=== PATIENT | female | born 1950 | race Caucasian/White ===

== ENCOUNTER 2022-08-02 09:54 | Outpatient (OUT) | payer MEDICARE, SELFPAY ==
[2022-08-02 10:50] LABS: Basophils Percent Auto 0.7 % (0.2-2.0); Eosinophils Absolute Auto 0.1 10^3/uL (0.0-0.7); Eosinophils Percent Auto 2.4 % (0.9-7.0); Hematocrit 41.6 % (36.0-48.0); Hemoglobin 13.2 g/dL (12.0-16.0); Immature Granulocytes Abs Auto 0.01 10^3/uL (0.00-0.03); Immature Granulocytes Pct Auto 0.2 % (0.0-0.5); Lymphocytes Absolute Auto 1.5 10^3/uL (1.2-3.8); Lymphocytes Percent Auto 32.9 % (20.5-60.0); Mean Corpuscular HGB Conc 31.7 g/dL (29.9-35.2); Mean Corpuscular Hemoglobin 28.2 pg (26.7-34.0); Mean Corpuscular Volume 88.9 fL (81.0-99.0); Mean Platelet Volume 9.9 fL (9.5-13.5); Monocytes Absolute Auto 0.4 10^3/uL (0.3-0.8); Monocytes Percent Auto 8.6 % (1.7-12.0); Neutrophils Absolute Auto 2.5 10^3/uL (1.4-6.5); Neutrophils Percent Auto 55.2 % (43.0-75.0); Platelet Count 232 10^3/uL (150-450); Red Blood Count 4.68 10^6/uL (4.20-5.40); Red Cell Distribution Width 13.3 % (11.0-15.0); White Blood Count 4.6 10^3/uL (4.0-11.0)
[2022-08-02 10:51] LABS: Estimated Average Glucose 169 mg/dL; Glycohemoglobin A1C 7.5 % (4.5-6.2)
[2022-08-02 13:06] LABS: Alanine Aminotransferase 35 U/L (14-59); Albumin Globulin Ratio 1.1; Albumin Level 3.9 g/dL (3.4-5.0); Alkaline Phosphatase 84 U/L (46-116); Anion Gap 12.5; Aspartate Amino Transferase 20 U/L (15-37); BUN Creatinine Ratio 19.8; Bilirubin Total 1.7 mg/dL (0.2-1.0); Carbon Dioxide 27.7 mmol/L (21.0-32.0); Chloride 102 mmol/L (98-107); Estimated GFR (African America 51 (>=60); Estimated GFR (Non-African Ame 42 (>=60); Free T3 1.45 pg/mL (2.18-3.98); Globulin 3.4 g/dL; Glucose 182 mg/dL (74-106); Potassium 4.2 mmol/L (3.5-5.1); Sodium 138 mmol/L (136-145); Thyroid Stimulating Hormone 0.764 uIU/mL (0.358-3.740); Total Protein 7.3 g/dL (6.4-8.2)
== END 2022-08-02 09:55 ==
PROVIDERS: PCP Family Medicine; Visit Provider Family Medicine
DX: R53.83 Other fatigue (principal); R19.7 Diarrhea, unspecified; R19.5 Other fecal abnormalities; E11.65 Type 2 diabetes mellitus with hyperglycemia
CPT/HCPCS: 36415; 80053; 83036; 83880; 84436; 84443; 84481; 85025

== ENCOUNTER 2022-08-04 16:35 | Outpatient (REF) | payer MEDICARE, SELFPAY ==
[2022-08-05 16:01] LABS: Occult Blood Negative
== END 2022-08-04 16:36 ==
LOC: LAB 16:35
PROVIDERS: PCP Family Medicine; Visit Provider Nurse Practitioner Family
DX: R53.83 Other fatigue (principal); R19.7 Diarrhea, unspecified; R19.5 Other fecal abnormalities
CPT/HCPCS: G0328

== ENCOUNTER 2022-08-26 10:38 | Outpatient (OUT) | payer MEDICARE, SELFPAY ==
--- NOTE | 2022-08-26 10:44 | MM_ITS ---
Patient: LEIA FLEMING Exam Date: 08/26/2022 : 1950 Gender:F Ordering : DR Franklyn Torres . Admission #: [id number] Family : Order #: [id number] CLICK HERE TO VIEW EXAM RADIOLOGY REPORT PROCEDURE: MM TOMOSYNTHESIS SCREENING BI COMPARISON: MG MAMM SCREEN 3D EMILY CAD, 08/17/2020. MG MAMM SCREEN 3D EMILY CAD, 08/22/2021. INDICATIONS: Screening mammogram Z12.31 Calculator Name NCI Breast Cancer Risk Assessment Tool 5 Year Breast Cancer Risk 8.30% Lifetime Breast Cancer Risk 21.20% Personal Breast Cancer No Personal Ovarian Cancer No Treatments excision Family Cancers Sister with breast cancer at age 40; Sister with breast cancer at age 50. LOCATION: The [facility] BREAST COMPOSITION: Scattered areas fibroglandular density. FINDINGS: DIAGNOSTIC CATEGORY 2--BENIGN FINDING. NO CHANGE FROM COMPARISON. Scattered benign-appearing calcifications are present. Scattered benign-appearing lymph nodes are present. RIGHT BREAST: No significant suspicious finding. LEFT BREAST: No significant suspicious finding. RECOMMENDATIONS: ROUTINE MAMMOGRAM AND CLINICAL EVALUATION IN 12 MONTHS. PLEASE NOTE: A NORMAL MAMMOGRAM DOES NOT EXCLUDE THE POSSIBILITY OF BREAST CANCER. A CLINICALLY SUSPICIOUS PALPABLE LUMP SHOULD BE BIOPSIED. Dictated by: Sami Rasmussen MD on 08/26/2022 at 14:20 Approved by: Sami Rasmussen MD on 08/26/2022 at 14:23
== END 2022-08-26 10:39 | disposition home or self-care (01) ==
LOC: MAMMO 10:38
PROVIDERS: PCP Family Medicine; Visit Provider Family Medicine
DX: Z12.31 Encounter for screening mammogram for malignant neoplasm of breast (principal); Z80.3 Family history of malignant neoplasm of breast
CPT/HCPCS: 77063; 77067

== ENCOUNTER 2023-01-16 11:10 | Outpatient (OUT) | payer MEDICARE, SELFPAY ==
[2023-01-16 11:43] LABS: Eosinophils Absolute Auto 0.1 10^3/uL (0.0-0.7); Eosinophils Percent Auto 1.6 % (0.9-7.0); Hematocrit 40.9 % (36.0-48.0); Hemoglobin 13.1 g/dL (12.0-16.0); Lymphocytes Absolute Auto 1.4 10^3/uL (1.2-3.8); Lymphocytes Percent Auto 35.7 % (20.5-60.0); Mean Corpuscular Hemoglobin 28.6 pg (26.7-34.0); Mean Corpuscular Volume 89.3 fL (81.0-99.0); Mean Platelet Volume 9.8 fL (9.5-13.5); Monocytes Absolute Auto 0.2 10^3/uL (0.3-0.8); Neutrophils Absolute Auto 2.1 10^3/uL (1.4-6.5); Neutrophils Percent Auto 55.7 % (43.0-75.0); Platelet Count 222 10^3/uL (150-450); Red Blood Count 4.58 10^6/uL (4.20-5.40); Red Cell Distribution Width 13.3 % (11.0-15.0); White Blood Count 3.8 10^3/uL (4.0-11.0)
[2023-01-16 11:53] LABS: Ammonia 27 umol/L (11-32)
[2023-01-16 11:54] LABS: Estimated Average Glucose 146 mg/dL; Glycohemoglobin A1C 6.7 % (4.5-6.2)
[2023-01-16 12:08] LABS: Alanine Aminotransferase 21 U/L (14-59); Albumin Globulin Ratio 1.2; Albumin Level 3.8 g/dL (3.4-5.0); Alkaline Phosphatase 79 U/L (46-116); Anion Gap 14.6; Aspartate Amino Transferase 15 U/L (15-37); BUN Creatinine Ratio 22.8; Bilirubin Total 1.9 mg/dL (0.2-1.0); Calcium 9.4 mg/dL (8.5-10.1); Carbon Dioxide 26.7 mmol/L (21.0-32.0); Chloride 103 mmol/L (98-107); Cholesterol 122 mg/dL (<=200); Estimated GFR (African America >60 (>=60); Estimated GFR (Non-African Ame >60 (>=60); Free T3 2.39 pg/mL (2.18-3.98); Globulin 3.1 g/dL; Glucose 130 mg/dL (74-106); HDL Cholesterol 41 mg/dL (40-60); Potassium 4.3 mmol/L (3.5-5.1); Sodium 140 mmol/L (136-145); Thyroid Stimulating Hormone 0.143 uIU/mL (0.358-3.740); Total Protein 6.9 g/dL (6.4-8.2); Triglycerides 159 mg/dL (<=150); VLDL CHOLESTEROL 31.8 mg/dL
== END 2023-01-16 11:11 | disposition home or self-care (01) ==
LOC: LAB 11:12
PROVIDERS: PCP Family Medicine; Visit Provider Family Medicine
DX: R41.3 Other amnesia (principal); E03.9 Hypothyroidism, unspecified; I25.10 Atherosclerotic heart disease of native coronary artery without angina pectoris; E78.5 Hyperlipidemia, unspecified; R73.09 Other abnormal glucose; D64.9 Anemia, unspecified; E55.9 Vitamin D deficiency, unspecified; I11.0 Hypertensive heart disease with heart failure; I50.30 Unspecified diastolic (congestive) heart failure
CPT/HCPCS: 36415; 80053; 80061; 82140; 82306; 83036; 83540; 83880; 84436; 84443; 84481; 85025

== ENCOUNTER 2023-02-03 12:27 | Outpatient (OUT) | payer MEDICARE, SELFPAY ==
--- NOTE | 2023-02-03 | MR_ITS ---
The [address] [address] Patient Name: LEIA FLEMING MRN: [id number] date: 1950 Sex: F Assigned Patient Location: MRI Current Patient Location: MRI Accession/Order Number: [id number] Exam Date: 02/03/2023 12:55 Report Date: 02/03/2023 14:04 At the request of: JACKY LAKHANI Procedure: MR head/brain wo con EXAM: MRI of the brain without IV contrast. REASON FOR EXAM: R41.3 memory loss, confusion COMPARISON: CT scan dated 08/17/2020 FINDINGS: No intracranial masses. No abnormal restricted diffusion or evidence of evolving infarct. No evidence of intracranial hemorrhage. No hydrocephalus. Mild generalized cerebral and cerebellar volume loss. Minimal small vessel gliosis. Paranasal sinuses and mastoid air cells are clear. Remainder unremarkable. MR/MR head/brain wo con IMPRESSION: 1. Mild cerebral volume loss and small vessel gliosis. 2. Otherwise unremarkable brain MRI. Electronically authenticated by: NAMAN CROFT Date: 02/03/2023 14:04
== END 2023-02-03 12:28 | disposition home or self-care (01) ==
LOC: MRI 12:27
PROVIDERS: PCP Family Medicine; Visit Provider Family Medicine
DX: R41.3 Other amnesia (principal)
CPT/HCPCS: 70551

== ENCOUNTER 2023-03-24 10:56 | Emergency (ER) | payer MEDICARE, SELFPAY ==
[2023-03-24 11:03] VITALS: BP 148/88; PULSE 48; RESP 16; TEMP 36.6; O2SAT 100; BMI 28.4
--- OUTSIDE RECORDS SUMMARY | 2023-03-24 11:12 | XMS_ITS | CCD ---
Author Name Unknown Address [address] [facility] [address] [place] [address] Organization [facility] Care Team Providers Care Junior Brand Manager Name Role Phone Jacky Torres MD Primary Care Provider [phone] Darrel RAUSCH, Amy Unavailable LESVIA, DR RICO Admitting Unavailable HOY, DR RICO Attending Unavailable HOY, DR RICO Primary Care Unavailable HOY, DR RICO Primary Care Unavailable HOY, DR RICO Admitting Unavailable HOY, DR RICO Attending Unavailable HOY, DR RICO Admitting Unavailable HOY, DR RICO Attending Unavailable HOY, DR RICO Consulting Unavailable HOY, DR RICO Primary Care Unavailable ALTON, DR KWABENA Rutledge Consulting Unavailable HOY, DR RICO Admitting Unavailable HOY, DR RICO Attending Unavailable HOY, DR RICO Consulting Unavailable HOY, DR RICO Primary Care Unavailable HOY, DR RICO Admitting Unavailable HOY, DR RICO Attending Unavailable HOY, DR RICO Consulting Unavailable HOY, DR RICO Primary Care Unavailable ZIEBER, DR BRANNON Jean-Baptiste Consulting Unavailable CRUZGINA Consulting Unavailable HOY, DR RICO Consulting Unavailable HOY, DR RICO Admitting Unavailable HOY, DR RICO Attending Unavailable HOY, DR RICO Primary Care Unavailable HOY, DR RICO Primary Care Unavailable HOY, DR RICO Consulting Unavailable HOY, DR RICO Admitting Unavailable LESVIA, DR RICO Attending Unavailable Jacky Torres MD Primary Care Provider [phone] Amy Barger MD Unavailable JACKY TORRSE Primary Care Unavailable AMY BARGER Attending Unavailable AMY BARGER Referring Unavailable JACKY TORRES Primary Care Unavailable AMY BARGER Referring Unavailable JACKY TORRES Primary Care Unavailable JACKY TORRES Primary Care Unavailable AMY BARGER Attending Unavailable AMY BARGER Referring Unavailable JACKY TORRES Primary Care Unavailable JACKY TORRES Primary Care Unavailable AMY BARGER Referring Unavailable JACKY TORRES Primary Care Unavailable AMY BARGER Referring Unavailable KATHERINE CAN Attending Unavailable Allergies Allergy Classification Reported Allergen(s) Allergy Type Date of Onset Reaction(s) Facility (4 sources) Codeine; Translations: [CODEINE] Drug Allergy 9 Other: See Comments [facility] (4 sources) Sulfonamides (Antibiotic); Translations: [SULFA (SULFONAMIDE ANTIBIOTICS)] Drug Allergy 8 Shortness of Breath [facility] (4 sources) traMADol; Translations: [TRAMADOL] Drug Allergy 1 GI Upset [facility] (5 sources) Tuberculin Ppd Geneva Test; Translations: [Tuberculin PPD Geneva Test] Drug Allergy 2 Rash [facility] (1 source) Codeine Drug Allergy [facility] (1 source) Glutathione Drug Allergy [facility] (1 source) traMADol Drug Allergy [facility] Medications Current Medications Medication Drug Class(es) Dates Sig (Normalized) Sig (Original) perflutren lipid microspheres 1.3 mL in NaCl (PF) 0.9% 10 mL injection (DEFINITY) (3 sources) Start: 01-04-2021 End: 04-05-2022 perflutren lipid microspheres 1.3 mL in NaCl (PF) 0.9% 10 mL injection (DEFINITY) Start: 11-21-2020 End: 02-20-2022 perflutren lipid microsphere s 1.3 mL in NaCl (PF) 0.9% 10 mL injection (DEFINITY) 125 ml sodium chloride 9 mg/ ml prefilled syringe (3 sources) Start: 11-21-2020 End: 04-05-2022 sodium chloride 0.9 % (flush ) 10 mL (BD POSIFLUSH) Completed/Discontinued Medications Medication Drug Class(es) Dates Sig (Normalized) Sig (Original) aspirin 81 mg delayed release oral tablet (3 sources) Platelet Aggregation Inhibitor, Nonsteroidal Anti-inflammatory Drug take 1 tablet by mouth every twenty-four hours aspirin, enteric coated (ASPIRIN, ENTERIC COATED) 81 mg EC tablet Take 81 mg by mouth q 24 HR. 0 Active Comment on above: Take 81 mg by mouth q 24 HR. diclofenac sodium 75 mg delayed release oral tablet (1 source) Nonsteroidal Anti-inflammatory Drug take 1 tablet by mouth once daily diclofenac, EC, (VOLTAREN) 75 mg EC tablet Take 75 mg by mouth once daily. 0 Active Comment on above: Take 75 mg by mouth once daily. ergocalciferol 1.25 mg oral capsule (1 source) Provitamin D2 Compound Start: 10-15-2020 End: 09-13-2021 ergocalciferol 50,000 unit capsule (VITAMIN D2, DRISDOL) Every other week take one tablet 0 10/15/2020 09/13/2021 Discontinued (Discontinued by Patient) Comment on above: Every other week silvestre e one tablet glimepiride 4 mg oral tablet (3 sources) Sulfonylurea take 1 tablet by mouth once daily glimepiride (AMARYL) 4 mg tablet Take 4 mg by mouth once daily. 0 Active take 1 tablet by mouth twice alma ly glimepiride (AMARYL) 4 mg tablet Take 4 mg by mouth twice daily. 0 Active Comment on above: Take 4 mg by mouth t wice daily. Take 4 mg by mouth o nce daily. levothyroxine sodium 0.1 mg oral tablet (3 sources) l-Thyroxine take 1 tablet by mouth every twenty-four hours levothyroxine (SYNTHROID) 100 mcg tablet Take 100 mcg by mouth q 24 HR. 0 Active Comment on above: Take 100 mcg by mout h q 24 HR. losartan potassium 25 mg oral tablet (3 sources) Angiotensin 2 Receptor Selam Start: End: 023 losartan (COZAAR) 25 mg tablet metFORMIN hydrochloride 1000 mg oral tablet (3 sources) Biguanide take 1 tablet by mouth twice daily metFORMIN (GLUCOPHAGE) 1,000 mg tablet Take 1,000 mg by mouth twice daily. 0 Active Comment on above: Take 1,000 mg by josue th twice daily. pioglitazone 15 mg oral tablet (1 source) Peroxisome Proliferator Receptor alpha Agonist, Peroxisome Proliferator Receptor gamma Agonist, Thiazolidinedione Start: 023 pioglitazone (ACTOS) 15 mg tablet twice daily. 0 06/28/2022 Active Comment on above: twice daily. rosuvastatin calcium 40 mg oral tablet (3 sources) HMG-CoA Reductase Inhibitor Start: 019 take 1 tablet by mouth once daily rosuvastatin (CRESTOR) 40 mg tablet Take 40 mg by mouth once daily. 0 12/07/2018 Active Comment on above: Take 40 mg by mouth once daily. sertraline 25 mg oral tablet (3 sources) Serotonin Reuptake Inhibitor Start: 019 take 1 tablet by mouth once daily sertraline (ZOLOFT) 25 mg tablet Take 25 mg by mouth once daily. 0 12/07/2018 Active Comment on above: Take 25 mg by mouth once daily. tiZANidine 4 mg oral tablet (1 source) Central alpha-2 Adrenergic Agonist tiZANidine (ZANAFLEX) 4 mg tablet Take 4 mg by mouth as needed. 0 Active Comment on above: Take 4 mg by mouth a s needed. Problems Active Problems Problem Classification Problem Date Documented Da te Episodic/Chronic Coronary atherosclerosis and other heart disease (10 sources) Coronary atherosclerosis; Translations: [Atherosclerotic heart disease of [place] coronary artery without angina pectoris] Onset: 01-05-2021 Chronic Deficiency and other anemia (1 source) Anemia, unspecified; Translations: [ANEMIA UNSPECIFIED] Onset: 03-28-2022 Episodic Diabetes mellitus without complication (11 sources) Type 2 diabetes mellitus without complication; Translations: [Type 2 diabetes mellitus without complications] Onset: 03-25-2018 Chronic Diabetes mellitus without complication (1 source) Other abnormal glucose; Translations: [OTHER ABNORMAL GLUCOSE] Onset: 03-28-2022 Episodic Disorders of lipid metabolism (7 sources) Mixed hyperlipidemia; Translations: [Mixed hyperlipidemia] Onset: 08-24-2020 Chronic Esophageal disorders (1 source) Gastro-esophageal reflux disease without esophagitis; Translations: [GERD WITHOUT ESOPHAGITIS] Onset: 03-28-2022 Chronic Heart valve disorders (17 sources) Aortic incompetence, non-rheumatic ; Translations: [Nonrheumatic aortic (valve) insufficiency] Onset: 01-21-2019 Chronic Nutritional deficiencies (1 source) Vitamin D deficiency, unspecified; Translations: [VITAMIN D DEFICIENCY UNSPECIFIED] Onset: 03-28-2022 Chronic Osteoarthritis (5 sources) Unspecified osteoarthritis, unspecified site; Translations: [Primary osteoarthritis, right shoulder] Onset: 09-10-2021 Chronic Other nutritional; endocrine; and metabolic disorders (3 sources) Obese class I; Translations: [Obesity, unspecified] Onset: 01-21-2019 01-21-2019 Chronic Other nutritional; endocrine; and metabolic disorders (1 source) Overweight; Translations: [OVERWEIGHT] Onset: 03-28-2022 Episodic Other screening for suspected conditions (not mental disorders or infectious disease) (6 sources) Encounter for screening for malignant neoplasm of rectum; Translations: [Encounter for screening mammogram for malignant neoplasm of breast] Onset: 08-27-2021 Episodic Fani-; endo-; and myocarditis; cardiomyopathy (except that caused by tuberculosis or sexually transmitted disease) (5 sources) Heart valve disorder; Translations: [Endocarditis, valve unspecified] Onset: 01-21-2019 01-21-2019 Chronic Thyroid disorders (4 sources) Hypothyroidism, unspecified; Translations: [HYPOTHYROIDISM UNSPECIFIED] Onset: 03-26-2022 Chronic Viral infection (1 source) COVID-19; Translations: [COVID-19] Onset: 05-20-2021 Past or Other Problems Problem Classification Problem Date Documented Da te Episodic/Chronic Acute bronchitis (4 sources) Acute bronchitis, unspecified; Translations: [ACUTE BRONCHITIS UNSPECIFIED] Onset: 05-16-2021 Episodic Cardiac dysrhythmias (3 sources) Palpitations; Translations: [Palpitations] Onset: 01-21-2019 01-21-2019 Episodic Nonspecific chest pain (3 sources) Chest pain; Translations: [Other chest pain] Onset: 08-24-2020 08-24-2020 Episodic Other connective tissue disease (4 sources) Impingement syndrome of right shoulder; Translations: [IMPINGEMENT SYNDROME RIGHT SHOULDER] Onset: 12-23-2021 Episodic Other non-traumatic joint disorders (1 source) Pain in right shoulder; Translations: [PAIN IN RIGHT SHOULDER] Onset: 12-24-2021 Episodic Residual codes; unclassified (1 source) Family history of malignant neoplasm of breast; Translations: [FAMILY HX MALIG NEOPLASM OF BREAST] Onset: 08-27-2021 Episodic Results Test Name Value Interpretation Reference Range Facility Basic metabolic 2000 panelon 08-29-2022 Anion gap [Moles/Vol] 9 mmol/L Normal 9-18 [facility] Comment on above: Order Comment: Speci men Type: BLOOD SPECIMEN Ordering Facility: [facility] Address: [address] [place] [id number] Performed By: #### 2 4321-2 #### [facility] CLIA [id number] [address] [place] [address] [place] Calcium [Mass/Vol] 10.5 mg/dL High 8.5-10.2 [facility] Comment on above: Order Comment: Speci men Type: BLOOD SPECIMEN Ordering Facility: [facility] Address: [address] [address] Performed By: #### 2 4321-2 #### [facility] CLIA [id number] [address] [place] [address] [place] Chloride [Moles/Vol] 104 mmol/L Normal 97-105 [facility] Comment on above: Order Comment: Speci men Type: BLOOD SPECIMEN Ordering Facility: [facility] Address: [address] [place] [address] Performed By: #### 2 4321-2 #### [facility] CLIA [id number] [address] [place] [address] [place] CO2 [Moles/Vol] 27 mmol/L Normal 22-30 [facility] Comment on above: Order Comment: Speci men Type: BLOOD SPECIMEN Ordering Facility: [facility] Address: [address] [place] [address] Performed By: #### 2 4321-2 #### [facility] CLIA [id number] [address] [place] [address] [place] Creatinine [Mass/Vol] 0.84 mg/dL Normal 0.58-0.96 [facility] Comment on above: Order Comment: Speci men Type: BLOOD SPECIMEN Ordering Facility: [facility] Address: [address] [place], [place] [address] Performed By: #### 2 4321-2 #### [facility] CLIA [id number] [address] [place] [address] [place] ESTIMATED GLOMERULAR FILTRATION RATE 74 mL/min/1.73m??? Normal >=60 [facility] Comment on above: Order Comment: Colten sidhu Type: BLOOD SPECIMEN Ordering Facility: [facility] Address: [address] [place] [address] Result Comment: Maria R mated Glomerular Filtration Rate (eGFR) is calculated using the 2020 CKD-EPI creatinine equation. This equation utilizes serum creatinine, sex, and age as parameters. The creatinine assay has traceable calibration to isotope dilution-mass spectrometry. Refer to KDIGO guidelines for clinical interpretation. In patients with unstable renal function, e.g. those with acute kidney injury, the eGFR may not accurately reflect actual GFR. Performed By: #### 2 4321-2 #### [facility] CLIA [id number] [address] [place] [address] [place] Glucose [Mass/Vol] 167 mg/dL High 74-99 [facility] Comment on above: Order Comment: Colten sidhu Type: BLOOD SPECIMEN Ordering Facility: [facility] Address: [address] [address] Result Comment: The [place] [employer] Association (ADA) provides guidance for cutoff values for fasting glucose and random glucose. The ADA defines fasting as no caloric intake for at least 8 hours. Fasting plasma glucose results between 100 to 125 mg/dL indicate increased risk for diabetes (prediabetes). Fasting plasma glucose results greater than or equal to 126 mg/dL meet the criteria for diagnosis of diabetes. In the absence of unequivocal hyperglycemia, results should be confirmed by repeat testing. In a patient with classic symptoms of hyperglycemia or hyperglycemic crisis, random plasma glucose results greater than or equal to 200 mg/dL meet the criteria for diagnosis of diabetes. Reference: Standards of Medical Care in Diabetes 2016, [place] [employer]. Diabetes Care. 2016.39(Suppl 1). Performed By: #### 2 4321-2 #### [facility] CLIA [id number] [address] [place] [address] [place] Potassium [Moles/Vol] 4.1 mmol/L Normal 3.7-5.1 [facility] Comment on above: Order Comment: Colten sidhu Type: BLOOD SPECIMEN Ordering Facility: [facility] Address: [address] [id number] Performed By: #### 2 4321-2 #### [facility] CLIA [id number] [address] [place] [address] [place] Sodium [Moles/Vol] 140 mmol/L Normal 136-144 [facility] Comment on above: Order Comment: Speci men Type: BLOOD SPECIMEN Ordering Facility: [facility] Address: [address] [address] Performed By: #### 2 4321-2 #### [facility] CLIA [id number] [address] [place] [address] [place] Urea nitrogen [Mass/Vol] 18 mg/dL Normal 7-21 [facility] Comment on above: Order Comment: Speci men Type: BLOOD SPECIMEN Ordering Facility: [facility] Address: [address] [place] [address] Performed By: #### 2 4321-2 #### [facility] CLIA [id number] [facility] [address] [place] CNOVon 08-29-2022 CNOV Office Visit (CARIMN ) LEIA MARIE ([id number]) 1950 F Date Time Provider Department 08/29/22 1:30 PM AMY BARGER During your visit today, we recorded the following information about you: Pulse Blood pressure Weight Height 59/minute 140/66 94 kg 1.676 m Amy Baregr MD 08/30/2022 3:22 PM Signed [facility] Department of Cardiovascular Medicine SECTION OF CARDIOVASCULAR IMAGING OUTPATIENT VISIT DATE August 29, 2022 OUTPATIENT VISIT TYPE Established REFERRING PHYSICIAN: SELF CHIEF COMPLAINT: Folow-up of CAD/valvular heart disease. Subjective HISTORY OF PRESENT ILLNESS: Ms. Marie is a 72 year old female who presents today for follow-up. I last reviewed Ms. Marie on September 13, 2021. Ms. Marie has a history of type 2 diabetes mellitus, dyslipidemia and hypothyroidism. Ms. Marie reported that one occasion when she was at her local doctor's office, she was noted to be pale . She was subsequently referred for an ECG and an echocardiogram. The echocardiogram was reported as showing mild to moderate mitral and aortic regurgitation. Apparently, as a result of the echocardiographic findings, she has been commenced on losartan. She was initially prescribed lisinopril, which resulted in cough. Ms. Marie does not have a diagnosed history of hypertension. Ms. Marie has had a history of hypoglycemic episodes in the context of her type 2 diabetes mellitus. It is possible that the prior episode when she was noted to be pale , she was hypoglycemic. 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 At night-time, Ms. Marie reports having the sensation of irregular heartbeats . She does not report chest pain. With heavy exertion, she describes mild shortness of breath and fatigue. Previously, CT coronary angiogram today demonstrates coronary calcifications in the left coronary system, mainly in the LAD (see saved image). It is reported to be at least moderate stenosis, although it is difficult to assess precisely due to calcium blooming. It maybe that the stenosis severity is over-estimated by CT imaging. In the context of abnormal CT coronary angiogram findings, she underwent invasive angiography. This demonstrates overall mild CAD. There is mild proximal LAD disease. Reassuringly, there is no significant coronary lesion detected. Since last review, Ms. Marie has been overall stable from the cardiac perspective. PAST CARDIAC HISTORY: As noted above. PAST MEDICAL HISTORY Diagnosis Date Anxiety Aortic regurgitation mild to moderate per osh Depression Diabetes (HCC) Fibroid tumor right side breast Hyperlipidemia Hypothyroid Skin cancer basal cell-s/p removal on face Tricuspid regurgitation mild to moderate PAST SURGICAL HISTORY Procedure Laterality Date APPENDECTOMY BREAST BIOPSY CARPAL TUNNEL Bilateral CHOLECYSTECTOMY 1983 D+C d/t bleeding issues after TONSILLECTOMY HX TUBAL LIGATION SOCIAL HISTORY Social History Tobacco Use Smoking status: Never Smokeless tobacco: Never Vaping Use Vaping Use: Never used Substance Use Topics Alcohol use: Never Drug use: Never FAMILY HISTORY Problem Relation Age of Onset Heart Attack Mother fatal [place] at age 70 Diabetes Mother Diabetes Father Heart Father bypass at age 60s Heart Attack Father [place] at age 60s other (Other) Father MVA at age 72 Cancer Sister at age 42 other (Other) Brother Cancer Sister breast cancer at age 50 No Known Problems Brother Heart Attack Brother fatal [place] at age 64 other (ulcers) Brother bleeding ulcers other (hepatitis) Brother at age 50 other (liver) Brother Heart Paternal cousin heart failure unsure? ALLERGIES: ALLERGIES Allergen Reactions Sulfa (Sulfonamide * Shortness of Breath Tuberculin Ppd Geneva* Rash Codeine Other: See Comments Chest pain Ultram [Tramadol] GI Upset MEDICATIONS: pioglitazone (ACTOS) 15 mg tablet twice daily. diclofenac, EC, (VOLTAREN) 75 mg EC tablet Take 75 mg by mouth once daily. tiZANidine (ZANAFLEX) 4 mg tablet Take 4 mg by mouth as needed. ACCU-CHEK BEREKET PLUS TEST STRP test strip rosuvastatin (CRESTOR) 40 mg tablet Take 40 mg by mouth once daily. glimepiride (AMARYL) 4 mg tablet Take 4 mg by mouth once daily. levothyroxine (SYNTHROID) 100 mcg tablet Take 100 mcg by mouth q 24 HR. sertraline (ZOLOFT) 25 mg tablet Take 25 mg by mouth once daily. aspirin, enteric coated (ASPIRIN, ENTERIC COATED) 81 mg EC tablet Take 81 mg by mouth q 24 HR. metFORMIN (GLUCOPHAGE) 1,000 mg tablet Take 1,000 mg by mouth twice daily. PHYSICAL EXAMINATION: BP 140/66 Pulse (!) 59 Ht 167.6 cm (5' 6 ) Wt 94 kg (207 lb 4.8 oz) SpO2 100% BMI 33.46 kg/m? General: Well appea (more content not included)... Normal [facility] ECG COMPLETEon 08-29-2022 ECG COMPLETE Ventricular Rate : 5 0 BPM Atrial Rate : 50 BPM P-R Interval : 174 ms QRS Duration : 80 ms Q-T Interval : 442 ms QTC Calculation(Bazett) : 402 ms Calculated P Star : 59 degrees Calculated R Star : -8 degrees Calculated T Star : 42 degrees SINUS BRADYCARDIA WITH MARKED SINUS ARRHYTHMIA OTHERWISE NORMAL ECG Confirmed by NOEL RAUSCH, NADIR ([id number]) on 09/06/2022 10:03:50 AM NAME : LEIA MARIE PID : [id number] : 1950 Gender : Female Race : ORD : [id number] Procedure Date : Aug 29 2022 12:55:52 Edit Date : Sep 06 2022 10:03:55 Diagnosis: SINUS BRADYCARDIA WITH MARKED SINUS ARRHYTHMIA OTHERWISE NORMAL ECG Confirmed by NADIR COHEN MD ([id number]) on 09/06/2022 10:03:50 AM Test Reason : Location : [address] [place] [address] Overread By : NADIR COHEN MD Edited By : NADIR COHEN MD Referred By : AMY BARGER Acquired by : YUNIER VALLE [facility] BLD IMMUNO SCREENon 03-03 OCCULT BLOOD Negative Normal NEGATIVE [facility] Comment on above: Performed By: #### O BSCRN #### [facility] [address] [place] [address] Dr. Kym Burks CBC AUTO DIFFon 03-26-2022 BASO # 0.0 103/ul Normal 0.0-0.1 [facility] Comment on above: Performed By: #### C BC #### [facility] [address] [place] [address] Dr. Kym Burks Basophils/100 WBC (Bld) 0.7 % Normal 0.2-2.0 [facility] Comment on above: Performed By: #### C BC #### [facility] [address] [place] [address] Dr. Kym Burks EO # 0.1 103/ul Normal 0.0-0.7 [facility] Comment on above: Performed By: #### C BC #### [facility] [address] [place] [address] Dr. Kym Burks Eosinophils/100 WBC (Bld) 1.7 % Normal 0.9-7.0 [facility] Comment on above: Performed By: #### C BC #### [facility] [address] [place] [address] Dr. Kym Burks Erythrocyte distribution width (RBC) [Ratio] 13.2 % Normal 11.0-15.0 [facility] Comment on above: Performed By: #### C BC #### [facility] [address] [place] [address] Dr. Kym Burks Hematocrit (Bld) [Volume fraction] 41.6 % Normal 36.0-48.0 [facility] Comment on above: Performed By: #### C BC #### [facility] [address] [place] [address] Dr. Kym Burks Hemoglobin (Bld) [Mass/Vol] 12.7 g/dL Normal 12.0-16.0 [facility] Comment on above: Performed By: #### C BC #### [facility] [address] [place] [address] Dr. Kym Burks IG # 0.00 10e3/ul Normal 0.00-0.03 [facility] Comment on above: Performed By: #### C BC #### [facility] [address] [place] [address] Dr. Kym Burks IG % 0.0 % Normal 0.0-0.5 [facility] Comment on above: Performed By: #### C BC #### [facility] [address] [place] [address] Dr. Kym Burks LYMPH # 1.4 103/ul Normal 1.2-3.8 [facility] Comment on above: Performed By: #### C BC #### [facility] [address] [place] [address] Dr. Kym Burks Lymphocytes/100 WBC (Bld) 33.3 % Normal 20.5-60.0 [facility] Comment on above: Performed By: #### C BC #### [facility] [address] [place] [address] Dr. Kym Burks MANUAL DIFF REQ NO Normal [facility] Comment on above: Performed By: #### C BC #### [facility] [address] [place] [address] Dr. Kym Burks MCH (RBC) [Entitic mass] 28.8 pg Normal 26.7-34.0 [facility] Comment on above: Performed By: #### C BC #### [facility] [address] [place] [address] Dr. Kym Burks MCHC (RBC) [Mass/Vol] 30.5 g/dL Normal 29.9-35.2 [facility] Comment on above: Performed By: #### C BC #### [facility] [address] [place] [address] Dr. Kym Burks MCV (RBC) [Entitic vol] 94.3 fL Normal 81.0-99.0 [facility] Comment on above: Performed By: #### C BC #### [facility] [address] [place] [address] Dr. Kym Burks MONO # 0.3 103/ul Normal 0.3-0.8 [facility] Comment on above: Performed By: #### C BC #### [facility] [address] [place] [place] [address] Dr. Kym Burks Monocytes/100 WBC (Bld) 6.7 % Normal 1.7-12.0 [facility] Comment on above: Performed By: #### C BC #### [facility] [address] [place] [address] Dr. Kym Burks NEUT # 2.4 103/ul Normal 1.4-6.5 [facility] Comment on above: Performed By: #### C BC #### [facility] [address] [place] [address] Dr. Kym Burks Neutrophils/100 WBC (Bld) 57.6 % Normal 43.0-75.0 [facility] Comment on above: Performed By: #### C BC #### [facility] [address] [place] [address] Dr. Kym Burks Platelet mean volume (Bld) [Entitic vol] 9.9 fL Normal 9.5-13.5 [facility] Comment on above: Performed By: #### C BC #### [facility] [address] [place] [address] Dr. Kym Burks PLT 221 103/ul Normal 150-450 [facility] Comment on above: Performed By: #### C BC #### [facility] [address] [place] [address] Dr. Kym Burks RBC 4.41 106/ul Normal 4.20-5.40 [facility] Comment on above: Performed By: #### C BC #### [facility] [address] [address] [address] Kym Burks WBC 4.2 103/ul Normal 4.0-11.0 [facility] Comment on above: Performed By: #### C BC #### [facility] [address] [address] [address] Kym Burks FREE THYROXINE INDEX T7on FTI 3.78 Normal 1.30-4.50 [facility] Comment on above: Performed By: #### T SH, CMP, T7, LIPID ####[facility] [address] [address]Dr. Kym Burks T3U 36.0 % Normal 30.0-39.0 [facility] Comment on above: Performed By: #### T SH, CMP, T7, LIPID ####[facility] [address] [address]Dr. Kym Burks T4 [Mass/Vol] 10.50 ug/dL Normal 4.80-13.90 [facility] Comment on above: Performed By: #### T SH, CMP, T7, LIPID ####[facility] [address] [address]Dr. Kym Burks GLYCOHEMOGLOBIN A1Con 2022 ADA RECOMMENDATION SEE BELOW Normal [facility] Comment on above: Result Comment: ADA RECOMMENDED LIMIT 4.0 - 6.0 ADA THERAPEUTIC TARGET < 7.0 ACTION SUGGESTED > 7.0 Performed By: #### A 1C #### [facility] [address] [address] [address] Kym Burks Glucose [Mass/Vol] 148 mg/dL Normal [facility] Comment on above: Performed By: #### A 1C #### [facility] [address] [address] [address] Kym Burks HbA1c (Bld) [Mass fraction] 6.8 % Critically high 4.5-6.2 [facility] Comment on above: Performed By: #### A 1C #### [facility] [address] [place], [place] [address] Dr. Kym Burks IRONon 03-26-2022 Iron [Mass/Vol] 72.0 ug/dL Normal 50.0-170.0 [facility] Comment on above: Performed By: #### V ITAD, IRON #### [facility] [id number] Kym Burks LIPID PROFILEon 03-26-2022 CHOL-HDL RATIO NORM SEE BELOW Normal [facility] Comment on above: Result Comment: 3.3 - 4.4 LOW RISK 4.4 - 7.1 AVERAGE RISK 7.1 - 11.0 MODERATE RISK >11.0 HIGH RISK Performed By: #### T SH, CMP, T7, LIPID ####[facility] [address] [phone]. Kym Burks Cholesterol [Mass/Vol] 126 mg/dL Normal <=200 [facility] Comment on above: Performed By: #### T SH, CMP, T7, LIPID ####[facility] [address] [phone]. Kym Burks Cholesterol in HDL [Mass/Vol] 47 mg/dL Normal 40-60 [facility] Comment on above: Performed By: #### T SH, CMP, T7, LIPID ####[facility] [address] [phone]. Kym Burks Cholesterol in LDL [Mass/Vol] 56.8 mg/dL Normal [facility] Comment on above: Performed By: #### T SH, CMP, T7, LIPID ####[facility] [address] [phone]. Kym Burks Cholesterol.total/Ch olesterol in HDL [Mass ratio] 2.7 {ratio} Normal [facility] Comment on above: Performed By: #### T SH, CMP, T7, LIPID ####[facility] [address] [phone]. Kym Burks HDL NORMAL > or = 60 mg/dl - LO W CARDIOVASCULAR RISK <40 mg/dl - HIGH CARDIOVASCULAR RISK Normal [facility] Comment on above: Performed By: #### T SH, CMP, T7, LIPID ####[facility] [address] [address]Dr. Kym Burks LDL CALC NORMAL SEE BELOW Normal [facility] Comment on above: Result Comment: <100 mg/dl OPTIMAL 100 - 129 mg/dl NEAR OR ABOVE OPTIMAL 130 - 159 mg/dl BORDERLINE HIGH 160 - 189 mg/dl HIGH >190 mg/dl VERY HIGH Performed By: #### T SH, CMP, T7, LIPID ####[facility] [address] [phone]. Kym Burks Triglyceride [Mass/Vol] 111 mg/dL Normal <=150 [facility] Comment on above: Performed By: #### T SH, CMP, T7, LIPID ####[facility] [address] [address]Dr. Kym Burks VLDL CALC 22.2 mg/dL Normal [facility] Comment on above: Performed By: #### T SH, CMP, T7, LIPID ####[facility] [address] [address]Dr. Kym Burks PROF 14(COMP METB)on 023 Albumin [Mass/Vol] 3.9 g/dL Normal 3.4-5.[address] [facility] Comment on above: Performed By: #### T SH, CMP, T7, LIPID ####[facility] [address] [address]Dr. Kym Burks Albumin/Globulin [Mass ratio] 1.3 {ratio} Normal [facility] Comment on above: Performed By: #### T SH, CMP, T7, LIPID ####[facility] [address] [phone]. Kym Burks ALP [Catalytic activity/Vol] 80 U/L Normal 46-116 [facility] Comment on above: Performed By: #### T SH, CMP, T7, LIPID ####[facility] [address] [phone]. Kym Burks ALT [Catalytic activity/Vol] 28 U/L Normal 14-59 [facility] Comment on above: Performed By: #### T SH, CMP, T7, LIPID ####[facility] [address] [address]Dr. Kym Burks Anion gap [Moles/Vol] 10.6 mmol/L Normal [facility] Comment on above: Performed By: #### T SH, CMP, T7, LIPID ####[facility] [address] [address]Dr. Kym Burks AST [Catalytic activity/Vol] 21 U/L Normal 15-37 [facility] Comment on above: Performed By: #### T SH, CMP, T7, LIPID ####[facility] [address] [place], [place] [address]Dr. Kym Burks Bilirubin [Mass/Vol] 1.3 mg/dL Critically high 0.2-1.0 [facility] Comment on above: Performed By: #### T SH, CMP, T7, LIPID ####[facility] [address] [place], [place] [address]Dr. Kym Burks Calcium [Mass/Vol] 10.0 mg/dL Normal 8.5-10.[address] [facility] Comment on above: Performed By: #### T SH, CMP, T7, LIPID ####[facility] [address] [address]Dr. Kym Burks Chloride [Moles/Vol] 104 mmol/L Normal 98-107 [facility] Comment on above: Performed By: #### T SH, CMP, T7, LIPID ####[facility] [address] [address]Dr. Kym Burks CO2 [Moles/Vol] 28.8 mmol/L Normal 21.0-32.0 [facility] Comment on above: Performed By: #### T SH, CMP, T7, LIPID ####[facility] [address] [address]Dr. Kym Burks Creatinine [Mass/Vol] 0.74 mg/dL Normal 0.55-1.02 [facility] Comment on above: Performed By: #### T SH, CMP, T7, LIPID ####[facility] [address] [phone]. Kym Burks EGFR-AF NIUEAN >60 Normal >=60 [facility] Comment on above: Performed By: #### T SH, CMP, T7, LIPID ####[facility] [address] [phone]. Kym Burks EGFR-NON AF NIUEAN >60 Normal >=60 [facility] Comment on above: Performed By: #### T SH, CMP, T7, LIPID ####[facility] [address] [address]Dr. Kym Burks Globulin (S) [Mass/Vol] 3.1 g/dL Normal [facility] Comment on above: Performed By: #### T SH, CMP, T7, LIPID ####[facility] [address] [address]Dr. Kym Bursk Glucose [Mass/Vol] 143 mg/dL Critically high 74-[address] [facility] Comment on above: Performed By: #### T SH, CMP, T7, LIPID ####[facility] [address] [place], [place] [address]Dr. Kym Burks Potassium [Moles/Vol] 4.4 mmol/L Normal 3.5-5.1 [facility] Comment on above: Performed By: #### T SH, CMP, T7, LIPID ####[facility] [address] [address]Dr. Kym Burks Protein [Mass/Vol] 7.0 g/dL Normal 6.4-8.[address] [facility] Comment on above: Performed By: #### T SH, CMP, T7, LIPID ####[facility] [address] [address]Dr. Kym Burks Sodium [Moles/Vol] 139 mmol/L Normal 136-[address] [facility] Comment on above: Performed By: #### T SH, CMP, T7, LIPID ####[facility] [address] [address]Dr. Kym Burks Urea nitrogen [Mass/Vol] 26.0 mg/dL Critically high 7.0-18.0 [facility] Comment on above: Performed By: #### T SH, CMP, T7, LIPID ####[facility] [address] [phone]. Kym Burks Urea nitrogen/Creatinine [Mass ratio] 35.1 mg/mg Normal [facility] Comment on above: Performed By: #### T SH, CMP, T7, LIPID ####[facility] [address] [phone]. Kym Burks TSHon 03-26-2022 TSH 0.288 uIU/mL Critically low 0.358-3.740 [facility] Comment on above: Performed By: #### T SH, CMP, T7, LIPID ####[facility] [address] [phone]. Kym Burks VITAMIN D 25 OHon 03-26-2022 VIT D 25-OH 60.0 ng/mL Normal [facility] Comment on above: Performed By: #### V ITJASON, IRON #### [facility] [address] [address] [address] Kym Burks VIT D RANGES SEE BELOW Normal [facility] Comment on above: Result Comment: <20 ng/mL Vit D deficient 20 - <30 ng/mL Vit D insufficient 30 - 100 ng/mL Vit D sufficient >100 ng/mL Potential Toxicity Performed By: #### V ITJASON, IRON #### [facility] [address] [address] [address] Kym Burks CBC panel Auto (Bld)on 09-13 Erythrocyte distribution width (RBC) [Ratio] 13.2 % Normal 11.5-15.0 [facility] Comment on above: Order Comment: Speci men Type: BLOOD SPECIMEN Ordering Facility: [facility] Address: [address] [place], [place] [address] Performed By: #### 5 8410-2 #### [facility] CLIA [id number] [address] [place] [address] OF [facility] Hematocrit (Bld) [Volume fraction] 40.8 % Normal 36.0-46.0 [facility] Comment on above: Order Comment: Speci men Type: BLOOD SPECIMEN Ordering Facility: [facility] Address: [address] [place] [address] Performed By: #### 5 8410-2 #### [facility] CLIA [id number] [address] [place] [address] [place] Hemoglobin (Bld) [Mass/Vol] 13.2 g/dL Normal 11.5-15.5 [facility] Comment on above: Order Comment: Speci men Type: BLOOD SPECIMEN Ordering Facility: [facility] Address: [address] [place] [address] Performed By: #### 5 8410-2 #### [facility] CLIA [id number] [address] [place] [address] [place] MCH (RBC) [Entitic mass] 28.5 pg Normal 26.0-34.0 [facility] Comment on above: Order Comment: Speci men Type: BLOOD SPECIMEN Ordering Facility: [facility] Address: [address] [place] [address] Performed By: #### 5 8410-2 #### [facility] CLIA [id number] [address] [place] [address] [place] MCHC (RBC) [Mass/Vol] 32.4 g/dL Normal 30.5-36.0 [facility] Comment on above: Order Comment: Speci men Type: BLOOD SPECIMEN Ordering Facility: [facility] Address: [address] [place] [address] Performed By: #### 5 8410-2 #### [facility] CLIA [id number] [address] [place] [address] [place] MCV (RBC) [Entitic vol] 88.1 fL Normal 80.0-100.0 [facility] Comment on above: Order Comment: Speci men Type: BLOOD SPECIMEN Ordering Facility: [facility] Address: [address] [place] [address] Performed By: #### 5 8410-2 #### [facility] CLIA [id number] [address] [place] [address] [place] Nucleated RBC (Bld) [#/Vol] 10*3/uL Normal <0.01 [facility] Comment on above: Order Comment: Speci men Type: BLOOD SPECIMEN Ordering Facility: [facility] Address: [address] [place] [address] Performed By: #### 5 8410-2 #### [facility] CLIA [id number] [address] [place] [address] [place] Platelet mean volume (Bld) [Entitic vol] 10.1 fL Normal 9.0-12.7 [facility] Comment on above: Order Comment: Speci men Type: BLOOD SPECIMEN Ordering Facility: [facility] Address: [address] [place] [address] Performed By: #### 5 8410-2 #### [facility] CLIA [id number] [address] [place] [address] [place] Platelets (Bld) [#/Vol] 251 10*3/uL Normal 150-400 [facility] Comment on above: Order Comment: Speci men Type: BLOOD SPECIMEN Ordering Facility: [facility] Address: [address] [place] [address] Performed By: #### 5 8410-2 #### [facility] CLIA [id number] [address] [place] [address] [place] RBC (Bld) [#/Vol] 4.63 10*6/uL Normal 3.90-5.20 [facility] Comment on above: Order Comment: Speci men Type: BLOOD SPECIMEN Ordering Facility: [facility] Address: [address] [place] [address] Performed By: #### 5 8410-2 #### [facility] CLIA [id number] [address] [place] [address] [place] WBC (Bld) [#/Vol] 6.57 10*3/uL Normal 3.70-11.00 [facility] Comment on above: Order Comment: Speci men Type: BLOOD SPECIMEN Ordering Facility: [facility] Address: [address] [place] [address] Performed By: #### 5 8410-2 #### [facility] CLIA [id number] [address] [place] [address] OF [place] CNOVon 09-13-2021 CNOV Office Visit (HAZEL ) LEIA MARIE ([id number]) 1950 F Date Time Provider Department 09/13/21 2:30 PM AMY BARGER During your visit today, we recorded the following information about you: Pulse Blood pressure Weight Height 54/minute 138/55 82.1 kg 1.676 m Amy Barger MD 09/13/2021 9:33 PM [facility] Department of Cardiovascular Medicine SECTION OF CARDIOVASCULAR IMAGING OUTPATIENT VISIT DATE September 13, 2021 OUTPATIENT VISIT TYPE Established REFERRING PHYSICIAN: SELF CHIEF COMPLAINT: Folow-up. Subjective HISTORY OF PRESENT ILLNESS: Ms. Marie is a 71 year old female who presents today for follow-up. I last reviewed Ms. Marie on January 04, 2021. Ms. Marie has a history of type 2 diabetes mellitus, dyslipidemia and hypothyroidism. Ms. Marie reported that one occasion when she was at her local doctor's office, she was noted to be pale . She was subsequently referred for an ECG and an echocardiogram. The echocardiogram was reported as showing mild to moderate mitral and aortic regurgitation. Apparently, as a result of the echocardiographic findings, she has been commenced on losartan. She was initially prescribed lisinopril, which resulted in cough. Ms. Marie does not have a diagnosed history of hypertension. Ms. Marie has had a history of hypoglycemic episodes in the context of her type 2 diabetes mellitus. It is possible that the prior episode when she was noted to be pale , she was hypoglycemic. 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 At night-time, Ms. Marie reports having the sensation of irreuglar heartbeats . She does not report chest pain. With heavy exertion, she describes mild shortness of breath and fatigue. Previously, CT coronary angiogram today demonstrates coronary calcifications in the left coronary system, mainly in the LAD (see saved image). It is reported to be at least moderate stenosis, although it is difficult to assess precisely due to calcium blooming. It maybe that the stenosis severity is over-estimated by CT imaging. In the context of abnormal CT coronary angiogram findings, she underwent invasive angiography. This demonstrates overall mild CAD. There is mild proximal LAD disease. Reassuringly, there is no significant coronary lesion detected. Since last review, Ms. Marie and her suffered from Covid-19. She has recovered from it. PAST CARDIAC HISTORY: As noted above. PAST MEDICAL HISTORY Diagnosis Date - Anxiety - Aortic regurgitation mild to moderate per osh - Depression - Diabetes (HCC) - Fibroid tumor right side breast - Hyperlipidemia - Hypothyroid - Skin cancer basal cell-s/p removal on face - Tricuspid regurgitation mild to moderate PAST SURGICAL HISTORY Procedure Laterality Date - APPENDECTOMY - BREAST BIOPSY - CARPAL TUNNEL Bilateral - CHOLECYSTECTOMY 1983 - D+C d/t bleeding issues after - TONSILLECTOMY HX - TUBAL LIGATION SOCIAL HISTORY Social History Tobacco Use - Smoking status: Never Smoker - Smokeless tobacco: Never Used Vaping Use - Vaping Use: Never used Substance Use Topics - Alcohol use: Never - Drug use: Never FAMILY HISTORY Problem Relation Age of Onset - Heart Attack Mother fatal [place] at age 70 - Diabetes Mother - Diabetes Father - Heart Father bypass at age 60s - Heart Attack Father [place] at age 60s - other (Other) Father MVA at age 72 - Cancer Sister at age 42 - other (Other) Brother - Cancer Sister breast cancer at age 50 - No Known Problems Brother - Heart Attack Brother fatal [place] at age 64 - other (ulcers) Brother bleeding ulcers - other (hepatitis) Brother at age 50 - other (liver) Brother - Heart Paternal cousin heart failure unsure? ALLERGIES: ALLERGIES Allergen Reactions - Sulfa (Sulfonamide * Shortness of Breath - Tuberculin Ppd [place]* Rash - Codeine Other: See Comments Chest pain - Ultram [Tramadol] GI Upset MEDICATIONS: ACCU-CHEK BEREKET PLUS TEST STRP test strip losartan (COZAAR) 25 mg tablet rosuvastatin (CRESTOR) 40 mg tablet Take 40 mg by mouth once daily. glimepiride (AMARYL) 4 mg tablet Take 4 mg by mouth twice daily. levothyroxine (SYNTHROID) 100 mcg tablet Take 100 mcg by mouth q 24 HR. sertraline (ZOLOFT) 25 mg tablet Take 25 mg by mouth once daily. aspirin, enteric coated (ASPIRIN, ENTERIC COATED) 81 mg EC tablet Take 81 mg by mouth q 24 HR. metFORMIN (GLUCOPHAGE) 1,000 mg tablet Take 1,000 mg by mouth twice daily. PHYSICAL EXAMINATION: BP 138/55 Pulse (!) 54 Ht 167.6 cm (5' 6 ) Wt 82.1 kg (181 lb) SpO2 100% BMI 29.21 kg/m? General: Well appearing, in no acute distress. Skin: No clubbing, no cyanosis. Eyes: Extra ocular (more content not included)... Normal [facility] Comprehensive metabolic 2000 panelon 09-13-2021 Albumin [Mass/Vol] 4.2 g/dL Normal 3.9-4.9 [facility] Comment on above: Order Comment: Speci men Type: BLOOD SPECIMEN Ordering Facility: [facility] Address: [address] [place], [place] [address] Performed By: #### 2 4323-8, 93560-7 #### [facility] CLIA [id number] [address] [place] [address] [place] [facility] ALP [Catalytic activity/Vol] 85 U/L Normal 34-123 [facility] Comment on above: Order Comment: Speci men Type: BLOOD SPECIMEN Ordering Facility: [facility] Address: [address] [place], [place] [address] Performed By: #### 2 4323-8, 64206-1 #### [facility] CLIA [id number] [address] [place] ALT [Catalytic activity/Vol] 45 U/L High 7-38 [facility] Comment on above: Order Comment: Speci men Type: BLOOD SPECIMEN Ordering Facility: [facility] Address: [address] [place], [place] [address] Performed By: #### 2 4323-8, 32199-8 #### [facility] CLIA [id number] [address] [place] [address] [place] Anion gap [Moles/Vol] 10 mmol/L Normal 9-18 [facility] Comment on above: Order Comment: Speci men Type: BLOOD SPECIMEN Ordering Facility: [facility] Address: [address] [place] [address] Performed By: #### 2 4323-8, 62410-2 #### [facility] CLIA [id number] [address] [place] [address] [place] AST [Catalytic activity/Vol] 36 U/L High 13-35 [facility] Comment on above: Order Comment: Speci men Type: BLOOD SPECIMEN Ordering Facility: [facility] Address: [address] [place], [place] [address] Performed By: #### 2 4323-8, 33147-8 #### [facility] CLIA [id number] [address] [place] [address] [place] Bilirubin [Mass/Vol] 0.9 mg/dL Normal 0.2-1.3 [facility] Comment on above: Order Comment: Speci men Type: BLOOD SPECIMEN Ordering Facility: [facility] Address: [address] [place], [place] [address] Performed By: #### 2 4323-8, 29254-0 #### [facility] CLIA [id number] [address] [place] [address] [place] Calcium [Mass/Vol] 10.4 mg/dL High 8.5-10.2 [facility] Comment on above: Order Comment: Speci men Type: BLOOD SPECIMEN Ordering Facility: [facility] Address: [address] [place] [address] Performed By: #### 2 4323-8, 46773-4 #### [facility] CLIA [id number] [address] [place] [address] [place] Chloride [Moles/Vol] 103 mmol/L Normal 97-105 [facility] Comment on above: Order Comment: Speci men Type: BLOOD SPECIMEN Ordering Facility: [facility] Address: [address] [place] [address] Performed By: #### 2 4323-8, 91279-8 #### [facility] CLIA [id number] [address] [place] [address] [place] CO2 [Moles/Vol] 25 mmol/L Normal 22-30 [facility] Comment on above: Order Comment: Speci men Type: BLOOD SPECIMEN Ordering Facility: [facility] Address: [address] [place] [address] Performed By: #### 2 4323-8, 11065-5 #### [facility] CLIA [id number] [address] [place] [address] [place] Creatinine [Mass/Vol] 0.90 mg/dL Normal 0.58-0.96 [facility] Comment on above: Order Comment: Speci men Type: BLOOD SPECIMEN Ordering Facility: [facility] Address: [address] [place], [place] [address] Performed By: #### 2 4323-8, 60563-5 #### [facility] CLIA [id number] [address] [place] [address] [place] ESTIMATED GLOMERULAR FILTRATION RATE 69 mL/min/1.73m??? Normal >=60 [facility] Comment on above: Order Comment: Colten sidhu Type: BLOOD SPECIMEN Ordering Facility: [facility] Address: [address] [place] [address] Result Comment: Maria R mated Glomerular Filtration Rate (eGFR) is calculated using the 2020 CKD-EPI creatinine equation. This equation utilizes serum creatinine, sex, and age as parameters. The creatinine assay has traceable calibration to isotope dilution-mass spectrometry. Refer to KDIGO guidelines for clinical interpretation. In patients with unstable renal function, e.g. those with acute kidney injury, the eGFR may not accurately reflect actual GFR. Performed By: #### 2 4323-8, 72604-3 #### [facility] CLIA [id number] [address] [place] [address] [place] Glucose [Mass/Vol] 159 mg/dL High 74-99 [facility] Comment on above: Order Comment: Colten sidhu Type: BLOOD SPECIMEN Ordering Facility: [facility] Address: [address] [place] [address] Result Comment: The [place] Diabetes Association (ADA) provides guidance for cutoff values for fasting glucose and random glucose. The ADA defines fasting as no caloric intake for at least 8 hours. Fasting plasma glucose results between 100 to 125 mg/dL indicate increased risk for diabetes (prediabetes). Fasting plasma glucose results greater than or equal to 126 mg/dL meet the criteria for diagnosis of diabetes. In the absence of unequivocal hyperglycemia, results should be confirmed by repeat testing. In a patient with classic symptoms of hyperglycemia or hyperglycemic crisis, random plasma glucose results greater than or equal to 200 mg/dL meet the criteria for diagnosis of diabetes. Reference: Standards of Medical Care in Diabetes 2016, [place] [employer] Association. Diabetes Care. 2016.39(Suppl 1). Performed By: #### 2 4323-8, 83839-6 #### [facility] CLIA [id number] [address] [place] [address] [place] Potassium [Moles/Vol] 4.5 mmol/L Normal 3.7-5.1 [facility] Comment on above: Order Comment: Speci men Type: BLOOD SPECIMEN Ordering Facility: [facility] Address: [address] [place], [place] [address] Performed By: #### 2 4323-8, 12400-8 #### [facility] CLIA [id number] [address] [place] [address] [place] Protein [Mass/Vol] 6.8 g/dL Normal 6.3-8.0 [facility] Comment on above: Order Comment: Speci men Type: BLOOD SPECIMEN Ordering Facility: [facility] Address: [address] [place] [address] Performed By: #### 2 4323-8, 52849-0 #### [facility] CLIA [id number] [address] [place] [address] [place] Sodium [Moles/Vol] 138 mmol/L Normal 136-144 [facility] Comment on above: Order Comment: Speci men Type: BLOOD SPECIMEN Ordering Facility: [facility] Address: [address] [place] [address] Performed By: #### 2 4323-8, 60188-9 #### [facility] CLIA [id number] [address] [place] [address] [place] Urea nitrogen [Mass/Vol] 24 mg/dL High 7-21 [facility] Comment on above: Order Comment: Speci men Type: BLOOD SPECIMEN Ordering Facility: [facility] Address: [address] [place] [address] Performed By: #### 2 4323-8, 42467-0 #### [facility] CLIA [id number] [address] [place] [address] [place] ECHOon 09-13-2021 Echocardiography Echocardiography Report: Transthoracic Echo [facility] J1-5 Date of service: 09/13/2021 12:35:55 PM [employer] PERSON Ordering physician: AMY BARGER Indication: Routine surveillance of mild valvular regurgitation (>3yrs) Technologist: Sangita Jaime Interpreting physician: Reginald Mendoza MD PATIENT: Name: LEIA MARIE : 1950 Age: 71 years Gender: F Primary rhythm: sinus. Height: 167.60 cm BSA: 2.01 m? Weight: 86.91 kg BMI: 30.9 kg/m? Heart rate 47 bpm Blood pressure 120/68 mmHg Color Doppler was utilized to interrogate the cardiac valves assessed and spectral Doppler was utilized to determine the flow velocities and pressure gradients reported in this exam. MEASUREMENTS: Value Indexed Normal Max aortic dimension 3.4 cm Ao < 3.8 Left atrial volume 58 ml (biplane A-L) 29 ml/m? Angelo <= 34 LV ID (diastole) 4.6 cm (2D) 2.29 cm/m? LV ID (systole) 3.1 cm (2D) 1.54 cm/m? IVS, leaflet tips 0.6 cm (2D) Posterior wall thickness 0.8 cm (2D) Left ventricular mass 97 g (2D) 48 g/m? LV stroke volume 57 ml (2D biplane) LV end diastolic volume 93 ml (2D biplane) 46.2 ml/m? 29<=EDVi<62 LV end systolic volume 36 ml (2D biplane) 17.8 ml/m? Ejection Fraction 61 % (2D biplane) EF > 54 FINDINGS: LEFT VENTRICLE The left ventricle is normal in size. Left ventricular systolic function is normal. Grade I left ventricular diastolic dysfunction. Mitral annular lateral E/e': 16.8. Mitral annular septal E/e': 16.8. Wall Motion: All scored segments are normal. RIGHT VENTRICLE The right ventricle is normal in size. Right ventricular systolic function is normal. RV systolic tissue Doppler velocity is 19.0 cm/s. Tricuspid annular displacement is 2.2 cm. Estimated right ventricular systolic pressure is likely underestimated due to a weak or incomplete tricuspid regurgitation signal and is, at least, 37 mmHg consistent with mild pulmonary hypertension. Estimated right atrial pressure is 3 mmHg based on IVC assessment. LEFT ATRIUM The left atrial cavity is normal in size. RIGHT ATRIUM The right atrial cavity is normal in size. Inferior Vena Cava: The inferior vena cava appears normal measuring 1.5 cm. The vessel decreases greater than 50 percent with inspiration. MITRAL VALVE There is mild mitral annular calcification observed posterior. There is trace (trace - 1+) mitral valve regurgitation. There is mild thickening. The pressure half time is 47 msec. The peak mitral E/A ratio is 0.99. The average mitral E/e' ratio is 16.8. The mitral flow deceleration time is 162 msec. TRICUSPID VALVE The tricuspid valve leaflets are structurally normal. There is mild (1+) tricuspid valve regurgitation. AORTIC VALVE There is mild (1+) aortic valve regurgitation. Tricuspid aortic valve. There is mild thickening. PULMONIC VALVE The pulmonic valve cusps are structurally normal. There is trace pulmonic valve regurgitation. AORTA The visualized aorta is normal in size. Measurements - Sinus: 3.4 cm. Mid ascending aorta 3.2 cm. PULMONARY ARTERIES The pulmonary arteries are unseen or not interrogated. INTERATRIAL SEPTUM There is no evidence of intracardiac shunting as detected by Doppler. INTERVENTRICULAR SEPTUM There is no flow through the interventricular septum as detected by Doppler. PERICARDIUM There is no pericardial effusion. There is an epicardial fat pad. CONCLUSIONS: - Exam indication: Routine surveillance of mild valvular regurgitation (>3yrs) - The left ventricle is normal in size. Left ventricular systolic function is normal. EF = 61 ? 5% (2D biplane) - The right ventricle is normal in size. Right ventricular systolic function is normal. - Exam was compared with the prior echocardiographic exam performed on 08/24/2020. No major change * * * Final * * * [employer] : [id number] micsSISUID Normal [facility] Lipid 1996 panelon 2 Cholesterol [Mass/Vol] 123 mg/dL Normal <200 [facility] Comment on above: Order Comment: Speci men Type: BLOOD SPECIMEN Ordering Facility: [facility] Address: [address] [place] [address] Result Comment: <200 mg/dL, Desirable 200-239 mg/dL, Borderline high >239 mg/dL, High Performed By: #### 2 4323-8, 06373-6 #### [facility] CLIA [id number] [address] OF [facility] Cholesterol in HDL [Mass/Vol] 39 mg/dL Low >39 [facility] Comment on above: Order Comment: Colten sidhu Type: BLOOD SPECIMEN Ordering Facility: [facility] Address: [address] [place] [address] Result Comment: 40-5 9 mg/dL, Acceptable >59 mg/dL, High: Negative risk factor for coronary heart disease <40 mg/dL, Low: Positive risk factor for coronary heart disease Performed By: #### 2 4323-8, 54420-9 #### [facility] CLIA [id number] [address] [place] [address] Cholesterol in LDL [Mass/Vol] 63 mg/dL Normal <100 [facility] Comment on above: Order Comment: Colten sidhu Type: BLOOD SPECIMEN Ordering Facility: [facility] Address: [address] [place] [address] Result Comment: <100 mg/dL, Optimal 100-129 mg/dL, Near optimal/above optimal 130-159 mg/dL, Borderline high 160-189 mg/dL, High >189 mg/dL, Very high Secondary prevention optimal LDL Cholesterol levels are recommended to be < 70 mg/dL Performed By: #### 2 4323-8, 52587-9 #### [facility] CLIA [id number] [address] [place] [address] Cholesterol in LDL/Cholesterol in HDL [Mass ratio] 1.62 {ratio} Normal <2.54 [facility] Comment on above: Order Comment: Colten nahum Type: BLOOD SPECIMEN Ordering Facility: [facility] Address: [address] [place] [address] Result Comment: Refleisa capps: 1. National Cholesterol Education Program ATP III Guideline At-A-Glance Quick Desk Reference: National Heart, Lung, and Blood [place]. National Institutes of Health. 2001: NIH Publication No. 01-3305. 2. An International Atherosclerosis Society position paper: global recommendations for the management of dyslipidemia: executive summary, Atherosclerosis. 2014: 232(2):410-413. Performed By: #### 2 4323-8, 91754-2 #### [facility] CLIA [id number] [address] [place] [address] [place] Cholesterol in VLDL [Mass/Vol] 21 mg/dL Normal <30 [facility] Comment on above: Order Comment: Speci men Type: BLOOD SPECIMEN Ordering Facility: [facility] Address: [address] [place] [address] Performed By: #### 2 4323-8, 96439-7 #### [facility] CLIA [id number] [address] [place] [address] [place] Cholesterol non HDL [Mass/Vol] 84 mg/dL Normal <130 [facility] Comment on above: Order Comment: Speci men Type: BLOOD SPECIMEN Ordering Facility: [facility] Address: [address] [place] [address] Result Comment: <130 mg/dL, Optimal 130-159 mg/dL, Near optimal/above optimal 160-189 mg/dL, Borderline high 190-219 mg/dL, High >219 mg/dL, Very high Secondary prevention optimal non HDL Cholesterol levels are recommended to be <100 mg/dL Performed By: #### 2 4323-8, 34347-1 #### [facility] CLIA [id number] [address] [place] [address] [place] Cholesterol.total/Ch olesterol in HDL [Mass ratio] 3.15 {ratio} Normal <5.10 [facility] Comment on above: Order Comment: Speci men Type: BLOOD SPECIMEN Ordering Facility: [facility] Address: [address] [place], [place] [address] Performed By: #### 2 4323-8, 43810-1 #### [facility] CLIA [id number] [address] [place] [address] [place] FASTING TIME 12 hrs Normal [facility] Comment on above: Order Comment: Speci men Type: BLOOD SPECIMEN Ordering Facility: [facility] Address: [address] [place] [address] Performed By: #### 2 4323-8, 00759-9 #### [facility] CLIA [id number] [address] [place] [address] Triglyceride [Mass/Vol] 103 mg/dL Normal <150 [facility] Comment on above: Order Comment: Speci men Type: BLOOD SPECIMEN Ordering Facility: [facility] Address: [address] [place] [address] Result Comment: <150 mg/dL, Normal 150-199 mg/dL, Borderline high 200-499 mg/dL, High >499 mg/dL, Very high Performed By: #### 2 4323-8, 99502-8 #### [facility] CLIA [id number] [address] [place] [address] [place] XR SHOULDER RT INJon 022 XR SHOULDER RT INJ EXAMINATION: XR SHOULDER RT INJ HISTORY: 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 TECHNIQUE: An arthrogram was performed under fluoroscopic guidance using non-ionic contrast material in the usual sterile manner after obtaining informed consent. Standard level fluoroscopic mode of operation utilized. FINDINGS: JOINT: Right shoulder NEEDLE: 25 gauge, 3.5 spinal needle. MEDICATION: 3cc buffered 1% lidocaine for subcutaneous anesthesia 2cc Omnipaque-240 iodinated contrast to visualize the joint space 40 mg Depo-Medrol and one mL, 3 mL's of 0.5% bupivacaine, 3 cc of sterile saline injected into the joint space. TECHNIQUE: Anterior approach. A single stick was successful in gaining access to the joint space. CLINICAL: 4 out of 10 pain before the procedure. 0 out of 10 following injection. COMPLICATIONS: None. BONES: No fracture or dislocation. Degenerative changes of the acromioclavicular and glenohumeral joints. OTHER: Negative. IMPRESSION: Technically successful right shoulder arthroplasty with complete resolution of pain Electronically authenticated by: KWABENA LEDESMA Date: 2021-09-10 14:56 Normal [facility] MG MAMM SCREEN 3D EMILY CADon 08-22-2021 MG MAMM SCREEN 3D EMILY CAD Patient: LEIA MARIE Exam Date: 08/22/2021 : 1950 Gender:F Ordering : DR JACKY TORRES . Admission #: [id number] Family : Order #: [id number] CLICK HERE TO VIEW EXAM RADIOLOGY REPORT PROCEDURE: MAMMOGRAM SCREENING 3D BILATERAL CAD COMPARISON: MG MAMM SCREEN 3D EMILY CAD, 08/17/2020. MG MAMM SCREEN EMILY W CAD, 08/17/2019. INDICATIONS: Screening mammography Calculator Name NCI Breast Cancer Risk Assessment Tool 5 Year Breast Cancer Risk 8.20% Lifetime Breast Cancer Risk 22.10% Personal Breast Cancer No Personal Ovarian Cancer No Treatments excision Family Cancers Sister with breast cancer at age 40; Sister with breast cancer at age 50. LOCATION: [facility] BREAST COMPOSITION: Scattered areas fibroglandular density. FINDINGS: DIAGNOSTIC CATEGORY 2--BENIGN FINDING: RIGHT BREAST: No significant suspicious finding. Scattered benign-appearing calcifications are present. No significant change has occurred. LEFT BREAST: No significant suspicious finding. Scattered benign-appearing calcifications are present. No significant change has occurred. RECOMMENDATIONS: ROUTINE MAMMOGRAM AND CLINICAL EVALUATION IN 12 MONTHS. PLEASE NOTE: A NORMAL MAMMOGRAM DOES NOT EXCLUDE THE POSSIBILITY OF BREAST CANCER. A CLINICALLY SUSPICIOUS PALPABLE LUMP SHOULD BE BIOPSIED. Dictated by: Brannon Samson M.D. on 08/22/2021 at 13:03 Approved by: Brannon Samson M.D. on 08/22/2021 at 13:22 Normal [facility] XR SHOULDER RT 2V or >on XR SHOULDER RT 2V or > EXAM: XR SHOULDER RT 2V or > HISTORY: Impingement syndrome of shoulder region Exam: XR SHOULDER RT 2V or > Clinical Indication: Impingement syndrome of shoulder region. Comparison: None. FINDINGS: The 3 views of the shoulder show normal alignment at the glenohumeral joint. There are no fractures or dislocations. The acromioclavicular joint and coracoclavicular spaces are narrowed with osteophyte formation the acromion and coracoid processes appear unremarkable The visualized scapula and clavicle are unremarkable. There are no radiopaque foreign bodies or soft tissue swelling. If there is further concern, followup radiographs or MRI of the shoulder may be performed for complete assessment. IMPRESSION: 1. No fractures or dislocations of the right shoulder. Moderate arthritic changes are noted. Electronically authenticated by: GINA CRUZ Date: 2021-08-22 12:24 Normal [facility]30 SARS-CoV-2 (COVID-19) RNA SILVESTRE+probe Ql (Unsp spec) Detected Critically abnormal NOT DETECTED [facility] Comment on above: Result Comment: This test is not yet approved or cleared by the [place] FDA. When there are no FDA-approved or cleared tests available, and other criteria are met, FDA can make tests available under an emergency access mechanism called an Emergency Use Authorization (EUA). The EUA for this test is supported by the [place] of Health and Human Service's (HHS's) declaration that circumstances exist to justify the emergency use of in vitro diagnostics for the detection and/or diagnosis of the virus that causes COVID-19. This EUA will remain in effect (meaning this test can be used) for the duration of the COVID-19 declaration justifying emergency of IVDs, unless it is terminated or revoked by FDA (after which the test may no longer be used). Performed By: #### C VDTBH #### [facility] [address] [place] [address] Dr. Kym Burks INFLUENZA A AND B AGon 05-16 [facility] SEE BELOW Normal [facility] Comment on above: Result Comment: Nega tive for Flu A protein angiten. Infection due to Flu A cannot be ruled out. Flu A angiten in the sample may be below the detection limit of the test. Performed By: #### I NFLUAB #### [facility] [address] [place] [address] Dr. [facility] Normal [facility] Comment on above: Result Comment: Nega tive for Flu B protein antigen. Infection due to Flu B cannot be ruled out. Flu B antigen in the sample may be below the detection limit of the test. Performed By: #### I NFLUAB #### [facility] [address] [place] [address] Dr. Kym Burks INFLUENZA A AG Negative Normal NEGATIVE SEE COMMENT [facility] Comment on above: Performed By: #### I NFLUAB #### [facility] [address], [place] [address] Dr. Kym Burks INFLUENZA B AG Negative Normal NEGATIVE SEE COMMENT [facility] Comment on above: Performed By: #### I NFLUAB #### [facility] [address] [place] [address] [address] Kym Burks INTERNAL CONTROLS Within Normal Limits Normal Wi thin Normal Limits [facility] Comment on above: Performed By: #### I NFLUAB #### [facility] [address] [address] [address] Kym Burks Vital Signs Date Time Vital Sign Value Performing Clinician Faci lity 08-29-2022 14:02-0400 Diastolic blood pressure 66 mm[Hg] Amy Barger MD Work Phone: [facility] 08-29-2022 14:02-0400 Systolic blood pressure 140 mm[Hg] Amy Barger MD Work Phone: [facility] 08-29-2022 13:55-0400 Body height 167.6 cm Amy Barger MD Work Phone: [facility] 08-29-2022 13:55-0400 Body weight 94.03 kg Amy Barger MD Work Phone: [facility] 08-29-2022 13:55-0400 Heart rate 59 /min Amy Barger MD Work Phone: [facility] 08-29-2022 13:55-0400 SaO2% (BldA) [Mass fraction] 100 % Amy Barger MD Work Phone: [facility] 09-13-2021 14:38-0400 Body height 167.6 cm Amy Barger MD Work Phone: [facility] 09-13-2021 14:38-0400 Body weight 82.1 kg Amy Barger MD Work Phone: [facility] 09-13-2021 14:38-0400 Diastolic blood pressure 55 mm[Hg] Amy Barger MD Work Phone: [facility] 09-13-2021 14:38-0400 Heart rate 54 /min Amy Barger MD Work Phone: [facility] 09-13-2021 14:38-0400 SaO2% (BldA) [Mass fraction] 100 % Amy Barger MD Work Phone: [facility] 09-13-2021 14:38-0400 Systolic blood pressure 138 mm[Hg] Amy Barger MD Work Phone: [facility] Encounters Encounter Date Encounter Type Care Provider Facility Start: 02-12-2023 End: 02-12-2023 ambulatory KATHERINE CAN Not Available Start: 08-29-2022 End: 08-30-2022 ambulatory JACKY TORRES Facility:[facility] Start: 08-29-2022 End: 08-29-2022 Patient encounter procedure Amy Barger MD Work Phone: Cardiology Comment on above: Nonrheumatic aortic valve insufficiency (Primary Dx); 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; Mixed hyperlipidemia; Valvular heart disease; 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 (HCC); Type 2 diabetes mellitus without complication, without long-term current use of insulin (HCC) Start: 03-31-2022 End: 04-01-[address] JACKY TORRES Facility:[facility] Start: 03-29-2022 End: 03-30-[address] JACKY TORRES Facility:[facility] Start: 03-26-2022 End: 03-27-[address] JACKY TORRES Facility:[facility] Start: 03-10-2022 Orders Only Amy Barger MD Work Phone: Cardiology Comment on above: Nonrheumatic aortic valve insufficiency (Primary Dx) Start: 12-23-2021 End: 01-29-[address] JACKY TORRES Facility:[facility] Start: 09-13-2021 End: 09-14-2021 ambulatory JACKY TORRES Facility:[facility] Start: 09-13-2021 End: 09-13-2021 Patient encounter procedure Amy Barger MD Work Phone: Cardiology Comment on above: Nonrheumatic aortic valve insufficiency (Primary Dx); Nonrheumatic mitral valve regurgitation; Nonrheumatic tricuspid valve regurgitation; Mixed hyperlipidemia; 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; Type 2 diabetes mellitus without complication, without long-term current use of insulin (HCC) Start: 09-13-2021 End: 09-14-2021 ambulatory AMY BARGER Facility:[facility] Start: 09-10-2021 End: 09-10-[address] JACKY TORRES Facility:[facility] Start: 08-22-2021 End: 08-23-[address] JACKY TORRES Facility:[facility] Start: 05-16-2021 End: 05-16-[address] JACKY TORRES Facility:[facility] Plan of Treatment Date Care Activity Detail Author Start: 08-13-2023 End: 10-13-2023 CBC panel - Blood by Automated count CBC Lab Routine Nonrheumatic aortic valve insufficiency Expected: 08/13/2023, Expires: 10/13/2023 [facility] Work Phone: Comment on above: Expected: 08/13/2023 , Expires: 10/13/2023 Start: 08-13-2023 End: 10-13-2023 Comprehensive metabolic 2000 panel - Serum or Plasma COMP METABOLIC PANEL Lab Routine Nonrheumatic aortic valve insufficiency Expected: 08/13/2023, Expires: 10/13/2023 [facility] Work Phone: Comment on above: Expected: 08/13/2023 , Expires: 10/13/2023 Start: 08-13-2023 End: 10-13-2023 Lipid 1996 panel - Serum or Plasma LIPID PANEL BASIC Lab Routine Nonrheumatic aortic valve insufficiency Expected: 08/13/2023, Expires: 10/13/2023 [facility] Work Phone: Comment on above: Expected: 08/13/2023 , Expires: 10/13/2023 Start: 10-31-2022 Influenza vaccination INFLUENZA (#1) [facility] Start: 09-13-2022 Hepatitis B surface antibody level LDL CHOLESTEROL [facility] Start: 08-29-2022 End: 08-29-2022 Basic metabolic 2000 panel - Serum or Plasma BASIC METABOLIC PNL Lab Routine Nonrheumatic aortic valve insufficiency Expected: 08/29/2022, Expires: 08/29/2022 [facility] Work Phone: Comment on above: Expected: 08/29/2022 , Expires: 08/29/2022 Start: 03-02-2022 ADVANCE DIRECTIVE DISCUSSION ADVANCE DIRECTIVE DISCUSSION [facility] Start: 03-02-2022 DEPRESSION ASSESSMENT DEPRESSION ASS ESSMENT [facility] Start: 10-31-2021 Influenza vaccination INFLUENZA (#1) [facility] Start: 09-13-2021 End: 11-13-2021 CBC panel - Blood by Automated count CBC Lab Routine Nonrheumatic aortic valve insufficiency Expected: 09/13/2021, Expires: 11/13/2021 [facility] Work Phone: Comment on above: Expected: 09/13/2021 , Expires: 11/13/2021 Start: 09-13-2021 End: 11-13-2021 Comprehensive metabolic 2000 panel - Serum or Plasma COMP METABOLIC PANEL Lab Routine Nonrheumatic aortic valve insufficiency Expected: 09/13/2021, Expires: 11/13/2021 [facility] Work Phone: Comment on above: Expected: 09/13/2021 , Expires: 11/13/2021 Start: 09-13-2021 End: 11-13-2021 Lipid 1996 panel - Serum or Plasma LIPID PANEL BASIC Lab Routine Nonrheumatic aortic valve insufficiency Expected: 09/13/2021, Expires: 11/13/2021 [facility] Work Phone: Comment on above: Expected: 09/13/2021 , Expires: 11/13/2021 Start: 08-02-2021 COVID-19 VACCINE (5 - Booster for Pfizer series) COVID-19 VACCINE (5 - Booster for Pfizer series) [facility] Start: 03-02-2021 ADVANCE DIRECTIVE DISCUSSION ADVANCE DIRECTIVE DISCUSSION [facility] Start: 06-30-2016 BONE DENSITY BONE DENSITY [facility] Start: 06-30-2001 SHINGRIX VACCINE (1 of 2) SHINGRIX VACCINE (1 of 2) [facility] Start: 06-30-1996 COLOGUARD (FIT-DNA) COLOGUARD (FIT-D NA) [facility] Start: 06-30-1996 Colonoscopy COLONOSCOPY [facility] Start: 06-30-1996 COLORECTAL CANCER SCREENING COLORECTAL CANCER SCREENING [facility] Start: 06-30-[address] [facility] Start: 06-30-1996 FECAL OCCULT BLOOD FECAL OCCULT BLOO D [facility] Start: 06-30-1996 [facility] Start: 1991 Mammography MAMMOGRAM [facility] Start: 06-30-1970 Urine microalbumin profile DTAP,TDAP,TD (1 - Tdap) [facility] Start: 06-30-1969 ANNUAL PCP TEAM FOOD SPECIALIST NAOMI DISEASE VISIT ANNUAL PCP TEAM CHRONIC DISEASE VISIT [facility] Start: 06-30-1969 HEPATITIS C SCREENING HEPATITIS C SC REENING [facility] Start: 1963 Adult depression screening assessment DEPRESSION SCREENING [facility] Start: 06-30-1961 3 comp foot exam completed DIABETIC FOOT EXAM [facility] Start: 06-30-1961 Hepatitis B screening URINE ALBUMIN:CREATININE RATIO [facility] Start: 06-30-1961 Hepatitis C antibody , confirmatory test DILATED RETINAL EXAM [facility] Start: 06-30-1957 PNEUMOCOCCAL: 65+ (1 - PCV) PNEUMOCOCCAL: 65+ (1 - PCV) [facility] Start: 06-30-1956 Hemoglobin A1c/Hemoglobin.total in Blood HBA1C [facility] End: 03-10-2023 ECG COMPLETE ECG COMPLETE ECG Routine Nonrheumatic aortic valve insufficiency 1 Occurrences starting 03/10/2022 until 03/10/2023 [facility] Work Phone: Comment on above: 1 Occurrences starti ng 03/10/2022 until 03/10/2023 [facility] c Payers Date Payer Category Payer Medicare HU[employer]NA MEDICARE HU[employer]NA GOLD PLUS [id number] 2017-Present [phone] [id number] [place] [id number] O [id number] 2017 Medicare HUMANA MEDICARE HU[employer]NA GOLD PLUS [id number] 2017-Present [phone] [address] [address] [place] [address] HMO [id number] 1958 Medicare [id number] 1950 Unknown [id number] 1950 Unknown [id number] 1950 Unknown [id number] 1950 Unknown [id number] 1950 Unknown [id number] 1950 Unknown [id number] 1950 Unknown [id number] 1950 Unknown [id number] Social History Date Type Detail Facility Start: 01-21-2019 End: 08-29-2022 Tobacco smoking status MDIS Never smoked tobacco [facility] Start: 01-21-2019 End: 08-29-2022 Tobacco use and exposure Smokeless tobacco non-user [facility] Start: 09-13-2021 End: 08-29-2022 Alcohol intake Lifetime non-drinker (finding) [facility] Start: 01-21-2019 History SDOH Alcohol Frequency 1 [facility] Start: 1950 Sex Assigned At Not on file [facility] Start: 09-03-2021 End: 09-13-2021 Exposure to SARS-CoV-2 (event) Not sure [facility] Medical Equipment Procedure Code Equipment Code Equipment Origin al Text Equipment Identifier Dates ACCU-CHEK BEREKET PLUS TEST STRP test strip Start: 10-23-2020 Clinical Notes 05-19-2018 to 08-29-2022 Patient InstructionsAmy Barger MD - 08/29/2022 1:30 PM EDTBlele Barger MD - 09/13/2021 2:30 PM EDT Note Date & Type Note Facility 08-29-2022 Note HNO ID: [id number] Author: Amy Barger MD Service: ? Author Type: Physician Type: Progress Notes Filed: 08/30/2022 3:22 PM Note Text: [facility] Department of Cardiovascular Medicine SECTION OF CARDIOVASCULAR IMAGING OUTPATIENT VISIT DATE August 29, 2022 OUTPATIENT VISIT TYPE Established REFERRING PHYSICIAN: SELF CHIEF COMPLAINT: Folow-up of CAD/valvular heart disease. Subjective HISTORY OF PRESENT ILLNESS: Ms. Marie is a 72 year old female who presents today for follow-up. I last reviewed Ms. Marie on September 13, 2021. Ms. Marie has a history of type 2 diabetes mellitus, dyslipidemia and hypothyroidism. Ms. Marie reported that one occasion when she was at her local doctor's office, she was noted to be pale . She was subsequently referred for an ECG and an echocardiogram. The echocardiogram was reported as showing mild to moderate mitral and aortic regurgitation. Apparently, as a result of the echocardiographic findings, she has been commenced on losartan. She was initially prescribed lisinopril, which resulted in cough. Ms. Marie does not have a diagnosed history of hypertension. Ms. Marie has had a history of hypoglycemic episodes in the context of her type 2 diabetes mellitus. It is possible that the prior episode when she was noted to be pale , she was hypoglycemic. 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 At night-time, Ms. Marie reports having the sensation of irregular heartbeats . She does not report chest pain. With heavy exertion, she describes mild shortness of breath and fatigue. Previously, CT coronary angiogram today demonstrates coronary calcifications in the left coronary system, mainly in the LAD (see saved image). It is reported to be at least moderate stenosis, although it is difficult to assess precisely due to calcium blooming. It maybe that the stenosis severity is over-estimated by CT imaging. In the context of abnormal CT coronary angiogram findings, she underwent invasive angiography. This demonstrates overall mild CAD. There is mild proximal LAD disease. Reassuringly, there is no significant coronary lesion detected. Since last review, Ms. Marie has been overall stable from the cardiac perspective. PAST CARDIAC HISTORY: As noted above. PAST MEDICAL HISTORY Diagnosis Date Anxiety Aortic regurgitation mild to moderate per osh Depression Diabetes (HCC) Fibroid tumor right side breast Hyperlipidemia Hypothyroid Skin cancer basal cell-s/p removal on face Tricuspid regurgitation mild to moderate PAST SURGICAL HISTORY Procedure Laterality Date APPENDECTOMY BREAST BIOPSY CARPAL TUNNEL Bilateral CHOLECYSTECTOMY 1983 D+C d/t bleeding issues after TONSILLECTOMY HX TUBAL LIGATION SOCIAL HISTORY Social History Tobacco Use Smoking status: Never Smokeless tobacco: Never Vaping Use Vaping Use: Never used Substance Use Topics Alcohol use: Never Drug use: Never FAMILY HISTORY Problem Relation Age of Onset Heart Attack Mother fatal [place] at age 70 Diabetes Mother Diabetes Father Heart Father bypass at age 60s Heart Attack Father [place] at age 60s other (Other) Father MVA at age 72 Cancer Sister at age 42 other (Other) Brother infant Cancer Sister breast cancer at age 50 No Known Problems Brother Heart Attack Brother fatal [place] at age 64 other (ulcers) Brother bleeding ulcers other (hepatitis) Brother at age 50 other (liver) Brother Heart Paternal cousin heart failure unsure? ALLERGIES: ALLERGIES Allergen Reactions Sulfa (Sulfonamide * Shortness of Breath Tuberculin Ppd [place]* Rash Codeine Other: See Comments Chest pain Ultram [Tramadol] GI Upset MEDICATIONS: pioglitazone (ACTOS) 15 mg tablet twice daily. diclofenac, EC, (VOLTAREN) 75 mg EC tablet Take 75 mg by mouth once daily. tiZANidine (ZANAFLEX) 4 mg tablet Take 4 mg by mouth as needed. ACCU-CHEK BEREKET PLUS TEST STRP test strip rosuvastatin (CRESTOR) 40 mg tablet Take 40 mg by mouth once daily. glimepiride (AMARYL) 4 mg tablet Take 4 mg by mouth once daily. levothyroxine (SYNTHROID) 100 mcg tablet Take 100 mcg by mouth q 24 HR. sertraline (ZOLOFT) 25 mg tablet Take 25 mg by mouth once daily. aspirin, enteric coated (ASPIRIN, ENTERIC COATED) 81 mg EC tablet Take 81 mg by mouth q 24 HR. metFORMIN (GLUCOPHAGE) 1,000 mg tablet Take 1,000 mg by mouth twice daily. PHYSICAL EXAMINATION: BP 140/66 Pulse (!) 59 Ht 167.6 cm (5' 6 ) Wt 94 kg (207 lb 4.8 oz) SpO2 100% BMI 33.46 kg/m? General: Well appearing, in no acute distress. Skin: No clubbing, no cyanosis. Eyes: Extra ocular movements intact Oropharynx: Teeth in good repair. Neck: No jugular venous distention, no carotid bruits, carotids have a normal upstroke. Lungs: Cl (more content not included)... [facility] 08-29-2022 Instructions Amy Barger MD - 08/29/2022 2:29 PM EDT Recommend stopping pioglitazone. documented in this encounter [facility] 08-29-2022 History of Present illness Narrative Images from the original note were not included. [facility] Department of Cardiovascular Medicine SECTION OF CARDIOVASCULAR IMAGING OUTPATIENT VISIT DATE August 29, 2022 OUTPATIENT VISIT TYPE Established REFERRING PHYSICIAN: SELF CHIEF COMPLAINT: Folow-up of CAD/valvular heart disease. Subjective HISTORY OF PRESENT ILLNESS: Ms. Marie is a 72 year old female who presents today for follow-up. I last reviewed Ms. Marie on September 13, 2021. Ms. Marie has a history of type 2 diabetes mellitus, dyslipidemia and hypothyroidism. Ms. Marie reported that one occasion when she was at her local doctor's office, she was noted to be pale . She was subsequently referred for an ECG and an echocardiogram. The echocardiogram was reported as showing mild to moderate mitral and aortic regurgitation. Apparently, as a result of the echocardiographic findings, she has been commenced on losartan. She was initially prescribed lisinopril, which resulted in cough. Ms. Marie does not have a diagnosed history of hypertension. Ms. Marie has had a history of hypoglycemic episodes in the context of her type 2 diabetes mellitus. It is possible that the prior episode when she was noted to be pale , she was hypoglycemic. 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 At night-time, Ms. Marie reports having the sensation of irregular heartbeats . She does not report chest pain. With heavy exertion, she describes mild shortness of breath and fatigue. Previously, CT coronary angiogram today demonstrates coronary calcifications in the left coronary system, mainly in the LAD (see saved image). It is reported to be at least moderate stenosis, although it is difficult to assess precisely due to calcium blooming. It maybe that the stenosis severity is over-estimated by CT imaging. In the context of abnormal CT coronary angiogram findings, she underwent invasive angiography. This demonstrates overall mild CAD. There is mild proximal LAD disease. Reassuringly, there is no significant coronary lesion detected. Since last review, Ms. Marie has been overall stable from the cardiac perspective. PAST CARDIAC HISTORY: As noted above. PAST MEDICAL HISTORY Diagnosis Date Anxiety Aortic regurgitation mild to moderate per osh Depression Diabetes (HCC) Fibroid tumor right side breast Hyperlipidemia Hypothyroid Skin cancer basal cell-s/p removal on face Tricuspid regurgitation mild to moderate PAST SURGICAL HISTORY Procedure Laterality Date APPENDECTOMY BREAST BIOPSY CARPAL TUNNEL Bilateral CHOLECYSTECTOMY 1983 D+C d/t bleeding issues after TONSILLECTOMY HX TUBAL LIGATION SOCIAL HISTORY Social History Tobacco Use Smoking status: Never Smokeless tobacco: Never Vaping Use Vaping Use: Never used Substance Use Topics Alcohol use: Never Drug use: Never FAMILY HISTORY Problem Relation Age of Onset Heart Attack Mother fatal [place] at age 70 Diabetes Mother Diabetes Father Heart Father bypass at age 60s Heart Attack Father [place] at age 60s other (Other) Father MVA at age 72 Cancer Sister at age 42 other (Other) Brother Cancer Sister breast cancer at age 50 No Known Problems Brother Heart Attack Brother fatal [place] at age 64 other (ulcers) Brother bleeding ulcers other (hepatitis) Brother at age 50 other (liver) Brother Heart Paternal cousin heart failure unsure? ALLERGIES: ALLERGIES Allergen Reactions Sulfa (Sulfonamide * Shortness of Breath Tuberculin Ppd [place]* Rash Codeine Other: See Comments Chest pain Ultram [Tramadol] GI Upset MEDICATIONS: pioglitazone (ACTOS) 15 mg tablet twice daily. diclofenac, EC, (VOLTAREN) 75 mg EC tablet Take 75 mg by mouth once daily. tiZANidine (ZANAFLEX) 4 mg tablet Take 4 mg by mouth as needed. ACCU-CHEK BEREKET PLUS TEST STRP test strip rosuvastatin (CRESTOR) 40 mg tablet Take 40 mg by mouth once daily. glimepiride (AMARYL) 4 mg tablet Take 4 mg by mouth once daily. levothyroxine (SYNTHROID) 100 mcg tablet Take 100 mcg by mouth q 24 HR. sertraline (ZOLOFT) 25 mg tablet Take 25 mg by mouth once daily. aspirin, enteric coated (ASPIRIN, ENTERIC COATED) 81 mg EC tablet Take 81 mg by mouth q 24 HR. metFORMIN (GLUCOPHAGE) 1,000 mg tablet Take 1,000 mg by mouth twice daily. PHYSICAL EXAMINATION: BP 140/66 Pulse (!) 59 Ht 167.6 cm (5' 6 ) Wt 94 kg (207 lb 4.8 oz) SpO2 100% BMI 33.46 kg/m General: Well appearing, in no acute distress. Skin: No clubbing, no cyanosis. Eyes: Extra ocular movements intact Oropharynx: Teeth in good repair. Neck: No jugular venous distention, no carotid bruits, carotids have a normal upstroke. Lungs: Clear to auscultation bilaterally. Heart: Regular rhythm, PMI not displaced, S1, S2, no loud murmur. Abdomen: Soft, nontender. Extremities: No peripheral edema. Neuro: Oriented to person, place and time, alert, cooperative, gait coordinated. CARDIOVASCULAR MEDICINE TESTIN. Echocardiogram: 08/24/2020 2. satellite project site monitor: 02/01/2019 to 02/14/[address] coronary angiogram: 11/21/2020 4. Cath angiogram: 01/05/2021 5. Echocardiogram: 09/13/2021 6. Outside echocardiogram: 09/15/2018 7. Outside echocardiogram: 04/29/2004 7. Outside myocardial perfusion study: 09/15/2018 I have personally reviewed the echocardiograms, ekg monitor, coronary CTA and outside cardiac investigations. Outside labs: 08/18/2020 - TC: 89 mg/dL - LDL: 37.8 mg/dL - HDL: 28 mg/dL - TA mg/dL Cholesterol, Total 123 09/13/2021 Cholesterol, Total 124 01/04/2021 HDL Cholesterol 39 09/13/2021 HDL Cholesterol 40 01/04/2021 LDL Cholesterol 63 09/13/2021 LDL Cholesterol 63 01/04/2021 Triglyceride 103 09/13/2021 Triglyceride 105 01/04/2021 Glucose, Point of Care 174 01/04/2021 OSH labs: 06/25/2022 - TC: 126 mg/dL - TRI mg/dL - HDL: 47 mg/dL - LDL: 47 mg/dL Impression/Recommendations IMPRESSION: Ms. Marie is a 72 year old female who presents today for follow-up. Since last review, Ms. Marie has been overall stable from the cardiac perspective. Her fasting lipid control is excellent. Of note, she has been commenced on pioglitazone recently for diabetes. I reviewed the data in detail with Ms. Marie. It is important to maintain optimal ongoing vigilant control of her cardiac risk factors. Due to association of pioglitazone with heart failure, I recommend against this agent. PLAN AND RECOMMENDATIONS: Recommend alternative agent for diabetes management. Recommend stopping pioglitazone due to risk of heart failure. Maintain ongoing healthy lifestyle and diet. Aim for ongoing fasting LDL 70 mg/dL or lower. Follow-up in 12 months with fasting lipid studies and ECG and Echocardiogram. CONTACT INFORMATION: Amy Barger MD documented in this encounter [facility] 09-13-2021 Note HNO ID: [id number] Author: Amy Barger MD Service: ? Author Type: Physician Type: Progress Notes Filed: 09/13/2021 9:33 PM Note Text: [facility] Department of Cardiovascular Medicine SECTION OF CARDIOVASCULAR IMAGING OUTPATIENT VISIT DATE September 13, 2021 OUTPATIENT VISIT TYPE Established REFERRING PHYSICIAN: SELF CHIEF COMPLAINT: Folow-up. Subjective HISTORY OF PRESENT ILLNESS: Ms. Marie is a 71 year old female who presents today for follow-up. I last reviewed Ms. Marie on January 04, 2021. Ms. Marie has a history of type 2 diabetes mellitus, dyslipidemia and hypothyroidism. Ms. Marie reported that one occasion when she was at her local doctor's office, she was noted to be pale . She was subsequently referred for an ECG and an echocardiogram. The echocardiogram was reported as showing mild to moderate mitral and aortic regurgitation. Apparently, as a result of the echocardiographic findings, she has been commenced on losartan. She was initially prescribed lisinopril, which resulted in cough. Ms. Marie does not have a diagnosed history of hypertension. Ms. Marie has had a history of hypoglycemic episodes in the context of her type 2 diabetes mellitus. It is possible that the prior episode when she was noted to be pale , she was hypoglycemic. 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 At night-time, Ms. Marie reports having the sensation of irreuglar heartbeats . She does not report chest pain. With heavy exertion, she describes mild shortness of breath and fatigue. Previously, CT coronary angiogram today demonstrates coronary calcifications in the left coronary system, mainly in the LAD (see saved image). It is reported to be at least moderate stenosis, although it is difficult to assess precisely due to calcium blooming. It maybe that the stenosis severity is over-estimated by CT imaging. In the context of abnormal CT coronary angiogram findings, she underwent invasive angiography. This demonstrates overall mild CAD. There is mild proximal LAD disease. Reassuringly, there is no significant coronary lesion detected. Since last review, Ms. Marie and her suffered from Covid-19. She has recovered from it. PAST CARDIAC HISTORY: As noted above. PAST MEDICAL HISTORY Diagnosis Date - Anxiety - Aortic regurgitation mild to moderate per osh - Depression - Diabetes (HCC) - Fibroid tumor right side breast - Hyperlipidemia - Hypothyroid - Skin cancer basal cell-s/p removal on face - Tricuspid regurgitation mild to moderate PAST SURGICAL HISTORY Procedure Laterality Date - APPENDECTOMY - BREAST BIOPSY - CARPAL TUNNEL Bilateral - CHOLECYSTECTOMY 1983 - D+C d/t bleeding issues after - TONSILLECTOMY HX - TUBAL LIGATION SOCIAL HISTORY Social History Tobacco Use - Smoking status: Never Smoker - Smokeless tobacco: Never Used Vaping Use - Vaping Use: Never used Substance Use Topics - Alcohol use: Never - Drug use: Never FAMILY HISTORY Problem Relation Age of Onset - Heart Attack Mother fatal [place] at age 70 - Diabetes Mother - Diabetes Father - Heart Father bypass at age 60s - Heart Attack Father [place] at age 60s - other (Other) Father MVA at age 72 - Cancer Sister at age 42 - other (Other) Brother - Cancer Sister breast cancer at age 50 - No Known Problems Brother - Heart Attack Brother fatal [place] at age 64 - other (ulcers) Brother bleeding ulcers - other (hepatitis) Brother at age 50 - other (liver) Brother - Heart Paternal cousin heart failure unsure? ALLERGIES: ALLERGIES Allergen Reactions - Sulfa (Sulfonamide * Shortness of Breath - Tuberculin Ppd [place]* Rash - Codeine Other: See Comments Chest pain - Ultram [Tramadol] GI Upset MEDICATIONS: ACCU-CHEK BEREKET PLUS TEST STRP test strip losartan (COZAAR) 25 mg tablet rosuvastatin (CRESTOR) 40 mg tablet Take 40 mg by mouth once daily. glimepiride (AMARYL) 4 mg tablet Take 4 mg by mouth twice daily. levothyroxine (SYNTHROID) 100 mcg tablet Take 100 mcg by mouth q 24 HR. sertraline (ZOLOFT) 25 mg tablet Take 25 mg by mouth once daily. aspirin, enteric coated (ASPIRIN, ENTERIC COATED) 81 mg EC tablet Take 81 mg by mouth q 24 HR. metFORMIN (GLUCOPHAGE) 1,000 mg tablet Take 1,000 mg by mouth twice daily. PHYSICAL EXAMINATION: BP 138/55 Pulse (!) 54 Ht 167.6 cm (5' 6 ) Wt 82.1 kg (181 lb) SpO2 100% BMI 29.21 kg/m? General: Well appearing, in no acute distress. Skin: No clubbing, no cyanosis. Eyes: Extra ocular movements intact Oropharynx: Teeth in good repair. Neck: No jugular venous distention, no carotid bruits, carotids have a normal upstroke. Lungs: Clear to auscultation bilaterally. Heart: Regular rhythm, PMI not displaced, S1, S2, no l (more content not included)... [facility] 09-13-2021 History of Present illness Narrative Images from the original note were not included. [facility] Department of Cardiovascular Medicine SECTION OF CARDIOVASCULAR IMAGING OUTPATIENT VISIT DATE September 13, 2021 OUTPATIENT VISIT TYPE Established REFERRING PHYSICIAN: SELF CHIEF COMPLAINT: Folow-up. Subjective HISTORY OF PRESENT ILLNESS: Ms. Marie is a 71 year old female who presents today for follow-up. I last reviewed Ms. Marie on January 04, 2021. Ms. Marie has a history of type 2 diabetes mellitus, dyslipidemia and hypothyroidism. Ms. Marie reported that one occasion when she was at her local doctor's office, she was noted to be pale . She was subsequently referred for an ECG and an echocardiogram. The echocardiogram was reported as showing mild to moderate mitral and aortic regurgitation. Apparently, as a result of the echocardiographic findings, she has been commenced on losartan. She was initially prescribed lisinopril, which resulted in cough. Ms. Marie does not have a diagnosed history of hypertension. Ms. Marie has had a history of hypoglycemic episodes in the context of her type 2 diabetes mellitus. It is possible that the prior episode when she was noted to be pale , she was hypoglycemic. 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 At night-time, Ms. Marie reports having the sensation of irreuglar heartbeats . She does not report chest pain. With heavy exertion, she describes mild shortness of breath and fatigue. Previously, CT coronary angiogram today demonstrates coronary calcifications in the left coronary system, mainly in the LAD (see saved image). It is reported to be at least moderate stenosis, although it is difficult to assess precisely due to calcium blooming. It maybe that the stenosis severity is over-estimated by CT imaging. In the context of abnormal CT coronary angiogram findings, she underwent invasive angiography. This demonstrates overall mild CAD. There is mild proximal LAD disease. Reassuringly, there is no significant coronary lesion detected. Since last review, Ms. Marie and her suffered from Covid-19. She has recovered from it. PAST CARDIAC HISTORY: As noted above. PAST MEDICAL HISTORY Diagnosis Date Anxiety Aortic regurgitation mild to moderate per osh Depression Diabetes (HCC) Fibroid tumor right side breast Hyperlipidemia Hypothyroid Skin cancer basal cell-s/p removal on face Tricuspid regurgitation mild to moderate PAST SURGICAL HISTORY Procedure Laterality Date APPENDECTOMY BREAST BIOPSY CARPAL TUNNEL Bilateral CHOLECYSTECTOMY 1983 D+C d/t bleeding issues after TONSILLECTOMY HX TUBAL LIGATION SOCIAL HISTORY Social History Tobacco Use Smoking status: Never Smoker Smokeless tobacco: Never Used Vaping Use Vaping Use: Never used Substance Use Topics Alcohol use: Never Drug use: Never FAMILY HISTORY Problem Relation Age of Onset Heart Attack Mother fatal [place] at age 70 Diabetes Mother Diabetes Father Heart Father bypass at age 60s Heart Attack Father [place] at age 60s other (Other) Father MVA at age 72 Cancer Sister at age 42 other (Other) Brother infant Cancer Sister breast cancer at age 50 No Known Problems Brother Heart Attack Brother fatal [place] at age 64 other (ulcers) Brother bleeding ulcers other (hepatitis) Brother at age 50 other (liver) Brother Heart Paternal cousin heart failure unsure? ALLERGIES: ALLERGIES Allergen Reactions Sulfa (Sulfonamide * Shortness of Breath Tuberculin Ppd [place]* Rash Codeine Other: See Comments Chest pain Ultram [Tramadol] GI Upset MEDICATIONS: ACCU-CHEK BEREKET PLUS TEST STRP test strip losartan (COZAAR) 25 mg tablet rosuvastatin (CRESTOR) 40 mg tablet Take 40 mg by mouth once daily. glimepiride (AMARYL) 4 mg tablet Take 4 mg by mouth twice daily. levothyroxine (SYNTHROID) 100 mcg tablet Take 100 mcg by mouth q 24 HR. sertraline (ZOLOFT) 25 mg tablet Take 25 mg by mouth once daily. aspirin, enteric coated (ASPIRIN, ENTERIC COATED) 81 mg EC tablet Take 81 mg by mouth q 24 HR. metFORMIN (GLUCOPHAGE) 1,000 mg tablet Take 1,000 mg by mouth twice daily. PHYSICAL EXAMINATION: BP 138/55 Pulse (!) 54 Ht 167.6 cm (5' 6 ) Wt 82.1 kg (181 lb) SpO2 100% BMI 29.21 kg/m General: Well appearing, in no acute distress. Skin: No clubbing, no cyanosis. Eyes: Extra ocular movements intact Oropharynx: Teeth in good repair. Neck: No jugular venous distention, no carotid bruits, carotids have a normal upstroke. Lungs: Clear to auscultation bilaterally. Heart: Regular rhythm, PMI not displaced, S1, S2, no loud murmur. Abdomen: Soft, nontender. Extremities: No peripheral edema. Neuro: Oriented to person, place and time, alert, cooperative, gait coordinated. CARDIOVASCULAR MEDICINE TESTIN. Echocardiogram: 08/24/2020 2. satellite project site monitor: 02/01/2019 to 02/14/[address] coronary angiogram: 11/21/2020 4. Cath angiogram: 01/05/2021 5. Echocardiogram: 09/13/2021 6. Outside echocardiogram: 09/15/2018 7. Outside echocardiogram: 04/29/2004 7. Outside myocardial perfusion study: 09/15/2018 I have personally reviewed the echocardiograms, ekg monitor, coronary CTA and outside cardiac investigations. Outside labs: 08/18/2020 - TC: 89 mg/dL - LDL: 37.8 mg/dL - HDL: 28 mg/dL - TA mg/dL Recent Labs 09/13/21 1202 WBC 6.57 HB 13.2 HCT 40.8 PLT 251 Recent Labs 09/13/21 1202 WBC 6.57 HB 13.2 HCT 40.8 PLT 251 Recent Labs 09/13/21 1202 WBC 6.57 HB 13.2 HCT 40.8 PLT 251 Recent Labs 09/13/21 1202 NA 138 K 4.5 CHLOR 103 CO2 25 BUN 24* CREAT 0.90 GLUC 159* ALKPHOS 85 TBILI 0.9 ALT 45* AST 36* ANION 10 Cholesterol, Total 123 09/13/2021 Cholesterol, Total 124 01/04/2021 HDL Cholesterol 39 09/13/2021 HDL Cholesterol 40 01/04/2021 LDL Cholesterol 63 09/13/2021 LDL Cholesterol 63 01/04/2021 Triglyceride 103 09/13/2021 Triglyceride 105 01/04/2021 Glucose, Point of Care 174 01/04/2021 Impression/Recommendations IMPRESSION: Ms. Marie is a 71 year old female who presents today for follow-up. Since last review, Ms. Marie and her suffered from Covid-19. She has recovered from it. Echocardiography at the [facility] reveals stable mild aortic regurgitation, and normal LV systolic function. Fasting lipid profile is satisfactory, with LDL cholesterol of 63 mg/dL. I reviewed the data in detail with Ms. Marie. It is important to maintain optimal ongoing vigilant control of her cardiac risk factors. PLAN AND RECOMMENDATIONS: 1. Maintain ongoing healthy lifestyle and diet. 2. Follow-up in 12 months with fasting lipid studies and ECG. Echocardiogram can be performed every 2 - 3 years. CONTACT INFORMATION: Amy Barger MD documented in this encounter [facility] 05-19-2018 History of Past i llness Narrative Problem Noted Date Resolved Date Pure hypercholesterolemia, unspecified 9 08/24/2020 documented as of this encounter (statuses as of 09/14/2021) [facility]03-20[facility]2019 History of Past illness Narrative* Problem Noted Date Resolved Date Pure hypercholesterolemia, unspecified 9 08/24/2020 documented as of this encounter (statuses as of 03/11/2022) [facility]2019 History of Past illness Narrative* Problem Noted Date Resolved Date Pure hypercholesterolemia, unspecified 9 08/24/2020 documented as of this encounter (statuses as of 08/30/2022) [facility] note* Diagnosis Nonrheumatic aortic valve insufficiency- Primary Aortic valve disorders Nonrheumatic mitral valve regurgitation Nonrheumatic tricuspid valve regurgitation Tricuspid valve disorders, specified as nonrheumatic Mixed hyperlipidemia 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 Type 2 diabetes mellitus without complication, without long-term current use of insulin (HCC) [facility] Diagnosis Nonrheumatic aortic valve insufficiency- Primary Aortic valve disorders [facility] Diagnosis Nonrheumatic aortic valve insufficiency- Primary Aortic valve disorders 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 Mixed hyperlipidemia Valvular heart disease Endocarditis, valve unspecified, unspecified cause 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 (HCC) Type 2 diabetes mellitus without complication, without long-term current use of insulin (HCC) documented in this encounter [facility] for referral (narrative)* Outpatient Procedure (Routine) - Authorized Specialty Diagnoses / Procedures Referred By Contac t Referred To Contact [facility] Diagnoses Nonrheumatic aortic valve insufficiency Procedures ECG COMPLETE ECG ROUTINE ECG W/LEAST 12 LDS W/I&R Amy Barger MD [address] [place] [address] [address] Referral ID Status Reason Start Date Expiration Date Visits Requested Visits Authorized [id number] Authorized Auto-Generat ed Referral 03/10/2022 03/10/2023 1 1 [facility] Advance Directives No Advanced Directives Records FoundDocuments on File Type Date Recorded Patient Exhibit Display Representative Expl anation Advance Directive(s) 12/14/2020 3:08 PM Summary Purpose Family History No Family History Records FoundNo Family History Records FoundNo Family History Records Found Additional Source Comments Source Comments (unrecognize d section and content) In the event this informatio n is protected by the Federal Confidentiality of Alcohol and Drug Abuse Patient Records regulations: The Federal rules restrict any use of the information to criminally investigate or prosecute any alcohol or drug abuse patient.[facility] the event this information is protected by the Federal Confidentiality of Alcohol and Drug Abuse Patient Records regulations: The Federal rules restrict any use of the information to criminally investigate or prosecute any alcohol or drug abuse patient.[facility] the event this information is protected by the Federal Confidentiality of Alcohol and Drug Abuse Patient Records regulations: The Federal rules restrict any use of the information to criminally investigate or prosecute any alcohol or drug abuse patient.[facility] Reason for Visit (unrecogniz ed section and content) Reason Comments Follow Up Reason Comments Coronary Artery Disease Valvular Heart Disease Care Teams (unrecognized sec tion and content) Junior Brand Manager Relationship Specialty Start Date End Date Jacky Torres MD [address] [place] [address] PCP - General Family Practice 01/21/19 Amy Barger MD [address] [place] [address] Primary Staff Physician Cardiology 08/24/20 Junior Brand Manager Relationship Specialty Start Date End Date Jacky Torres MD [address] [place] [address] PCP - General Family Medicine 01/21/19 Amy Barger MD [address] [place] [address] Primary Staff Physician Cardiology 08/24/20 Junior Brand Manager Relationship Specialty Start Date End Date Jacky Torres MD PCP - General Family Medicine 01/21/19 Amy Barger MD [address] [place] [address] Primary Staff Physician Cardiology 08/24/20 INFORMATION SOURCE (unrecogn ized section and content) DATE CREATED AUTHOR 04/03/2022 [facility] DATE CREATED AUTHOR AUTHOR'S ORGANIZ ATION 09/06/2022 [facility] DATE CREATED AUTHOR AUTHOR'S ORGANIZ ATION 02/14/2023 [facility] FOR RECORDS PERTAINING TO PATIENTS WHO ARE OR HAVE BEEN ENROLLED IN A CHEMICAL DEPENDENCY/SUBSTANCEABUSE PROGRAM, SOME INFORMATION MAY BE OMITTED. This clinical summary was aggregated from multiple sources. Caution should be exercised in using it in the provision of clinical care. This summary normalizes information from multiple sources, and as a consequence, information in this document may materially change the coding, format and clinical context of patient data. In addition, data may be omitted in some cases. CLINICAL DECISIONS SHOULD BE BASED ON THE PRIMARY CLINICAL RECORDS. [employer] provides no warranty or guarantee of the accuracy or completeness of information in this document.
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
[2023-03-24] MEDS: ACETAMINOPHEN 500 MG TABLET 1000 MG PO (12:29)
[2023-03-24] MEDS: ONDANSETRON 4 MG RAPDIS TABLET SL (12:30)
== END 2023-03-24 12:33 | disposition home or self-care (01) ==
PROVIDERS: Emergency Provider Emergency Medicine; PCP Family Medicine
DX: R51.9 Headache, unspecified (principal); V47.6XXA Car passenger injured in collision with fixed or stationary object in traffic accident, initial encounter; Z79.82 Long term (current) use of aspirin; Z79.899 Other long term (current) drug therapy; Z79.84 Long term (current) use of oral hypoglycemic drugs
CPT/HCPCS: 70450; 99284; Q0162

== ENCOUNTER 2023-08-12 18:00 | Emergency (ER) | payer MEDICARE, SELFPAY ==
[2023-08-12 18:14] VITALS: BP 199/85; PULSE 61; TEMP 36.7; O2SAT 98; BMI 28.5
--- NOTE | 2023-08-12 18:27 | CT_ITS ---
The [address] [address] Patient Name: LEIA FLEMING MRN: [id number] date: 1950 Sex: F Assigned Patient Location: ER Current Patient Location: ED.MAIN Accession/Order Number: [id number] Exam Date: 08/12/2023 19:05 Report Date: 08/12/2023 20:11 At the request of: NEIL TOWNSEND Procedure: CT pelvis wo con Examination:CT pelvis wo con INDICATION:Fall COMPARISON:There is an older CT abdomen and pelvis dated 08/18/2019 available for correlation. TECHNIQUE:Multiple thin section transaxial slices were acquired through the pelvis without contrast. Coronal and sagittal reconstructed images were reviewed. FINDINGS:No acute fractures are present in the osseous structures of the bony pelvis. There is facet arthropathy in the lower lumbar spine. There is asymmetric subcutaneous fat stranding in the left lower posterior pelvis likely representing contusion from recent fall. There are no defined fluid collections are present to suggest hematoma formation. The visualized bowel loops are normal in caliber without bowel obstruction. There is no free air or free fluid within the pelvis. The bladder is unremarkable. CT/CT pelvis wo con IMPRESSION: No acute fractures of the bony pelvis. Asymmetric fat stranding in the left lower posterior pelvis likely representing contusion from recent fall. No fluid collections are present to suggest hematoma. Electronically authenticated by: ANGELO ABEL Date: 08/12/2023 20:11
--- NOTE | 2023-08-12 19:24 | ED.GENADUL1 ---
HPI HPI - General Adult General Chief complaint: Extremity Injury, Lower Stated complaint: fall Time Seen by Provider: 08/12/23 18:27 Source: patient Mode of arrival: walk-in Limitations: no limitations History of Present Illness HPI narrative: Patient is a 73-year-old female who presents to the emergency department for left buttock pain after a fall 4 days ago. She states she tripped and fell on a curb and injured her buttocks. She denies head injury, headache, loss of consciousness, neck pain or upper back pain. She is ambulatory. No urine or stool incontinence. She denies pain radiation to the extremities or peripheral paresthesias. Related Data Home Medications ?Medication ?Instructions ?Recorded ?Confirmed aspirin 81 mg capsule 81 mg PO DAILY 03/24/23 03/24/23 diclofenac sodium 75 mg 75 mg PO Q12H PRN pain 03/24/23 03/24/23 tablet,delayed release empagliflozin 10 mg tablet 10 mg PO DAILY 03/24/23 03/24/23 (Jardiance) glimepiride 4 mg tablet 4 mg PO DAILY 03/24/23 03/24/23 levothyroxine 100 mcg tablet 100 mcg PO DAILY 03/24/23 03/24/23 (Levo-T) metformin 1,000 mg tablet 1,000 mg PO BID 03/24/23 03/24/23 pioglitazone 30 mg tablet 30 mg PO QDAY 03/24/23 03/24/23 rosuvastatin 40 mg tablet (Crestor) 40 mg PO DAILY 03/24/23 03/24/23 sertraline 25 mg tablet (Zoloft) 25 mg PO DAILY 03/24/23 03/24/23 Previous Rx's ?Medication ?Instructions ?Recorded hydrocodone 5 mg-acetaminophen 325 1 tab PO Q6H PRN pain 3 days #12 08/12/23 mg tablet tabs methocarbamol 750 mg tablet 750 mg PO TID PRN pain #20 tabs 08/12/23 Allergies Allergy/AdvReac Type Severity Reaction Status Date / Time codeine Allergy Unknown Verified 03/24/23 11:13 Sulfa (Sulfonamide Allergy Unknown Verified 03/24/23 11:13 Antibiotics) tramadol [From Ultram] Allergy Unknown Verified 03/24/23 11:13 Opioid HPI Opioid Management Most Recent Opioid Data: No Data to Display Review of Systems ROS Constitutional Denies: fever or chills Ears, nose, mouth, and throat Denies: throat pain or nasal congestion Respiratory Denies: shortness of breath or cough Gastrointestinal Denies: abdominal pain, nausea or vomiting Genitourinary Denies: urinary incontinence Musculoskeletal Reports: back pain; Denies: neck pain or extremity pain Integumentary/Breast Denies: rash Neurological Denies: headache, numbness in extremities or weakness in extremities Hematologic/Lymphatic Denies: easy bruising or easy bleeding Exam Narrative Exam Narrative: Gen.: Awake, alert, in no distress Head: Normocephalic, atraumatic ENT: Moist mucous membranes Respiratory: No respiratory distress Gastrointestinal: Abdomen is soft, nondistended and nontender to palpation Back: Yet no bony point tenderness of the C-spine, T-spine and diffuse mild tenderness of the lumbar spine inferiorly, no tenderness of the coccyx with mild tenderness of the left posterior buttock inferiorly. No palpable obvious deformities. Extremities: Moves extremities equally, no injuries noted; Patient is able to swing her legs over the exam cart, stand without difficulty, no deficits in flexion and extension of the lower extremities. Psych: Normal mood and affect Neuro: No focal neuro deficit Skin: Warm, dry, intact Constitutional Vital Signs, click to edit/add: Last Vital Signs Temp 98.1 F 08/12/23 18:14 Pulse 61 08/12/23 18:14 Resp 18 08/12/23 18:14 BP 157/83 H 08/12/23 20:08 Pulse Ox 98 08/12/23 18:14 O2 Del Method Room Air 08/12/23 18:14 Course Vital Signs Vital signs: Vital Signs Temperature 98.1 F 08/12/23 18:14 Pulse Rate 61 08/12/23 18:14 Respiratory Rate 18 08/12/23 18:14 Blood Pressure 199/85 H 08/12/23 18:14 Pulse Oximetry 98 08/12/23 18:14 Oxygen Delivery Method Room Air 08/12/23 18:14 Temperature 98.1 F 08/12/23 18:14 Pulse Rate 61 08/12/23 18:14 Respiratory Rate 18 08/12/23 18:14 Blood Pressure 157/83 H 08/12/23 20:08 Pulse Oximetry 98 08/12/23 18:14 Oxygen Delivery Method Room Air 08/12/23 18:14 Medical Decision Making MDM Narrative Medical decision making narrative: CT of the pelvis is unremarkable, contusion noted with no significant hematoma or pelvic fracture. Patient is ambulatory with a normal neuroexam. She is discharged home with a short course of analgesics and muscle relaxants to follow-up with PCP. Apply ice to the area and return to the ER if symptoms change or worsen Medical Records Medical records reviewed: Yes I reviewed the patient's medical records Imaging Data CT scan - pelvis: Attestation: I have reviewed the pertinent imaging results. Radiologist's impression: ITS Impressions Pelvis CT 08/12/23 18:27 IMPRESSION: No acute fractures of the bony pelvis. Asymmetric fat stranding in the left lower posterior pelvis likely representing contusion from recent fall. No fluid collections are present to suggest hematoma. Electronically authenticated by: ANGELO ABEL Date: 08/12/2023 20:11 Discharge Plan Discharge Stand Alone Forms: Portal Instructions Chief Complaint: Extremity Injury, Lower Clinical Impression: Fall, Contusion of left buttock Patient Disposition: Home, Self-Care Time of Disposition Decision: 20:16 Condition: Good Prescriptions / Home Meds: New hydrocodone-acetaminophen 5-325 mg tablet 1 tab PO Q6H PRN (Reason: pain) 3 Days Qty: 12 0RF Rx Instructions: DX: R10.2 methocarbamol 750 mg tablet 750 mg PO TID PRN (Reason: pain) Qty: 20 0RF No Action sertraline [Zoloft] 25 mg tablet 25 mg PO DAILY aspirin 81 mg capsule 81 mg PO DAILY metformin 1,000 mg tablet 1,000 mg PO BID Jardiance 10 mg tablet 10 mg PO DAILY levothyroxine [Levo-T] 100 mcg tablet 100 mcg PO DAILY rosuvastatin [Crestor] 40 mg tablet 40 mg PO DAILY glimepiride 4 mg tablet 4 mg PO DAILY diclofenac sodium 75 mg tablet,delayed release (DR/EC) 75 mg PO Q12H PRN (Reason: pain) pioglitazone 30 mg tablet 30 mg PO QDAY Print Language: Occitan Instructions: Contusion in Adults (ED) Referrals: Franklyn Torres MD [Primary Care Provider] - 1 week Discharge Date/Time: 08/12/23 20:27
[2023-08-12] MEDS: ONDANSETRON 4 MG RAPDIS TABLET SL (19:37)
[2023-08-12] MEDS: METHOCARBAMOL 500 MG TABLET PO (19:38)
[2023-08-12] MEDS: HYDROCODONE/ACET 5-325 MG TABLET 1 TAB PO (19:38)
[2023-08-12 20:08] VITALS: BP 157/83
== END 2023-08-12 20:27 | disposition home or self-care (01) ==
PROVIDERS: Emergency Provider Emergency Medicine; PCP Family Medicine
DX: S30.0XXA Contusion of lower back and pelvis, initial encounter (principal); W10.1XXA Fall (on)(from) sidewalk curb, initial encounter
CPT/HCPCS: 72192; 99284; Q0162

== ENCOUNTER 2023-08-28 10:51 | Outpatient (OUT) | payer MEDICARE, SELFPAY ==
--- NOTE | 2023-08-28 | MM_ITS ---
Patient Name: LEIA FLEMING MR#: [id number] : 1950 Exam Date: 08/28/2023 Ordering Doctor: DR Franklyn Torres . RADIOLOGY REPORT PROCEDURE: MM TOMOSYNTHESIS SCREENING BI COMPARISON: MG MAMM SCREEN 3D EMILY CAD, 08/22/2021. MM TOMOSYNTHESIS SCREENING BI, 08/26/2022. INDICATIONS: Screening Calculator Name NCI Breast Cancer Risk Assessment Tool 5 Year Breast Cancer Risk 8.30% Lifetime Breast Cancer Risk 20.30% Personal Breast Cancer No Personal Ovarian Cancer No Treatments excision Family Cancers Sister with breast cancer at age 40; Sister with breast cancer at age 50. LOCATION: [facility] BREAST COMPOSITION: There are scattered areas of fibroglandular density. FINDINGS: DIAGNOSTIC CATEGORY 2--BENIGN FINDING. NO CHANGE FROM COMPARISON. Scattered benign-appearing calcifications are present. Scattered benign-appearing lymph nodes are present. RIGHT BREAST: No significant suspicious finding. LEFT BREAST: No significant suspicious finding. RECOMMENDATIONS: ROUTINE MAMMOGRAM AND CLINICAL EVALUATION IN 12 MONTHS. PLEASE NOTE: A NORMAL MAMMOGRAM DOES NOT EXCLUDE THE POSSIBILITY OF BREAST CANCER. A CLINICALLY SUSPICIOUS PALPABLE LUMP SHOULD BE BIOPSIED. Dictated by: Sami Rasmussen MD on 08/28/2023 at 13:21 Approved by: Sami Rasmussen MD on 08/28/2023 at 13:23
--- OUTSIDE RECORDS SUMMARY | 2023-08-28 11:07 | XMS_ITS | CCD ---
Author Organization [facility] CliniSynm Care Team Providers Care Driver Sales Name Role Phone Jacky Torres MD Primary Care Provider [phone] Amy Barger MD Unavailable LESVIA, DR RICO Admitting Unavailable HOY, DR RICO Attending Unavailable HOY, DR RICO Primary Care Unavailable HOY, DR RICO Primary Care Unavailable HOY, DR RICO Admitting Unavailable HOY, DR RICO Attending Unavailable HOY, DR RICO Admitting Unavailable HOY, DR RICO Attending Unavailable HOY, DR RICO Consulting Unavailable HOY, DR RICO Primary Care Unavailable CHICO, DR KWABENA Rutledge Consulting Unavailable HOY, DR RICO Admitting Unavailable HOY, DR RICO Attending Unavailable HOY, DR RICO Consulting Unavailable HOY, DR RICO Primary Care Unavailable HOY, DR RICO Admitting Unavailable HOY, DR RICO Attending Unavailable HOY, DR RICO Consulting Unavailable HOY, DR RICO Primary Care Unavailable ZIEBER, DR BRANNON Jean-Baptiste Consulting Unavailable CRUZ, GINA Consulting Unavailable HOY, DR RICO Consulting Unavailable HOY, DR RICO Admitting Unavailable HOY, DR RICO Attending Unavailable HOY, DR RICO Primary Care Unavailable HOY, DR RICO Primary Care Unavailable HOY, DR RICO Consulting Unavailable HOY, DR RICO Admitting Unavailable HOY, DR RICO Attending Unavailable Jacky Torres MD Primary Care Provider [phone] Amy Barger MD Unavailable Amy Barger MD Unavailable JACKY TORRES Primary Care Unavailable AMY BARGER Attending Unavailable JACKY TORRES Primary Care Unavailable JACKY TORRES Primary Care Unavailable AMY BARGER Referring Unavailable KATHERINE CAN Attending Unavailable KATHERINE CAN Attending Unavailable KATHERINE CAN Attending Unavailable Allergies Allergy Classification Reported Allergen(s) Allergy Type Date of Onset Reaction(s) Facility (5 sources) Codeine; Translations: [CODEINE] Drug Allergy 9 Other: See Comments [facility] (5 sources) Sulfonamides (Antibiotic); Translations: [SULFA (SULFONAMIDE ANTIBIOTICS)] Drug Allergy 8 Shortness of Breath [facility] (5 sources) traMADol; Translations: [TRAMADOL] Drug Allergy 1 GI Upset [facility] (6 sources) Tuberculin Ppd [place] Test; Translations: [Tuberculin PPD [place] Test] Drug Allergy 2 Rash [facility] (1 source) Codeine Drug Allergy [facility] (1 source) Glutathione Drug Allergy [facility] (1 source) traMADol Drug Allergy [facility] Medications Current Medications Medication Drug [...] aspirin 81 mg delayed release oral tablet (4 sources) Platelet Aggregation Inhibitor, Nonsteroidal Anti-inflammatory Drug take 1 tablet by mouth every twenty-four hours aspirin, enteric coated (ASPIRIN, ENTERIC COATED) 81 mg EC tablet Take 81 mg by mouth q 24 HR. 0 Active Comment on above: Take 81 mg by mouth q 24 HR. diclofenac sodium 75 mg delayed release oral tablet (2 sources) Nonsteroidal Anti-inflammatory Drug take 1 tablet by [...] one tablet glimepiride 4 mg oral tablet (4 sources) Sulfonylurea take 1 tablet by mouth [...] daily. levothyroxine sodium 0.1 mg oral tablet (4 sources) l-Thyroxine take 1 tablet by mouth every twenty-four hours levothyroxine (SYNTHROID) 100 mcg tablet Take 100 mcg by mouth q 24 HR. 0 Active Comment on above: Take 100 mcg by mout h q 24 HR. losartan potassium 25 mg oral tablet (3 sources) Angiotensin 2 Receptor Selam Start: End: losartan (COZAAR) 25 mg tablet metFORMIN hydrochloride 1000 mg oral tablet (4 sources) Biguanide take 1 tablet by mouth twice daily metFORMIN (GLUCOPHAGE) 1,000 mg tablet Take 1,000 mg by mouth twice daily. 0 Active Comment on above: Take 1,000 mg by josue th twice daily. pioglitazone 15 mg oral tablet (2 sources) Peroxisome Proliferator Receptor alpha Agonist, Peroxisome Proliferator Receptor gamma Agonist, Thiazolidinedione Start: 023 pioglitazone (ACTOS) 15 mg tablet twice daily. 0 06/28/2022 Active Comment on above: twice daily. rosuvastatin calcium 40 mg oral tablet (4 sources) HMG-CoA Reductase Inhibitor Start: 019 take 1 tablet by mouth once daily rosuvastatin (CRESTOR) 40 mg tablet Take 40 mg by mouth once daily. 0 12/07/2018 Active Comment on above: Take 40 mg by mouth once daily. sertraline 25 mg oral tablet (4 sources) Serotonin Reuptake Inhibitor Start: 019 take 1 tablet by mouth once daily sertraline (ZOLOFT) 25 mg tablet Take 25 mg by mouth once daily. 0 12/07/2018 Active Comment on above: Take 25 mg by mouth once daily. tiZANidine 4 mg oral tablet (2 sources) Central alpha-2 Adrenergic Agonist tiZANidine (ZANAFLEX) 4 mg tablet Take 4 mg by mouth as needed. 0 Active Comment on above: Take 4 mg by mouth a s needed. Problems Active Problems Problem Classification Problem Date Documented Da te Episodic/Chronic Coronary atherosclerosis and other heart disease (9 sources) Coronary atherosclerosis; Translations: [Atherosclerotic heart disease of [place] coronary artery without angina pectoris] Onset: 01-05-2021 Chronic Deficiency and other anemia (1 source) Anemia, unspecified; Translations: [ANEMIA UNSPECIFIED] Onset: 03-28-2022 Episodic Diabetes mellitus without complication (12 sources) Type 2 diabetes mellitus without complication; Translations: [Type 2 diabetes mellitus without complications] Onset: 03-25-2018 Chronic Diabetes mellitus without complication (1 source) Other abnormal glucose; Translations: [OTHER ABNORMAL GLUCOSE] Onset: 03-28-2022 Episodic Disorders of lipid metabolism (8 sources) Mixed hyperlipidemia; Translations: [Mixed hyperlipidemia] Onset: 08-24-2020 Chronic Esophageal disorders (1 source) Gastro-esophageal reflux disease without esophagitis; Translations: [GERD WITHOUT ESOPHAGITIS] Onset: 03-28-2022 Chronic Heart valve disorders (19 sources) Aortic incompetence, non-rheumatic ; Translations: [Nonrheumatic aortic (valve) insufficiency] Onset: 01-21-2019 Chronic Nutritional deficiencies (1 source) Vitamin D deficiency, unspecified; Translations: [VITAMIN D DEFICIENCY UNSPECIFIED] Onset: 03-28-2022 Chronic Osteoarthritis (5 sources) Unspecified osteoarthritis, unspecified site; Translations: [Primary osteoarthritis, right shoulder] Onset: 09-10-2021 Chronic Other nutritional; endocrine; and metabolic disorders (4 sources) Obese class I; Translations: [Obesity, unspecified] [...] caused by tuberculosis or sexually transmitted disease) (6 sources) Heart valve disorder; Translations: [Endocarditis, valve unspecified] Onset: 01-21-2019 01-21-2019 Chronic Thyroid disorders (4 sources) Hypothyroidism, unspecified; Translations: [HYPOTHYROIDISM UNSPECIFIED] Onset: 03-26-2022 Chronic Viral infection (1 source) COVID-19; Translations: [COVID-19] Onset: 05-20-2021 Past or Other Problems Problem Classification Problem Date Documented Da te Episodic/Chronic Acute bronchitis (4 sources) Acute bronchitis, unspecified; Translations: [ACUTE BRONCHITIS UNSPECIFIED] Onset: 05-16-2021 Episodic Cardiac dysrhythmias (4 sources) Palpitations; Translations: [Palpitations] Onset: 01-21-2019 01-21-2019 Episodic Nonspecific chest pain (4 sources) Chest pain; Translations: [Other chest pain] [...] Anion gap [Moles/Vol] 9 mmol/L Normal 9-18 [facility] Comment on above: Order Comment: Speci men Type: BLOOD SPECIMEN Ordering Facility: [facility] Address: [address] [place] [id number] Performed By: #### 2 4321-2 #### [facility] CLIA [id number] [address] [facility] [address] [address] [place] Calcium [Mass/Vol] 10.5 mg/dL High 8.5-10.2 [facility] Comment on above: Order Comment: Speci men Type: BLOOD SPECIMEN Ordering Facility: [facility] Address: [address] Performed By: #### 2 4321-2 #### [facility] CLIA [id number] [address] [place] [address] [place] Chloride [Moles/Vol] 104 mmol/L Normal 97-105 [facility] Comment on above: Order Comment: Speci men Type: BLOOD SPECIMEN Ordering Facility: [facility] Address: [address] Performed By: #### 2 4321-2 #### [facility] CLIA [id number] [address] [place] [address] [place] CO2 [Moles/Vol] 27 mmol/L Normal 22-30 [facility] Comment on above: Order Comment: Speci men Type: BLOOD SPECIMEN Ordering Facility: [facility] Address: [address] Performed By: #### 2 4321-2 #### [facility] CLIA [id number] [address] [place] [address] [place] Creatinine [Mass/Vol] 0.84 mg/dL Normal 0.58-0.96 [facility] Comment on above: Order Comment: Speci men Type: BLOOD SPECIMEN Ordering Facility: [facility] Address: [address] Performed By: #### 2 4321-2 #### [facility] CLIA [id number] [address] [place] [address] [place] ESTIMATED GLOMERULAR FILTRATION RATE 74 mL/min/1.73m??? Normal >=60 [facility] Comment on above: Order Comment: Speci men Type: BLOOD SPECIMEN Ordering Facility: [facility] Address: [address] Result Comment: Maria R mated Glomerular Filtration [...] GFR. Performed By: #### 2 4321-2 #### [facility] CLIA [id number] [address] [place] [address] [place] Glucose [Mass/Vol] 167 mg/dL High 74-99 [facility] Comment on above: Order Comment: Colten sidhu Type: BLOOD SPECIMEN Ordering Facility: [facility] Address: [address] [place], [place] [id number] Result Comment: The [place] [employer] (ADA) provides guidance for cutoff [...] Standards of Medical Care in Diabetes 2016, [place] [employer]. Diabetes Care. 2016.39(Suppl 1). Performed By: #### 2 4321-2 #### [facility] CLIA [id number] [facility] [place] [address] [place] Potassium [Moles/Vol] 4.1 mmol/L Normal 3.7-5.1 [facility] Comment on above: Order Comment: Colten sidhu Type: BLOOD SPECIMEN Ordering Facility: [facility] Address: [address] [place] [address] Performed By: #### 2 4321-2 #### [facility] CLIA [id number] [address] [place] [address] [place] Sodium [Moles/Vol] 140 mmol/L Normal 136-144 [facility] Comment on above: Order Comment: Specdavid men Type: BLOOD SPECIMEN Ordering Facility: [facility] Address: [address] [place] [address] Performed By: #### 2 4321-2 #### [facility] CLIA [id number] [address] [place] Urea nitrogen [Mass/Vol] 18 mg/dL Normal 7-21 [facility] Comment on above: Order Comment: Speci men Type: BLOOD SPECIMEN Ordering Facility: [facility] Address: [address] [place] [address] Performed By: #### 2 4321-2 #### [facility] CLIA [id number] [address] OF [facility] CNOVon 08-29-2022 CNOV Office Visit (CARIMN ) LEIA MARIE ([id number]) 1950 F Date Time Provider Department 08/29/22 1:30 PM AMY BARGER During your visit today, we recorded the following information about you: Pulse Blood pressure Weight Height 59/minute 140/66 94 kg 1.676 m Amy Barger MD 08/30/2022 3:22 PM Signed [facility] [place] [facility] Department of Cardiovascular Medicine SECTION [...] Age of Onset Heart Attack Mother fatal DC at age 70 Diabetes Mother Diabetes Father Heart Father bypass at age 60s Heart Attack Father DC at age 60s other (Other) Father MVA at age 72 Cancer Sister at age 42 other (Other) Brother infant Cancer Sister breast cancer at age 50 No Known Problems Brother Heart Attack Brother fatal DC at age 64 other (ulcers) Brother bleeding [...] Well appea (more content not included)... Normal [facility] ECG COMPLETEon 08-29-2022 ECG COMPLETE Ventricular Rate : 5 0 BPM Atrial Rate : 50 BPM P-R Interval : 174 ms QRS Duration : 80 ms Q-T Interval : 442 ms QTC Calculation(Bazett) : 402 ms Calculated P Trumb[place] : 59 degrees Calculated R [place] : -8 degrees Calculated T [place] : 42 degrees SINUS BRADYCARDIA WITH MARKED SINUS ARRHYTHMIA OTHERWISE NORMAL ECG Confirmed by NADIR COHEN MD ([id number]) on 09/06/2022 10:03:50 AM NAME : LEIA MARIE PID : [id number] : 1950 Gender : Female Race : ORD : [id number] Procedure Date : Aug 29 2022 12:55:52 Edit Date : Sep 06 2022 10:03:55 Diagnosis: SINUS BRADYCARDIA WITH MARKED SINUS ARRHYTHMIA OTHERWISE NORMAL ECG Confirmed by NADIR COHEN MD ([id number]) on 09/06/2022 10:03:50 AM Test Reason : Location : 314 : J14 J1-4 Overread By : NADIR COHEN MD Edited By : NADIR COHEN MD Referred By : AMY BARGER Acquired by : YUNIER VALLE [facility] BLD IMMUNO SCREENon 03-03 OCCULT BLOOD Negative Normal NEGATIVE [facility] Comment on above: Performed By: #### O BSCRN #### [facility] [address] [place] [address] Dr. Kym Burks CBC AUTO DIFFon 03-26-2022 BASO # 0.0 103/ul Normal 0.0-0.1 [facility] Comment on above: Performed By: #### C BC #### [facility] [address] [place] [address] Dr. Kym Burks Basophils/100 WBC (Bld) 0.7 % Normal 0.2-2.0 [facility] Comment on above: Performed By: #### C BC #### [facility] [address] [place] [address] Dr. Kym Burks EO # 0.1 103/ul Normal 0.0-0.7 [facility] Comment on above: Performed By: #### C BC #### [facility] [address] [place] [address] Dr. Kym Burks Eosinophils/100 WBC (Bld) 1.7 % Normal 0.9-7.0 [facility] Comment on above: Performed By: #### C BC #### [facility] [address] [place] [address] Dr. Kym Burks Erythrocyte distribution width (RBC) [Ratio] 13.2 % Normal 11.0-15.0 [facility] Comment on above: Performed By: #### C BC #### [facility] [address] [place] [address] Dr. Kym Burks Hematocrit (Bld) [Volume fraction] 41.6 % Normal 36.0-48.0 [facility] Comment on above: Performed By: #### C BC #### [facility] [address] [place] [address] [address] Kym Burks Hemoglobin (Bld) [Mass/Vol] 12.7 g/dL Normal 12.0-16.0 [facility] Comment on above: Performed By: #### C BC #### [facility] [address] [place] [address] [address] Kym Burks IG # 0.00 10e3/ul Normal 0.00-0.03 [facility] Comment on above: Performed By: #### C BC #### [facility] [address] [place] [address] Dr. Kym Burks IG % 0.0 % Normal 0.0-0.5 [facility] Comment on above: Performed By: #### C BC #### [facility] [address] [place] [address] Dr. Kym Burks LYMPH # 1.4 103/ul Normal 1.2-3.8 [facility] Comment on above: Performed By: #### C BC #### [facility] [address] [place] [address] Dr. Kym Burks Lymphocytes/100 WBC (Bld) 33.3 % Normal 20.5-60.0 [facility] Comment on above: Performed By: #### C BC #### [facility] [address] [place] [address] Dr. Kym Burks MANUAL DIFF REQ NO Normal [facility] Comment on above: Performed By: #### C BC #### [facility] [address] [place] [address] Dr. Kym Burks MCH (RBC) [Entitic mass] 28.8 pg Normal 26.7-34.0 [facility] Comment on above: Performed By: #### C BC #### [facility] [address] [place] [address] Dr. Kym Burks MCHC (RBC) [Mass/Vol] 30.5 g/dL Normal 29.9-35.2 [facility] Comment on above: Performed By: #### C BC #### [facility] [address] [place] [address] [address] Kym Burks MCV (RBC) [Entitic vol] 94.3 fL Normal 81.0-99.0 [facility] Comment on above: Performed By: #### C BC #### [facility] [address] [place] [address] [address] Kym Burks MONO # 0.3 103/ul Normal 0.3-0.8 [facility] Comment on above: Performed By: #### C BC #### [facility] [address] [place] [address] Dr. Kym Burks Monocytes/100 WBC (Bld) 6.7 % Normal 1.7-12.0 [facility] Comment on above: Performed By: #### C BC #### [facility] [address] [place] [address] Dr. Kym Burks NEUT # 2.4 103/ul Normal 1.4-6.5 [facility] Comment on above: Performed By: #### C BC #### [facility] [address] [place] [address] Dr. Kym Burks Neutrophils/100 WBC (Bld) 57.6 % Normal 43.0-75.0 [facility] Comment on above: Performed By: #### C BC #### [facility] [address] [place] [address] Dr. Kym Burks Platelet mean volume (Bld) [Entitic vol] 9.9 fL Normal 9.5-13.5 [facility] Comment on above: Performed By: #### C BC #### [facility] [address] [place] [address] Dr. Kym Burks PLT 221 103/ul Normal 150-450 [facility] Comment on above: Performed By: #### C BC #### [facility] [address] [place] [address] Dr. Kym Burks RBC 4.41 106/ul Normal 4.20-5.40 [facility] Comment on above: Performed By: #### C BC #### [facility] [address] [place] [address] [address] Kym Burks WBC 4.2 103/ul Normal 4.0-11.0 [facility] Comment on above: Performed By: #### C BC #### [facility] [address] [place] [address] [address] Kym Burks FREE THYROXINE INDEX T7on FTI 3.78 Normal 1.30-4.50 [facility] Comment on above: Performed By: #### T SH, CMP, T7, LIPID ####[facility] [address] [place] [id number]. Kym Burks T3U 36.0 % Normal 30.0-39.0 [facility] Comment on above: Performed By: #### T SH, CMP, T7, LIPID ####[facility] [address] [place] [id number]. Kym Burks T4 [Mass/Vol] 10.50 ug/dL Normal 4.80-13.90 [facility] Comment on above: Performed By: #### T SH, CMP, T7, LIPID ####[facility] [address] [place] [id number]. Kym Burks GLYCOHEMOGLOBIN A1Con 2022 ADA RECOMMENDATION SEE BELOW Normal [facility] Comment on above: Result Comment: ADA RECOMMENDED LIMIT 4.0 - 6.0 ADA THERAPEUTIC TARGET < 7.0 ACTION SUGGESTED > 7.0 Performed By: #### A 1C #### [facility] [address] [place] [address] [address] Kym Burks Glucose [Mass/Vol] 148 mg/dL Normal [facility] Comment on above: Performed By: #### A 1C #### [facility] [address] [place] [address] [address] Kym Burks HbA1c (Bld) [Mass fraction] 6.8 % Critically high 4.5-6.2 [facility] Comment on above: Performed By: #### A 1C #### [facility] [address] [place] [address] [address] Kym Burks IRONon 03-26-2022 Iron [Mass/Vol] 72.0 ug/dL Normal 50.0-170.0 [facility] Comment on above: Performed By: #### V ITAD, IRON #### [facility] [address] [place], [place] [address] Dr. Kym Burks LIPID PROFILEon 03-26-2022 CHOL-HDL RATIO NORM SEE BELOW Normal [facility] Comment on above: Result Comment: 3.3 - 4.4 LOW RISK 4.4 - 7.1 AVERAGE RISK 7.1 - 11.0 MODERATE RISK >11.0 HIGH RISK Performed By: #### T SH, CMP, T7, LIPID ####[facility] [address] [place], [place] [address]IfAlice Burks Cholesterol [Mass/Vol] 126 mg/dL Normal <=200 [facility] Comment on above: Performed By: #### T SH, CMP, T7, LIPID ####[facility] [address] [place], [place] [address]FdAlice Burks Cholesterol in HDL [Mass/Vol] 47 mg/dL Normal 40-60 [facility] Comment on above: Performed By: #### T SH, CMP, T7, LIPID ####[facility] [address] [place] [id number] Burks Cholesterol in LDL [Mass/Vol] 56.8 mg/dL Normal [facility] Comment on above: Performed By: #### T SH, CMP, T7, LIPID ####[facility] [address] [place], [place] [address]EnAlice Burks Cholesterol.total/Ch olesterol in HDL [Mass ratio] 2.7 {ratio} Normal [facility] Comment on above: Performed By: #### T SH, CMP, T7, LIPID ####[facility] [address] [place], [place] [address]ZkAlice Burks HDL NORMAL > or = 60 mg/dl - LO W CARDIOVASCULAR RISK <40 mg/dl - HIGH CARDIOVASCULAR RISK Normal [facility] Comment on above: Performed By: #### T SH, CMP, T7, LIPID ####[facility] [address] [place], [place] [address]Ku. Kym Burks LDL CALC NORMAL SEE BELOW Normal [facility] Comment on above: Result Comment: <100 mg/dl OPTIMAL 100 - 129 mg/dl NEAR OR ABOVE OPTIMAL 130 - 159 mg/dl BORDERLINE HIGH 160 - 189 mg/dl HIGH >190 mg/dl VERY HIGH Performed By: #### T SH, CMP, T7, LIPID ####[facility] [address] [place] [id number]. Kym Burks Triglyceride [Mass/Vol] 111 mg/dL Normal <=150 [facility] Comment on above: Performed By: #### T SH, CMP, T7, LIPID ####[facility] [address] [place] [id number]. Kym Burks VLDL CALC 22.2 mg/dL Normal [facility] Comment on above: Performed By: #### T SH, CMP, T7, LIPID ####[facility] [address] [place] [address]DrAlice Burks PROF 14(COMP METB)on 023 Albumin [Mass/Vol] 3.9 g/dL Normal 3.4-5.0 [facility] Comment on above: Performed By: #### T SH, CMP, T7, LIPID ####[facility] [address] [place] [address]DrAlice Burks Albumin/Globulin [Mass ratio] 1.3 {ratio} Normal [facility] Comment on above: Performed By: #### T SH, CMP, T7, LIPID ####[facility] [address] [place] [phone]. Kym Burks ALP [Catalytic activity/Vol] 80 U/L Normal 46-116 [facility] Comment on above: Performed By: #### T SH, CMP, T7, LIPID ####[facility] [address] [place] [phone]. Kym Burks ALT [Catalytic activity/Vol] 28 U/L Normal 14-59 [facility] Comment on above: Performed By: #### T SH, CMP, T7, LIPID ####[facility] [address] [place] [phone]. Kym Burks Anion gap [Moles/Vol] 10.6 mmol/L Normal [facility] Comment on above: Performed By: #### T SH, CMP, T7, LIPID ####[facility] [address] [place] [address]Dr. Kym Burks AST [Catalytic activity/Vol] 21 U/L Normal 15-37 [facility] Comment on above: Performed By: #### T SH, CMP, T7, LIPID ####[facility] [address] [place] [address]Dr. Kym Burks Bilirubin [Mass/Vol] 1.3 mg/dL Critically high 0.2-1.0 [facility] Comment on above: Performed By: #### T SH, CMP, T7, LIPID ####[facility] [address] [place] [address]Dr. Kym Burks Calcium [Mass/Vol] 10.0 mg/dL Normal 8.5-10.1 [facility] Comment on above: Performed By: #### T SH, CMP, T7, LIPID ####[facility] [address] [place] [address]Dr. Kym Burks Chloride [Moles/Vol] 104 mmol/L Normal 98-107 [facility] Comment on above: Performed By: #### T SH, CMP, T7, LIPID ####[facility] [address] [place] [address]Dr. Kym Burks CO2 [Moles/Vol] 28.8 mmol/L Normal 21.0-32.0 [facility] Comment on above: Performed By: #### T SH, CMP, T7, LIPID ####[facility] [address] [place] [address]Dr. Kym Burks Creatinine [Mass/Vol] 0.74 mg/dL Normal 0.55-1.02 [facility] Comment on above: Performed By: #### T SH, CMP, T7, LIPID ####[facility] [id number] [place] [address]Dr. Kym Burks EGFR-AF GUATEMALAN >60 Normal >=60 [facility] Comment on above: Performed By: #### T SH, CMP, T7, LIPID ####[facility] [address] [place] [address]Dr. Kym Burks EGFR-NON AF GUATEMALAN >60 Normal >=60 [facility] Comment on above: Performed By: #### T SH, CMP, T7, LIPID ####[facility] [address] [place] [address]Dr. Kym Burks Globulin (S) [Mass/Vol] 3.1 g/dL Normal [facility] Comment on above: Performed By: #### T SH, CMP, T7, LIPID ####[facility] [address] [place] [address]Dr. Kym Burks Glucose [Mass/Vol] 143 mg/dL Critically high 74-106 [facility] Comment on above: Performed By: #### T SH, CMP, T7, LIPID ####[facility] [address] [place] [address]Dr. Kym Burks Potassium [Moles/Vol] 4.4 mmol/L Normal 3.5-5.1 [facility] Comment on above: Performed By: #### T SH, CMP, T7, LIPID ####[facility] [address] [place] [address]Dr. Kym Burks Protein [Mass/Vol] 7.0 g/dL Normal 6.4-8.2 [facility] Comment on above: Performed By: #### T SH, CMP, T7, LIPID ####[facility] [address] [place] [address]Dr. Kym Burks Sodium [Moles/Vol] 139 mmol/L Normal 136-145 [facility] Comment on above: Performed By: #### T SH, CMP, T7, LIPID ####[facility] [address] [place] [address]Dr. Kym Burks Urea nitrogen [Mass/Vol] 26.0 mg/dL Critically high 7.0-18.0 [facility] Comment on above: Performed By: #### T SH, CMP, T7, LIPID ####[facility] [address] [place], [place] [address]Ib. Kym Burks Urea nitrogen/Creatinine [Mass ratio] 35.1 mg/mg Normal [facility] Comment on above: Performed By: #### T SH, CMP, T7, LIPID ####[facility] [address] [place], [place] [address]Hi. Kym Burks TSHon 03-26-2022 TSH 0.288 uIU/mL Critically low 0.358-3.740 [facility] Comment on above: Performed By: #### T SH, CMP, T7, LIPID ####[facility] [address] [place], [place] [address]Kz. Kym Burks VITAMIN D 25 OHon 03-26-2022 VIT D 25-OH 60.0 ng/mL Normal [facility] Comment on above: Performed By: #### V ITJASON, IRON #### [facility] [address] [place] [address] [address] Kym Burks VIT D RANGES SEE BELOW Normal [facility] Comment on above: Result Comment: <20 ng/mL Vit D deficient 20 - <30 ng/mL Vit D insufficient 30 - 100 ng/mL Vit D sufficient >100 ng/mL Potential Toxicity Performed By: #### V ITJASON, IRON #### [facility] [address] [place] [address] [address] Kym Burks XR SHOULDER RT INJon 022 XR SHOULDER [...] by: KWABENA LEDESMA Date: 2021-09-10 14:56 Normal [facility] MAMM SCREEN 3D EMILY CADon 08-22-2021 MG MAMM SCREEN 3D EMILY CAD Patient: LEIA MARIE Exam Date: 08/22/2021 : 1950 Gender:F Ordering : DR JACKY TORRES . Admission #: [id number] Family : Order #: [id number] CLICK HERE TO VIEW EXAM RADIOLOGY REPORT [...] breast cancer at age 51. LOCATION: [facility] BREAST COMPOSITION: Scattered areas fibroglandular density. [...] M.D. on 08/22/2021 at 13:22 Normal [facility] XR SHOULDER RT 2V or >on [...] GINA CRUZ Date: 2021-08-22 12:24 Normal [facility] Covid-19 PCR (CVDTBH)on 04-30 SARS-CoV-2 (COVID-19) RNA SILVESTRE+probe Ql (Unsp spec) Detected Critically abnormal NOT DETECTED [facility] Comment on above: Result Comment: This test is not yet approved or cleared by the [place] FDA. When there are no FDA-approved or cleared tests available, and other criteria are met, FDA can make tests available under an emergency access mechanism called an Emergency Use Authorization (EUA). The EUA for this test is supported by the [place] of Health and Human Service's (HHS's) declaration [...] used). Performed By: #### C VDTBH #### [facility] [address] [place] [address] Dr. Kym Burks INFLUENZA A AND B AGon 05-16 INFLUANE SEE BELOW Normal [facility] Comment on above: Result Comment: Nega tive for Flu A protein angiten. Infection due to Flu A cannot be ruled out. Flu A angiten in the sample may be below the detection limit of the test. Performed By: #### I NFLUAB #### [facility] [address] [place] [address] Dr. Kym Burks INFLUBNEGH SEE BELOW Normal [facility] Comment on above: Result Comment: Nega tive for Flu B protein antigen. Infection due to Flu B cannot be ruled out. Flu B antigen in the sample may be below the detection limit of the test. Performed By: #### I NFLUAB #### [facility] [address] [place] [address] Dr. Kym Burks INFLUENZA A AG Negative Normal NEGATIVE SEE COMMENT [facility] Comment on above: Performed By: #### I NFLUAB #### [facility] [address] [place] [address] [address] Kym Burks INFLUENZA B AG Negative Normal NEGATIVE SEE COMMENT [facility] Comment on above: Performed By: #### I NFLUAB #### [facility] [address] [place] [address] Dr. Kym Burks INTERNAL CONTROLS Within Normal Limits Normal Wi thin Normal Limits [facility] Comment on above: Performed By: #### I NFLUAB #### [facility] [address] [address] [address] Kym Burks Vital Signs Date Time Vital Sign Value Performing Clinician Faci lity 08-29-2022 14:02-0400 Diastolic blood pressure 66 mm[Hg] Amy Barger MD Work Phone: [facility] 08-29-2022 14:02-0400 Systolic blood pressure 140 mm[Hg] Amy Barger MD Work Phone: [facility] 08-29-2022 13:55-0400 Body height 167.6 cm Amy Barger MD Work Phone: [facility] 08-29-2022 13:55-0400 Body weight 94.03 kg Amy Barger MD Work Phone: [facility] 08-29-2022 13:55-0400 Heart rate 59 /min Amy Barger MD Work Phone: [facility] 08-29-2022 13:55-0400 SaO2% (BldA) [Mass fraction] 100 % Amy Barger MD Work Phone: [facility] 09-13-2021 14:38-0400 Body height 167.6 cm Amy Barger MD Work Phone: [facility] 09-13-2021 14:38-0400 Body weight 82.1 kg Amy Barger MD Work Phone: [facility] 09-13-2021 14:38-0400 Diastolic blood pressure 55 mm[Hg] Amy Barger MD Work Phone: [facility] 09-13-2021 14:38-0400 Heart rate 54 /min Amy Barger MD Work Phone: [facility] 09-13-2021 14:38-0400 SaO2% (BldA) [Mass fraction] 100 % Amy Barger MD Work Phone: [facility] 09-13-2021 14:38-0400 Systolic blood pressure 138 mm[Hg] Amy Barger MD Work Phone: [facility] Encounters Encounter Date Encounter Type Care Provider Facility Start: 08-06-2023 End: 08-06-2023 ambulatory KATHERINE CAN Not Available Start: 05-11-2023 Orders Only Amy Barger MD Work Phone: [facility] Comment on above: Nonrheumatic aortic valve insufficiency (Primary Dx) Start: 04-23-2023 End: 04-23-2023 ambulatory KATHERINE CAN Not Available Start: 02-12-2023 End: 02-12-2023 ambulatory KATHERINE CAN Not Available Start: 08-29-2022 End: 08-30-2022 ambulatory JACKY TORRES Facility:[facility] Start: 08-29-2022 End: 08-29-2022 Patient encounter procedure Amy Barger MD Work Phone: [facility]iology Comment on above: Nonrheumatic aortic valve insufficiency (Primary Dx); Coronary artery disease involving [place] coronary artery of [place] heart without angina pectoris; Mixed hyperlipidemia; Valvular heart disease; Coronary artery disease involving [place] coronary artery of [place] heart with angina pectoris (HCC); Type 2 diabetes mellitus without complication, without long-term current use of insulin (HCC) Start: 03-31-2022 End: 04-01-[address] JACKY TORRES Facility: Start: 03-29-2022 End: 03-30-[address] JACKY TORRES Facility:[facility] Start: 03-26-2022 End: 03-27-[address] JACKY TORRES Facility:[facility] Start: 03-10-2022 Orders Only Amy Barger MD Work Phone: Cardiology Comment on above: Nonrheumatic aortic valve insufficiency (Primary Dx) Start: 12-23-2021 End: 01-29-[address] JACKY TORRES Facility:[facility] Start: 09-13-2021 End: 09-13-2021 Patient encounter procedure Amy Barger MD Work Phone: [facility]iology Comment on above: Nonrheumatic aortic valve insufficiency (Primary Dx); Nonrheumatic mitral valve regurgitation; Nonrheumatic tricuspid valve regurgitation; Mixed hyperlipidemia; Coronary artery disease involving [place] coronary artery of [place] heart without angina pectoris; Type 2 diabetes mellitus without complication, without long-term current use of insulin (HCC) Start: 09-10-2021 End: 09-10-[address] JACKY TORRES Facility:[facility] Start: 08-22-2021 End: 08-23-[address] JACKY TORRES Facility:[facility] Start: 05-16-2021 End: 05-16-[address] JACKY TORRES Facility:[facility] Plan of Treatment Date Care Activity Detail Author Start: 11-24-2024 Urine microalbumin profile DTa P,Tdap,Td Vaccine (2 - Td or Tdap) [facility] Start: 08-13-2023 End: 10-13-2023 CBC panel - Blood by Automated count CBC Lab Routine Nonrheumatic aortic valve insufficiency Expected: 08/13/2023, Expires: 10/13/2023 [facility] Work Phone: Comment on above: Expected: 08/13/2023 , Expires: 10/13/2023 Start: 08-13-2023 End: 10-13-2023 Comprehensive metabolic 2000 panel - Serum or Plasma COMP METABOLIC PANEL Lab Routine Nonrheumatic aortic valve insufficiency Expected: 08/13/2023, Expires: 10/13/2023 [facility] Work Phone: Comment on above: Expected: 08/13/2023 , Expires: 10/13/2023 Start: 08-13-2023 End: 10-13-2023 Lipid 1996 panel - Serum or Plasma LIPID PANEL BASIC Lab Routine Nonrheumatic aortic valve insufficiency Expected: 08/13/2023, Expires: 10/13/2023 [facility] Work Phone: Comment on above: Expected: 08/13/2023 , Expires: 10/13/2023 Start: 03-02-2023 Advance Directive Discussion Advance Directive Discussion [facility] Start: 03-02-2023 Depression Assessment Depression Ass essment [facility] Start: 10-31-2022 Covid-19 Vaccine () Covid-19 Vaccine () [facility] Start: 10-31-2022 [facility] Start: 09-13-2022 Hepatitis B surface antibody level LDL CHOLESTEROL [facility] Start: 08-29-2022 End: 08-29-2022 Basic metabolic 2000 panel - Serum or Plasma BASIC METABOLIC PNL Lab Routine Nonrheumatic aortic valve insufficiency Expected: 08/29/2022, Expires: 08/29/2022 [facility] Work Phone: Comment on above: Expected: 08/29/2022 , Expires: 08/29/2022 Start: 03-02-2022 ADVANCE DIRECTIVE DISCUSSION ADVANCE DIRECTIVE DISCUSSION [facility] Start: 03-02-2022 DEPRESSION ASSESSMENT DEPRESSION ASS ESSMENT [facility] Start: 10-31-2021 Influenza vaccination INFLUENZA (#1) [facility] Start: 09-13-2021 End: 11-13-2021 CBC panel - Blood by Automated count CBC Lab Routine Nonrheumatic aortic valve insufficiency Expected: 09/13/2021, Expires: 11/13/2021 [facility] Work Phone: Comment on above: Expected: 09/13/2021 , Expires: 11/13/2021 Start: 09-13-2021 End: 11-13-2021 Comprehensive metabolic 2000 panel - Serum or Plasma COMP METABOLIC PANEL Lab Routine Nonrheumatic aortic valve insufficiency Expected: 09/13/2021, Expires: 11/13/2021 [facility] Work Phone: Comment on above: Expected: 09/13/2021 , Expires: 11/13/2021 Start: 09-13-2021 End: 11-13-2021 Lipid 1996 panel - Serum or Plasma LIPID PANEL BASIC Lab Routine Nonrheumatic aortic valve insufficiency Expected: 09/13/2021, Expires: 11/13/2021 [facility] Work Phone: Comment on above: Expected: 09/13/2021 , Expires: 11/13/2021 Start: 08-02-2021 COVID-19 VACCINE (5 - Booster for Pfizer series) COVID-19 VACCINE (5 - Booster for Pfizer series) [facility] Start: 03-02-2021 ADVANCE DIRECTIVE DISCUSSION ADVANCE DIRECTIVE DISCUSSION [facility] Start: 06-30-2016 BONE DENSITY BONE DENSITY [facility] Start: 06-30-2016 Screening for osteoporosis Bone Dens ity Screening [facility] Start: 2011 RSV Vaccine (1 - 1-d ose 60+ series) RSV Vaccine (1 - 1-dose 60+ series) [facility] Start: 06-30-2001 SHINGRIX VACCINE (1 of 2) ACKERMAN GRIX VACCINE (1 of 2) [facility] Start: 06-30-1996 COLOGUARD (FIT-DNA) COLOGUARD (FIT-D NA) [facility] Start: 06-30-1996 Colonoscopy COLONOSCOPY [facility] Start: 06-30-1996 COLORECTAL CANCER SCREENING COLORECTAL CANCER SCREENING [facility] Start: 06-30-[address] COLONOGRAPHY [facility] Start: 06-30-1996 FECAL OCCULT BLOOD FECAL OCCULT BLOO D [facility] Start: 06-30-1996 Screening for malign ant neoplasm of colon [facility] Start: 06-30-1996 SIGMOIDOSCOPY SIGMOIDOSCOPY [facility] Start: 1991 Mammography MAMMOGRAM [facility] Start: 1991 Screening for malign ant neoplasm of breast Mammogram Screening [facility] Start: 06-30-1970 Urine microalbumin profile DTAP,TDAP ,TD (1 - Tdap) [facility] Start: 06-30-1969 ANNUAL PCP TEAM [employer] ADMINISTRATOR NADJA DISEASE VISIT ANNUAL PCP TEAM CHRONIC DISEASE VISIT [facility] Start: 06-30-1969 HEPATITIS C SCREENING HEPATITIS C SC ANDREW [facility] Start: 06-30-1969 Hepatitis C screening Hepatitis C Sc [facility] Start: 1963 Adult depression scr eening assessment DEPRESSION SCREENING [facility] Start: 06-30-1961 3 comp foot exam completed DIABETIC FOOT EXAM [facility] Start: 06-30-1961 Diabetic foot examination Diabetic F oot Exam [facility] Start: 06-30-1961 Glaucoma screening Dilated Retinal E xam [facility] Start: 06-30-1961 Hepatitis B screening URINE ALBUMIN:CREATININE RATIO [facility] Start: 06-30-1961 Hepatitis C antibody , confirmatory test DILATED RETINAL EXAM [facility] Start: 06-30-1957 PNEUMOCOCCAL: 65+ (1 - PCV) PNEUMOCOCCAL: 65+ (1 - PCV) [facility] Start: 06-30-1956 Hemoglobin A1c measurement HbA1C [facility] Start: 06-30-1956 Hemoglobin A1c/Hemoglobin.total in Blood HBA1C [facility] End: 03-10-2023 ECG COMPLETE ECG COMPLETE ECG Routine Nonrheumatic aortic valve insufficiency 1 Occurrences starting 03/10/2022 until 03/10/2023 [facility] Work Phone: Comment on above: 1 Occurrences starti ng 03/10/2022 until 03/10/2023 End: 05-10-2024 ECG COMPLETE ECG COMPLETE ECG Routine Nonrheumatic aortic valve insufficiency 1 Occurrences starting 05/11/2023 until 05/10/2024 [facility] Work Phone: Comment on above: 1 Occurrences starti ng 05/11/2023 until 05/10/2024 End: 05-10-2024 Echocardiography ECHO Cardiology Routine Nonrheumatic aortic valve insufficiency 1 Occurrences starting 05/11/2023 until 05/10/2024 [facility] Work Phone: Comment on above: 1 Occurrences starti ng 05/11/2023 until 05/10/2024 [facility] Immunizations Immunization Date Immunization Notes Care Provider Martina vaz 01-05-2022 influenza virus vacc ine, unspecified formulation Amy Barger MD Work Phone: [facility] Payers Date Payer Category Payer Medicare HUMANA MEDICARE HUMANA GOLD PLUS [id number] 2017-Present [phone] [address] [address] [place] [address] HMO [id number] 2017 Medicare HUMANA MEDICARE HUMANA GOLD PLUS [id number] 2017-Present [phone] [address] [address] [place] [address] HMO [id number] 1959 Medicare [id number] 1950 Unknown [id number] 1950 Unknown [id number] 1950 Unknown [id number] 1950 Unknown [id number] 1950 Unknown [id number] 1950 Unknown [id number] 1950 Unknown [id number] 1950 Unknown [id number] 9 1950 Unknown [id number] 9 1950 Unknown [id number] 9 Social History Date Type Detail Facility Start: 01-21-2019 End: 08-29-2022 Tobacco smoking status IDIS Never smoked tobacco [facility] Start: 01-21-2019 End: 08-29-2022 Tobacco use and exposure Smokeless tobacco non-user [facility] Start: 09-13-2021 End: 08-29-2022 Alcohol intake Lifetime non-drinker (finding) [facility] Start: 01-21-2019 History SDOH Alcohol Frequency 1 [facility] Start: 1950 Sex Assigned At Not on file [facility] Start: 09-03-2021 End: 09-13-2021 Exposure to SARS-CoV-2 (event) Not sure [facility] Start: 01-21-2019 End: 08-29-2022 History of Social function [facility] Start: 01-21-2019 End: 08-29-2022 Alcohol Use Disorder Identification Test - Consumption [AUDIT-C] [facility] How often to you hav e a drink containing alcohol? Never [facility] Average Number of Drinks Not on file [facility] Procedure Code Equipment Code Equipment Origin al Text Equipment Identifier Dates ACCU-CHEK BEREKET PLUS TEST STRP test strip Start: 10-23-2020 Clinical Notes 05-19-2018 to 08-29-2022 Patient InstructionsAmy Barger MD - 08/29/2022 1:30 PM EDTBlele Barger MD - 09/13/2021 2:30 PM EDT Note Date & Type Note Facility 08-29-2022 Note HNO ID: [id number] Author: Amy Barger MD Service: ? Author Type: Physician Type: Progress Notes Filed: 08/30/2022 3:22 PM Note Text: [facility] [place] [facility] Department of Cardiovascular Medicine SECTION [...] Age of Onset Heart Attack Mother fatal DC at age 70 Diabetes Mother Diabetes Father Heart Father bypass at age 60s Heart Attack Father DC at age 60s other (Other) Father MVA at age 72 Cancer Sister at age 42 other (Other) Brother infant Cancer Sister breast cancer at age 50 No Known Problems Brother Heart Attack Brother fatal DC at age 64 other (ulcers) Brother bleeding [...] upstroke. Lungs: Cl (more content not included)... [facility] 08-29-2022 Instructions Amy Barger MD - 08/29/2022 2:29 PM EDT Recommend stopping pioglitazone. documented in this encounter [facility] 08-29-2022 History of Present illness Narrative Images from the original note were not included. [facility] Department of Cardiovascular Medicine SECTION [...] Age of Onset Heart Attack Mother fatal DC at age 70 Diabetes Mother Diabetes Father Heart Father bypass at age 60s Heart Attack Father DC at age 60s other (Other) Father MVA at age 72 Cancer Sister at age 42 other (Other) Brother infant Cancer Sister breast cancer at age 50 No Known Problems Brother Heart Attack Brother fatal DC at age 64 other (ulcers) Brother bleeding [...] coordinated. CARDIOVASCULAR MEDICINE TESTIN. Echocardiogram: 08/24/2020 2. rough carpenter: 02/01/2019 to 02/14/[address] coronary angiogram: 11/21/2020 4. Cath angiogram: 01/05/2021 5. Echocardiogram: 09/13/2021 6. Outside echocardiogram: 09/15/2018 7. Outside echocardiogram: 04/29/2004 7. 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 Outside [...] Amy Barger MD documented in this encounter [facility] 09-13-2021 History of Present illness Narrative Images from the original note were not included. [facility] Department of Cardiovascular Medicine SECTION [...] Age of Onset Heart Attack Mother fatal DC at age 70 Diabetes Mother Diabetes Father Heart Father bypass at age 60s Heart Attack Father DC at age 60s other (Other) Father MVA at age 72 Cancer Sister at age 42 other (Other) Brother Cancer Sister breast cancer at age 50 No Known Problems Brother Heart Attack Brother fatal DC at age 64 other (ulcers) Brother bleeding [...] coordinated. CARDIOVASCULAR MEDICINE TESTIN. Echocardiogram: 08/24/2020 2. rough carpenter: 02/01/2019 to 02/14/[address] coronary angiogram: 11/21/2020 4. Cath angiogram: 01/05/2021 5. Echocardiogram: 09/13/2021 6. Outside echocardiogram: 09/15/2018 7. Outside echocardiogram: 04/29/2004 7. 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 Outside [...] has recovered from it. Echocardiography at the [facility] reveals stable mild aortic regurgitation, and [...] Amy Barger MD documented in this encounter [facility] 05-19-2018 History of Past i llness Narrative Problem Noted Date Resolved Date Pure hypercholesterolemia, unspecified 9 08/24/2020 documented as of this encounter (statuses as of 09/14/2021) [facility] History of Past illness Narrative* Problem Noted Date Resolved Date Pure hypercholesterolemia, unspecified 9 08/24/2020 documented as of this encounter (statuses as of 03/11/2022) [facility] History of Past illness Narrative* Problem Noted Date Resolved Date Pure hypercholesterolemia, unspecified 9 08/24/2020 documented as of this encounter (statuses as of 08/30/2022) [facility] History of Past illness Narrative* Problem Noted Date Diagnosed Date Resolved Date Pure hypercholesterolemia, unspecified 05/19/2018 08/24/2020 documented as of this encounter (statuses as of 05/11/2023) [facility] Diagnosis Nonrheumatic aortic valve insufficiency- Primary Aortic valve disorders Nonrheumatic mitral valve regurgitation Nonrheumatic tricuspid valve regurgitation Tricuspid valve disorders, specified as nonrheumatic Mixed hyperlipidemia Coronary artery disease involving [place] coronary artery of [place] heart without angina pectoris Type 2 diabetes mellitus without complication, without long-term current use of insulin (HCC) [facility] Diagnosis Nonrheumatic aortic valve insufficiency- Primary Aortic valve disorders [facility] Diagnosis Nonrheumatic aortic valve insufficiency- Primary Aortic valve disorders Coronary artery disease involving [place] coronary artery of [place] heart without angina pectoris Mixed hyperlipidemia Valvular heart disease Endocarditis, valve unspecified, 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) Type 2 diabetes mellitus without complication, without long-term current use of insulin (HCC) [facility] Diagnosis Nonrheumatic aortic valve insufficiency- Primary Aortic valve disorders [facility] Outpatient Procedure (Routine) - Authorized Specialty Diagnoses / Procedures Referred By Contac t Referred To [facility] Diagnoses Nonrheumatic aortic valve insufficiency Procedures ECG COMPLETE ECG ROUTINE ECG W/LEAST 12 LDS W/I&R Amy Barger MD [address] [place] [address] [address] Referral ID Status Reason Start Date Expiration Date Visits Requested Visits Authorized [id number] Authorized Auto-Generat ed Referral 03/10/2022 03/10/2023 1 1 [facility] for referral (narrative)* Outpatient Procedure (Routine) - Authorized Specialty Diagnoses / Procedures Referred By Contac t Referred To Contact [facility] Diagnoses Nonrheumatic aortic valve insufficiency Procedures ECG COMPLETE ECG ROUTINE ECG W/LEAST 12 LDS W/I&R Amy Barger MD [address] [place] [address] [address] Referral ID Status Reason Start Date Expiration Date Visits Requested Visits Authorized [id number] Authorized Auto-Generat ed Referral 05/11/2023 05/10/2024 1 1 * Outpatient Procedure (Routine) - Pending Review Specialty Diagnoses / Procedures Referred By Contwinston t Referred To Contact [facility] SERVICES Diagnoses Nonrheumatic aortic valve insufficiency Procedures ECHO ECHO TTHRC R-T 2D W/WOM-MODE COMPL SPEC&COLR D Amy Barger MD [address] [place] [address] [address] Referral ID Status Reason Start Date Expiration Date Visits Requested Visits Authorized [id number] Pending Review Auto-Generat ed Referral 05/11/2023 05/10/2024 1 1 [facility] Advance Directives No Advanced Directives Records FoundDocuments on File Type Date Recorded 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 Advance Directive(s) 12/14/2020 3:08 PM [...] or prosecute any alcohol or drug abuse patient.[facility] the event this information is protected by the Federal Confidentiality of Alcohol and Drug Abuse Patient Records regulations: The Federal rules restrict any use of the information to criminally investigate or prosecute any alcohol or drug abuse patient.[facility] Hospital[facility] the event this information is protected by the Federal Confidentiality of Alcohol and Drug Abuse Patient Records regulations: The Federal rules restrict any use of the information to criminally investigate or prosecute any alcohol or drug abuse patient.[facility] the event this information is protected by the Federal Confidentiality of Alcohol and Drug Abuse Patient Records regulations: The Federal rules restrict any use of the information to criminally investigate or prosecute any alcohol or drug abuse patient.[facility] Reason for Visit (unrecogniz ed section and content) Reason Comments Follow Up Reason Comments Coronary Artery Disease Valvular Heart Disease Care Teams (unrecognized sec tion and content) Driver Sales Relationship Specialty Start Date End Date Jacky Torres MD [address] [id number] PCP - General Family Practice 01/21/19 Amy Barger MD [address] [place] [address] Primary Staff Physician Cardiology 08/24/20 Driver Sales Relationship Specialty Start Date End Date Jacky Torres MD [address] [place] [address] PCP - General Family Medicine 01/21/19 Amy Barger MD [address] [facility] [place] [address] Primary Staff Physician Cardiology 08/24/20 Driver Sales Relationship Specialty Start Date End Date Jacky Torres MD PCP - General Family Medicine 01/21/19 Amy Barger MD [address] [facility] [place] [address] Primary Staff Physician Cardiology 08/24/20 Driver Sales Relationship Specialty Start Date End Date Jacky Torres MD PCP - General Family Medicine 01/21/19 Amy Barger MD [address] [place] [address] Primary Staff Physician Cardiology 6/25/21 INFORMATION SOURCE (unrecogn ized section and content) DATE CREATED AUTHOR 04/03/2022 [facility] DATE CREATED AUTHOR AUTHOR'S ORGANIZ ATION 07/23/2023 [facility] DATE CREATED AUTHOR AUTHOR'S ORGANIZ ATION 08/07/2023 [facility] RECORDS PERTAINING TO PATIENTS [...] BE BASED ON THE PRIMARY CLINICAL RECORDS. [facility] [employer] provides no warranty or guarantee of the accuracy or completeness of information in this document.
== END 2023-08-28 10:52 | disposition home or self-care (01) ==
LOC: MAMMO 10:51
PROVIDERS: PCP Family Medicine; Visit Provider Family Medicine
DX: Z12.31 Encounter for screening mammogram for malignant neoplasm of breast (principal); R00.2 Palpitations; E78.5 Hyperlipidemia, unspecified; E03.9 Hypothyroidism, unspecified; I25.10 Atherosclerotic heart disease of native coronary artery without angina pectoris; E11.9 Type 2 diabetes mellitus without complications; R73.09 Other abnormal glucose; Z12.12 Encounter for screening for malignant neoplasm of rectum; D64.9 Anemia, unspecified; E55.9 Vitamin D deficiency, unspecified; Z80.3 Family history of malignant neoplasm of breast; Z80.52 Family history of malignant neoplasm of bladder
CPT/HCPCS: 77063; 77067

== ENCOUNTER 2023-08-29 09:05 | Outpatient (OUT) | payer MEDICARE, SELFPAY ==
--- OUTSIDE RECORDS SUMMARY | 2023-08-29 09:08 | XMS_ITS | CCD ---
Author Organization [facility] CliniSyal Care Team Providers Care Button Puncher Name Role Phone Jacky Torres MD Primary Care Provider [phone] Amy Barger MD Unavailable LESVIA, DR RICO Admitting Unavailable HOY, DR RICO Attending Unavailable HOY, DR RICO Primary Care Unavailable HOY, DR RICO Primary Care Unavailable HOY, DR RICO Admitting Unavailable HOY, DR RICO Attending Unavailable HOY, DR RICO Admitting Unavailable HOY, DR RICO Attending Unavailable HOY, DR RICO Consulting Unavailable HOY, DR RICO Primary Care Unavailable RUETER, DR KWABENA Rut[employer] Consult[employer] Unavailable HOY, DR [...] Unavailable Jacky Torres MD Primary Care Provider [phone] Amy Barger MD Unavailable Amy Barger MD [...] [CODEINE] Drug Allergy 9 Other: See Comments [facility] (5 sources) Sulfonamides (Antibiotic); Translations: [SULFA (SULFONAMIDE ANTIBIOTICS)] Drug Allergy 8 Shortness of Breath [facility] (5 sources) traMADol; Translations: [TRAMADOL] Drug Allergy 1 GI Upset [facility] (6 sources) Tuberculin Ppd [place] Test; Translations: [Tuberculin PPD [place] Test] Drug Allergy 2 Rash [facility] (1 source) Codeine Drug Allergy [facility] (1 source) Glutathione Drug Allergy [facility] (1 source) traMADol Drug Allergy [facility] Medications Current Medications Medication Drug Class(es) [...] Coronary atherosclerosis; Translations: [Atherosclerotic heart disease of [place] coronary artery without angina pectoris] Onset: 01-05-2021 [...] Anion gap [Moles/Vol] 9 mmol/L Normal 9-18 [facility] Comment on above: Order Comment: Speci men Type: BLOOD SPECIMEN Ordering Facility: [facility] Address: [address] [place] [id number] Performed By: #### 2 4321-2 #### [facility] CLIA [id number] 9500 [facility] DESK [address] [address] [place] Calcium [Mass/Vol] 10.5 mg/dL High 8.5-10.2 [facility] Comment on above: Order Comment: Speci men Type: BLOOD SPECIMEN Ordering Facility: [facility] Address: [address] Performed By: #### 2 4321-2 #### [facility] CLIA [id number] [address] [place] [address] [place] Chloride [Moles/Vol] 104 mmol/L Normal 97-105 [facility] Comment on above: Order Comment: Speci men Type: BLOOD SPECIMEN Ordering Facility: [facility] Address: [address] Performed By: #### 2 4321-2 #### [facility] CLIA [id number] [address] [place] [address] [place] CO2 [Moles/Vol] 27 mmol/L Normal 22-30 [facility] Comment on above: Order Comment: Speci men Type: BLOOD SPECIMEN Ordering Facility: [facility] Address: [address] Performed By: #### 2 4321-2 #### [facility] CLIA [id number] [address] [place] [address] [place] Creatinine [Mass/Vol] 0.84 mg/dL Normal 0.58-0.96 [facility] Comment on above: Order Comment: Speci men Type: BLOOD SPECIMEN Ordering Facility: [facility] Address: [address] Performed By: #### 2 4321-2 #### [facility] CLIA [id number] [address] [place] [address] [place] ESTIMATED GLOMERULAR FILTRATION RATE 74 mL/min/1.73m??? Normal >=60 [facility] Comment on above: Order Comment: Speci men Type: BLOOD SPECIMEN Ordering Facility: [facility] Address: [address] Result Comment: Maria R mated Glomerular [...] GFR. Performed By: #### 2 4321-2 #### [facility] CLIA [id number] [address] [place] [address] [place] Glucose [Mass/Vol] 167 mg/dL High 74-99 [facility] Comment on above: Order Comment: Colten sidhu Type: BLOOD SPECIMEN Ordering Facility: [facility] Address: [address] [place], [place] [id number] Result Comment: The [place] Diabetes Association (ADA) provides guidance for cutoff [...] Standards of Medical Care in Diabetes 2016, [place] [employer]. Diabetes Care. 2016.39(Suppl 1). Performed By: #### 2 4321-2 #### [facility] CLIA [id number] [facility] [place] [address] [place] Potassium [Moles/Vol] 4.1 mmol/L Normal 3.7-5.1 [facility] Comment on above: Order Comment: Colten sidhu Type: BLOOD SPECIMEN Ordering Facility: [facility] Address: [address] [place] [address] Performed By: #### 2 4321-2 #### [facility] CLIA [id number] [address] [place] [address] [place] Sodium [Moles/Vol] 140 mmol/L Normal 136-144 [facility] Comment on above: Order Comment: Specdavid men Type: BLOOD SPECIMEN Ordering Facility: [facility] Address: [address] [place] [address] Performed By: #### 2 4321-2 #### [facility] CLIA [id number] [address] [place] Urea nitrogen [Mass/Vol] 18 mg/dL Normal 7-21 [facility] Comment on above: Order Comment: Speci men Type: BLOOD SPECIMEN Ordering Facility: [facility] Address: [address] [place] [address] Performed By: #### 2 4321-2 #### [facility] CLIA [id number] [address] [facility] CNOVon 08-29-2022 CNOV Office Visit (CARIMN ) LEIA MARIE ([id number]) 1950 F Date Time Provider Department 08/29/22 1:30 PM AMY BARGER During your visit today, we recorded the following information about you: Pulse Blood pressure Weight Height 59/minute 140/66 94 kg 1.676 m Amy Barger MD 08/30/2022 3:22 PM Signed [facility] [place] Arielle Duke Department of Cardiovascular Medicine SECTION [...] Age of Onset Heart Attack Mother fatal [place] at age 70 Diabetes Mother Diabetes Father Heart Father bypass at age 60s Heart Attack Father [place] at age 60s other (Other) Father MVA at age 72 Cancer Sister at age 42 other (Other) Brother infant Cancer Sister breast cancer at age 50 No Known Problems Brother Heart Attack Brother fatal [place] at age 64 other (ulcers) Brother bleeding [...] Well appea (more content not included)... Normal [facility] ECG COMPLETEon 08-29-2022 ECG COMPLETE Ventricular Rate : 5 0 BPM Atrial Rate : 50 BPM P-R Interval : 174 ms QRS Duration : 80 ms Q-T Interval : 442 ms QTC Calculation(Bazett) : 402 ms Calculated P [place] : 59 degrees Calculated R [place] : -8 degrees Calculated T [place] : 42 degrees SINUS BRADYCARDIA WITH MARKED SINUS ARRHYTHMIA OTHERWISE NORMAL ECG Confirmed by NADIR COHEN MD ([id number]) on 09/06/2022 10:03:50 AM NAME : LEIA MARIE PID : [id number] : 1950 Gender : Female Race : ORD : [id number] Procedure Date : Aug 29 2022 12:55:52 [...] AMY BARGER Acquired by : YUNIER VALLE [facility] BLD IMMUNO SCREENon 03-03 OCCULT BLOOD Negative Normal NEGATIVE [facility] Comment on above: Performed By: #### O BSCRN #### [facility] [address] [place] [address] Dr. Kym Burks CBC AUTO DIFFon 03-26-2022 BASO # 0.0 103/ul Normal 0.0-0.1 [facility] Comment on above: Performed By: #### C BC #### [facility] [address] [place] [address] Dr. Kym Burks Basophils/100 WBC (Bld) 0.7 % Normal 0.2-2.0 [facility] Comment on above: Performed By: #### C BC #### [facility] [address] [place] [address] Dr. Kym Burks EO # 0.1 103/ul Normal 0.0-0.7 [facility] Comment on above: Performed By: #### C BC #### [facility] [address] [place] [address] Dr. Kym Burks Eosinophils/100 WBC (Bld) 1.7 % Normal 0.9-7.0 [facility] Comment on above: Performed By: #### C BC #### [facility] [address] [place] [address] Dr. Kym Burks Erythrocyte distribution width (RBC) [Ratio] 13.2 % Normal 11.0-15.0 [facility] Comment on above: Performed By: #### C BC #### [facility] [address] [place] [address] Dr. Kym Burks Hematocrit (Bld) [Volume fraction] 41.6 % Normal 36.0-48.0 [facility] Comment on above: Performed By: #### C BC #### [facility] [address] [place] [address] [address] Kym Burks Hemoglobin (Bld) [Mass/Vol] 12.7 g/dL Normal 12.0-16.0 [facility] Comment on above: Performed By: #### C BC #### [facility] [address] [place] [address] [address] Kym Burks IG # 0.00 10e3/ul Normal 0.00-0.03 [facility] Comment on above: Performed By: #### C BC #### [facility] [address] [place] [address] Dr. Kym Burks IG % 0.0 % Normal 0.0-0.5 [facility] Comment on above: Performed By: #### C BC #### [facility] [address] [place] [address] Dr. Kym Burks LYMPH # 1.4 103/ul Normal 1.2-3.8 [facility] Comment on above: Performed By: #### C BC #### [facility] [address] [place] [address] Dr. Kym Burks Lymphocytes/100 WBC (Bld) 33.3 % Normal 20.5-60.0 [facility] Comment on above: Performed By: #### C BC #### [facility] [address] [place] [address] Dr. yKm Burks MANUAL DIFF REQ NO Normal [facility] Comment on above: Performed By: #### C BC #### [facility] [address] [place] [address] Dr. Kym Burks MCH (RBC) [Entitic mass] 28.8 pg Normal 26.7-34.0 [facility] Comment on above: Performed By: #### C BC #### [facility] [address] [place] [address] Dr. Kym Burks MCHC (RBC) [Mass/Vol] 30.5 g/dL Normal 29.9-35.2 [facility] Comment on above: Performed By: #### C BC #### [facility] [address] [place] [address] [address] Kym Burks MCV (RBC) [Entitic vol] 94.3 fL Normal 81.0-99.0 [facility] Comment on above: Performed By: #### C BC #### [facility] [address] [place] [address] [address] Kym Burks MONO # 0.3 103/ul Normal 0.3-0.8 [facility] Comment on above: Performed By: #### C BC #### [facility] [address] [place] [address] Dr. Kym Burks Monocytes/100 WBC (Bld) 6.7 % Normal 1.7-12.0 [facility] Comment on above: Performed By: #### C BC #### [facility] [address] [place] [address] Dr. Kym Burks NEUT # 2.4 103/ul Normal 1.4-6.5 [facility] Comment on above: Performed By: #### C BC #### [facility] [address] [place] [address] Dr. Kym Burks Neutrophils/100 WBC (Bld) 57.6 % Normal 43.0-75.0 [facility] Comment on above: Performed By: #### C BC #### [facility] [address] [place] [address] Dr. Kym Burks Platelet mean volume (Bld) [Entitic vol] 9.9 fL Normal 9.5-13.5 [facility] Comment on above: Performed By: #### C BC #### [facility] [address] [place] [address] Dr. Kym Burks PLT 221 103/ul Normal 150-450 [facility] Comment on above: Performed By: #### C BC #### [facility] [address] [place] [address] Dr. Kym Burks RBC 4.41 106/ul Normal 4.20-5.40 [facility] Comment on above: Performed By: #### C BC #### [facility] [address] [place] [address] [address] Kym Burks WBC 4.2 103/ul Normal 4.0-11.0 [facility] Comment on above: Performed By: #### C BC #### [facility] [address] [place] [address] [address] Kym Burks FREE THYROXINE INDEX T7on FTI 3.78 Normal 1.30-4.50 [facility] Comment on above: Performed By: #### T SH, CMP, T7, LIPID ####[facility] [address] [place] [id number]. Kym Burks T3U 36.0 % Normal 30.0-39.0 [facility] Comment on above: Performed By: #### T SH, CMP, T7, LIPID ####[facility] [address] [place] [phone]. Kym Burks T4 [Mass/Vol] 10.50 ug/dL Normal 4.80-13.[address] [facility] Comment on above: Performed By: #### T SH, CMP, T7, LIPID ####[facility] [address] [place] [phone]. Kym Burks GLYCOHEMOGLOBIN A1Con 2022 ADA RECOMMENDATION SEE BELOW Normal [facility] Comment on above: Result Comment: ADA RECOMMENDED LIMIT 4.0 - 6.0 ADA THERAPEUTIC TARGET < 7.0 ACTION SUGGESTED > 7.0 Performed By: #### A 1C #### [facility] [address] [place] [address] [address] Kym Burks Glucose [Mass/Vol] 148 mg/dL Normal [facility] Comment on above: Performed By: #### A 1C #### [facility] [address] [place] [address] [address] Kym Burks HbA1c (Bld) [Mass fraction] 6.8 % Critically high 4.5-6.2 [facility] Comment on above: Performed By: #### A 1C #### [facility] [address] [place] [address] [address] Kym Burks IRONon 03-26-2022 Iron [Mass/Vol] 72.0 ug/dL Normal 50.0-170.0 [facility] Comment on above: Performed By: #### V ITAD, IRON #### [facility] [address] [place], [place] [address] Dr. Kym Burks LIPID PROFILEon 03-26-2022 CHOL-HDL RATIO NORM SEE BELOW Normal [facility] Comment on above: Result Comment: 3.3 - 4.4 LOW RISK 4.4 - 7.1 AVERAGE RISK 7.1 - 11.0 MODERATE RISK >11.0 HIGH RISK Performed By: #### T SH, CMP, T7, LIPID ####[facility] [address] [place], [place] [address]MlAlice Burks Cholesterol [Mass/Vol] 126 mg/dL Normal <=200 [facility] Comment on above: Performed By: #### T SH, CMP, T7, LIPID ####[facility] [address] [place], [place] [address]FhAlice Burks Cholesterol in HDL [Mass/Vol] 47 mg/dL Normal 40-60 [facility] Comment on above: Performed By: #### T SH, CMP, T7, LIPID ####[facility] [address] [place] [phone] Burks Cholesterol in LDL [Mass/Vol] 56.8 mg/dL Normal [facility] Comment on above: Performed By: #### T SH, CMP, T7, LIPID ####[facility] [address] [place], [place] [address]MdAlice Burks Cholesterol.total/Ch olesterol in HDL [Mass ratio] 2.7 {ratio} Normal [facility] Comment on above: Performed By: #### T SH, CMP, T7, LIPID ####[facility] [address] [place], [place] [address]MgAlice Burks HDL NORMAL > or = 60 mg/dl - LO W CARDIOVASCULAR RISK <40 mg/dl - HIGH CARDIOVASCULAR RISK Normal [facility] Comment on above: Performed By: #### T SH, CMP, T7, LIPID ####[facility] [address] [place], [place] [address]Qj. Kym Burks LDL CALC NORMAL SEE BELOW Normal [facility] Comment on above: Result Comment: <100 mg/dl OPTIMAL 100 - 129 mg/dl NEAR OR ABOVE OPTIMAL 130 - 159 mg/dl BORDERLINE HIGH 160 - 189 mg/dl HIGH >190 mg/dl VERY HIGH Performed By: #### T SH, CMP, T7, LIPID ####[facility] [address] [place] [phone]. Kym Burks Triglyceride [Mass/Vol] 111 mg/dL Normal <=150 [facility] Comment on above: Performed By: #### T SH, CMP, T7, LIPID ####[facility] [address] [place] [phone]. Kym Burks VLDL CALC 22.2 mg/dL Normal [facility] Comment on above: Performed By: #### T SH, CMP, T7, LIPID ####[facility] [address] [place] [address]DrAlice Burks PROF 14(COMP METB)on 023 Albumin [Mass/Vol] 3.9 g/dL Normal 3.4-5.0 [facility] Comment on above: Performed By: #### T SH, CMP, T7, LIPID ####[facility] [address] [place] [address]DrAlice Burks Albumin/Globulin [Mass ratio] 1.3 {ratio} Normal [facility] Comment on above: Performed By: #### T SH, CMP, T7, LIPID ####[facility] [address] [place] [phone]. Kym Burks ALP [Catalytic activity/Vol] 80 U/L Normal 46-116 [facility] Comment on above: Performed By: #### T SH, CMP, T7, LIPID ####[facility] [address] [place] [phone]. Kym Burks ALT [Catalytic activity/Vol] 28 U/L Normal 14-59 [facility] Comment on above: Performed By: #### T SH, CMP, T7, LIPID ####[facility] [address] [place] [phone]. Kym Burks Anion gap [Moles/Vol] 10.6 mmol/L Normal [facility] Comment on above: Performed By: #### T SH, CMP, T7, LIPID ####[facility] [address] [place] [address]Dr. Kym Burks AST [Catalytic activity/Vol] 21 U/L Normal 15-37 [facility] Comment on above: Performed By: #### T SH, CMP, T7, LIPID ####[facility] [address] [place] [address]Dr. Kym Burks Bilirubin [Mass/Vol] 1.3 mg/dL Critically high 0.2-1.0 [facility] Comment on above: Performed By: #### T SH, CMP, T7, LIPID ####[facility] [address] [place] [address]Dr. Kym Burks Calcium [Mass/Vol] 10.0 mg/dL Normal 8.5-10.1 [facility] Comment on above: Performed By: #### T SH, CMP, T7, LIPID ####[facility] [address] [place] [address]Dr. Kym Burks Chloride [Moles/Vol] 104 mmol/L Normal 98-107 [facility] Comment on above: Performed By: #### T SH, CMP, T7, LIPID ####[facility] [address] [place] [address]Dr. Kym Burks CO2 [Moles/Vol] 28.8 mmol/L Normal 21.0-32.0 [facility] Comment on above: Performed By: #### T SH, CMP, T7, LIPID ####[facility] [address] [place] [address]Dr. Kym Burks Creatinine [Mass/Vol] 0.74 mg/dL Normal 0.55-1.02 [facility] Comment on above: Performed By: #### T SH, CMP, T7, LIPID ####[facility] [address] [place] [address]Dr. Kym Burks EGFR-AF POLISH >60 Normal >=60 [facility] Comment on above: Performed By: #### T SH, CMP, T7, LIPID ####[facility] [address] [place] [address]Dr. Kym Burks EGFR-NON AF POLISH >60 Normal >=60 [facility] Comment on above: Performed By: #### T SH, CMP, T7, LIPID ####[facility] [address] [place] [address]Dr. Kym Burks Globulin (S) [Mass/Vol] 3.1 g/dL Normal [facility] Comment on above: Performed By: #### T SH, CMP, T7, LIPID ####[facility] [address] [place] [address]Dr. Kym Burks Glucose [Mass/Vol] 143 mg/dL Critically high 74-106 [facility] Comment on above: Performed By: #### T SH, CMP, T7, LIPID ####[facility] [address] [place] [address]Dr. Kym Burks Potassium [Moles/Vol] 4.4 mmol/L Normal 3.5-5.1 [facility] Comment on above: Performed By: #### T SH, CMP, T7, LIPID ####[facility] [address] [place] [address]Dr. Kym Burks Protein [Mass/Vol] 7.0 g/dL Normal 6.4-8.2 [facility] Comment on above: Performed By: #### T SH, CMP, T7, LIPID ####[facility] [address] [place] [address]Dr. Kym Burks Sodium [Moles/Vol] 139 mmol/L Normal 136-145 [facility] Comment on above: Performed By: #### T SH, CMP, T7, LIPID ####[facility] [address] [place] [address]Dr. Kym Burks Urea nitrogen [Mass/Vol] 26.0 mg/dL Critically high 7.0-18.0 [facility] Comment on above: Performed By: #### T SH, CMP, T7, LIPID ####[facility] [address] [place], [place] [address]Bh. Kym Burks Urea nitrogen/Creatinine [Mass ratio] 35.1 mg/mg Normal [facility] Comment on above: Performed By: #### T SH, CMP, T7, LIPID ####[facility] [address] [place], [place] [address]Zh. Kym Burks TSHon 03-26-2022 TSH 0.288 uIU/mL Critically low 0.358-3.740 [facility] Comment on above: Performed By: #### T SH, CMP, T7, LIPID ####[facility] [address] [place], [place] [address]Ns. Kym Burks VITAMIN D 25 OHon 03-26-2022 VIT D 25-OH 60.0 ng/mL Normal [facility] Comment on above: Performed By: #### V ITJASON, IRON #### [facility] [address] [address] [address] Kym Burks VIT D RANGES SEE BELOW Normal [facility] Comment on above: Result Comment: <20 ng/mL Vit D deficient 20 - <30 ng/mL Vit D insufficient 30 - 100 ng/mL Vit D sufficient >100 ng/mL Potential Toxicity Performed By: #### V ITJASON, IRON #### [facility] [address] [address] [address] Kym Burks XR SHOULDER RT INJon [...] by: KWABENA LEDESMA Date: 2021-09-10 14:56 Normal [facility] MAMM SCREEN 3D EMILY CADon 08-22-2021 MG MAMM SCREEN 3D EMILY CAD Patient: LEIA MARIE Exam Date: 08/22/2021 : 1950 Gender:F Ordering : DR JACKY TORRES . Admission #: [id number] Family : Order #: [id number] CLICK HERE TO VIEW EXAM RADIOLOGY REPORT [...] breast cancer at age 51. LOCATION: [facility] BREAST COMPOSITION: Scattered areas fibroglandular density. FINDINGS: [...] M.D. on 08/22/2021 at 13:22 Normal [facility] XR SHOULDER RT 2V or >on XR [...] GINA CRUZ Date: 2021-08-22 12:24 Normal [facility] Covid-19 PCR (CVDTBH)on 04-30 SARS-CoV-2 (COVID-19) RNA SILVESTRE+probe Ql (Unsp spec) Detected Critically abnormal NOT DETECTED [facility] Comment on above: Result Comment: This test is not yet approved or cleared by the [place] FDA. When there are no FDA-approved or cleared tests available, and other criteria are met, FDA can make tests available under an emergency access mechanism called an Emergency Use Authorization (EUA). The EUA for this test is supported by the Super[employer] Service of Health and Human Service's (HHS's) declaration [...] used). Performed By: #### C VDTBH #### [facility] [address] [place] [address] Dr. Kym Burks INFLUENZA A AND B AGon 05-16 INFLUANE SEE BELOW Normal [facility] Comment on above: Result Comment: Nega tive for Flu A protein angiten. Infection due to Flu A cannot be ruled out. Flu A angiten in the sample may be below the detection limit of the test. Performed By: #### I NFLUAB #### [facility] [address] [place] [address] Dr. Kym Burks INFLUBNEGH SEE BELOW Normal [facility] Comment on above: Result Comment: Nega tive for Flu B protein antigen. Infection due to Flu B cannot be ruled out. Flu B antigen in the sample may be below the detection limit of the test. Performed By: #### I NFLUAB #### [facility] [address] [place] [address] Dr. Kym Burks INFLUENZA A AG Negative Normal NEGATIVE SEE COMMENT [facility] Comment on above: Performed By: #### I NFLUAB #### [facility] [address] [address] [address] Kym Burks INFLUENZA B AG Negative Normal NEGATIVE SEE COMMENT [facility] Comment on above: Performed By: #### I NFLUAB #### [facility] [address] [place] [address] Dr. Kym Burks INTERNAL CONTROLS Within Normal Limits Normal Wi thin Normal Limits [facility] Comment on above: Performed By: #### I NFLUAB #### [facility] [address] [address] [address] Kym Burks Vital Signs Date Time Vital Sign Value Performing Clinician Faci lity 08-29-2022 14:02-0400 Diastolic blood pressure 66 mm[Hg] Amy Barger MD Work Phone: [place] [facility] 08-29-2022 14:02-0400 Systolic blood pressure 140 mm[Hg] Amy Barger MD Work Phone: [facility] 08-29-2022 13:55-0400 Body height 167.6 cm Amy Barger MD Work Phone: [facility] 08-29-2022 13:55-0400 Body weight 94.03 kg Amy Barger MD Work Phone: [facility] 08-29-2022 13:55-0400 Heart rate 59 /min Amy Barger MD Work Phone: [facility] 08-29-2022 13:55-0400 SaO2% (BldA) [Mass fraction] 100 % Amy Barger MD Work Phone: [facility] 09-13-2021 14:38-0400 Body height 167.6 cm Amy Barger MD Work Phone: [facility] 09-13-2021 14:38-0400 Body weight 82.1 kg Amy Barger MD Work Phone: [facility] 09-13-2021 14:38-0400 Diastolic blood pressure 55 mm[Hg] Amy Barger MD Work Phone: [facility] 09-13-2021 14:38-0400 Heart rate 54 /min Amy aBrger MD Work Phone: [facility] 09-13-2021 14:38-0400 SaO2% (BldA) [Mass fraction] 100 % Amy Barger MD Work Phone: [facility] 09-13-2021 14:38-0400 Systolic blood pressure 138 mm[Hg] Amy Barger MD Work Phone: [facility] Encounters Encounter Date Encounter Type Care Provider Facility Start: 08-06-2023 End: 08-06-2023 ambulatory KATHERINE CAN Not Available Start: 05-11-2023 Orders Only Amy Barger MD Work Phone: Cardiology Comment on above: Nonrheumatic aortic valve insufficiency (Primary Dx) Start: 04-23-2023 End: 04-23-2023 ambulatory KATHERINE CAN Not Available Start: 02-12-2023 End: 02-12-2023 ambulatory KATHERINE CAN Not Available Start: 08-29-2022 End: 08-30-2022 ambulatory JACKY TORRES Facility:[facility] Start: 08-29-2022 End: 08-29-2022 Patient encounter procedure Amy Barger MD Work Phone: Cardiology Comment on above: Nonrheumatic aortic valve insufficiency (Primary Dx); Coronary artery disease involving [place] coronary artery of [place] heart without angina pectoris; Mixed hyperlipidemia; Valvular heart disease; Coronary artery disease involving [place] coronary artery of [place] heart with angina pectoris (HCC); Type 2 [...] regurgitation; Mixed hyperlipidemia; Coronary artery disease involving [place] coronary artery of [place] heart without angina pectoris; Type 2 diabetes [...] P,Tdap,Td Vaccine (2 - Td or Tdap) [facility] Start: 08-13-2023 End: 10-13-2023 CBC panel - Blood by Automated count CBC Lab Routine Nonrheumatic aortic valve insufficiency Expected: 08/13/2023, Expires: 10/13/2023 [facility] Work Phone: Comment on above: Expected: 08/13/2023 , Expires: 10/13/2023 Start: 08-13-2023 End: 10-13-2023 Comprehensive metabolic 2000 panel - Serum or Plasma COMP METABOLIC PANEL Lab Routine Nonrheumatic aortic valve insufficiency Expected: 08/13/2023, Expires: 10/13/2023 [facility] Work Phone: Comment on above: Expected: 08/13/2023 , Expires: 10/13/2023 Start: 08-13-2023 End: 10-13-2023 Lipid 1996 panel - Serum or Plasma LIPID PANEL BASIC Lab Routine Nonrheumatic aortic valve insufficiency Expected: 08/13/2023, Expires: 10/13/2023 [facility] Work Phone: Comment on above: Expected: 08/13/2023 , Expires: 10/13/2023 Start: 03-02-2023 Advance Directive Discussion Advance Directive Discussion [facility] Start: 03-02-2023 Depression Assessment Depression Ass essment [facility] Start: 10-31-2022 Covid-19 Vaccine () Covid-19 Vaccine () [facility] Start: 10-31-2022 [facility]: 09-[facility]-2022 Hepatitis B surface antibody level LDL CHOLESTEROL [facility] Start: 08-29-2022 End: 08-29-2022 Basic metabolic 2000 panel - Serum or Plasma BASIC METABOLIC PNL Lab Routine Nonrheumatic aortic valve insufficiency Expected: 08/29/2022, Expires: 08/29/2022 [facility] Work Phone: Comment on above: Expected: 08/29/2022 , Expires: 08/29/2022 Start: 03-02-2022 ADVANCE DIRECTIVE DISCUSSION ADVANCE DIRECTIVE DISCUSSION [facility] Start: 03-02-2022 DEPRESSION ASSESSMENT DEPRESSION ASS ESSMENT [facility] Start: 10-31-2021 Influenza vaccination INFLUENZA (#1) [facility] Start: 09-13-2021 End: 11-13-2021 CBC panel - Blood by Automated count CBC Lab Routine Nonrheumatic aortic valve insufficiency Expected: 09/13/2021, Expires: 11/13/2021 [facility] Work Phone: Comment on above: Expected: 09/13/2021 , Expires: 11/13/2021 Start: 09-13-2021 End: 11-13-2021 Comprehensive metabolic 2000 panel - Serum or Plasma COMP METABOLIC PANEL Lab Routine Nonrheumatic aortic valve insufficiency Expected: 09/13/2021, Expires: 11/13/2021 [facility] Work Phone: Comment on above: Expected: 09/13/2021 , Expires: 11/13/2021 Start: 09-13-2021 End: 11-13-2021 Lipid 1996 panel - Serum or Plasma LIPID PANEL BASIC Lab Routine Nonrheumatic aortic valve insufficiency Expected: 09/13/2021, Expires: 11/13/2021 [facility] Work Phone: Comment on above: Expected: 09/13/2021 , Expires: 11/13/2021 Start: 08-02-2021 COVID-19 VACCINE (5 - Booster for Pfizer series) COVID-19 VACCINE (5 - Booster for Pfizer series) [facility] Start: 03-02-2021 ADVANCE DIRECTIVE DISCUSSION ADVANCE DIRECTIVE DISCUSSION [facility] Start: 06-30-2016 BONE DENSITY BONE DENSITY [facility] Start: 06-30-2016 Screening for osteoporosis Bone Dens ity Screening [facility] Start: 2011 RSV Vaccine (1 - 1-d ose 60+ series) RSV Vaccine (1 - 1-dose 60+ series) [facility] Start: 06-30-2001 SHINGRIX VACCINE (1 of 2) ACKERMAN GRIX VACCINE (1 of 2) [facility] Start: 06-30-1996 COLOGUARD (FIT-DNA) COLOGUARD (FIT-D NA) [facility] Start: 06-30-1996 Colonoscopy COLONOSCOPY [facility] Start: 06-30-1996 COLORECTAL CANCER SCREENING COLORECTAL CANCER SCREENING [facility] Start: 06-30-[address] COLONOGRAPHY [facility] Start: 06-30-1996 FECAL OCCULT BLOOD FECAL OCCULT BLOO D [facility] Start: 06-30-1996 Screening for malign ant neoplasm of colon [facility] Start: 06-30-1996 SIGMOIDOSCOPY SIGMOIDOSCOPY [facility] Start: 1991 Mammography MAMMOGRAM [facility] Start: 1991 Screening for malign ant neoplasm of breast Mammogram Screening [facility] Start: 06-30-1970 Urine microalbumin profile DTAP,TDAP ,TD (1 - Tdap) [facility] Start: 06-30-1969 ANNUAL PCP TEAM PHARMACIST PER DIEM NADJA DISEASE VISIT ANNUAL PCP TEAM CHRONIC DISEASE VISIT [facility] Start: 06-30-1969 HEPATITIS C SCREENING HEPATITIS C SC ANDREW [facility] Start: 06-30-1969 Hepatitis C screening Hepatitis C Sc [facility] Start: 1963 Adult depression scr eening assessment DEPRESSION SCREENING [facility] Start: 06-30-1961 3 comp foot exam completed DIABETIC FOOT EXAM [facility] Start: 06-30-1961 Diabetic foot examination Diabetic F oot Exam [facility] Start: 06-30-1961 Glaucoma screening Dilated Retinal E xam [facility] Start: 06-30-1961 Hepatitis B screening URINE ALBUMIN:CREATININE RATIO [facility] Start: 06-30-1961 Hepatitis C antibody , confirmatory test DILATED RETINAL EXAM [facility] Start: 06-30-1957 PNEUMOCOCCAL: 65+ (1 - PCV) PNEUMOCOCCAL: 65+ (1 - PCV) [facility] Start: 06-30-1956 Hemoglobin A1c measurement HbA1C [facility] Start: 06-30-1956 Hemoglobin A1c/Hemoglobin.total in Blood HBA1C [facility] End: 03-10-2023 ECG COMPLETE ECG COMPLETE ECG Routine Nonrheumatic aortic valve insufficiency 1 Occurrences starting 03/10/2022 until 03/10/2023 [facility] Work Phone: Comment on above: 1 Occurrences starti ng 03/10/2022 until 03/10/2023 End: 05-10-2024 ECG COMPLETE ECG COMPLETE ECG Routine Nonrheumatic aortic valve insufficiency 1 Occurrences starting 05/11/2023 until 05/10/2024 [facility] Work Phone: Comment on above: 1 Occurrences starti ng 05/11/2023 until 05/10/2024 End: 05-10-2024 Echocardiography ECHO Cardiology Routine Nonrheumatic aortic valve insufficiency 1 Occurrences starting 05/11/2023 until 05/10/2024 [facility] Work Phone: Comment on above: 1 Occurrences starti ng 05/11/2023 until 05/10/2024 [facility] Immunizations Immunization Date Immunization Notes Care Provider Martina vaz 01-05-2022 influenza virus vacc ine, unspecified formulation Amy Barger MD Work Phone: [facility] Payers Date Payer Category Payer Medicare HUMANA MEDICARE HUMANA GOLD PLUS [id number] 2017-Present [phone] [address] [address] [place] [address] HMO [id number] 2017 Medicare HUMANA MEDICARE HUMANA GOLD PLUS [id number] 2017-Present [phone] [address] [address] [place] [address] HMO [id number] 1959 Medicare [id number] 1950 Unknown [id number] 1950 Unknown [id number] 1950 Unknown [id number] 1950 Unknown [id number] 1950 Unknown [id number] 1950 Unknown [id number] 1950 Unknown [id number] 1950 Unknown [id number] 9 1950 Unknown [id number] 9 1950 Unknown [id number] 9 Social History Date Type Detail Facility Start: 01-21-2019 End: 08-29-2022 Tobacco smoking status LAIS Never smoked tobacco [facility] Start: 01-21-2019 End: 08-29-2022 Tobacco use and exposure Smokeless tobacco non-user [facility] Start: 09-13-2021 End: 08-29-2022 Alcohol intake Lifetime non-drinker (finding) [facility] Start: 01-21-2019 History SDOH Alcohol Frequency 1 [facility] Start: 1950 Sex Assigned At Not on file [facility] Start: 09-03-2021 End: 09-13-2021 Exposure to SARS-CoV-2 (event) Not sure [facility] Start: 01-21-2019 End: 08-29-2022 History of Social function [facility] Start: 01-21-2019 End: 08-29-2022 Alcohol Use Disorder Identification Test - Consumption [AUDIT-C] [facility] How often to you hav e a drink containing alcohol? Never [facility] Average Number of Drinks Not on file [facility] Medical Equipment Procedure Code Equipment Code Equipment Origin al Text Equipment Identifier Dates ACCU-CHEK BEREKET PLUS TEST STRP test strip Start: 10-23-2020 Clinical Notes 05-19-2018 to 08-29-2022 Patient InstructionsAmy Barger MD - 08/29/2022 1:30 PM EDTBlele Barger MD - 09/13/2021 2:30 PM EDT Note Date & Type Note Facility 08-29-2022 Note HNO ID: [id number] Author: Amy Barger MD Service: ? Author Type: Physician Type: Progress Notes Filed: 08/30/2022 3:22 PM Note Text: [facility] [place] Arielle Duke Department of Cardiovascular Medicine SECTION [...] Age of Onset Heart Attack Mother fatal [place] at age 70 Diabetes Mother Diabetes Father Heart Father bypass at age 60s Heart Attack Father [place] at age 60s other (Other) Father MVA at age 72 Cancer Sister at age 42 other (Other) Brother infant Cancer Sister breast cancer at age 50 No Known Problems Brother Heart Attack Brother fatal [place] at age 64 other (ulcers) Brother bleeding [...] upstroke. Lungs: Cl (more content not included)... [facility] 08-29-2022 Instructions Amy Barger MD - 08/29/2022 2:29 PM EDT Recommend stopping pioglitazone. documented in this encounter [facility] 08-29-2022 History of Present illness Narrative Images from the original note were not included. [facility] [place] [facility] Department of Cardiovascular Medicine SECTION [...] Age of Onset Heart Attack Mother fatal [place] at age 70 Diabetes Mother Diabetes Father Heart Father bypass at age 60s Heart Attack Father [place] at age 60s other (Other) Father MVA at age 72 Cancer Sister at age 42 other (Other) Brother infant Cancer Sister breast cancer at age 50 No Known Problems Brother Heart Attack Brother fatal [place] at age 64 other (ulcers) Brother bleeding [...] coordinated. CARDIOVASCULAR MEDICINE TESTIN. Echocardiogram: 08/24/2020 2. signaling design engineer: 02/01/2019 to 02/14/[address] coronary angiogram: 11/21/2020 4. Cath angiogram: 01/05/2021 5. Echocardiogram: 09/13/2021 6. Outside echocardiogram: 09/15/2018 7. Outside echocardiogram: 04/29/2004 7. Outside myocardial perfusion study: 09/15/2018 I have personally reviewed the echocardiograms, it help desk technician, coronary CTA and outside cardiac investigations. Outside [...] Amy Barger MD documented in this encounter [facility] 09-13-2021 History of Present illness Narrative Images from the original note were not included. [facility] [place] [facility] Department of Cardiovascular Medicine SECTION [...] Age of Onset Heart Attack Mother fatal [place] at age 70 Diabetes Mother Diabetes Father Heart Father bypass at age 60s Heart Attack Father [place] at age 60s other (Other) Father MVA at age 72 Cancer Sister at age 42 other (Other) Brother Cancer Sister breast cancer at age 50 No Known Problems Brother Heart Attack Brother fatal [place] at age 64 other (ulcers) Brother bleeding [...] coordinated. CARDIOVASCULAR MEDICINE TESTIN. Echocardiogram: 08/24/2020 2. signaling design engineer: 02/01/2019 to 02/14/[address] coronary angiogram: 11/21/2020 4. Cath angiogram: 01/05/2021 5. Echocardiogram: 09/13/2021 6. Outside echocardiogram: 09/15/2018 7. Outside echocardiogram: 04/29/2004 7. Outside myocardial perfusion study: 09/15/2018 I have personally reviewed the echocardiograms, it help desk technician, coronary CTA and outside cardiac investigations. Outside [...] has recovered from it. Echocardiography at the [facility] reveals stable mild aortic regurgitation, and normal [...] Amy Barger MD documented in this encounter [facility] 05-19-2018 History of Past i llness Narrative Problem Noted Date Resolved Date Pure hypercholesterolemia, unspecified 9 08/24/2020 documented as of this encounter (statuses as of 09/14/2021) [facility] History of Past illness Narrative* Problem Noted Date Resolved Date Pure hypercholesterolemia, unspecified 9 08/24/2020 documented as of this encounter (statuses as of 03/11/2022) [facility] History of Past illness Narrative* Problem Noted Date Resolved Date Pure hypercholesterolemia, unspecified 9 08/24/2020 documented as of this encounter (statuses as of 08/30/2022) [facility] History of Past illness Narrative* Problem Noted Date Diagnosed Date Resolved Date Pure hypercholesterolemia, unspecified 05/19/2018 08/24/2020 documented as of this encounter (statuses as of 05/11/2023) [facility] Diagnosis Nonrheumatic aortic valve insufficiency- Primary Aortic valve disorders Nonrheumatic mitral valve regurgitation Nonrheumatic tricuspid valve regurgitation Tricuspid valve disorders, specified as nonrheumatic Mixed hyperlipidemia Coronary artery disease involving [place] coronary artery of [place] heart without angina pectoris Type 2 diabetes mellitus without complication, without long-term current use of insulin (HCC) [facility] Diagnosis Nonrheumatic aortic valve insufficiency- Primary Aortic valve disorders [facility] Diagnosis Nonrheumatic aortic valve insufficiency- Primary Aortic valve disorders Coronary artery disease involving [place] coronary artery of [place] heart without angina pectoris Mixed hyperlipidemia Valvular heart disease Endocarditis, valve unspecified, 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 (HCC) Type 2 diabetes mellitus without complication, without long-term current use of insulin (HCC) [facility] Diagnosis Nonrheumatic aortic valve insufficiency- Primary Aortic valve disorders [facility] Outpatient Procedure (Routine) - Authorized Specialty Diagnoses / Procedures Referred By Contac t Referred To [facility] Diagnoses Nonrheumatic aortic valve insufficiency Procedures ECG COMPLETE ECG ROUTINE ECG W/LEAST 12 LDS W/I&R Amy Barger MD [address] [place] [address] [address] Referral ID Status Reason Start Date Expiration Date Visits Requested Visits Authorized [id number] Authorized Auto-Generat ed Referral 03/10/2022 03/10/2023 1 1 [facility] for referral (narrative)* Outpatient Procedure (Routine) - Authorized Specialty Diagnoses / Procedures Referred By Contac t Referred To Contact [facility] Diagnoses Nonrheumatic aortic valve insufficiency Procedures ECG COMPLETE ECG ROUTINE ECG W/LEAST 12 LDS W/I&R Amy Barger MD [address] [place] [address] [address] Referral ID Status Reason Start Date Expiration Date Visits Requested Visits Authorized [id number] Authorized Auto-Generat ed Referral 05/11/2023 05/10/2024 1 1 * Outpatient Procedure (Routine) - Pending Review Specialty Diagnoses / Procedures Referred By Contwinston t Referred To Contact [facility] Diagnoses Nonrheumatic aortic valve insufficiency Procedures ECHO ECHO TTHRC R-T 2D W/WOM-MODE COMPL SPEC&COLR D Amy Barger MD [address] [place] [address] [address] Referral ID Status Reason Start Date Expiration Date Visits Requested Visits Authorized [id number] Pending Review Auto-Generat ed Referral 05/11/2023 05/10/2024 1 1 [facility] Advance Directives No Advanced Directives Records FoundDocuments on File Type Date Recorded Patient Regulatory Law Specialist Expl anation Advance Directive(s) 12/14/2020 3:08 PM [...] or prosecute any alcohol or drug abuse patient.[facility] the event this information is protected by the Federal Confidentiality of Alcohol and Drug Abuse Patient Records regulations: The Federal rules restrict any use of the information to criminally investigate or prosecute any alcohol or drug abuse patient.[facility] the event this information is protected by the Federal Confidentiality of Alcohol and Drug Abuse Patient Records regulations: The Federal rules restrict any use of the information to criminally investigate or prosecute any alcohol or drug abuse patient.[facility] the event this information is protected by the Federal Confidentiality of Alcohol and Drug Abuse Patient Records regulations: The Federal rules restrict any use of the information to criminally investigate or prosecute any alcohol or drug abuse patient.[facility] Reason for Visit (unrecogniz ed section and content) Reason Comments Follow Up Reason Comments Coronary Artery Disease Valvular Heart Disease Care Teams (unrecognized sec tion and content) Button Puncher Relationship Specialty Start Date End Date Jacky Torres MD [address] [id number] PCP - General Family Practice 01/21/19 Amy Barger MD [address] [place] [address] Primary Staff Physician Cardiology 08/24/20 Button Puncher Relationship Specialty Start Date End Date Jacky Torres MD [address] [place] [address] PCP - General Family Medicine 01/21/19 Amy Barger MD [address] [place] [address] Primary Staff Physician Cardiology 08/24/20 Button Puncher Relationship Specialty Start Date End Date Jacky Torres MD PCP - General Family Medicine 01/21/19 Amy Barger MD [address] [place] [address] Primary Staff Physician Cardiology 08/24/20 Button Puncher Relationship Specialty Start Date End Date Jacky Torres MD PCP - General Family Medicine 01/21/19 Amy Barger MD [address] [place] [address] Primary Staff Physician Cardiology 6/25/21 INFORMATION SOURCE (unrecogn ized section and content) DATE CREATED AUTHOR 04/03/2022 [facility] DATE CREATED AUTHOR AUTHOR'S ORGANIZ ATION 07/23/2023 [facility] DATE CREATED AUTHOR AUTHOR'S ORGANIZ ATION 08/07/2023 [facility] FOR RECORDS PERTAINING TO PATIENTS WHO ARE [...] BE BASED ON THE PRIMARY CLINICAL RECORDS. [facility] [employer] provides no warranty or guarantee of the accuracy or completeness of information in this document.
[2023-08-29 09:48] LABS: Basophils Absolute Auto 0.1 10^3/uL (0.0-0.1); Basophils Percent Auto 1.3 % (0.2-2.0); Eosinophils Absolute Auto 0.1 10^3/uL (0.0-0.7); Eosinophils Percent Auto 3.4 % (0.9-7.0); Immature Granulocytes Abs Auto 0.01 10^3/uL (0.00-0.03); Immature Granulocytes Pct Auto 0.3 % (0.0-0.5); Lymphocytes Absolute Auto 1.4 10^3/uL (1.2-3.8); Lymphocytes Percent Auto 36.1 % (20.5-60.0); Mean Corpuscular Hemoglobin 27.9 pg (26.7-34.0); Mean Corpuscular Volume 90.1 fL (81.0-99.0); Mean Platelet Volume 9.9 fL (9.5-13.5); Monocytes Absolute Auto 0.3 10^3/uL (0.3-0.8); Monocytes Percent Auto 7.4 % (1.7-12.0); Neutrophils Percent Auto 51.5 % (43.0-75.0); Platelet Count 252 10^3/uL (150-450); Red Blood Count 4.66 10^6/uL (4.20-5.40); White Blood Count 3.8 10^3/uL (4.0-11.0)
[2023-08-29 10:19] LABS: Estimated Average Glucose 146 mg/dL; Glycohemoglobin A1C 6.7 % (4.5-6.2)
[2023-08-29 10:35] LABS: Alanine Aminotransferase 22 U/L (14-59); Albumin Globulin Ratio 1.1; Albumin Level 3.8 g/dL (3.4-5.0); Alkaline Phosphatase 107 U/L (46-116); Anion Gap 12.1; Aspartate Amino Transferase 15 U/L (15-37); BUN Creatinine Ratio 27.7; Bilirubin Total 1.2 mg/dL (0.2-1.0); Calcium 9.7 mg/dL (8.5-10.1); Carbon Dioxide 27.1 mmol/L (21.0-32.0); Chloride 104 mmol/L (98-107); Chol HDL Ratio 2.9; Cholesterol 155 mg/dL (<=200); Estimated GFR (African America >60 (>=60); Estimated GFR (Non-African Ame 54 (>=60); Free T3 2.15 pg/mL (2.18-3.98); Globulin 3.5 g/dL; Glucose 186 mg/dL (74-106); HDL Cholesterol 53 mg/dL (40-60); LDL Cholesterol Calculated 77.2 mg/dL; Potassium 4.2 mmol/L (3.5-5.1); Sodium 139 mmol/L (136-145); Thyroid Stimulating Hormone 0.375 uIU/mL (0.358-3.740); Total Protein 7.3 g/dL (6.4-8.2); Triglycerides 124 mg/dL (<=150); VLDL CHOLESTEROL 24.8 mg/dL
== END 2023-08-29 09:06 | disposition home or self-care (01) ==
PROVIDERS: PCP Family Medicine; Visit Provider Family Medicine
DX: R00.2 Palpitations (principal); E78.5 Hyperlipidemia, unspecified; E03.9 Hypothyroidism, unspecified; I25.10 Atherosclerotic heart disease of native coronary artery without angina pectoris; E11.9 Type 2 diabetes mellitus without complications; Z12.12 Encounter for screening for malignant neoplasm of rectum; D64.9 Anemia, unspecified; E55.9 Vitamin D deficiency, unspecified
CPT/HCPCS: 36415; 80053; 80061; 82306; 83036; 83540; 84436; 84443; 84481; 85025

== ENCOUNTER 2024-04-28 14:54 | Outpatient (OUT) | payer MEDICARE, SELFPAY ==
--- NOTE | 2024-04-28 15:04 | XR_ITS ---
The [address] [address] Patient Name: LEIA FLEMING MRN: [id number] date: 1950 Sex: F Assigned Patient Location: [facility] Current Patient Location: [facility] Accession/Order Number: [id number] Exam Date: 04/28/2024 15:54 Report Date: 04/28/2024 15:55 At the request of: JACKY LAKHANI MD Procedure: XR thoracic spine 3V XR thoracic spine 3V 04/28/2024 3:24 PM SIGNS AND SYMPTOMS: ^Low Back Pain PROTOCOLS: Frontal and lateral radiographs of the thoracic spine COMPARISON: None FINDINGS: The bones are in anatomic alignment with preservation of vertebral body heights and intervertebral disc spaces. No evidence of fracture or bony destructive lesion. There is a 6 mm radiodense structure in the right paraspinous soft tissues near the right renal shadow possibly representing a renal stone. XR/XR thoracic spine 3V IMPRESSION: No fracture, subluxation, or significant degenerative change of the thoracic spine. There is a 6 mm radiodense structure in the right paraspinous soft tissues near the right renal shadow possibly representing a renal stone. Impression dictated by: Luis A Whitley M.D.04/28/2024 3:55 PM Dictation Location: [place] [address] Electronically authenticated by: [id number] Y Date: 04/28/2024 15:55
--- NOTE | 2024-04-28 15:04 | XR_ITS ---
The [place] [id number] Patient Name: LEIA FLEMING MRN: [id number] date: 1950 Sex: F Assigned Patient Location: [facility] Current Patient Location: [facility] Accession/Order Number: [id number] Exam Date: 04/28/2024 15:55 Report Date: 04/28/2024 15:56 At the request of: JACKY LAKHANI MD Procedure: XR lumbar spine min 4V XR lumbar spine min 4V 04/28/2024 3:24 PM SIGNS AND SYMPTOMS: ^Low Back Pain PROTOCOLS: Frontal, lateral, and oblique radiographs of the lumbar spine COMPARISON: None FINDINGS: The alignment, development and bony structures are normal. There is no fracture or destructive lesion. Mild vertebral disc height loss is noted at L4-5 and L5-S1. This is also present at L2-L3 and to lesser extent L1-L2. Facet degenerative changes are present throughout the lower lumbar spine. Mild degenerative changes are noted in the sacroiliac joints. There is evidence of prior cholecystectomy in the right upper quadrant. Atherosclerotic changes are noted in the abdominal. XR/XR lumbar spine min 4V IMPRESSION: No fracture or subluxation. Mild multilevel degenerative changes noted, greatest at L4-5 and L5-S1 as above. Impression dictated by: Luis A Whitley M.D.04/28/2024 3:56 PM Dictation Location: [place] [address] Electronically authenticated by: [id number] Y Date: 04/28/2024 15:56
--- OUTSIDE RECORDS SUMMARY | 2024-04-28 15:18 | XMS_ITS | CCD ---
Author Organization [facility] Care Team Providers Care Building Construction Supervisor Name Role Phone Jacky Torres MD Primary Care Provider [phone] Darrel RAUSCH, Amy Unavailable LESVIA, DR RICO Admitting Unavailable HOY, DR RICO Attending Unavailable HOY, DR RICO Primary Care Unavailable HOY, DR RICO Primary Care Unavailable HOY, DR RICO Admitting Unavailable HOY, DR RICO Attending Unavailable HOY, DR RICO Admitting Unavailable HOY, DR RICO Attending Unavailable HOY, DR RICO Consulting Unavailable HOY, DR RICO Primary Care Unavailable [place], DR KWABENA Rutledge Consulting Unavailable HOY, DR [...] Unavailable Jacky Torres MD Primary Care Provider [phone] Amy Barger MD Unavailable Amy Barger MD Unavailable Jacky Torres MD Primary Care Provider [phone] AMY BARGER Attending Unavailable AMY BARGER Referring Unavailable JACKY TORRES Primary Care Unavailable AMY BARGER Referring Unavailable JACKY TORRES Primary Care Unavailable JACKY TORRES Primary Care Unavailable AMY BARGER Referring Unavailable JACKY TORRES Primary Care Unavailable PRESTON POMPA Attending Unavailable PRESTON POMPA Attending Unavailable PRESTON POMPA Attending Unavailable PRESTON POMPA Attending Unavailable PRESTON POMPA Attending Unavailable Jacky Torres MD Primary Care Provider [phone] Allergies Allergy Classification Reported Allergen(s) Allergy Type Date of Onset Reaction(s) Facility (12 sources) Codeine; Translations: [CODEINE] Drug Allergy 9 Other: See Comments, Rash [facility] (12 sources) Sulfonamides (Antibiotic); Translations: [SULFA (SULFONAMIDE ANTIBIOTICS)] Drug Allergy 8 Shortness of Breath, [facility] (12 sources) traMADol; Translations: [TRAMADOL] Drug Allergy 1 GI Upset, Nausea Only [facility] (7 sources) Tuberculin Ppd Geneva Test; Translations: [Tuberculin PPD [place] Test] Drug Allergy 2 [facility] (1 source) Codeine Drug Allergy [facility] (1 source) Glutathione Drug Allergy [facility] (1 source) traMADol Drug Allergy [facility] (6 sources) Lisinopril Allergy to substance 3 Cough [facility] Medications Current Medications Medication Drug Class(es) Dates Sig (Normalized) Sig (Original) acetaminophen 325 mg / HYDROcodone bitartrate 5 mg oral tablet (1 source) Opioid Agonist Start: 08-13-2023 take 1 tablet by mouth every six hours as needed for pain HYDROcodone-acet aminophen (NORCO) 5-325 mg per tablet take 1 tablet by mouth every 6 hours as needed for pain for 3 days 0 08/13/2023 Active aspirin 81 mg delayed release oral tablet (5 sources) Platelet Aggregation Inhibitor, Nonsteroidal Anti-inflammatory Drug take 1 tablet by mouth every twenty-four hours aspirin, enteric coated (ASPIRIN, ENTERIC COATED) 81 mg EC tablet Take 81 mg by mouth q 24 HR. 0 Active Comment on above: Take 81 mg by mouth q 24 HR. empagliflozin 10 mg oral tablet (7 sources) Sodium-Glucose Cotransporter 2 Inhibitor Start: 11-17-2022 Jardiance 10 MG 11/17/2022 Active Start: 11-17-2022 JARDIANCE 10 m g tablet glimepiride 4 mg oral tablet (11 sources) Sulfonylurea glimepiride (Pengilly ryl) 4 MG tablet 1 (one) time each day at the same time Active take 1 tablet by mouth twice alma ly glimepiride (AMARYL) 4 mg tablet Take 4 mg by mouth twice daily. 0 Active Comment on above: Take 4 mg by mouth t wice daily. Take 4 mg by mouth o nce daily. levothyroxine sodium 0.1 mg oral tablet (11 sources) l-Thyroxine levothyroxine (S ynthroid, Levoxyl) 100 MCG tablet 1 (one) time each day at the same time Active take 1 tablet by josue th every twenty-four hours levothyroxine (SYNTHROID) 100 mcg tablet Take 100 mcg by mouth q 24 HR. 0 Active Comment on above: Take 100 mcg by mout h q 24 HR. metFORMIN hydrochloride 1000 mg oral tablet (11 sources) Biguanide metFORMIN (Gluco phage) 1000 MG tablet every 12 (twelve) hours Active take 1 tablet by mouth twice alma ly metFORMIN (GLUCOPHAGE) 1,000 mg tablet Take 1,000 mg by mouth twice daily. 0 Active Comment on above: Take 1,000 mg by josue th twice daily. methocarbamol 750 mg oral tablet (1 source) Muscle Relaxant Start: 4 take 1 tablet by mouth every eight hours as needed methocarbamol (ROBAXIN) 750 mg tablet Take 750 mg by mouth three times a day as needed. 0 08/13/2023 Active mirtazapine 30 mg oral tablet (1 source) Start: 4 mirtazapine (REMERON) 30 mg tablet perflutren lipid microspheres 1.3 mL in NaCl (PF) 0.9% 10 mL injection (DEFINITY) (3 sources) Start: End: 3 perflutren lipid microspheres 1.3 mL in NaCl (PF) 0.9% 10 mL injection (DEFINITY) Start: 11-21-2020 End: 02-20-2022 perflutren lipid microsphere s 1.3 mL in NaCl (PF) 0.9% 10 mL injection (DEFINITY) pioglitazone 15 mg oral tablet (9 sources) Peroxisome Proliferator Receptor alpha Agonist, Peroxisome Proliferator Receptor gamma Agonist, Thiazolidinedione Start: 06-28-2022 pioglitazone (Actos) 15 MG tablet 06/28/2022 Active Comment on above: twice daily. rosuvastatin calcium 40 mg oral tablet (11 sources) HMG-CoA Reductase Inhibitor Start: 12-07-2018 take 1 tablet by mouth once daily rosuvastatin (CRESTOR) 40 mg tablet Take 40 mg by mouth once daily. 0 12/07/2018 Active Comment on above: Take 40 mg by mouth once daily. sertraline 25 mg oral tablet (11 sources) Serotonin Reuptake Inhibitor Start: 12-07-2018 take 1 tablet by mouth once daily sertraline (ZOLOFT) 25 mg tablet Take 25 mg by mouth once daily. 0 12/07/2018 Active Comment on above: Take 25 mg by mouth once daily. 125 ml sodium chloride 9 mg/ml prefilled syringe (3 sources) Start: 11-21-2020 End: 04-05-2022 sodium chloride 0.9 % (flush) 10 mL (BD POSIFLUSH) tiZANidine 4 mg oral tablet (3 sources) Central alpha-2 Adrenergic Agonist tiZANidine (ZANAFLEX) 4 mg tablet Take 4 mg by mouth as needed. 0 Active Comment on above: Take 4 mg by mouth a s needed. Completed/Discontinued Medications Medication Drug Class(es) Dates Sig (Normalized) Sig (Original) diclofenac sodium 75 mg delayed release oral tablet (3 sources) Nonsteroidal Anti-inflammatory Drug End: 09-25-2023 take 1 tablet by mouth once daily diclofenac, EC, (VOLTAREN) 75 mg EC tablet Take 75 mg by mouth once daily. 0 09/25/2023 Discontinued Comment on above: Take 75 mg by mouth once daily. ergocalciferol 1.25 mg oral capsule (1 source) Provitamin D2 Compound Start: 10-15-2020 End: 09-13-2021 ergocalciferol 50,000 unit capsule (VITAMIN D2, DRISDOL) Every other week take one tablet 0 10/15/2020 09/13/2021 Discontinued (Discontinued by Patient) Comment on above: Every other week silvestre e one tablet losartan potassium 25 mg oral tablet (3 sources) Angiotensin 2 Receptor Selam Start: 12-16-2020 End: 08-29-2022 losartan (COZAAR) 25 mg tablet Problems Active Problems Problem Classification Problem Date Documented Da te Episodic/Chronic Coronary atherosclerosis and other heart disease (10 sources) Coronary atherosclerosis; Translations: [Atherosclerotic heart disease of [place] coronary artery without angina pectoris] Onset: 01-05-2021 Chronic Deficiency and other anemia (1 source) Anemia, unspecified; Translations: [ANEMIA UNSPECIFIED] Onset: 03-28-2022 Episodic Diabetes mellitus without complication (16 sources) Type 2 diabetes mellitus without complication; Translations: [Type 2 diabetes mellitus without complications] Onset: 03-25-2018 Chronic Diabetes mellitus without complication (1 source) Other abnormal glucose; Translations: [OTHER ABNORMAL GLUCOSE] Onset: 03-28-2022 Episodic Disorders of lipid metabolism (11 sources) Mixed hyperlipidemia; Translations: [Mixed hyperlipidemia] Onset: 05-19-2018 Resolved: 08-24-2020 Chronic Esophageal disorders (1 source) Gastro-esophageal reflux disease without esophagitis; Translations: [GERD WITHOUT ESOPHAGITIS] Onset: 03-28-2022 Chronic Heart valve disorders (20 sources) Aortic incompetence, non-rheumatic ; Translations: [Nonrheumatic aortic (valve) insufficiency] Onset: 01-21-2019 Chronic Mycoses (4 sources) Pain in toe; Translations: [Tinea unguium] 01-14-2024 Episodic Nutritional deficiencies (1 source) Vitamin D deficiency, unspecified; Translations: [VITAMIN D DEFICIENCY UNSPECIFIED] Onset: 03-28-2022 Chronic Osteoarthritis (5 sources) Unspecified osteoarthritis, unspecified site; Translations: [Primary osteoarthritis, right shoulder] Onset: 09-10-2021 Chronic Other connective tissue disease (4 sources) Peroneal tendinitis of left lower limb; Translations: [Peroneal tendinitis, left leg] 01-14-2024 Episodic Other nutritional; endocrine; and metabolic disorders (5 sources) Obese class I; Translations: [Obesity, unspecified] Onset: 01-21-2019 01-21-2019 Chronic Other nutritional; endocrine; and metabolic disorders (1 source) Overweight; Translations: [OVERWEIGHT] Onset: 03-28-2022 Episodic Other screening for suspected conditions (not mental disorders or infectious disease) (6 sources) Encounter for screening for malignant neoplasm of rectum; Translations: [Encounter for screening mammogram for malignant neoplasm of breast] Onset: 08-27-2021 Episodic Other skin disorders (2 sources) Asteatosis cutis; Translations: [Xerosis cutis] 01-14-2024 Episodic Fani-; endo-; and myocarditis; cardiomyopathy (except [...] BRONCHITIS UNSPECIFIED] Onset: 05-16-2021 Episodic Cardiac dysrhythmias (5 sources) Palpitations; Translations: [Palpitations] Onset: 01-21-2019 01-21-2019 Episodic Nonspecific chest pain (5 sources) Chest pain; Translations: [Other chest pain] Onset: 08-24-2020 08-24-2020 Episodic Other connective tissue disease (4 sources) Impingement syndrome of right shoulder; Translations: [IMPINGEMENT SYNDROME RIGHT SHOULDER] Onset: 12-23-2021 Episodic Other connective tissue disease (2 sources) Pain of toes of bilateral feet; Translations: [Pain in right toe(s)] 10-18-2023 Episodic Other non-traumatic joint disorders (1 source) Pain in right shoulder; Translations: [PAIN IN RIGHT SHOULDER] Onset: 12-24-2021 Episodic Residual codes; unclassified (1 source) Family history of malignant neoplasm of breast; Translations: [FAMILY HX MALIG NEOPLASM OF BREAST] Onset: 08-27-2021 Episodic Results Test Name Value Interpretation Reference Range Facility CBC panel Auto (Bld)on 09-24 Erythrocyte distribution width (RBC) [Ratio] 14.6 % Normal 11.5-15.[address] [facility] Comment on above: Order Comment: Speci men Type: BLOOD SPECIMEN Ordering Facility: [facility] Address: [address] [place] [address] Performed By: #### 5 8410-2 #### [facility] CLIA [id number] [address] [place] [address] [place] Hematocrit (Bld) [Volume fraction] 41.5 % Normal 36.0-46.[address] [facility] Comment on above: Order Comment: Speci men Type: BLOOD SPECIMEN Ordering Facility: [facility] Address: [address] [place] [address] Performed By: #### 5 8410-2 #### [facility] CLIA [id number] [address] [place] [address] [place] Hemoglobin (Bld) [Mass/Vol] 13.0 g/dL Normal 11.5-15.[address] [facility] Comment on above: Order Comment: Speci men Type: BLOOD SPECIMEN Ordering Facility: [facility] Address: [address] [place] [address] Performed By: #### 5 8410-2 #### [facility] CLIA [id number] [address] [place] [address] [place] MCH (RBC) [Entitic mass] 29.1 pg Normal 26.0-34.[address] [facility] Comment on above: Order Comment: Speci men Type: BLOOD SPECIMEN Ordering Facility: [facility] Address: [address] [place] [address] Performed By: #### 5 8410-2 #### [facility] CLIA [id number] [address] [place] [address] [place] MCHC (RBC) [Mass/Vol] 31.3 g/dL Normal 30.5-36.[address] [facility] Comment on above: Order Comment: Speci men Type: BLOOD SPECIMEN Ordering Facility: [facility] Address: [address] [place] [address] Performed By: #### 5 8410-2 #### [facility] CLIA [id number] [address] [place] [address] [place] MCV (RBC) [Entitic vol] 92.8 fL Normal 80.0-100.[address] [facility] Comment on above: Order Comment: Speci men Type: BLOOD SPECIMEN Ordering Facility: [facility] Address: [address] [place] [address] Performed By: #### 5 8410-2 #### [facility] CLIA [id number] [address] [place] [address] [place] Nucleated RBC (Bld) [#/Vol] 10*3/uL Normal <0.[address] [facility] Comment on above: Order Comment: Speci men Type: BLOOD SPECIMEN Ordering Facility: [facility] Address: [address] [place] [address] Performed By: #### 5 8410-2 #### [facility] CLIA [id number] [address] [place] [address] [place] Platelet mean volume (Bld) [Entitic vol] 10.5 fL Normal 9.0-12.[address] [facility] Comment on above: Order Comment: Speci men Type: BLOOD SPECIMEN Ordering Facility: [facility] Address: [address] [place] [address] Performed By: #### 5 8410-2 #### [facility] CLIA [id number] [address] [place] [address] [place] Platelets (Bld) [#/Vol] 173 10*3/uL Normal 150-[address] [facility] Comment on above: Order Comment: Speci men Type: BLOOD SPECIMEN Ordering Facility: [facility] Address: [address] [place] [address] Performed By: #### 5 8410-2 #### [facility] CLIA [id number] [address] [place] [address] [place] RBC (Bld) [#/Vol] 4.47 10*6/uL Normal 3.90-5.20 [facility] Comment on above: Order Comment: Speci men Type: BLOOD SPECIMEN Ordering Facility: [facility] Address: [address] [place] [address] Performed By: #### 5 8410-2 #### [facility] CLIA [id number] [address] [place], [place] [address] [place] [address] [place] WBC (Bld) [#/Vol] 3.22 10*3/uL Low 3.70-11.00 [facility] Comment on above: Order Comment: Speci men Type: BLOOD SPECIMEN Ordering Facility: [facility] Address: [address] [place] [address] Performed By: #### 5 8410-2 #### [facility] CLIA [id number] [address] [place], [place] [id number] [place] CNOVon 09-25-2023 CNOV Office Visit (HAZEL ) LIANA MARIE ([id number]) 1950 F Date Time Provider Department 09/25/23 12:00 PM AMY BARGER During your visit today, we recorded the following information about you: Pulse Blood pressure Weight Height 50/minute 191/59 90.3 kg 1.676 m Amy Barger MD 09/26/2023 5:05 PM [facility] [place] Arielle Duke Department of Cardiovascular Medicine SECTION OF CARDIOVASCULAR IMAGING OUTPATIENT VISIT DATE 09/25/2023 OUTPATIENT VISIT TYPE ESTABLISHED PRIMARY CARE PHYSICIAN: Jacky Torres [address] [place] [address] REFERRING PHYSICIAN: Amy Barger [address] [place], [place] [id number] CHIEF COMPLAINT: Follow up visit. HISTORY OF PRESENT ILLNESS: Ms. Marie is a 73 year old female who presents today for follow-up visit. Since her last visit, she states that she has had increased stress. Her suffered from myocardial infarct and a stroke. She has had to care for him, with elevated stress. She has not had chest pain, dyspnea or palpitations. She suffered from a mechanical fall, and suffered from a rib fracture. PAST CARDIAC HISTORY: CAD: mild proximal LAD disease on angiography 01/04/2021 1+ - 2+ AR Mild MR Mild TR PAST MEDICAL HISTORY Diagnosis Date Anxiety Aortic [...] Age of Onset Heart Attack Mother fatal [place] at age 70 Diabetes Mother Diabetes Father Heart Father bypass at age 60s Heart Attack Father [place] at age 60s other (Other) Father MVA at age 72 Cancer Sister at age 42 other (Other) Brother infant Cancer Sister breast cancer at age 50 No Known Problems Brother Heart Attack Brother fatal [place] at age 64 other (ulcers) Brother bleeding ulcers other (hepatitis) Brother at age 50 other (liver) Brother Heart Paternal cousin heart failure unsure? ALLERGIES: ALLERGIES Allergen Reactions Sulfa (Sulfonamide * Shortness of Breath Tuberculin Ppd [place]* Rash Codeine Other: See Comments Chest pain Ultram [Tramadol] GI Upset MEDICATIONS: JARDIANCE 10 mg tablet mirtazapine (REMERON) 30 mg tablet methocarbamol (ROBAXIN) 750 mg tablet Take 750 mg by mouth three times a day as needed. HYDROcodone-acetamino phen (NORCO) 5-325 mg per tablet take 1 tablet by mouth every 6 hours as needed for pain for 3 days pioglitazone (ACTOS) 15 mg tablet twice daily. tiZANidine (ZANAFLEX) 4 mg tablet Take 4 mg by mouth as needed. ACCU-CHEK BEREKET PLUS TEST STRP test strip rosuvastatin (CRESTOR) 40 mg tablet Take 40 mg by mouth once daily. glimepiride (AMARYL) 4 mg tablet Take 4 mg by mouth once daily. levothyroxine (SYNTHROID) 100 mcg tablet Take 100 mcg by mouth q 24 HR. aspirin, enteric coated (ASPIRIN, ENTERIC COATED) 81 mg EC tablet Take 81 mg by mouth q 24 HR. metFORMIN (GLUCOPHAGE) 1,000 mg tablet Take 1,000 mg by mouth twice daily. sertraline (ZOLOFT) 25 mg tablet Take 25 mg by mouth once daily. (Patient not taking: Reported on 09/25/2023) PHYSICAL EXAMINATION: BP 191/59 (BP Site: Right Arm, BP Position: Sitting, BP Cuff Size: Large Adult) Pulse (!) 50 Ht 167.6 cm (5' 6 ) Wt 90.3 kg (199 lb) SpO2 99% BMI 32.12 kg/m? General: Well appearing, in no acute distress. Skin: No clubbing, no cyanosis. Eyes: Extra ocular movements intact Oropharynx: Teeth in good repair. Neck: No jugular venous distention, no carotid bruits, carotids have a normal upstroke. Lungs: Clear to auscultation bilaterally Heart: Regular rhythm, PMI not displaced, S1, S2 normal, no murmur. Abdomen: Soft, nontender. Extremities: No peripheral edema. Neuro: Oriented to person, place and time, alert, cooperative, gait coordinated. CARDIOVASCULAR MEDICINE TESTING: Electrocardiogram: sinus bradycardia. Laboratory Testing: Recent Labs 09/25/23 1120 WBC 3.22* HB 13.0 HCT 41.5 PLT 173 Recent Labs 09/25/23 1120 NA 138 K 4.3 CHLOR 105 CO2 23 BUN 22* CREAT 0.81 GLUC 113* ALKPHOS 88 TBILI 1.1 ALT 18 AST 29 ANION 10 Cholesterol, Total 147 09/25/2023 Cholesterol, Total 123 09/13/2021 HDL Cholesterol 42 09/25/2023 HDL Cholesterol 39 09/13/2021 LDL Cholesterol 77 09/24 (more content not included)... Normal [facility] Comprehensive metabolic 2000 panelon 09-25-2023 Albumin [Mass/Vol] 4.0 g/dL Normal 3.9-4.9 [facility] Comment on above: Order Comment: Speci men Type: BLOOD SPECIMEN Ordering Facility: [facility] Address: [address] [place] [address] Performed By: #### 2 4323-8, 28247-3 #### [facility] CLIA [id number] [address] [place] [id number] [place] ALP [Catalytic activity/Vol] 88 U/L Normal 34-[address] [facility] Comment on above: Order Comment: Speci men Type: BLOOD SPECIMEN Ordering Facility: [facility] Address: [address] [place] [address] Performed By: #### 2 4323-8, 78012-0 #### [facility] CLIA [id number] [address] [place] [address] [place] ALT [Catalytic activity/Vol] 18 U/L Normal 7-[address] [facility] Comment on above: Order Comment: Speci men Type: BLOOD SPECIMEN Ordering Facility: [facility] Address: [address] [place] [address] Performed By: #### 2 4323-8, 15449-1 #### [facility] CLIA [id number] [address] [place] [address] [place] Anion gap [Moles/Vol] 10 mmol/L Normal 8-[address] [facility] Comment on above: Order Comment: Speci men Type: BLOOD SPECIMEN Ordering Facility: [facility] Address: [address] [place] [address] Performed By: #### 2 4323-8, 21375-9 #### [facility] CLIA [id number] [address] [place] [address] [place] AST [Catalytic activity/Vol] 29 U/L Normal 13-[address] [facility] Comment on above: Order Comment: Speci men Type: BLOOD SPECIMEN Ordering Facility: [facility] Address: [address] [place], [place] [address] Performed By: #### 2 4323-8, 62928-8 #### [facility] CLIA [id number] [address] [place] [address] [place] Bilirubin [Mass/Vol] 1.1 mg/dL Normal 0.2-1.3 [facility] Comment on above: Order Comment: Speci men Type: BLOOD SPECIMEN Ordering Facility: [facility] Address: [address] [place], [place] [id number] Performed By: #### 2 4323-8, 41170-9 #### [facility] CLIA [id number] [address] [place] [address] [place] Calcium [Mass/Vol] 10.3 mg/dL High 8.5-10.2 [facility] Comment on above: Order Comment: Speci men Type: BLOOD SPECIMEN Ordering Facility: [facility] Address: [address] [place] [address] Performed By: #### 2 4323-8, 92394-6 #### [facility] CLIA [id number] [address] [place] [address] [place] Chloride [Moles/Vol] 105 mmol/L Normal 98-107 [facility] Comment on above: Order Comment: Speci men Type: BLOOD SPECIMEN Ordering Facility: [facility] Address: [address] [place] [address] Performed By: #### 2 4323-8, 20103-1 #### [facility] CLIA [id number] [address] [place] [address] [place] CO2 [Moles/Vol] 23 mmol/L Normal 22-[address] [facility] Comment on above: Order Comment: Speci men Type: BLOOD SPECIMEN Ordering Facility: [facility] Address: [address] [place] [address] Performed By: #### 2 4323-8, 83359-0 #### [facility] CLIA [id number] [address] [place] [address] [place] Creatinine [Mass/Vol] 0.81 mg/dL Normal 0.58-0.[address] [facility] Comment on above: Order Comment: Speci men Type: BLOOD SPECIMEN Ordering Facility: [facility] Address: [address] [place], [place] [id number] Performed By: #### 2 4323-8, 29604-4 #### [facility] CLIA [id number] [address] [place] [address] [place] Creatinine and Glomerular filtration rate.predicted panel (S/P/Bld) 77 mL/min/1.73m??? Normal >=[address] [facility] Comment on above: Order Comment: Colten sidhu Type: BLOOD SPECIMEN Ordering Facility: [facility] Address: [address] [place] [address] Result Comment: Maria R mated Glomerular Filtration [...] actual GFR. Performed By: #### 2 4323-8, 41532-0 #### [facility] CLIA [id number] [address] [place] [address] [place] Glucose [Mass/Vol] 113 mg/dL High 74-99 [facility] Comment on above: Order Comment: Colten sidhu Type: BLOOD SPECIMEN Ordering Facility: [facility] Address: [address] [place] [address] Result Comment: The [place] [employer] (ADA) provides guidance for cutoff [...] Standards of Medical Care in Diabetes 2016, [place] [employer]. Diabetes Care. 2016.39(Suppl 1). Performed By: #### 2 4323-8, 41806-4 #### [facility] CLIA [id number] [address] [place] [address] [place] Potassium [Moles/Vol] 4.3 mmol/L Normal 3.7-5.[address] [facility] Comment on above: Order Comment: Speci men Type: BLOOD SPECIMEN Ordering Facility: [facility] Address: [address] [place] [address] Performed By: #### 2 4323-8, 50222-8 #### [facility] CLIA [id number] [address] [place] [address] [place] Protein [Mass/Vol] 7.0 g/dL Normal 6.3-8.0 [facility] Comment on above: Order Comment: Speci men Type: BLOOD SPECIMEN Ordering Facility: [facility] Address: [address] [place] [address] Performed By: #### 2 4323-8, 41312-2 #### [facility] CLIA [id number] [address] [place] [address] [place] Sodium [Moles/Vol] 138 mmol/L Normal 136-144 [facility] Comment on above: Order Comment: Speci men Type: BLOOD SPECIMEN Ordering Facility: [facility] Address: [address] [place] [address] Performed By: #### 2 4323-8, 90933-7 #### [facility] CLIA [id number] [address] [place] [address] [place] Urea nitrogen [Mass/Vol] 22 mg/dL High 7-[address] [facility] Comment on above: Order Comment: Speci men Type: BLOOD SPECIMEN Ordering Facility: [facility] Address: [address] [place] [address] Performed By: #### 2 4323-8, 74200-0 #### [facility] CLIA [id number] [address] [place], [place] [address] [place] ECG COMPLETEon 09-25-2023 ECG COMPLETE Ventricular Rate : 5 8 BPM Atrial Rate : 58 BPM P-R Interval : 174 ms QRS Duration : 76 ms Q-T Interval : 458 ms QTC Calculation(Bazett) : 449 ms Calculated P [place] : 57 degrees Calculated R [place] : 49 degrees Calculated T [place] : 36 degrees SINUS BRADYCARDIA WITH MARKED SINUS ARRHYTHMIA OTHERWISE NORMAL ECG Confirmed by ALIYAH RAIN MD ([id number]) on 10/15/2023 5:53:31 PM NAME : LIANA MARIE PID : [id number] : 1950 Gender : Female Race : ORD : [id number] Procedure Date : Sep 25 2023 11:00:10 Edit Date : Oct 15 2023 17:53:36 Diagnosis: SINUS BRADYCARDIA WITH MARKED SINUS ARRHYTHMIA OTHERWISE NORMAL ECG Confirmed by ALIYAH RAIN MD ([id number]) on 10/15/2023 5:53:31 PM Test Reason : Location : [facility] : [facility] Overread By : ALIYAH RAIN MD Edited By : ALIYAH RAIN MD Referred By : AMY BARGER Acquired by : SHERI WYATT [facility] ECHOon 09-25-2023 Echocardiography Echocardiography Report: Transthoracic Echo [facility] J1-5 Date of service: 09/25/2023 11:32:12 AM AND [employer] Ordering physician: AMY BARGER Indication: Routine surveillance of mild valvular regurgitation (>3yrs) Technologist: Bea Toro Interpreting physician: Kathrine Lomas MD PATIENT: Name: LIANA MARIE : 1950 Age: 73 years Gender: F History of coronary artery disease, dyslipidemia and diabetes mellitus. Primary rhythm: sinus. Height: 167.60 cm BSA: 2.09 m Weight: 94.03 kg BMI: 33.5 kg/m Heart rate 97 bpm Blood pressure 138/62 mmHg Color Doppler was utilized to interrogate the cardiac valves assessed and spectral Doppler was utilized to determine the flow velocities and pressure gradients reported in this exam. MEASUREMENTS: Value Indexed Normal Max aortic dimension 3.3 cm Ao < 3.8 Left atrial volume 78 ml (biplane A-L) 37 ml/m Angelo <= 34 LV ID (diastole) 4.5 cm (2D) 2.16 cm/m LV ID (systole) 2.5 cm (2D) 1.18 cm/m IVS, leaflet tips 1.2 cm (2D) Posterior wall thickness 1.2 cm (2D) Left ventricular mass 202 g (2D) 96 g/m LV stroke volume 57 ml (2D biplane) LV end diastolic volume 96 ml (2D biplane) 46.0 ml/m 29<=EDVi<62 LV end systolic volume 40 ml (2D biplane) 18.9 ml/m Ejection Fraction 59 % (2D biplane) EF > 54 FINDINGS: LEFT VENTRICLE The left ventricle is normal in size. Left ventricular systolic function is normal. Grade I left ventricular diastolic dysfunction. Wall Motion: All scored segments are normal. RIGHT VENTRICLE The right ventricle is normal in size. Right ventricular systolic function is normal. RV systolic tissue Doppler velocity is 15.0 cm/s. Tricuspid annular displacement is 2.5 cm. Estimated right ventricular systolic pressure is likely underestimated due to a weak or incomplete tricuspid regurgitation signal and is, at least, 28 mmHg consistent with normal pulmonary artery pressures. Estimated right atrial pressure is 3 mmHg based on IVC assessment. LEFT ATRIUM The left atrial cavity is mildly dilated. RIGHT ATRIUM The right atrial cavity is normal in size. Inferior Vena Cava: The inferior vena cava appears normal measuring 1.9 cm. The vessel decreases greater than 50 percent with inspiration. MITRAL VALVE There is trace (trace - 1+) mitral valve regurgitation. There is mild thickening. TRICUSPID VALVE The tricuspid valve leaflets are structurally normal. There is mild (1+) tricuspid valve regurgitation. The hepatic venous pattern showed normal systolic flow. AORTIC VALVE There is mild (1+ - 2+) aortic valve regurgitation. Tricuspid aortic valve. There is mild thickening. PULMONIC VALVE The pulmonic valve cusps are structurally normal. There is trace (trace - 1+) pulmonic valve regurgitation. AORTA The visualized aorta is normal in size. Measurements - Mid ascending aorta 3.3 cm. INTERATRIAL SEPTUM There is no evidence of [...] ventricular systolic function is normal. EF = 59 5% (2D biplane) - The right ventricle is normal in size. Right ventricular systolic function is normal. - The left atrial cavity is mildly dilated. - Exam was compared with the prior CC echocardiographic exam performed on 09/13/2021. AI slightly more prominent today. * * * Final * * * CC [facility] : [id number] [id number] Normal [facility] Lipid 1996 panelon 4 Cholesterol [Mass/Vol] 147 mg/dL Normal <[address] [facility] Comment on above: Order Comment: Colten sidhu Type: BLOOD SPECIMEN Ordering Facility: [facility] Address: [address] [place] [address] Result Comment: <200 mg/dL, Desirable 200-239 mg/dL, Borderline high >239 mg/dL, High Performed By: #### 2 4323-8, 84965-4 #### [facility] CLIA [id number] [address] [place] [address] [place] Cholesterol in HDL [Mass/Vol] 42 mg/dL Normal >[address] [facility] Comment on above: Order Comment: Colten sidhu Type: BLOOD SPECIMEN Ordering Facility: [facility] Address: [address] [place] [address] Result Comment: 40-5 9 mg/dL, Acceptable >59 mg/dL, High: Negative risk factor for coronary heart disease <40 mg/dL, Low: Positive risk factor for coronary heart disease Performed By: #### 2 4323-8, 05962-1 #### [facility] CLIA [id number] [address] [place] [address] [place] Cholesterol in LDL [Mass/Vol] 77 mg/dL Normal <[address] [facility] Comment on above: Order Comment: Colten sidhu Type: BLOOD SPECIMEN Ordering Facility: [facility] Address: [address] [place] [address] Result Comment: <100 mg/dL, Optimal 100-129 mg/dL, Near optimal/above optimal 130-159 mg/dL, Borderline high 160-189 mg/dL, High >189 mg/dL, Very high Secondary prevention optimal LDL Cholesterol levels are recommended to be < 70 mg/dL Performed By: #### 2 4323-8, 83293-5 #### [facility] CLIA [id number] [address] [place] [address] [place] Cholesterol in LDL/Cholesterol in HDL [Mass ratio] 1.83 {ratio} Normal <2.[address] [facility] Comment on above: Order Comment: Colten sidhu Type: BLOOD SPECIMEN Ordering Facility: [facility] Address: [address] [place] [address] Result Comment: Xavier capps: 1. National Cholesterol Education Program ATP III Guideline At-A-Glance Quick Desk Reference: National Heart, Lung, and Blood [place]. National Institutes of Health. 2001: NIH Publication No. 01-3305. 2. An International Atherosclerosis Society position paper: global recommendations for the management of dyslipidemia: executive summary, Atherosclerosis. 2014: 232(2):410-413. Performed By: #### 2 4323-8, 93532-1 #### [facility] CLIA [id number] [address] [place] [address] [place] Cholesterol in VLDL [Mass/Vol] 28 mg/dL Normal <[address] [facility] Comment on above: Order Comment: Colten sidhu Type: BLOOD SPECIMEN Ordering Facility: [facility] Address: [address] [place] [address] Performed By: #### 2 4323-8, 55942-0 #### [facility] CLIA [id number] [facility] [place] [address] [place] Cholesterol non HDL [Mass/Vol] 105 mg/dL Normal <[address] [facility] Comment on above: Order Comment: Colten sidhu Type: BLOOD SPECIMEN Ordering Facility: [facility] Address: [address] [place] [address] Result Comment: <130 mg/dL, Optimal 130-159 mg/dL, Near optimal/above optimal 160-189 mg/dL, Borderline high 190-219 mg/dL, High >219 mg/dL, Very high Secondary prevention optimal non HDL Cholesterol levels are recommended to be <100 mg/dL Performed By: #### 2 4323-8, 02024-0 #### [facility] CLIA [id number] [address] [place] [address] [place] Cholesterol.total/Ch olesterol in HDL [Mass ratio] 3.50 {ratio} Normal <5.[address] [facility] Comment on above: Order Comment: Speci men Type: BLOOD SPECIMEN Ordering Facility: [facility] Address: [address] [place] [address] Performed By: #### 2 4323-8, 35430-2 #### [facility] CLIA [id number] [address] [place] [address] [place] FASTING TIME 12 hrs Normal [facility] Comment on above: Order Comment: Speci men Type: BLOOD SPECIMEN Ordering Facility: [facility] Address: [address] [place] [address] Performed By: #### 2 4323-8, #### [facility] CLIA [id number] [address] [place] [address] [place] Triglyceride [Mass/Vol] 141 mg/dL Normal <[address] [facility] Comment on above: Order Comment: Speci men Type: BLOOD SPECIMEN Ordering Facility: [facility] Address: [address] [place] [address] Result Comment: <150 mg/dL, Normal 150-199 mg/dL, Borderline high 200-499 mg/dL, High >499 mg/dL, Very high Performed By: #### 2 4323-8, 00701-5 #### [facility] CLIA [id number] [address] [place] [address] [place] OCC BLD IMMUNO SCREENon - OCCULT BLOOD Negative Normal NEGATIVE [facility] Comment on above: Performed By: #### O BSCRN #### [facility] [address] [address] [address] Kym Burks CBC AUTO DIFFon 03-26-2022 BASO # 0.0 103/ul Normal 0.0-0.1 [facility] Comment on above: Performed By: #### C BC #### [facility] [address] [address] [address] Kym Burks Basophils/100 WBC (Bld) 0.7 % Normal 0.2-2.0 [facility] Comment on above: Performed By: #### C BC #### [facility] [address] [place] [address] Dr. Kym Burks EO # 0.1 103/ul Normal 0.0-0.7 [facility] Comment on above: Performed By: #### C BC #### [facility] [address] [place] [address] Dr. Kym Burks Eosinophils/100 WBC (Bld) 1.7 % Normal 0.9-7.0 [facility] Comment on above: Performed By: #### C BC #### [facility] [address] [place] [address] Dr. Kym Burks Erythrocyte distribution width (RBC) [Ratio] 13.2 % Normal 11.0-15.0 [facility] Comment on above: Performed By: #### C BC #### [facility] [address] [place] [address] Dr. Kym Burks Hematocrit (Bld) [Volume fraction] 41.6 % Normal 36.0-48.0 [facility] Comment on above: Performed By: #### C BC #### [facility] [address] [place] [address] Dr. Kym Burks Hemoglobin (Bld) [Mass/Vol] 12.7 g/dL Normal 12.0-16.0 [facility] Comment on above: Performed By: #### C BC #### [facility] [address] [place] [address] Dr. Kym Burks IG # 0.00 10e3/ul Normal 0.00-0.03 [facility] Comment on above: Performed By: #### C BC #### [facility] [address] [place] [address] Dr. Kym Burks IG % 0.0 % Normal 0.0-0.5 [facility] Comment on above: Performed By: #### C BC #### [facility] [address] [place] [address] Dr. Kym Burks LYMPH # 1.4 103/ul Normal 1.2-3.8 [facility] Comment on above: Performed By: #### C BC #### [facility] [address] [place] [address] Dr. Kym Burks Lymphocytes/100 WBC (Bld) 33.3 % Normal 20.5-60.0 [facility] Comment on above: Performed By: #### C BC #### [facility] [address] [place] [address] Dr. Kym Burks MANUAL DIFF REQ NO Normal [facility] Comment on above: Performed By: #### C BC #### [facility] [address] [place] [address] Dr. Kym Burks MCH (RBC) [Entitic mass] 28.8 pg Normal 26.7-34.0 [facility] Comment on above: Performed By: #### C BC #### [facility] [address] [place] [address] Dr. Kym Burks MCHC (RBC) [Mass/Vol] 30.5 g/dL Normal 29.9-35.2 [facility] Comment on above: Performed By: #### C BC #### [facility] [address] [place] [address] Dr. Kym Burks MCV (RBC) [Entitic vol] 94.3 fL Normal 81.0-99.0 [facility] Comment on above: Performed By: #### C BC #### [facility] [address] [place] [address] Dr. Kym Burks MONO # 0.3 103/ul Normal 0.3-0.8 [facility] Comment on above: Performed By: #### C BC #### [facility] [address] [place] [address] Dr. Kym Burks Monocytes/100 WBC (Bld) 6.7 % Normal 1.7-12.0 [facility] Comment on above: Performed By: #### C BC #### [facility] [address] [place] [address] Dr. Kym Burks NEUT # 2.4 103/ul Normal 1.4-6.5 [facility] Comment on above: Performed By: #### C BC #### [facility] [address] [place] [address] Dr. Kym Burks Neutrophils/100 WBC (Bld) 57.6 % Normal 43.0-75.0 [facility] Comment on above: Performed By: #### C BC #### [facility] [address] [place] [address] Dr. Kym Burks Platelet mean volume (Bld) [Entitic vol] 9.9 fL Normal 9.5-13.5 [facility] Comment on above: Performed By: #### C BC #### [facility] [address] [place] [address] Dr. Kym Burks PLT 221 103/ul Normal 150-450 [facility] Comment on above: Performed By: #### C BC #### [facility] [address] [place] [address] Dr. Kym Burks RBC 4.41 106/ul Normal 4.20-5.40 [facility] Comment on above: Performed By: #### C BC #### [facility] [address] [place] [address] Dr. Kym Burks WBC 4.2 103/ul Normal 4.0-11.0 [facility] Comment on above: Performed By: #### C BC #### [facility] [address] [place] [address] Dr. Kym Burks FREE THYROXINE INDEX T7on FTI 3.78 Normal 1.30-4.50 [facility] Comment on above: Performed By: #### T SH, CMP, T7, LIPID ####[facility] [address] [place], [place] [address]MrDr. Kym Burks T3U 36.0 % Normal 30.0-39.0 [facility] Comment on above: Performed By: #### T SH, CMP, T7, LIPID ####[facility] [address] [place], [place] [address]MhDr. Kym Burks T4 [Mass/Vol] 10.50 ug/dL Normal 4.80-13.90 [facility] Comment on above: Performed By: #### T SH, CMP, T7, LIPID ####[facility] [address] [place], [place] [address]AuDr. Kym Burks GLYCOHEMOGLOBIN A1Con 2022 ADA RECOMMENDATION SEE BELOW Normal [facility] Comment on above: Result Comment: ADA RECOMMENDED LIMIT 4.0 - 6.0 ADA THERAPEUTIC TARGET < 7.0 ACTION SUGGESTED > 7.0 Performed By: #### A 1C #### [facility] [address] [address] [address] Kym Burks Glucose [Mass/Vol] 148 mg/dL Normal [facility] Comment on above: Performed By: #### A 1C #### [facility] [address] [address] [address] Kym Burks HbA1c (Bld) [Mass fraction] 6.8 % Critically high 4.5-6.2 [facility] Comment on above: Performed By: #### A 1C #### [facility] [address] [address] [address] Kym Burks IRONon 03-26-2022 Iron [Mass/Vol] 72.0 ug/dL Normal 50.0-170.0 [facility] Comment on above: Performed By: #### V ITAD, IRON #### [facility] [id number] Kym Burks LIPID PROFILEon 03-26-2022 CHOL-HDL RATIO NORM SEE BELOW Normal [facility] Comment on above: Result Comment: 3.3 - 4.4 LOW RISK 4.4 - 7.1 AVERAGE RISK 7.1 - 11.0 MODERATE RISK >11.0 HIGH RISK Performed By: #### T SH, CMP, T7, LIPID ####[facility] [address] [id number][address] Kym Burks Cholesterol [Mass/Vol] 126 mg/dL Normal <=200 [facility] Comment on above: Performed By: #### T SH, CMP, T7, LIPID ####[facility] [address] [id number]. Kym Burks Cholesterol in HDL [Mass/Vol] 47 mg/dL Normal 40-60 [facility] Comment on above: Performed By: #### T SH, CMP, T7, LIPID ####[facility] [address] [id number]. Kym Burks Cholesterol in LDL [Mass/Vol] 56.8 mg/dL Normal [facility] Comment on above: Performed By: #### T SH, CMP, T7, LIPID ####[facility] [address] [address]Dr. Kym Burks Cholesterol.total/Ch olesterol in HDL [Mass ratio] 2.7 {ratio} Normal [facility] Comment on above: Performed By: #### T SH, CMP, T7, LIPID ####[facility] [address] [id number]. Kym Burks HDL NORMAL > or = 60 mg/dl - LO W CARDIOVASCULAR RISK <40 mg/dl - HIGH CARDIOVASCULAR RISK Normal [facility] Comment on above: Performed By: #### T SH, CMP, T7, LIPID ####[facility] [address] [id number]. Kym Burks LDL CALC NORMAL SEE BELOW Normal [facility] [place] Comment on above: Result Comment: <100 mg/dl OPTIMAL 100 - 129 mg/dl NEAR OR ABOVE OPTIMAL 130 - 159 mg/dl BORDERLINE HIGH 160 - 189 mg/dl HIGH >190 mg/dl VERY HIGH Performed By: #### T SH, CMP, T7, LIPID ####[facility] [address] [id number]. Kym Burks Triglyceride [Mass/Vol] 111 mg/dL Normal <=150 [facility] Comment on above: Performed By: #### T SH, CMP, T7, LIPID ####[facility] [address] [address]Dr. Kym Burks VLDL CALC 22.2 mg/dL Normal [facility] Comment on above: Performed By: #### T SH, CMP, T7, LIPID ####[facility] [address] [address]Dr. Kym Burks PROF 14(COMP METB)on 023 Albumin [Mass/Vol] 3.9 g/dL Normal 3.4-5.[address] [facility] Comment on above: Performed By: #### T SH, CMP, T7, LIPID ####[facility] [address] [address]Dr. Kym Burks Albumin/Globulin [Mass ratio] 1.3 {ratio} Normal [facility] Comment on above: Performed By: #### T SH, CMP, T7, LIPID ####[facility] [address] [address]Dr. Kym Burks ALP [Catalytic activity/Vol] 80 U/L Normal 46-116 [facility] Comment on above: Performed By: #### T SH, CMP, T7, LIPID ####[facility] [address] [address]Dr. Kym Burks ALT [Catalytic activity/Vol] 28 U/L Normal 14-59 [facility] Comment on above: Performed By: #### T SH, CMP, T7, LIPID ####[facility] [address] [address]Dr. Kym Burks Anion gap [Moles/Vol] 10.6 mmol/L Normal [facility] Comment on above: Performed By: #### T SH, CMP, T7, LIPID ####[facility] [address] [address]Dr. Kym Burks AST [Catalytic activity/Vol] 21 U/L Normal 15-37 [facility] Comment on above: Performed By: #### T SH, CMP, T7, LIPID ####[facility] [address] [id number]. Kym Burks Bilirubin [Mass/Vol] 1.3 mg/dL Critically high 0.2-1.0 [facility] Comment on above: Performed By: #### T SH, CMP, T7, LIPID ####[facility] [address] [address]Dr. Kym Burks Calcium [Mass/Vol] 10.0 mg/dL Normal 8.5-10.1 [facility] Comment on above: Performed By: #### T SH, CMP, T7, LIPID ####[facility] [address] [address]Dr. Kym Burks Chloride [Moles/Vol] 104 mmol/L Normal 98-107 [facility] Comment on above: Performed By: #### T SH, CMP, T7, LIPID ####[facility] [address] [place], [place] [address]Dr. Kym Burks CO2 [Moles/Vol] 28.8 mmol/L Normal 21.0-32.0 [facility] Comment on above: Performed By: #### T SH, CMP, T7, LIPID ####[facility] [address] [place], [place] [address]Dr. Kym Burks Creatinine [Mass/Vol] 0.74 mg/dL Normal 0.55-1.02 [facility] Comment on above: Performed By: #### T SH, CMP, T7, LIPID ####[facility] [address] [address]Dr. Kym Burks EGFR-AF BULGARIAN >60 Normal >=60 [facility] Comment on above: Performed By: #### T SH, CMP, T7, LIPID ####[facility] [address] [place], [place] [address]Dr. Kym Burks EGFR-NON AF BULGARIAN >60 Normal >=60 [facility] Comment on above: Performed By: #### T SH, CMP, T7, LIPID ####[facility] [address] [place], [place] [address]Dr. Kym Burks Globulin (S) [Mass/Vol] 3.1 g/dL Normal [facility] Comment on above: Performed By: #### T SH, CMP, T7, LIPID ####[facility] [address] [address]Dr. Kym Burks Glucose [Mass/Vol] 143 mg/dL Critically high 74-106 [facility] Comment on above: Performed By: #### T SH, CMP, T7, LIPID ####[facility] [address] [address]Dr. Kym Burks Potassium [Moles/Vol] 4.4 mmol/L Normal 3.5-5.1 [facility] Comment on above: Performed By: #### T SH, CMP, T7, LIPID ####[facility] [address] [address]Dr. Kym Burks Protein [Mass/Vol] 7.0 g/dL Normal 6.4-8.[address] [facility] Comment on above: Performed By: #### T SH, CMP, T7, LIPID ####[facility] [address] [address]Dr. Kym Burks Sodium [Moles/Vol] 139 mmol/L Normal 136-[address] [facility] Comment on above: Performed By: #### T SH, CMP, T7, LIPID ####[facility] [address] [address]Dr. Kym Burks Urea nitrogen [Mass/Vol] 26.0 mg/dL Critically high 7.0-18.0 [facility] Comment on above: Performed By: #### T SH, CMP, T7, LIPID ####[facility] [address] [address]Dr. Kym Burks Urea nitrogen/Creatinine [Mass ratio] 35.1 mg/mg Normal [facility] Comment on above: Performed By: #### T SH, CMP, T7, LIPID ####[facility] [address] [address]Dr. Kym Burks TSHon 03-26-2022 TSH 0.288 uIU/mL Critically low 0.358-3.740 [facility] Comment on above: Performed By: #### T SH, CMP, T7, LIPID ####[facility] [address] [place], [place] [address]ExDr. Kym Burks VITAMIN D 25 OHon 03-26-2022 VIT D 25-OH 60.0 ng/mL Normal [facility] Comment on above: Performed By: #### V LUDY, IRON #### [facility] [address] [place], [place] [address] Dr. Kym Burks VIT D RANGES SEE BELOW Normal [facility] Comment on above: Result Comment: <20 ng/mL Vit D deficient 20 - <30 ng/mL Vit D insufficient 30 - 100 ng/mL Vit D sufficient >100 ng/mL Potential Toxicity Performed By: #### V LUDY, IRON #### [facility] [address] [place], [place] [address] Dr. Kym Burks XR SHOULDER RT INJon [...] by: KWABENA LEDESMA Date: 2021-09-10 14:56 Normal [facility] MG MAMM SCREEN 3D EMILY CADon 08-22-2021 MG MAMM SCREEN 3D EMILY CAD Patient: LIANA MARIE Exam Date: 08/22/2021 : 1950 Gender:F Ordering : DR JACKY TORRES . Admission #: [id number] Family : Order #: [id number] CLICK HERE TO VIEW EXAM RADIOLOGY REPORT [...] breast cancer at age 51. LOCATION: [facility] BREAST COMPOSITION: Scattered areas fibroglandular density. [...] M.D. on 08/22/2021 at 13:22 Normal [facility] XR SHOULDER RT 2V or >on [...] GINA CRUZ Date: 2021-08-22 12:24 Normal [facility] Covid-19 PCR (CVDTB)on 04-30 SARS-CoV-2 (COVID-19) RNA SILVESTRE+probe Ql (Unsp spec) Detected Critically abnormal NOT DETECTED [facility] [facility] Comment on above: Result Comment: This test is not yet approved or cleared by the [place] FDA. When there are no FDA-approved or cleared tests available, and other criteria are met, FDA can make tests available under an emergency access mechanism called an Emergency Use Authorization (EUA). The EUA for this test is supported by the [place] of Health and Human Service's (HHS's) declaration [...] used). Performed By: #### C VDTBH #### [facility] [address] [place] [address] Dr. Kym Burks INFLUENZA A AND B AGon 05-16 INFLUANE SEE BELOW Normal [facility] Comment on above: Result Comment: Nega tive for Flu A protein angiten. Infection due to Flu A cannot be ruled out. Flu A angiten in the sample may be below the detection limit of the test. Performed By: #### I NFLUAB #### [facility] [address] [place] [address] Dr. Kym Burks INFLUBNEG SEE BELOW Normal [facility] Comment on above: Result Comment: Nega tive for Flu B protein antigen. Infection due to Flu B cannot be ruled out. Flu B antigen in the sample may be below the detection limit of the test. Performed By: #### I NFLUAB #### [facility] [address] [place] [address] Dr. Kym Burks INFLUENZA A AG Negative Normal NEGATIVE SEE COMMENT [facility] Comment on above: Performed By: #### I NFLUAB #### [facility] [address] [address] [address] Kym Burks INFLUENZA B AG Negative Normal NEGATIVE SEE COMMENT [facility] Comment on above: Performed By: #### I NFLUAB #### [facility] [address] [place], [place] [address] Dr. Kym Burks INTERNAL CONTROLS Within Normal Limits Normal Wi thin Normal Limits [facility] Comment on above: Performed By: #### I NFLUAB #### [facility] [address] [place], [place] [address] Dr. Kym Burks Vital Signs Date Time Vital Sign Value Performing Clinician Faci lity 01-14-2024 13:30-0500 Body height 167.6 cm Preston Pompa DPM Work Phone: [facility] 01-14-2024 13:30-0500 Body mass index (BMI) [Ratio] 29.86 kg/m2 Preston Pompa DPM Work Phone: [facility] 01-14-2024 13:30-0500 Body weight 83.92 kg Preston Brown DPM Work Phone: [facility] 01-14-2024 13:30-0500 Diastolic blood pressure 80 mm[Hg] Preston Pompa DPM Work Phone: [facility] 01-14-2024 13:30-0500 Heart rate 82 /min Preston Pompa DPM Work Phone: [facility] 01-14-2024 13:30-0500 Systolic blood pressure 125 mm[Hg] Preston Pompa DPM Work Phone: [facility] 10-22-2023 12:04-0400 Body height 167.6 cm Preston Pompa DPM Work Phone: [facility] 10-22-2023 12:04-0400 Body mass index (BMI) [Ratio] 29.86 kg/m2 Preston Pompa DPM Work Phone: [facility] 10-22-2023 12:04-0400 Body weight 83.92 kg Preston Peña DPM Work Phone: [facility] 10-22-2023 12:04-0400 Diastolic blood pressure 79 mm[Hg] Preston Peña DPM Work Phone: [facility] 10-22-2023 12:04-0400 Heart rate 77 /min Preston Brown DPM Work Phone: [facility] 10-22-2023 12:04-0400 Systolic blood pressure 125 mm[Hg] Preston Peña DPM Work Phone: [facility] 09-25-2023 12:32-0400 Body height 167.6 cm Amy Barger MD Work Phone: [facility] 09-25-2023 12:32-0400 Body mass index (BMI) [Ratio] 32.12 kg/m2 Amy Barger MD Work Phone: [facility] 09-25-2023 12:32-0400 Body weight 90.27 kg Amy Barger MD Work Phone: [facility] 09-25-2023 12:32-0400 Diastolic blood pressure 59 mm[Hg] Amy Barger MD Work Phone: [facility] 09-25-2023 12:32-0400 Heart rate 50 /min Amy Barger MD Work Phone: [facility] 09-25-2023 12:32-0400 SaO2% (BldA) [Mass fraction] 99 % Amy Barger MD Work Phone: [facility] 09-25-2023 12:32-0400 Systolic blood pressure 191 mm[Hg] Amy Barger MD Work Phone: [facility] 08-29-2022 14:02-0400 Diastolic blood pressure 66 mm[Hg] Amy Barger MD Work Phone: [facility] 08-29-2022 14:02-0400 Systolic blood pressure 140 mm[Hg] Amy Barger MD Work Phone: [facility] 08-29-2022 13:55-0400 Body height 167.6 cm Amy Barger MD Work Phone: [facility] 08-29-2022 13:55-0400 Body weight 94.03 kg Amy Barger MD Work Phone: [facility] 08-29-2022 13:55-0400 Heart rate 59 /min Amy Barger MD Work Phone: [facility] 08-29-2022 13:55-0400 SaO2% (BldA) [Mass fraction] 100 % Amy Barger MD Work Phone: [facility] 09-13-2021 14:38-0400 Body height 167.6 cm Amy Barger MD Work Phone: [facility] 09-13-2021 14:38-0400 Body weight 82.1 kg Amy Barger MD Work Phone: [facility] 09-13-2021 14:38-0400 Diastolic blood pressure 55 mm[Hg] Amy Barger MD Work Phone: [facility] 09-13-2021 14:38-0400 Heart rate 54 /min Amy Barger MD Work Phone: [facility] 09-13-2021 14:38-0400 SaO2% (BldA) [Mass fraction] 100 % Amy Barger MD Work Phone: [facility] 09-13-2021 14:38-0400 Systolic blood pressure 138 mm[Hg] Amy Barger MD Work Phone: [facility] Encounters Encounter Date Encounter Type Care Provider Facility Start: 01-14-2024 End: 01-14-2024 Nohemy Pompa DPM Work Phone: [facility] Start: 01-14-2024 End: 01-14-2024 Nohemy Pompa DPM Work Phone: [facility] Start: 01-14-2024 End: 01-14-2024 ambulatory PRESTON POMPA Not Available Start: 01-14-2024 End: 01-14-2024 Office outpatient visit 15 minutes Preston Pompa DPM Work Phone: [facility] Comment on above: Xerosis cutis (Prima 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); Pain due to onychomycosis of toenails of both feet Start: 10-22-2023 End: 10-22-2023 Bamboo flowsheet Preston Pompa DPM Work Phone: [facility] Start: 10-22-2023 End: 10-22-2023 Bamboo flowsheet Preston Pompa DPM Work Phone: [facility] Start: 10-22-2023 End: 10-22-2023 Patient encounter procedure Preston Pompa DPM Work Phone: [facility] Comment on above: Peroneal tendinitis, left (Primary Dx); Type 2 diabetes mellitus without complication, unspecified whether [place] [facility] ([facility]); Onychomycosis; Toe pain, bilateral Start: 10-22-2023 End: 10-22-2023 ambulatory PRESTON POMPA Not Available Start: 09-25-2023 End: 09-25-2023 Patient encounter procedure Amy Barger MD Work Phone: [facility]iology Comment on above: Nonrheumatic aortic valve insufficiency (Primary Dx); Nonrheumatic mitral valve regurgitation; Nonrheumatic tricuspid valve regurgitation; Mixed hyperlipidemia; Coronary artery disease involving [place] coronary artery of [place] heart without angina pectoris Start: 09-25-2023 End: 09-25-2023 ambulatory AMY BARGER Facility:[facility] Start: 08-06-2023 End: 08-06-2023 ambulatory PRESTON POMPA Not Available Start: 05-11-2023 Orders Only Amy Barger MD Work Phone: Cardiology Comment on above: Nonrheumatic aortic valve insufficiency (Primary Dx) Start: 04-23-2023 End: 04-23-2023 ambulatory PRESTON POMPA Not Available Start: 02-12-2023 End: 02-12-2023 ambulatory PRESTON POMPA Not Available Start: 08-29-2022 End: 08-29-2022 Patient encounter procedure Amy Barger MD Work Phone: [facility] Comment on above: Nonrheumatic aortic valve insufficiency (Primary Dx); Coronary artery disease involving [place] coronary artery of [place] heart without angina pectoris; Mixed hyperlipidemia; Valvular heart disease; Coronary artery disease involving [place] coronary artery of [place] heart with angina pectoris (HCC); Type 2 [...] regurgitation; Mixed hyperlipidemia; Coronary artery disease involving [place] coronary artery of [place] heart without angina pectoris; Type 2 diabetes mellitus without complication, without long-term current use of insulin (HCC) Start: 09-10-2021 End: 09-10-[address] JACKY TORRES Facility:[facility] Start: 08-22-2021 End: 08-23-[address] JACKY TORRES Facility:[facility] Start: 05-16-2021 End: 05-16-[address] JACKY TORRES Facility:[facility] Procedures Date Procedure Procedure Detail Performing Clinician Start: 06-22-2015 Mammography Preston weathers DPEveline Work Phone: Plan of Treatment Date Care Activity Detail Author Start: 11-24-2024 Urine microalbumin profile DTa P,Tdap,Td Vaccine (2 - Td or Tdap) [facility] Start: 09-24-2024 End: 12-24-2024 CBC panel - Blood by Automated count COMPLETE BLOOD COUNT Lab Routine Nonrheumatic aortic valve insufficiency Expected: 09/24/2024, Expires: 12/24/2024 [facility] Comment on above: Expected: 09/24/2024 , Expires: 12/24/2024 Start: 09-24-2024 End: 12-24-2024 Comprehensive metabolic 2000 panel - Serum or Plasma COMPREHENSIVE METABOLIC PANEL Lab Routine Nonrheumatic aortic valve insufficiency Expected: 09/24/2024, Expires: 12/24/2024 [facility] Work Phone: Comment on above: Expected: 09/24/2024 , Expires: 12/24/2024 Start: 09-24-2024 Hepatitis B surface antibody level LDL Cholesterol [facility] Start: 09-24-2024 End: 12-24-2024 Lipid 1996 panel - Serum or Plasma LIPID PANEL BASIC Lab Routine Nonrheumatic aortic valve insufficiency Expected: 09/24/2024, Expires: 12/24/2024 [facility] Comment on above: Expected: 09/24/2024 , Expires: 12/24/2024 Start: 04-14-2024 End: 04-14-2024 Patient encounter procedure 04/14/2024 10:30 AM EST Office Visit [facility] [address] [facility] [address] [place] [id number] Preston Pompa DPM [address] [address] [facility] Start: 01-07-2024 End: 01-07-2024 Patient encounter procedure 01/07/2024 10:40 AM EST Office Visit [facility] [address] [facility] [address] [place] [id number] Preston Pompa DPM [address] [address] [facility] Start: 11-01-2023 Influenza vaccination Influenza Vacc ine (#1) [facility] Start: 10-22-2023 End: 10-22-2023 Patient encounter procedure 10/22/2023 11:50 AM EDT Office Visit [facility] [address] [facility] [address] [place] [address] Preston oPmpa, DPEveline [address] [facility] [address] [place] [address] Peroneal tendinitis, left (Primary Dx); Type 2 diabetes mellitus without complication, unspecified whether [facility] use (CMS/HCC); Onychomycosis; Toe pain, bilateral [facility] Comment on above: Peroneal tendinitis, left (Primary Dx); Type 2 diabetes mellitus without complication, unspecified whether [facility] use (CMS/HCC); Onychomycosis; Toe pain, bilateral Start: 09-08-2023 Screening for malign ant neoplasm of colon [facility] Start: 08-13-2023 End: 10-13-2023 CBC panel - Blood by Automated count CBC Lab Routine Nonrheumatic aortic valve insufficiency Expected: 08/13/2023, Expires: 10/13/2023 [facility] Work Phone: Comment on above: Expected: 08/13/2023 , Expires: 10/13/2023 Start: 08-13-2023 End: 10-13-2023 Comprehensive metabolic 2000 panel - Serum or Plasma COMP METABOLIC PANEL Lab Routine Nonrheumatic aortic valve insufficiency Expected: 08/13/2023, Expires: 10/13/2023 [facility] Work Phone: Comment on above: Expected: 08/13/2023 , Expires: 10/13/2023 Start: 08-13-2023 End: 10-13-2023 Lipid 1996 panel - Serum or Plasma LIPID PANEL BASIC Lab Routine Nonrheumatic aortic valve insufficiency Expected: 08/13/2023, Expires: 10/13/2023 [facility] Work Phone: Comment on above: Expected: 08/13/2023 , Expires: 10/13/2023 Start: 04-14-2023 Covid-19 Vaccine () Covid-19 Vaccine () [facility] Start: 03-02-2023 Advance Directive Discussion Advance Directive Discussion [facility] Start: 03-02-2023 Depression Assessment Depression Ass essment [facility] Start: 10-31-2022 Covid-19 Vaccine () Covid-19 Vaccine () [facility] Start: 10-31-2022 Influenza vaccination C [facility] Start: 09-13-2022 Hepatitis B surface antibody level LDL CHOLESTEROL [facility] Start: 08-29-2022 End: 08-29-2022 Basic metabolic 2000 panel - Serum or Plasma BASIC METABOLIC PNL Lab Routine Nonrheumatic aortic valve insufficiency Expected: 08/29/2022, Expires: 08/29/2022 [facility] Work Phone: Comment on above: Expected: 08/29/2022 , Expires: 08/29/2022 Start: 03-02-2022 ADVANCE DIRECTIVE DISCUSSION ADVANCE DIRECTIVE DISCUSSION [facility] Start: 03-02-2022 DEPRESSION ASSESSMENT DEPRESSION ASS ESSMENT [facility] Start: 10-31-2021 Influenza vaccination INFLUENZA (#1) [facility] Start: 09-13-2021 End: 11-13-2021 CBC panel - Blood by Automated count CBC Lab Routine Nonrheumatic aortic valve insufficiency Expected: 09/13/2021, Expires: 11/13/2021 [facility] Work Phone: Comment on above: Expected: 09/13/2021 , Expires: 11/13/2021 Start: 09-13-2021 End: 11-13-2021 Comprehensive metabolic 2000 panel - Serum or Plasma COMP METABOLIC PANEL Lab Routine Nonrheumatic aortic valve insufficiency Expected: 09/13/2021, Expires: 11/13/2021 [facility] Work Phone: Comment on above: Expected: 09/13/2021 , Expires: 11/13/2021 Start: 09-13-2021 End: 11-13-2021 Lipid 1996 panel - Serum or Plasma LIPID PANEL BASIC Lab Routine Nonrheumatic aortic valve insufficiency Expected: 09/13/2021, Expires: 11/13/2021 [facility] Work Phone: Comment on above: Expected: 09/13/2021 , Expires: 11/13/2021 Start: 08-02-2021 COVID-19 VACCINE (5 - Booster for Pfizer series) COVID-19 VACCINE (5 - Booster for Pfizer series) [facility] Start: 03-02-2021 ADVANCE DIRECTIVE DISCUSSION ADVANCE DIRECTIVE DISCUSSION [facility] Start: 06-30-2016 BONE DENSITY BONE DENSITY [facility] Start: 06-30-2016 Screening for osteoporosis Bone Dens ity Screening [facility] Start: 06-21-2016 Screening for malign ant neoplasm of breast Mammogram [facility] Start: 2011 RSV Vaccine (1 - 1-d ose 60+ series) RSV Vaccine (1 - 1-dose 60+ series) [facility] Start: 06-30-2001 SHINGRIX VACCINE (1 of 2) ACKERMAN GRIX VACCINE (1 of 2) [facility] Start: 06-30-1996 COLOGUARD (FIT-DNA) COLOGUARD (FIT-D NA) [facility] Start: 06-30-1996 Colonoscopy COLONOSCOPY [facility] Start: 06-30-1996 COLORECTAL CANCER SCREENING COLORECTAL CANCER SCREENING [facility] Start: 06-30-[address] COLONOGRAPHY [facility] Start: 06-30-1996 FECAL OCCULT BLOOD FECAL OCCULT BLOO D [facility] Start: 06-30-1996 Screening for malign ant neoplasm of colon [facility] Start: 06-30-1996 SIGMOIDOSCOPY SIGMOIDOSCOPY [facility] Start: 1991 Mammography MAMMOGRAM [facility] Start: 1991 Screening for malign ant neoplasm of breast Mammogram Screening [facility] Start: 06-30-1970 Urine microalbumin profile DTAP,TDAP ,TD (1 - Tdap) [facility] Start: 06-30-1969 ANNUAL PCP TEAM [employer]PERATOR NAOMI DISEASE VISIT ANNUAL PCP TEAM CHRONIC DISEASE VISIT [facility] Start: 06-30-1969 Anxiety Screening Anxiety Screening [facility] Start: 06-30-1969 Depression Screening Depression Scre ening [facility] Start: 06-30-1969 HEPATITIS C SCREENING HEPATITIS C SC [facility] Start: 05-01-1970 Hepatitis C screening Hepatitis C Sc reening [facility] Start: 1963 Adult depression scr eening assessment DEPRESSION SCREENING [facility] Start: 06-30-1961 3 comp foot exam completed DIABETIC FOOT EXAM [facility] Start: 06-30-1961 Diabetic foot examination Diabetic F oot Exam [facility] Start: 06-30-1961 Glaucoma screening Dilated Retinal E xam [facility] Start: 06-30-1961 Hepatitis B screening URINE ALBUMIN:CREATININE RATIO [facility] Start: 06-30-1961 Hepatitis C antibody , confirmatory test DILATED RETINAL EXAM [facility] Start: 06-30-1957 PNEUMOCOCCAL: 65+ (1 - PCV) PNEUMOCOCCAL: 65+ (1 - PCV) [facility] Start: 06-30-1956 Hemoglobin A1c measurement HbA1C [facility] Start: 06-30-1956 Hemoglobin A1c/Hemoglobin.total in Blood HBA1C [facility] Start: 1950 Screening for malign ant neoplasm of colon [facility] End: 03-10-2023 ECG COMPLETE ECG COMPLETE ECG Routine Nonrheumatic aortic valve insufficiency 1 Occurrences starting 03/10/2022 until 03/10/2023 [facility] Work Phone: Comment on above: 1 Occurrences starti ng 03/10/2022 until 03/10/2023 End: 05-10-2024 ECG COMPLETE ECG COMPLETE ECG Routine Nonrheumatic aortic valve insufficiency 1 Occurrences starting 05/11/2023 until 05/10/2024 [facility] Work Phone: Comment on above: 1 Occurrences starti ng 05/11/2023 until 05/10/2024 End: 09-24-2024 ECG COMPLETE ECG COMPLETE ECG Routine Nonrheumatic aortic valve insufficiency 1 Occurrences starting 09/25/2023 until 09/24/2024 [facility] Comment on above: 1 Occurrences starti ng 09/25/2023 until 09/24/2024 End: 05-10-2024 Echocardiography [facility] Routine Nonrheumatic aortic valve insufficiency 1 Occurrences starting 05/11/2023 until 05/10/2024 [facility] Work Phone: Comment on above: 1 Occurrences starti ng 05/11/2023 until 05/10/2024 End: 09-24-2024 Echocardiography [facility]iology Routine Nonrheumatic aortic valve insufficiency 1 Occurrences starting 09/25/2023 until 09/24/2024 [facility] Comment on above: 1 Occurrences starti ng 09/25/2023 until 09/24/2024 [facility] Immunizations Immunization Date Immunization Notes Care Provider Martina vaz 01-05-2022 influenza virus vacc ine, unspecified formulation Amy Barger MD Work Phone: [facility] Payers Date Payer Category Payer Medicare (Managed Care) [employer]NA M EDICARE ADVANTAGE [id number] 2017 Medicare HUMANA MEDICARE [employer]NA GOLD PLUS [id number] 2017-Present [phone] [address] [place] [id number] O [id number] 2017 Medicare [id number] 1959 Medicare [id number] 1950 Unknown [id number] .[id number] 1950 Unknown [id number] .[id number] 1950 Unknown [id number] .[id number] 1950 Unknown [id number] .[id number] 1950 Unknown [id number] .[id number] 1950 Unknown [id number] .[id number] 1950 Unknown [id number] [id number] .[id number] 1950 Unknown [id number] .[id number] 1950 Unknown [id number] .[id number] 1950 Unknown [id number] [id number] .2.9 1950 Unknown [id number] .[id number] 1950 Unknown [id number] .[id number] Social History Date Type Detail Facility Start: 01-21-2019 End: 02-12-2023 Tobacco smoking status ALIS Never smoked tobacco [facility] Start: 01-21-2019 End: 02-12-2023 Tobacco use and exposure Smokeless tobacco non-user [facility] Start: 09-13-2021 End: 09-25-2023 Alcohol intake Lifetime non-drinker (finding) [facility] Start: 01-21-2019 History SDOH Alcohol Frequency 1 [facility] Start: 1950 Sex Assigned At Not on file [facility] Start: 09-03-2021 End: 09-13-2021 Exposure to SARS-CoV-2 (event) Not sure [facility] Start: 01-21-2019 End: 10-22-2023 History of Social function [facility] Start: 01-21-2019 End: 10-22-2023 Alcohol Use Disorder Identification Test - Consumption [AUDIT-C] [facility] How often to you hav e a drink containing alcohol? Never [facility] Average Number of Drinks Not on file [facility] Start: 10-22-2023 End: 01-14-2024 Alcoholic beverage intake Defer [facility] NEGATED: Highlighted rowStart: NINF History of tobacco use Passive smoker [facility] Medical Equipment Procedure Code Equipment Code Equipment Origin al Text Equipment Identifier Dates ACCU-CHEK BEREKET PLUS TEST STRP test strip [id number] Start: 10-23-2020 Clinical Notes 05-19-2018 to 01-14-2024 Preston Pompa DPM - 01/14/2024 1:20 PM Corine Pompa DPM - 10/22/2023 11:50 AM EDTPatient InstructionsAmy Barger MD - 09/25/2023 12:00 PM EDTPatient Instructions Note Date & Type Note Facility 01-14-2024 History of Present illness Narrative Patient: Liana Marie : 1950 PCP: Jacky Torres MD SUBJECTIVE This is a 73 y.o. female that presents today with a CC of elongated, thick nails. Pt states nails have been elongated and thick for many years and cause pain with ambulation in shoegear. Pt has tried previous treatment with minimal relief. Pt presents today for nail care and treatment. Patient is DM2 Patient also presents today for follow up of left peroneal tendinitis has been taking anti-inflammatories and rates pain a 1/10. Pt also presents today with secondary complaints of dry scaly skin to feet. Pt states that they have not been using OTC creams and lotions with minimal relief. Allergies: Allergies Allergen Reactions Lisinopril Cough Tramadol Nausea Only Codeine Rash Sulfa Antibiotics Rash Past Medical History: Past Medical History: Diagnosis Date Allergic rhinitis Aortic regurgitation Bradycardia Depression (CMS/HCC) DJD (degenerative joint disease) DM (diabetes mellitus) (CMS/HCC) GERD (gastroesophageal reflux disease) HLD (hyperlipidemia) (CMS/HCC) Hypothyroidism (CMS/HCC) Osteoarthritis PTSD (post-traumatic stress disorder) (CMS/[facility]) Skin cancer Medications: Current Outpatient Medications: glimepiride (Amaryl) 4 MG tablet, 1 (one) time each day at the same time, Disp: , Rfl: Jardiance 10 MG, , Disp: , Rfl: levothyroxine (Synthroid, Levoxyl) 100 MCG tablet, 1 (one) time each day at the same time, Disp: , Rfl: metFORMIN (Glucophage) 1000 MG tablet, every 12 (twelve) hours, Disp: , Rfl: pioglitazone (Actos) 15 MG tablet, , Disp: , Rfl: rosuvastatin (Crestor) 40 MG tablet, 1 (one) time each day at the same time, Disp: , Rfl: sertraline (Zoloft) 25 MG tablet, 1 (one) time each day at the same time, Disp: , Rfl: Social History: Social History Socioeconomic History Marital status: Spouse name: Not on file Number of children: Not on file Years of education: Not on file Highest education level: Not on file Occupational History Not on file Tobacco Use Smoking status: Never Passive exposure: Never Smokeless tobacco: Never Vaping Use Vaping status: Unknown Substance and Sexual Activity Alcohol use: Defer Drug use: Defer Sexual activity: Defer Other Topics Concern Not on file Social History Narrative Not on file Social Drivers of Health Financial Resource Strain: Not on file Food Insecurity: Not on file Transportation Needs: Not on file Physical Activity: Not on file Stress: Not on file Social Connections: Not on file Intimate Partner Violence: Not on file Housing Stability: Not on file ROS: General: denies fever, chills, fatigue, malaise GI: denies abdominal pain or ulcerations with anti-inflammatory medication OBJECTIVE LE EXAM: DERM: Elongated thick yellow crumbly nails digits 1 through 10. Negative hair growth with thin shiny atrophic skin bilaterally. Dry and scaly skin to bilateral heels VASC: Positive DP and positive PT pedal pulses NEURO: 5.07 [place] Ehsan monofilament test positive to digits and forefoot bilaterally 125Hz tuning fork positive to 1st MPJ bilaterally ORTHO: Positive pain on palpation to nails 1 through 10 Minimal pain on palpation left peroneal brevis tendon near insertion to the 5th metatarsal base ASSESSMENT 1. Peroneal tendinitis, left 2. Type 2 diabetes mellitus without complication, unspecified whether superintendent container terminal insulin use ([facility]) 3. Pain due to onychomycosis of toenails of both feet 4. Xerosis cutis PLAN Discussed proper foot care with patient today. Debride nails in length and thickness digits 1 through 10 Patient educated today on proper diabetic foot care including monitoring feet daily for any signs of infection openings in the skin or irregularities to both feet. Patient had a diabetic neurological exam today to both their feet and discussed proper shoe gear. Patient education on condition and treatment of condition. Patient education on condition and treatment of condition. Discussed application of hydrating cream to feet twice daily and to not place between toes and to apply prior to bed in evenings and to observe for any redness to feet or red streaks or drainage to feet. Patient to consider [id number] treatments for medication or use of urea cream and prescription today was offered for Lac-Hydrin cream. Patient has urea cream and advised her to continue with daily as she has only been using once per week Preston Pompa DPM documented in this encounter [facility] 10-22-2023 History of Present illness Narrative Patient: Liana Marie : 1950 PCP: Jacky Torres MD SUBJECTIVE This is a 73 y.o. female that presents today with a CC of elongated, thick nails. Pt states nails have been elongated and thick for many years and cause pain with ambulation in shoegear. Pt has tried previous treatment with minimal relief. Pt presents today for nail care and treatment. Patient is DM2 Patient also presents today for follow up of left peroneal tendinitis has been taking anti-inflammatories and rates pain a 3/10. Allergies: Allergies Allergen Reactions Lisinopril Cough Tramadol Nausea Only Codeine Rash Sulfa Antibiotics Rash Past Medical History: Past Medical History: Diagnosis Date Allergic rhinitis Aortic regurgitation Bradycardia Depression ([facility]) DJD (degenerative joint disease) DM (diabetes mellitus) ([facility]) GERD (gastroesophageal reflux disease) HLD (hyperlipidemia) ([facility]) Hypothyroidism ([facility]) Osteoarthritis PTSD (post-traumatic stress disorder) ([facility]) Skin cancer Medications: Current Outpatient Medications: glimepiride (Amaryl) 4 MG tablet, 1 (one) time each day at the same time, Disp: , Rfl: Jardiance 10 MG, , Disp: , Rfl: levothyroxine (Synthroid, Levoxyl) 100 MCG tablet, 1 (one) time each day at the same time, Disp: , Rfl: metFORMIN (Glucophage) 1000 MG tablet, every 12 (twelve) hours, Disp: , Rfl: pioglitazone (Actos) 15 MG tablet, , Disp: , Rfl: rosuvastatin (Crestor) 40 MG tablet, 1 (one) time each day at the same time, Disp: , Rfl: sertraline (Zoloft) 25 MG tablet, 1 (one) time each day at the same time, Disp: , Rfl: Social History: Social History Socioeconomic History Marital status: Spouse name: Not on file Number of children: Not on file Years of education: Not on file Highest education level: Not on file Occupational History Not on file Tobacco Use Smoking status: Never Passive exposure: Never Smokeless tobacco: Never Vaping Use Vaping status: Unknown Substance and Sexual Activity Alcohol use: Defer Drug use: Defer Sexual activity: Defer Other Topics Concern Not on file Social History Narrative Not on file Social Determinants of Health Financial Resource Strain: Not on file Food Insecurity: Not on file Transportation Needs: Not on file Physical Activity: Not on file Stress: Not on file Social Connections: Not on file Intimate Partner Violence: Not on file Housing Stability: Not on file ROS: General: denies fever, chills, fatigue, malaise GI: denies abdominal pain or ulcerations with anti-inflammatory medication OBJECTIVE LE EXAM: DERM: Elongated thick yellow crumbly nails digits 1 through 10. Negative hair growth with thin shiny atrophic skin bilaterally. VASC: Positive DP and positive PT pedal pulses NEURO: 5.07 [place] Ehsan monofilament test positive to digits and forefoot bilaterally 125Hz tuning fork positive to 1st MPJ bilaterally ORTHO: Positive pain on palpation to nails 1 through 10 Minimal pain on palpation left peroneal brevis tendon near insertion to the 5th metatarsal base ASSESSMENT 1. Peroneal tendinitis, left 2. Type 2 diabetes mellitus without complication, unspecified whether [facility] use ([facility]) 3. Onychomycosis 4. Toe pain, bilateral PLAN Discussed proper foot care with patient today. Debride nails in length and thickness digits 1 through 10 Patient educated today on proper diabetic foot care including monitoring feet daily for any signs of infection openings in the skin or irregularities to both feet. Patient had a diabetic neurological exam today to both their feet and discussed proper shoe gear. Patient education on condition and treatment of condition. Preston Pompa DPM documented in this encounter [facility] 09-25-2023 Instructions Amy Barger MD - 09/25/2023 1:05 PM EDT Please monitor your BP readings at home, and let us know Recommend stopping Actos (Pioglitazone), as this may be associated with increased risk of heart failure. Let's follow up one year. The fasting lab work may be done close to home prior, so that you won't have to fast on the day documented in this encounter [facility] 09-25-2023 History of Present illness Narrative Images from the original note were not included. [facility] [place] [facility] Department of Cardiovascular Medicine SECTION OF CARDIOVASCULAR IMAGING OUTPATIENT VISIT DATE 09/25/2023 OUTPATIENT VISIT TYPE ESTABLISHED PRIMARY CARE PHYSICIAN: Jacky Torres [address] [place] [address] REFERRING PHYSICIAN: Amy Barger [address] [facility] [address] CHIEF COMPLAINT: Follow up visit. HISTORY OF PRESENT ILLNESS: Ms. Marie is a 73 year old female who presents today for follow-up visit. Since her last visit, she states that she has had increased stress. Her suffered from myocardial infarct and a stroke. She has had to care for him, with elevated stress. She has not had chest pain, dyspnea or palpitations. She suffered from a mechanical fall, and suffered from a rib fracture. PAST CARDIAC HISTORY: CAD: mild proximal LAD disease on angiography 01/04/2021 1+ - 2+ AR Mild MR Mild TR PAST MEDICAL HISTORY Diagnosis Date Anxiety Aortic [...] Age of Onset Heart Attack Mother fatal [place] at age 70 Diabetes Mother Diabetes Father Heart Father bypass at age 60s Heart Attack Father [place] at age 60s other (Other) Father MVA at age 72 Cancer Sister at age 42 other (Other) Brother infant Cancer Sister breast cancer at age 50 No Known Problems Brother Heart Attack Brother fatal [place] at age 64 other (ulcers) Brother bleeding ulcers other (hepatitis) Brother at age 50 other (liver) Brother Heart Paternal cousin heart failure unsure? ALLERGIES: ALLERGIES Allergen Reactions Sulfa (Sulfonamide * Shortness of Breath Tuberculin Ppd [place]* Rash Codeine Other: See Comments Chest pain Ultram [Tramadol] GI Upset MEDICATIONS: JARDIANCE 10 mg tablet mirtazapine (REMERON) 30 mg tablet methocarbamol (ROBAXIN) 750 mg tablet Take 750 mg by mouth three times a day as needed. HYDROcodone-acetaminophen (NORCO) 5-325 mg per tablet take 1 tablet by mouth every 6 hours as needed for pain for 3 days pioglitazone (ACTOS) 15 mg tablet twice daily. tiZANidine (ZANAFLEX) 4 mg tablet Take 4 mg by mouth as needed. ACCU-CHEK BEREKET PLUS TEST STRP test strip rosuvastatin (CRESTOR) 40 mg tablet Take 40 mg by mouth once daily. glimepiride (AMARYL) 4 mg tablet Take 4 mg by mouth once daily. levothyroxine (SYNTHROID) 100 mcg tablet Take 100 mcg by mouth q 24 HR. aspirin, enteric coated (ASPIRIN, ENTERIC COATED) 81 mg EC tablet Take 81 mg by mouth q 24 HR. metFORMIN (GLUCOPHAGE) 1,000 mg tablet Take 1,000 mg by mouth twice daily. sertraline (ZOLOFT) 25 mg tablet Take 25 mg by mouth once daily. (Patient not taking: Reported on 09/25/2023) PHYSICAL EXAMINATION: BP 191/59 (BP Site: Right Arm, BP Position: Sitting, BP Cuff Size: Large Adult) Pulse (!) 50 Ht 167.6 cm (5' 6 ) Wt 90.3 kg (199 lb) SpO2 99% BMI 32.12 kg/m General: Well appearing, in no acute distress. Skin: No clubbing, no cyanosis. Eyes: Extra ocular movements intact Oropharynx: Teeth in good repair. Neck: No jugular venous distention, no carotid bruits, carotids have a normal upstroke. Lungs: Clear to auscultation bilaterally Heart: Regular rhythm, PMI not displaced, S1, S2 normal, no murmur. Abdomen: Soft, nontender. Extremities: No peripheral edema. Neuro: Oriented to person, place and time, alert, cooperative, gait coordinated. CARDIOVASCULAR MEDICINE TESTING: Electrocardiogram: sinus bradycardia. Laboratory Testing: Recent Labs 09/25/23 1120 WBC 3.22* HB 13.0 HCT 41.5 PLT 173 Recent Labs 09/25/23 1120 NA 138 K 4.3 CHLOR 105 CO2 23 BUN 22* CREAT 0.81 GLUC 113* ALKPHOS 88 TBILI 1.1 ALT 18 AST 29 ANION 10 Cholesterol, Total 147 09/25/2023 Cholesterol, Total 123 09/13/2021 HDL Cholesterol 42 09/25/2023 HDL Cholesterol 39 09/13/2021 LDL Cholesterol 77 09/25/2023 LDL Cholesterol 63 09/13/2021 Triglyceride 141 09/25/2023 Triglyceride 103 09/13/2021 Glucose, Point of Care 174 01/04/2021 Echocardiogram:09/25/2023 - The left ventricle is normal in size. Left ventricular systolic function is normal. EF = 59 5% (2D biplane) - The right ventricle is normal in size. Right ventricular systolic function is normal. - The left atrial cavity is mildly dilated. - Exam was compared with the prior echocardiographic exam performed on 09/13/2021. AI slightly more prominent today. I have personally reviewed the Electrocardiogram, Laboratory Testing, and Echocardiogram. Last ECHO Result Conclusion ECHO Collected: 09/25/2023 11:32 AM (Final result) Impression: CONCLUSIONS: - Exam indication: Routine surveillance of mild valvular regurgitation (>3yrs) - The left ventricle is normal in size. Left ventricular systolic function is normal. EF = 59 5% (2D biplane) - The right ventricle is normal in size. Right ventricular systolic function is normal. - The left atrial cavity is mildly dilated. - Exam was compared with the prior CC echocardiographic exam performed on 09/13/2021. AI slightly more prominent today. * * * Final * * * IMPRESSION: Ms. aMrie is a 73 year old female who presents today for follow-up visit. Since her last visit, she states that she has had increased stress. Her suffered from myocardial infarct and a stroke. She has had to care for him, with elevated stress. BP reading is elevated in clinic, likely related to anxiety and stress. Ms. Marie's usual BP readings are usually well controlled. Updated echocardiogram shows stable mild aortic valve, mitral valve and tricuspid valve regugitation. I reviewed the imaging data in detail with Ms. Marie. 1. Nonrheumatic aortic valve insufficiency - ICD9: 424.1, ICD10: I35.1 (primary diagnosis) 2. Nonrheumatic mitral valve regurgitation - ICD9: 424.0, ICD10: I34.0 3. Nonrheumatic tricuspid valve regurgitation - ICD9: 424.2, ICD10: I36.1 4. Mixed hyperlipidemia - ICD9: 272.2, ICD10: E78.2 5. Coronary artery disease involving [place] coronary artery of [place] heart without angina pectoris - ICD9: 414.01, ICD10: I25.10 PLAN AND RECOMMENDATIONS: Recommend home BP log. Recommend stopping Actos (Pioglitazone), as this may be associated with increased risk of heart failure. Follow up one year with fasting lab work, ECG and echo one year. Ms. Marie can have fasting lab work done locally prior to appointment, to avoid fasting on the day of appointment due to traveling. (Outpatient): I personally spent 35 total minutes total time involved in the management and care of this patient. CONTACT INFORMATION: Amy Baregr MD documented in this encounter [facility] 09-25-2023 Note HNO ID: [id number] Author: AMY BARGER MD Service: ? Author Type: Physician Type: Progress Notes Filed: 09/26/2023 17:05 Note Text: [facility] [place] [facility] Department of Cardiovascular Medicine SECTION OF CARDIOVASCULAR IMAGING OUTPATIENT VISIT DATE 09/25/2023 OUTPATIENT VISIT TYPE ESTABLISHED PRIMARY CARE PHYSICIAN: Jacky Torres [address] [place] [address] REFERRING PHYSICIAN: Amy Barger [address] [facility] [address] CHIEF COMPLAINT: Follow up visit. HISTORY OF PRESENT ILLNESS: Ms. Marie is a 73 year old female who presents today for follow-up visit. Since her last visit, she states that she has had increased stress. Her suffered from myocardial infarct and a stroke. She has had to care for him, with elevated stress. She has not had chest pain, dyspnea or palpitations. She suffered from a mechanical fall, and suffered from a rib fracture. PAST CARDIAC HISTORY: CAD: mild proximal LAD disease on angiography 01/04/2021 1+ - 2+ AR Mild MR Mild TR PAST MEDICAL HISTORY Diagnosis Date Anxiety Aortic [...] Age of Onset Heart Attack Mother fatal [place] at age 70 Diabetes Mother Diabetes Father Heart Father bypass at age 60s Heart Attack Father [place] at age 60s other (Other) Father MVA at age 72 Cancer Sister at age 42 other (Other) Brother infant Cancer Sister breast cancer at age 50 No Known Problems Brother Heart Attack Brother fatal [place] at age 64 other (ulcers) Brother bleeding ulcers other (hepatitis) Brother at age 50 other (liver) Brother Heart Paternal cousin heart failure unsure? ALLERGIES: ALLERGIES Allergen Reactions Sulfa (Sulfonamide * Shortness of Breath Tuberculin Ppd [place]* Rash Codeine Other: See Comments Chest pain Ultram [Tramadol] GI Upset MEDICATIONS: JARDIANCE 10 mg tablet mirtazapine (REMERON) 30 mg tablet methocarbamol (ROBAXIN) 750 mg tablet Take 750 mg by mouth three times a day as needed. HYDROcodone-acetaminophen (NORCO) 5-325 mg per tablet take 1 tablet by mouth every 6 hours as needed for pain for 3 days pioglitazone (ACTOS) 15 mg tablet twice daily. tiZANidine (ZANAFLEX) 4 mg tablet Take 4 mg by mouth as needed. ACCU-CHEK BEREKET PLUS TEST STRP test strip rosuvastatin (CRESTOR) 40 mg tablet Take 40 mg by mouth once daily. glimepiride (AMARYL) 4 mg tablet Take 4 mg by mouth once daily. levothyroxine (SYNTHROID) 100 mcg tablet Take 100 mcg by mouth q 24 HR. aspirin, enteric coated (ASPIRIN, ENTERIC COATED) 81 mg EC tablet Take 81 mg by mouth q 24 HR. metFORMIN (GLUCOPHAGE) 1,000 mg tablet Take 1,000 mg by mouth twice daily. sertraline (ZOLOFT) 25 mg tablet Take 25 mg by mouth once daily. (Patient not taking: Reported on 09/25/2023) PHYSICAL EXAMINATION: BP 191/59 (BP Site: Right Arm, BP Position: Sitting, BP Cuff Size: Large Adult) Pulse (!) 50 Ht 167.6 cm (5' 6 ) Wt 90.3 kg (199 lb) SpO2 99% BMI 32.12 kg/m? General: Well appearing, in no acute distress. Skin: No clubbing, no cyanosis. Eyes: Extra ocular movements intact Oropharynx: Teeth in good repair. Neck: No jugular venous distention, no carotid bruits, carotids have a normal upstroke. Lungs: Clear to auscultation bilaterally Heart: Regular rhythm, PMI not displaced, S1, S2 normal, no murmur. Abdomen: Soft, nontender. Extremities: No peripheral edema. Neuro: Oriented to person, place and time, alert, cooperative, gait coordinated. CARDIOVASCULAR MEDICINE TESTING: Electrocardiogram: sinus bradycardia. Laboratory Testing: Recent Labs 09/25/23 1120 WBC 3.22* HB 13.0 HCT 41.5 PLT 173 Recent Labs 09/25/23 1120 NA 138 K 4.3 CHLOR 105 CO2 23 BUN 22* CREAT 0.81 GLUC 113* ALKPHOS 88 TBILI 1.1 ALT 18 AST 29 ANION 10 Cholesterol, Total 147 09/25/2023 Cholesterol, Total 123 09/13/2021 HDL Cholesterol 42 09/25/2023 HDL Cholesterol 39 09/13/2021 LDL Cholesterol 77 09/25/2023 LDL Cholesterol 63 09/13/2021 Triglyceride 141 09/25/2023 Triglyceride 103 09/13/2021 Glucose, Point of Care 174 01/04/2021 Echocardiogram:09/25/2023 - The left ventricle is normal in size. Left ventricular systolic function is normal. (more content not included)... [facility] 08-29-2022 Instructions Amy Barger MD - 08/29/2022 2:29 PM EDT Recommend stopping pioglitazone. documented in this encounter [facility] 08-29-2022 History of Present illness Narrative Images from the original note were not included. [facility] [place] [facility] Department of Cardiovascular Medicine SECTION [...] Age of Onset Heart Attack Mother fatal [place] at age 70 Diabetes Mother Diabetes Father Heart Father bypass at age 60s Heart Attack Father [place] at age 60s other (Other) Father MVA at age 72 Cancer Sister at age 42 other (Other) Brother infant Cancer Sister breast cancer at age 50 No Known Problems Brother Heart Attack Brother fatal [place] at age 64 other (ulcers) Brother bleeding [...] coordinated. CARDIOVASCULAR MEDICINE TESTIN. Echocardiogram: 08/24/2020 2. surveillance system monitor: 02/01/2019 to 02/14/[address] coronary angiogram: 11/21/2020 4. Cath angiogram: 01/05/2021 5. Echocardiogram: 09/13/2021 6. Outside echocardiogram: 09/15/2018 7. Outside echocardiogram: 04/29/2004 7. Outside myocardial perfusion study: 09/15/2018 I have personally reviewed the echocardiograms, alarm security or surveillance monitor, coronary CTA and outside cardiac investigations. [...] Barger MD documented in this encounter [facility] 09-13-2021 History of Present illness Narrative Images from the original note were not included. [facility] [place] [facility] Department of Cardiovascular Medicine SECTION [...] Age of Onset Heart Attack Mother fatal [place] at age 70 Diabetes Mother Diabetes Father Heart Father bypass at age 60s Heart Attack Father [place] at age 60s other (Other) Father MVA at age 72 Cancer Sister at age 42 other (Other) Brother infant Cancer Sister breast cancer at age 50 No Known Problems Brother Heart Attack Brother fatal [place] at age 64 other (ulcers) Brother bleeding [...] coordinated. CARDIOVASCULAR MEDICINE TESTIN. Echocardiogram: 08/24/2020 2. surveillance system monitor: 02/01/2019 to 02/14/[address] coronary angiogram: 11/21/2020 4. Cath angiogram: 01/05/2021 5. Echocardiogram: 09/13/2021 6. Outside echocardiogram: 09/15/2018 7. Outside echocardiogram: 04/29/2004 7. Outside myocardial perfusion study: 09/15/2018 I have personally reviewed the echocardiograms, alarm security or surveillance monitor, coronary CTA and outside cardiac investigations. [...] recovered from it. Echocardiography at the [facility] reveals stable mild aortic regurgitation, and [...] Barger MD documented in this encounter [facility] 05-19-2018 History of Past i llness Narrative Problem Noted Date Resolved Date Pure hypercholesterolemia, unspecified 9 08/24/2020 documented as of this encounter (statuses as of 09/14/2021) [facility] History of Past illness Narrative* Problem Noted Date Resolved Date Pure hypercholesterolemia, unspecified 9 08/24/2020 documented as of this encounter (statuses as of 03/11/2022) [facility] History of Past illness Narrative* Problem Noted Date Resolved Date Pure hypercholesterolemia, unspecified 9 08/24/2020 documented as of this encounter (statuses as of 08/30/2022) [facility] History of Past illness Narrative* Problem Noted Date Diagnosed Date Resolved Date Pure hypercholesterolemia, unspecified 05/19/2018 08/24/2020 documented as of this encounter (statuses as of 05/11/2023) [facility] Diagnosis Nonrheumatic aortic valve insufficiency- Primary Aortic valve disorders Nonrheumatic mitral valve regurgitation Nonrheumatic tricuspid valve regurgitation Tricuspid valve disorders, specified as nonrheumatic Mixed hyperlipidemia Coronary artery disease involving [place] coronary artery of [place] heart without angina pectoris Type 2 diabetes mellitus without complication, without long-term current use of insulin (HCC) [facility] Diagnosis Nonrheumatic aortic valve insufficiency- Primary Aortic valve disorders [facility] Diagnosis Nonrheumatic aortic valve insufficiency- Primary Aortic valve disorders Coronary artery disease involving [place] coronary artery of [place] heart without angina pectoris Mixed hyperlipidemia Valvular heart disease Endocarditis, valve unspecified, unspecified cause Coronary artery disease involving [place] coronary artery of [place] heart with angina pectoris (HCC) Type 2 diabetes mellitus without complication, without long-term current use of insulin ([facility]) [facility] Diagnosis Nonrheumatic aortic valve insufficiency- Primary Aortic valve disorders [facility]* Diagnosis Nonrheumatic aortic valve insufficiency- Primary Aortic valve disorders Nonrheumatic mitral valve regurgitation Nonrheumatic tricuspid valve regurgitation Tricuspid valve disorders, specified as nonrheumatic Mixed hyperlipidemia Coronary artery disease involving [place] coronary artery of [place] heart without angina pectoris documented in this encounter [facility] note* Diagnosis Xerosis cutis- Primary Other specified disease of sebaceous glands Peroneal tendinitis, left Type 2 diabetes mellitus without complication, unspecified whether superintendent container terminal insulin use (CMS/HCC) Pain due to onychomycosis of toenails of both feet [facility] Diagnosis Peroneal tendinitis, left- Primary Type 2 diabetes mellitus without complication, unspecified whether [facility] use ([facility]) Onychomycosis Dermatophytosis of nail Toe pain, bilateral documented in this encounter [facility] for referral (narrative)* Outpatient Procedure (Routine) - Authorized Specialty Diagnoses / Procedures Referred By Sudha t Referred To Contact [facility] [place] Diagnoses Nonrheumatic aortic valve insufficiency Procedures ECG COMPLETE ECG ROUTINE ECG W/LEAST 12 LDS W/I&R Amy Barger MD [address] [place] [address] [facility] [address] [address] Referral ID Status Reason Start Date Expiration Date Visits Requested Visits Authorized [id number] Authorized Auto-Generat ed Referral 03/10/2022 03/10/2023 1 1 [facility] for referral (narrative)* Outpatient Procedure (Routine) - Authorized Specialty Diagnoses / Procedures Referred By Sudha guerin Referred To Contact [facility] Diagnoses Nonrheumatic aortic valve insufficiency Procedures ECG COMPLETE ECG ROUTINE ECG W/LEAST 12 LDS W/I&R Amy Barger MD [address] [place] [address] [address] Referral ID Status Reason Start Date Expiration Date Visits Requested Visits Authorized [id number] Authorized Auto-Generat ed Referral 05/11/2023 05/10/2024 1 1 * Outpatient Procedure (Routine) - Pending Review Specialty Diagnoses / Procedures Referred By Sudha guerin Referred To Contact [facility] Diagnoses Nonrheumatic aortic valve insufficiency Procedures ECHO ECHO TTHRC R-T 2D W/WOM-MODE COMPL SPEC&COLR D Amy Barger MD [address] [place] [address] [address] Referral ID Status Reason Start Date Expiration Date Visits Requested Visits Authorized [id number] Pending Review Auto-Generat ed Referral 05/11/2023 05/10/2024 1 1 [facility] for referral (narrative)* Outpatient Procedure (Routine) - New Request Specialty Diagnoses / Procedures Referred By Sudha guerin Referred To Contact [facility] Diagnoses Nonrheumatic aortic valve insufficiency Procedures ECHO ECHO TTHRC R-T 2D W/WOM-MODE COMPL SPEC&COLR D Amy Barger MD [address] [place] [address] [address] Referral ID Status Reason Start Date Expiration Date Visits Requested Visits Authorized [id number] New Request Auto-Generat ed Referral 09/25/2023 09/24/2024 1 1 * Outpatient Procedure (Routine) - New Request Specialty Diagnoses / Procedures Referred By Contac t Referred To Contact [facility] [place] Diagnoses Nonrheumatic aortic valve insufficiency Procedures ECG COMPLETE ECG ROUTINE ECG W/LEAST 12 LDS W/I&R Amy Barger MD [address] [place] [address] [place] [id number] Referral ID Status Reason Start Date Expiration Date Visits Requested Visits Authorized [id number] New Request Auto-Generat ed Referral 09/25/2023 09/24/2024 1 1 * Transition of Care (Routine) - Ref Not Required Specialty Diagnoses / Procedures Referred By Contac t Referred To Contact [facility] Procedures CARDIOVASCULAR MEDICINE OP FOLLOW UP APPT ORDER Amy Barger MD [address] [place] [address] [address] Referral ID Status Reason Start Date Expiration Date Visits Requested Visits Authorized [id number] Ref Not Required PCP Requested Referral 06/26/2024 09/24/2024 1 1 [facility] Advance Directives Documents on File Type Date Recorded Patient Quality Control Expert Expl anation Advance Directive(s) 12/14/2020 3:08 PM [...] prosecute any alcohol or drug abuse patient.[facility] the event this information is protected by the Federal Confidentiality of Alcohol and Drug Abuse Patient Records regulations: The Federal rules restrict any use of the information to criminally investigate or prosecute any alcohol or drug abuse patient.[facility] the event this information is protected by the Federal Confidentiality of Alcohol and Drug Abuse Patient Records regulations: The Federal rules restrict any use of the information to criminally investigate or prosecute any alcohol or drug abuse patient.[facility] the event this information is protected by the Federal Confidentiality of Alcohol and Drug Abuse Patient Records regulations: The Federal rules restrict any use of the information to criminally investigate or prosecute any alcohol or drug abuse patient.[facility] the event this information is protected by the Federal Confidentiality of Alcohol and Drug Abuse Patient Records regulations: The Federal rules restrict any use of the information to criminally investigate or prosecute any alcohol or drug abuse patient.[facility] Reason for Visit (unrecogniz ed section and content) Reason Comments Follow Up Reason Comments Coronary Artery Disease Valvular Heart Disease Reason Comments DM Foot Care Dm Nails Care Teams (unrecognized sec tion and content) Building Construction Supervisor Relationship Specialty Start Date End Date Jacky Torres MD [address] [phone] PCP - General Family Practice 01/21/19 Amy Barger MD [address] [place] [address] Primary Staff Physician Cardiology 08/24/20 Building Construction Supervisor Relationship Specialty Start Date End Date Jacky Torres MD [address] [phone] PCP - General Family Medicine 01/21/19 Amy Barger MD [address] [place] [address] Primary Staff Physician Cardiology 08/24/20 Building Construction Supervisor Relationship Specialty Start Date End Date Jacky Torres MD PCP - General Family Medicine 01/21/19 Amy Barger MD [address] [place] [address] Primary Staff Physician Cardiology 08/24/20 Building Construction Supervisor Relationship Specialty Start Date End Date Jacky Torres MD PCP - General Family Medicine 01/21/19 Amy Barger MD [address] [place] [address] Primary Staff Physician Cardiology 08/24/20 Building Construction Supervisor Relationship Specialty Start Date End Date Jacky Torres MD PCP - General Family Medicine 01/21/19 Amy Barger MD [address] [place] [address] Primary Staff Physician Cardiology 08/24/20 Building Construction Supervisor Relationship Specialty Start Date End Date Jacky Torres MD [address] [place] [address] PCP - General Family Medicine 02/12/23 Building Construction Supervisor Relationship Specialty Start Date End Date Jacky Torres MD [address] [place] [address] PCP - General Family Medicine 02/12/23 Building Construction Supervisor Relationship Specialty Start Date End Date Jacky Torres MD [address] [place] [address] PCP - General Family Medicine 02/12/23 INFORMATION SOURCE (unrecogn ized section and content) DATE CREATED AUTHOR 04/03/2022 [facility] DATE CREATED AUTHOR AUTHOR'S ORGANIZ ATION 10/17/[address] [facility] DATE CREATED AUTHOR AUTHOR'S ORGANIZ ATION 01/17/2024 [facility] FOR RECORDS [...] BE BASED ON THE PRIMARY CLINICAL RECORDS. [facility]. provides no warranty or guarantee of the accuracy or completeness of information in this document.
== END 2024-04-28 14:55 | disposition home or self-care (01) ==
LOC: RAD 14:56
PROVIDERS: PCP Family Medicine; Visit Provider Family Medicine
DX: M54.50 Low back pain, unspecified (principal); M51.369 Other intervertebral disc degeneration, lumbar region without mention of lumbar back pain or lower extremity pain
CPT/HCPCS: 72072; 72110

== ENCOUNTER 2024-08-29 10:00 | Outpatient (OUT) | payer MEDICARE, SELFPAY ==
--- OUTSIDE RECORDS SUMMARY | 2024-08-29 10:14 | XMS_ITS | Clinical Summary ---
Author Organization [facility] Address [address] [place] [address] Care Team Providers Care Underwear Finisher Name Role Phone Franklyn Torres MD Primary Care Provider [phone] Allergies Active Allergy Reactions Criticality Noted Date Comments Codeine Rash Low 02/12/2023 Lisinopril Cough 02/12/2023 Sulfa Antibiotics Rash Low 02/12/2023 Tramadol Nausea Only 02/12/2023 Medications Jardiance 10 MG 11/17/2022 Act duane sertraline (Zoloft) 25 MG tablet 1 (one) time each day at the same time Active metFORMIN (Glucophage) 1000 MG tablet every 12 (twelve) hours Active pioglitazone (Actos) 15 MG tablet 06/28/2022 Active levothyroxine (Synthroid, Levoxyl) 100 MCG tablet 1 (one) time each day at the same time Active glimepiride (Amaryl) 4 MG tablet 1 (one) time each day at the same time Active rosuvastatin (Crestor) 40 MG tablet 1 (one) time each day at the same time Active Active Problems No known active problems Encounters Date Type Department Care Team Description 07/14/2024 11:10 AM EDT Office Visit [facility] [address] [place] [address] Preston Pompa DPM Cellulitis of left foot (Primary Dx); Type 2 diabetes mellitus without complication, unspecified whether fpc insulin use (HCC); Pain due to onychomycosis of toenails of both feet; Xerosis cutis; Peroneal tendinitis, left; Cat bite of ankle, initial encounter 07/14/2024 Bamboo flowsheet [facility] [address] [facility] [address] [place] [id number] Preston Pompa DPM 07/14/2024 Travel from Last 3 Months Family History Medical History Relation Name Comments Diabetes Father Heart disease Father Hypertension Father Diabetes Mother Heart disease Mother Hypertension Mother Relation Name Status Comments Father Mother Social History Tobacco Use Types Packs/Day Years Used Date Smoking Tobacco: Never Passive Smoke Exposure: Never Smokeless Tobacco: Never Tobacco Cessation:Counseling Given: Yes Alcohol Use Standard Drinks/Week Comments Defer 0 (1 standard drink = 0.6 oz pur e alcohol) Comments Unknown Sex and Gender Information Value Date Recorded Sex Assigned at Not on file Legal Sex Female 8:15 PM EDT Gender Identity Not on file Sexual Orientation Not on file Last Filed Vital Signs Vital Sign Reading Time Taken Comments Blood Pressure 125/80 01/14/2024 1:30 PM EST Pulse 82 01/14/2024 1:30 PM EST Temperature - - Respiratory Rate 16 07/14/2024 11:05 AM EDT Oxygen Saturation - - Inhaled Oxygen Concentration - - Weight 83.9 kg (185 lb) 07/14/2024 11:05 AM EDT Height 167.6 cm (5' 6 ) 07/14/2024 11:05 AM EDT Body Mass Index 29.86 07/14/2024 11:05 AM EDT Plan of Treatment Upcoming Encounters Date Type Department Care Team (Late st Contact Info) Description 11/03/2024 10:30 AM EDT Office Visit [facility] [address] [facility] [address] [place] [phone] Preston Pompa DPM [address] [facility] [address] [place] [address] Health Maintenance Due Date Last Done Comments CT Colonography 1950 Colonoscopy 1950 FIT 1950 FOBT 1950 Sigmoidoscopy 1950 Mammogram 06/21/2016 06/22/2015, 06/05/2014 Colorectal Cancer Screening 09/08/2023 FIT-DNA 09/08/2023 09/07/2020, 07/10/2017 Pneumococcal Vaccine: 65+ Years Completed 8, 03/11/2017 Influenza Vaccine Completed 11/26/2023, , 10/25/2020, Additional history exists Insurance [facility] Care Teams Underwear Finisher Relationship Specialty Start Date End Date Franklyn Torres MD [address] [place] [address] PCP - General Family Medicine 02/12/23
--- NOTE | 2024-08-29 10:30 | MM_ITS ---
Patient Name: LEIA FLEMING MR#: [id number] : 1950 Exam Date: 08/29/2024 Ordering Doctor: DR JACKY LAKHANI . RADIOLOGY REPORT PROCEDURE: MM TOMOSYNTHESIS SCREENING BI COMPARISON: MM TOMOSYNTHESIS SCREENING BI, 08/28/2023. MM TOMOSYNTHESIS SCREENING BI, 08/26/2022. MG MAMM SCREEN 3D EMILY CAD, 08/22/2021. MG MAMM SCREEN EMILY W CAD, 05/31/2013. INDICATIONS: Screening Calculator Name NCI Breast Cancer Risk Assessment Tool 5 Year Breast Cancer Risk 8.40% Lifetime Breast Cancer Risk 19.30% Personal Breast Cancer No Personal Ovarian Cancer No Treatments excision Family Cancers Sister with breast cancer at age 40; Sister with breast cancer at age 50. LOCATION: [facility] BREAST COMPOSITION: There are scattered areas of fibroglandular density. FINDINGS: DIAGNOSTIC CATEGORY 1--NEGATIVE. RIGHT BREAST: No significant suspicious finding. LEFT BREAST: No significant suspicious finding. RECOMMENDATIONS: ROUTINE MAMMOGRAM AND CLINICAL EVALUATION IN 12 MONTHS. PLEASE NOTE: A NORMAL MAMMOGRAM DOES NOT EXCLUDE THE POSSIBILITY OF BREAST CANCER. A CLINICALLY SUSPICIOUS PALPABLE LUMP SHOULD BE BIOPSIED. Dictated by: Tre Perkins DO on 08/29/2024 at 16:15 Approved by: Tre Perkins DO on 08/29/2024 at 16:16
--- OUTSIDE RECORDS SUMMARY | 2024-08-29 10:37 | XMS_ITS | CCD ---
Author Organization [facility] Care Team Providers Care Liability Claims Adjuster Name Role Phone Jacky Torres MD Primary Care Provider [phone] Darrel RAUSCH, Amy Unavailable LESVIA, DR RICO Admitting Unavailable HOY, DR RICO Attending Unavailable HOY, DR RICO Primary Care Unavailable HOY, DR RICO Primary Care Unavailable HOY, DR RICO Admitting Unavailable HOY, DR RICO Attending Unavailable HOY, DR RICO Admitting Unavailable HOY, DR RICO Attending Unavailable HOY, DR RICO Consulting Unavailable HOY, DR RICO Primary Care Unavailable MONTEVIDEO, DR KWABENA [employer] Consulting Unavailable HOY, DR [...] Unavailable Jacky Torres MD Primary Care Provider [phone] Amy Barger MD Unavailable Amy Barger MD Unavailable Jacky Torres MD Primary Care Provider [phone] AMY BARGER Attending Unavailable AMY BARGER Referring Unavailable JACKY TORRES Primary Care Unavailable AMY BARGER Referring Unavailable JACKY TORRES Primary Care Unavailable JACKY TORRES Primary Care Unavailable AMY BARGER Referring Unavailable JACKY TORRES Primary Care Unavailable Jacky Torres MD Primary Care Provider [phone] Jacky Torres MD Primary Care Provider [phone] PRESTON POMPA Attending Unavailable PRESTON POMPA Attending Unavailable PRESTON POMPA Attending Unavailable PRESTON POMPA Attending Unavailable PRESTON POMPA Attending Unavailable Allergies Allergy Classification Reported Allergen(s) Allergy Type Date of Onset Reaction(s) Facility (18 sources) Codeine; Translations: [CODEINE] Drug Allergy 9 Other: See Comments, [facility] (18 sources) Sulfonamides (Antibiotic); Translations: [SULFA (SULFONAMIDE ANTIBIOTICS)] Drug Allergy 8 Shortness of Breath, [facility] (18 sources) traMADol; Translations: [TRAMADOL] Drug Allergy 1 GI Upset, Nausea Only [facility] (7 sources) Tuberculin Ppd [place] Test; Translations: [Tuberculin PPD [place] Test] Drug Allergy 2 [facility] (1 source) Codeine Drug Allergy [facility] (1 source) Glutathione Drug Allergy [facility] (1 source) traMADol Drug Allergy [facility] (12 sources) Lisinopril Allergy to substance 3 Cough [...] pain for 3 days 0 08/13/2023 Active amoxicillin 875 mg / clavulanate 125 mg oral tablet (2 sources) Penicillin-class Antibacterial Start: 07-14-2024 End: 07-24-2024 take 1 tablet by mouth in the morning amoxicillin-clav ulanate (Augmentin) 875-125 MG tablet Indications: Cat bite of ankle, initial encounter Take 1 tablet (875 mg) by mouth in the morning and 1 tablet (875 mg) before bedtime. Do all this for 10 days. 20 tablet 07/14/2024 07/24/2024 Active aspirin 81 mg delayed release oral tablet (5 sources) Platelet Aggregation Inhibitor, Nonsteroidal Anti-inflammatory Drug take 1 tablet by mouth every twenty-four hours aspirin, enteric coated (ASPIRIN, ENTERIC COATED) 81 mg EC tablet Take 81 mg by mouth q 24 HR. 0 Active Comment on above: Take 81 mg by mouth q 24 HR. empagliflozin 10 mg oral tablet (13 sources) Sodium-Glucose Cotransporter 2 Inhibitor Start: 11-17-2022 Jardiance 10 MG 11/17/2022 Active Start: 11-17-2022 JARDIANCE 10 m g tablet glimepiride 4 mg oral tablet (17 sources) Sulfonylurea glimepiride ([place] ryl) 4 MG tablet 1 (one) time each day at the same time Active take 1 tablet by mouth twice alma ly glimepiride (AMARYL) 4 mg tablet Take 4 mg by mouth twice daily. 0 Active Comment on above: Take 4 mg by mouth t wice daily. Take 4 mg by mouth o nce daily. levothyroxine sodium 0.1 mg oral tablet (17 sources) l-Thyroxine levothyroxine (S ynthroid, Levoxyl) 100 MCG tablet 1 (one) time each day at the same time Active take 1 tablet by josue th every twenty-four hours levothyroxine (SYNTHROID) 100 mcg tablet Take 100 mcg by mouth q 24 HR. 0 Active Comment on above: Take 100 mcg by mout h q 24 HR. metFORMIN hydrochloride 1000 mg oral tablet (17 sources) Biguanide metFORMIN (Gluco phage) 1000 MG [...] injection (DEFINITY) pioglitazone 15 mg oral tablet (15 sources) Peroxisome Proliferator Receptor alpha Agonist, Peroxisome Proliferator Receptor gamma Agonist, Thiazolidinedione Start: 06-28-2022 pioglitazone (Actos) 15 MG tablet 06/28/2022 Active Comment on above: twice daily. rosuvastatin calcium 40 mg oral tablet (17 sources) HMG-CoA Reductase Inhibitor Start: 12-07-2018 take 1 tablet by mouth once daily rosuvastatin (CRESTOR) 40 mg tablet Take 40 mg by mouth once daily. 0 12/07/2018 Active Comment on above: Take 40 mg by mouth once daily. 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] Onset: 01-05-2021 Chronic Deficiency and other anemia (1 source) Anemia, unspecified; Translations: [ANEMIA UNSPECIFIED] Onset: 03-28-2022 Episodic Diabetes mellitus without complication (20 sources) Type 2 diabetes mellitus without complication; [...] aortic (valve) insufficiency] Onset: 01-21-2019 Chronic Mycoses (8 sources) Pain in toe; Translations: [Tinea unguium] 01-14-2024 Episodic Nutritional deficiencies (1 source) Vitamin D deficiency, unspecified; Translations: [VITAMIN D DEFICIENCY UNSPECIFIED] Onset: 03-28-2022 Chronic Open wounds of extremities (2 sources) Cat bite - wound; Translations: [Open bite, unspecified ankle, initial encounter] 07-14-2024 Episodic Osteoarthritis (5 sources) Unspecified osteoarthritis, unspecified site; Translations: [Primary osteoarthritis, right shoulder] Onset: 09-10-2021 Chronic Other connective tissue disease (8 sources) Peroneal tendinitis of left lower limb; [...] breast] Onset: 08-27-2021 Episodic Other skin disorders (6 sources) Asteatosis cutis; Translations: [Xerosis cutis] 01-14-2024 Episodic Fani-; endo-; and myocarditis; cardiomyopathy (except that caused by tuberculosis or sexually transmitted disease) (6 sources) Heart valve disorder; Translations: [Endocarditis, valve unspecified] Onset: 01-21-2019 01-21-2019 Chronic Skin and subcutaneous tissue infections (2 sources) Cellulitis of left foot; Translations: [Cellulitis of left lower limb] 07-14-2024 Episodic Thyroid disorders (4 sources) Hypothyroidism, unspecified; Translations: [...] width (RBC) [Ratio] 14.6 % Normal 11.5-15.0 [facility] Comment on above: Order Comment: Speci nahum Type: BLOOD SPECIMEN Ordering Facility: [facility] Address: [address] [place] [address] Performed By: #### 5 8410-2 #### [facility] CLIA [id number] [address] [place] [address] [place] Hematocrit (Bld) [Volume fraction] 41.5 % Normal 36.0-46.0 [facility] Comment on above: Order Comment: Shreyasi nahum Type: BLOOD SPECIMEN Ordering Facility: [facility] Address: [address] [place] [address] Performed By: #### 5 8410-2 #### [facility] CLIA [id number] [address] [place] [address] [place] Hemoglobin (Bld) [Mass/Vol] 13.0 g/dL Normal 11.5-15.5 [facility] Comment on above: Order Comment: Speci men Type: BLOOD SPECIMEN Ordering Facility: [facility] Address: [address] [place] [address] Performed By: #### 5 8410-2 #### [facility] CLIA [id number] [address] [place] [address] [place] MCH (RBC) [Entitic mass] 29.1 pg Normal 26.0-34.0 [facility] Comment on above: Order Comment: Speci men Type: BLOOD SPECIMEN Ordering Facility: [facility] Address: [address] [place] [address] Performed By: #### 5 8410-2 #### [facility] CLIA [id number] [address] [place] [address] [place] MCHC (RBC) [Mass/Vol] 31.3 g/dL Normal 30.5-36.0 [facility] Comment on above: Order Comment: Speci men Type: BLOOD SPECIMEN Ordering Facility: [facility] Address: [address] [place] [address] Performed By: #### 5 8410-2 #### [facility] CLIA [id number] [address] [place] [address] [place] MCV (RBC) [Entitic vol] 92.8 fL Normal 80.0-100.0 [facility] Comment on above: Order Comment: Speci men Type: BLOOD SPECIMEN Ordering Facility: [facility] Address: [address] [place] [address] Performed By: #### 5 8410-2 #### [facility] CLIA [id number] [address] [place] [address] [place] Nucleated RBC (Bld) [#/Vol] 10*3/uL Normal <0.01 [facility] Comment on above: Order Comment: Speci men Type: BLOOD SPECIMEN Ordering Facility: [facility] Address: [address] [place] [address] Performed By: #### 5 8410-2 #### [facility] CLIA [id number] [address] [place] [address] [place] Platelet mean volume (Bld) [Entitic vol] 10.5 fL Normal 9.0-12.7 [facility] Comment on above: Order Comment: Speci men Type: BLOOD SPECIMEN Ordering Facility: [facility] Address: [address] [place] [address] Performed By: #### 5 8410-2 #### [facility] CLIA [id number] [address] [place] [address] [place] Platelets (Bld) [#/Vol] 173 10*3/uL Normal 150-400 [facility] Comment on above: Order Comment: Speci men Type: BLOOD SPECIMEN Ordering Facility: [facility] Address: [address] [place] [address] Performed By: #### 5 8410-2 #### [facility] CLIA [id number] [address] [place] [address] [place] RBC (Bld) [#/Vol] 4.47 10*6/uL Normal 3.90-5.20 [facility] Comment on above: Order Comment: Speci men Type: BLOOD SPECIMEN Ordering Facility: [facility] Address: [address] [place] [address] Performed By: #### 5 8410-2 #### [facility] CLIA [id number] [address] [place] [address] [place] WBC (Bld) [#/Vol] 3.22 10*3/uL Low 3.70-11.00 [facility] Comment on above: Order Comment: Speci men Type: BLOOD SPECIMEN Ordering Facility: [facility] Address: [address] [place] [address] Performed By: #### 5 8410-2 #### [facility] CLIA [id number] [address] [place] [address] [place] CNOVon 09-25-2023 CNOV Office Visit (HAZEL ) LIANA MARIE ([id number]) 1950 F Date Time Provider Department 09/25/23 12:00 PM AMY BARGER During your visit today, we recorded the following information about you: Pulse Blood pressure Weight Height 50/minute 191/59 90.3 kg 1.676 m Amy Barger MD 09/26/2023 5:05 PM Signed [facility] Department of Cardiovascular Medicine SECTION OF CARDIOVASCULAR IMAGING OUTPATIENT VISIT DATE 09/25/2023 OUTPATIENT VISIT TYPE ESTABLISHED PRIMARY CARE PHYSICIAN: Jacky Torres [address] [phone] REFERRING PHYSICIAN: Amy Barger [phone] [facility] [phone] CHIEF COMPLAINT: Follow up visit. HISTORY OF [...] Age of Onset Heart Attack Mother fatal NC at age 70 Diabetes Mother Diabetes Father Heart Father bypass at age 60s Heart Attack Father NC at age 60s other (Other) Father MVA at age 72 Cancer Sister at age 42 other (Other) Brother infant Cancer Sister breast cancer at age 50 No Known Problems Brother Heart Attack Brother fatal NC at age 64 other (ulcers) Brother bleeding [...] 78 09/24 (more content not included)... Normal [facility] Comprehensive metabolic 2000 panelon 09-25-2023 Albumin [Mass/Vol] 4.0 g/dL Normal 3.9-4.9 [facility] Comment on above: Order Comment: Speci men Type: BLOOD SPECIMEN Ordering Facility: [facility] Address: [address] [place] [address] Performed By: #### 2 4323-8, 10163-4 #### [facility] CLIA [id number] [address] [place] [address] [place] ALP [Catalytic activity/Vol] 88 U/L Normal 34-123 [facility] Comment on above: Order Comment: Speci men Type: BLOOD SPECIMEN Ordering Facility: [facility] Address: [address] [place] [address] Performed By: #### 2 4323-8, 26796-0 #### [facility] CLIA [id number] [address] [place] [address] [place] ALT [Catalytic activity/Vol] 18 U/L Normal 7-38 [facility] Comment on above: Order Comment: Speci men Type: BLOOD SPECIMEN Ordering Facility: [facility] Address: [address] [place] [address] Performed By: #### 2 4323-8, 71407-4 #### [facility] CLIA [id number] [address] [place] [address] [place] Anion gap [Moles/Vol] 10 mmol/L Normal 8-15 [facility] Comment on above: Order Comment: Speci men Type: BLOOD SPECIMEN Ordering Facility: [facility] Address: [address] [place] [address] Performed By: #### 2 4323-8, 84341-6 #### [facility] CLIA [id number] [address] [place] [address] [place] AST [Catalytic activity/Vol] 29 U/L Normal 13-35 [facility] Comment on above: Order Comment: Speci men Type: BLOOD SPECIMEN Ordering Facility: [facility] Address: [address] [place] [address] Performed By: #### 2 4323-8, 44010-1 #### [facility] CLIA [id number] [address] [place] [address] [place] Bilirubin [Mass/Vol] 1.1 mg/dL Normal 0.2-1.3 [facility] Comment on above: Order Comment: Speci men Type: BLOOD SPECIMEN Ordering Facility: [facility] Address: [address] [place] [address] Performed By: #### 2 4323-8, 70608-4 #### [facility] CLIA [id number] [address] [place] [address] [place] Calcium [Mass/Vol] 10.3 mg/dL High 8.5-10.2 [facility] Comment on above: Order Comment: Speci men Type: BLOOD SPECIMEN Ordering Facility: [facility] Address: [address] [place] [address] Performed By: #### 2 4323-8, 83038-6 #### [facility] CLIA [id number] [address] [place] [address] [place] Chloride [Moles/Vol] 105 mmol/L Normal 98-107 [facility] Comment on above: Order Comment: Speci men Type: BLOOD SPECIMEN Ordering Facility: [facility] Address: [address] [place] [address] Performed By: #### 2 4323-8, 85596-8 #### [facility] CLIA [id number] [address] [place] [address] [place] CO2 [Moles/Vol] 23 mmol/L Normal 22-30 [facility] Comment on above: Order Comment: Colten sidhu Type: BLOOD SPECIMEN Ordering Facility: [facility] Address: [address] [place] [address] Performed By: #### 2 4323-8, 14329-4 #### [facility] CLIA [id number] [address] [place] [address] [place] Creatinine [Mass/Vol] 0.81 mg/dL Normal 0.58-0.96 [facility] Comment on above: Order Comment: Shreyasi men Type: BLOOD SPECIMEN Ordering Facility: [facility] Address: [address] [place] [address] Performed By: #### 2 4323-8, 36992-4 #### [facility] CLIA [id number] [address] [place] [address] [place] Creatinine and Glomerular filtration rate.predicted panel (S/P/Bld) 77 mL/min/1.73m??? Normal >=60 [facility] Comment on above: Order Comment: Colten sidhu Type: BLOOD SPECIMEN Ordering Facility: [facility] Address: [address] [place] [address] Result Comment: Maria R mated Glomerular Filtration [...] actual GFR. Performed By: #### 2 4323-8, 11014-2 #### [facility] CLIA [id number] [address] [place] [address] [place] Glucose [Mass/Vol] 113 mg/dL High 74-99 [facility] Comment on above: Order Comment: Shreyasi men Type: BLOOD SPECIMEN Ordering Facility: [facility] Address: [address] [place] [address] Result Comment: The [place] Diabetes Association (ADA) provides guidance for cutoff [...] Standards of Medical Care in Diabetes 2016, [place] [employer]. Diabetes Care. 2016.39(Suppl 1). Performed By: #### 2 4323-8, 48108-8 #### [facility] CLIA [id number] [address] [place] [address] [place] Potassium [Moles/Vol] 4.3 mmol/L Normal 3.7-5.1 [facility] Comment on above: Order Comment: Speci men Type: BLOOD SPECIMEN Ordering Facility: [facility] Address: [address] [place] [address] Performed By: #### 2 4323-8, 94788-9 #### [facility] CLIA [id number] [address] [place] [address] [place] Protein [Mass/Vol] 7.0 g/dL Normal 6.3-8.0 [facility] Comment on above: Order Comment: Speci men Type: BLOOD SPECIMEN Ordering Facility: [facility] Address: [address] [place] [address] Performed By: #### 2 4323-8, 58662-7 #### [facility] CLIA [id number] [address] [place] [address] [place] Sodium [Moles/Vol] 138 mmol/L Normal 136-144 [facility] Comment on above: Order Comment: Speci men Type: BLOOD SPECIMEN Ordering Facility: [facility] Address: [address] [place] [address] Performed By: #### 2 4323-8, 80916-0 #### [facility] CLIA [id number] [address] [place] [address] [place] Urea nitrogen [Mass/Vol] 22 mg/dL High 7-21 [facility] Comment on above: Order Comment: Speci men Type: BLOOD SPECIMEN Ordering Facility: [facility] Address: [address] [place] [address] Performed By: #### 2 4323-8, 94128-2 #### [facility] CLIA [id number] [address] [place] [address] [place] ECG COMPLETEon 09-25-2023 ECG COMPLETE Ventricular Rate : 5 8 BPM Atrial Rate : 58 BPM P-R Interval : 174 ms QRS Duration : 76 ms Q-T Interval : 458 ms QTC Calculation(Bazett) : 449 ms Calculated P Alpha : 57 degrees Calculated R Alpha : 49 degrees Calculated T Alpha : 36 degrees SINUS BRADYCARDIA WITH MARKED SINUS ARRHYTHMIA OTHERWISE NORMAL ECG Confirmed by ALIYAH RAIN MD ([id number]) on 10/15/2023 5:53:31 PM NAME : LIANA MARIE PID : [id number] : 1950 Gender : Female Race : ORD : [id number] Procedure Date : Sep 25 2023 11:00:10 Edit Date : Oct 15 2023 17:53:36 Diagnosis: SINUS BRADYCARDIA WITH MARKED SINUS ARRHYTHMIA OTHERWISE NORMAL ECG Confirmed by ALIYAH RAIN MD ([id number]) on 10/15/2023 5:53:31 PM Test Reason : Location : 314 : J14 J1-4 Overread By : ALIYAH RAIN MD Edited By : ALIYAH RAIN MD Referred By : AMY BARGER Acquired by : SHERI WYATT [facility] ECHOon 09-25-2023 Echocardiography Echocardiography Report: Transthoracic Echo [facility] J1-5 Date of service: 09/25/2023 11:32:12 AM OPERATIONS MANAGER Ordering physician: AMY BARGER Indication: Routine surveillance [...] * * * Final * * * [employer] : [id number] Normal [facility] Lipid 1996 panelon 4 Cholesterol [Mass/Vol] 147 mg/dL Normal <200 [facility] Comment on above: Order Comment: Speci men Type: BLOOD SPECIMEN Ordering Facility: [facility] Address: [address] [place] [address] Result Comment: <200 mg/dL, Desirable 200-239 mg/dL, Borderline high >239 mg/dL, High Performed By: #### 2 4323-8, 10968-8 #### [facility] CLIA [id number] [address] [place], [place] [address] [place] [address] [place] Cholesterol in HDL [Mass/Vol] 42 mg/dL Normal >39 [facility] Comment on above: Order Comment: Colten sidhu Type: BLOOD SPECIMEN Ordering Facility: [facility] Address: [address] [place] [address] Result Comment: 40-5 9 mg/dL, Acceptable >59 mg/dL, High: Negative risk factor for coronary heart disease <40 mg/dL, Low: Positive risk factor for coronary heart disease Performed By: #### 2 4323-8, 79449-9 #### [facility] CLIA [id number] [address] [place] [address] [place] [facility] Cholesterol in LDL [Mass/Vol] 77 mg/dL Normal <100 [facility] Comment on above: Order Comment: Colten sidhu Type: BLOOD SPECIMEN Ordering Facility: [facility] Address: [address] [place] [address] Result Comment: <100 mg/dL, Optimal 100-129 mg/dL, Near optimal/above optimal 130-159 mg/dL, Borderline high 160-189 mg/dL, High >189 mg/dL, Very high Secondary prevention optimal LDL Cholesterol levels are recommended to be < 70 mg/dL Performed By: #### 2 4323-8, 93252-4 #### [facility] CLIA [id number] [address] [place] [address] [place] Cholesterol in LDL/Cholesterol in HDL [Mass ratio] 1.83 {ratio} Normal <2.54 [facility] Comment on above: Order Comment: Colten nahum Type: BLOOD SPECIMEN Ordering Facility: [facility] Address: [address] [place] [address] Result Comment: Refe rence: 1. National Cholesterol Education Program ATP III Guideline At-A-Glance Quick Desk Reference: National Heart, Lung, and Blood Hestand. National Institutes of Health. 2001: NIH Publication No. 01-3305. 2. An International Atherosclerosis Society position paper: global recommendations for the management of dyslipidemia: executive summary, Atherosclerosis. 2014: 232(2):410-413. Performed By: #### 2 4323-8, 39615-4 #### [facility] CLIA [id number] [address] [place] [address] [place] Cholesterol in VLDL [Mass/Vol] 28 mg/dL Normal <30 [facility] Comment on above: Order Comment: Speci men Type: BLOOD SPECIMEN Ordering Facility: [facility] Address: [address] [place] [address] Performed By: #### 2 4323-8, 35233-8 #### [facility] CLIA [id number] [address] [place] [address] [place] Cholesterol non HDL [Mass/Vol] 105 mg/dL Normal <130 [facility] Comment on above: Order Comment: Speci men Type: BLOOD SPECIMEN Ordering Facility: [facility] Address: [address] [place] [address] Result Comment: <130 mg/dL, Optimal 130-159 mg/dL, Near optimal/above optimal 160-189 mg/dL, Borderline high 190-219 mg/dL, High >219 mg/dL, Very high Secondary prevention optimal non HDL Cholesterol levels are recommended to be <100 mg/dL Performed By: #### 2 4323-8, 00361-6 #### [facility] CLIA [id number] [address] [place] [address] [place] Cholesterol.total/Ch olesterol in HDL [Mass ratio] 3.50 {ratio} Normal <5.10 [facility] Comment on above: Order Comment: Speci men Type: BLOOD SPECIMEN Ordering Facility: [facility] Address: [address] [place] [address] Performed By: #### 2 4323-8, 44526-4 #### [facility] CLIA [id number] [address] [place] [address] [place] FASTING TIME 12 hrs Normal [facility] Comment on above: Order Comment: Speci men Type: BLOOD SPECIMEN Ordering Facility: [facility] Address: [address] [place] [address] Performed By: #### 2 4323-8, 38435-3 #### [facility] CLIA [id number] [address] [place] [address] [place] Triglyceride [Mass/Vol] 141 mg/dL Normal <150 [facility] Comment on above: Order Comment: Speci men Type: BLOOD SPECIMEN Ordering Facility: [facility] Address: [address] [place] [address] Result Comment: <150 mg/dL, Normal 150-199 mg/dL, Borderline high 200-499 mg/dL, High >499 mg/dL, Very high Performed By: #### 2 4323-8, 18956-1 #### [facility] CLIA [id number] [address] [place] [address] [place] OCC BLD IMMUNO SCREENon 03-03 OCCULT BLOOD Negative Normal NEGATIVE [facility] Comment on above: Performed By: #### O BSCRN #### [facility] [address] [place] [address] Dr. Kym Burks CBC AUTO DIFFon 03-26-2022 BASO # 0.0 103/ul Normal 0.0-0.1 [facility] Comment on above: Performed By: #### C BC #### [facility] [address] [place] [address] Dr. Kym Burks Basophils/100 WBC (Bld) 0.7 % Normal 0.2-2.0 [facility] Comment on above: Performed By: #### C BC #### [facility] [address] [place] [address] Dr. Kym Burks EO # 0.1 103/ul Normal 0.0-0.7 [facility] Comment on above: Performed By: #### C BC #### [facility] [address] [place] [address] Dr. Kym Burks Eosinophils/100 WBC (Bld) 1.7 % Normal 0.9-7.0 [facility] Comment on above: Performed By: #### C BC #### [facility] [address] [place] [address] Dr. Kym Burks Erythrocyte distribution width (RBC) [Ratio] 13.2 % Normal 11.0-15.0 [facility] Comment on above: Performed By: #### C BC #### [facility] [address] [place] [address] Dr. Kym Burks Hematocrit (Bld) [Volume fraction] 41.6 % Normal 36.0-48.0 [facility] Comment on above: Performed By: #### C BC #### [facility] [address] [place] [address] Dr. Kym Burks Hemoglobin (Bld) [Mass/Vol] 12.7 g/dL Normal 12.0-16.0 [facility] Comment on above: Performed By: #### C BC #### [facility] [address] [place] [address] Dr. Kym Burks IG # 0.00 10e3/ul Normal 0.00-0.03 [facility] Comment on above: Performed By: #### C BC #### [facility] [address] [place] [address] Dr. Kym Burks IG % 0.0 % Normal 0.0-0.5 [facility] Comment on above: Performed By: #### C BC #### [facility] [address] [place] [address] Dr. Kym Burks LYMPH # 1.4 103/ul Normal 1.2-3.8 [facility] Comment on above: Performed By: #### C BC #### [facility] [address] [place] [address] Dr. Kym Burks Lymphocytes/100 WBC (Bld) 33.3 % Normal 20.5-60.0 [facility] Comment on above: Performed By: #### C BC #### [facility] [address] [place] [address] Dr. Kym Burks MANUAL DIFF REQ NO Normal [facility] Comment on above: Performed By: #### C BC #### [facility] [address] [place] [address] Dr. Kym Burks MCH (RBC) [Entitic mass] 28.8 pg Normal 26.7-34.0 [facility] Comment on above: Performed By: #### C BC #### [facility] [address] [address] [address] Kym Burks MCHC (RBC) [Mass/Vol] 30.5 g/dL Normal 29.9-35.2 [facility] Comment on above: Performed By: #### C BC #### [facility] [address] [address] [address] Kym Burks MCV (RBC) [Entitic vol] 94.3 fL Normal 81.0-99.0 [facility] Comment on above: Performed By: #### C BC #### [facility] [address] [place] [address] Dr. Kym Burks MONO # 0.3 103/ul Normal 0.3-0.8 [facility] Comment on above: Performed By: #### C BC #### [facility] [address] [place] [address] Dr. Kym Burks Monocytes/100 WBC (Bld) 6.7 % Normal 1.7-12.0 [facility] Comment on above: Performed By: #### C BC #### [facility] [address] [place] [address] Dr. Kym Burks NEUT # 2.4 103/ul Normal 1.4-6.5 [facility] Comment on above: Performed By: #### C BC #### [facility] [address] [place] [address] Dr. Kym Burks Neutrophils/100 WBC (Bld) 57.6 % Normal 43.0-75.0 [facility] Comment on above: Performed By: #### C BC #### [facility] [address] [address] [address] Kym Burks Platelet mean volume (Bld) [Entitic vol] 9.9 fL Normal 9.5-13.5 [facility] Comment on above: Performed By: #### C BC #### [facility] [address] [address] [address] Kym Burks PLT 221 103/ul Normal 150-450 [facility] Comment on above: Performed By: #### C BC #### [facility] [address] [address] [address] Kym Burks RBC 4.41 106/ul Normal 4.20-5.40 [facility] Comment on above: Performed By: #### C BC #### [facility] [address] [address] [address] Kym Burks WBC 4.2 103/ul Normal 4.0-11.0 [facility] Comment on above: Performed By: #### C BC #### [facility] [address] [address] [address] Kym Burks FREE THYROXINE INDEX T7on FTI 3.78 Normal 1.30-4.50 [facility] Comment on above: Performed By: #### T SH, CMP, T7, LIPID ####[facility] [address] [address]Dr. Kym Burks T3U 36.0 % Normal 30.0-39.0 [facility] Comment on above: Performed By: #### T SH, CMP, T7, LIPID ####[facility] [address] [id number]. Kym Burks T4 [Mass/Vol] 10.50 ug/dL Normal 4.80-13.90 [facility] Comment on above: Performed By: #### T SH, CMP, T7, LIPID ####[facility] [address] [id number]. Kym Burks GLYCOHEMOGLOBIN A1Con 2022 ADA RECOMMENDATION SEE BELOW Normal [facility] Comment on above: Result Comment: ADA RECOMMENDED LIMIT 4.0 - 6.0 ADA THERAPEUTIC TARGET < 7.0 ACTION SUGGESTED > 7.0 Performed By: #### A 1C #### [facility] [address] [address] [address] Kym Burks Glucose [Mass/Vol] 148 mg/dL Normal [facility] Comment on above: Performed By: #### A 1C #### [facility] [address] [place] [address] Dr. Kym Burks HbA1c (Bld) [Mass fraction] 6.8 % Critically high 4.5-6.2 [facility] Comment on above: Performed By: #### A 1C #### [facility] [address] [place], [place] [address] Dr. Kym Burks IRONon 03-26-2022 Iron [Mass/Vol] 72.0 ug/dL Normal 50.0-170.0 [facility] Comment on above: Performed By: #### V ITAD, IRON #### [facility] [address] [place], [place] [address] Dr. Kym Burks LIPID PROFILEon 03-26-2022 CHOL-HDL RATIO NORM SEE BELOW Normal [facility] Comment on above: Result Comment: 3.3 - 4.4 LOW RISK 4.4 - 7.1 AVERAGE RISK 7.1 - 11.0 MODERATE RISK >11.0 HIGH RISK Performed By: #### T SH, CMP, T7, LIPID ####[facility] [address] [id number]. Kym Burks Cholesterol [Mass/Vol] 126 mg/dL Normal <=200 [facility] Comment on above: Performed By: #### T SH, CMP, T7, LIPID ####[facility] [address] [id number]. Kym Burks Cholesterol in HDL [Mass/Vol] 47 mg/dL Normal 40-60 [facility] Comment on above: Performed By: #### T SH, CMP, T7, LIPID ####[facility] [address] [place], [place] [address]Dl. Kym Burks Cholesterol in LDL [Mass/Vol] 56.8 mg/dL Normal [facility] Comment on above: Performed By: #### T SH, CMP, T7, LIPID ####[facility] [address] [place], [place] [address]Tn. Kym Burks Cholesterol.total/Ch olesterol in HDL [Mass ratio] 2.7 {ratio} Normal [facility] Comment on above: Performed By: #### T SH, CMP, T7, LIPID ####[facility] [address] [address]Dr. Kym Burks HDL NORMAL > or = 60 mg/dl - LO W CARDIOVASCULAR RISK <40 mg/dl - HIGH CARDIOVASCULAR RISK Normal [facility] Comment on above: Performed By: #### T SH, CMP, T7, LIPID ####[facility] [address] [address]Dr. Kym Burks LDL CALC NORMAL SEE BELOW Normal [facility] Comment on above: Result Comment: <100 mg/dl OPTIMAL 100 - 129 mg/dl NEAR OR ABOVE OPTIMAL 130 - 159 mg/dl BORDERLINE HIGH 160 - 189 mg/dl HIGH >190 mg/dl VERY HIGH Performed By: #### T SH, CMP, T7, LIPID ####[facility] [address] [address]Dr. Kym Burks Triglyceride [Mass/Vol] 111 mg/dL Normal <=150 [facility] Comment on above: Performed By: #### T SH, CMP, T7, LIPID ####[facility] [address] [address]Dr. Kym Burks VLDL CALC 22.2 mg/dL Normal [facility] Comment on above: Performed By: #### T SH, CMP, T7, LIPID ####[facility] [address] [address]Dr. Kym Burks PROF 14(COMP METB)on 023 Albumin [Mass/Vol] 3.9 g/dL Normal 3.4-5.0 [facility] Comment on above: Performed By: #### T SH, CMP, T7, LIPID ####[facility] [address] [address]Dr. Kym Burks Albumin/Globulin [Mass ratio] 1.3 {ratio} Normal [facility] Comment on above: Performed By: #### T SH, CMP, T7, LIPID ####[facility] [address] [address]Dr. Kym Burks ALP [Catalytic activity/Vol] 80 U/L Normal 46-116 [facility] Comment on above: Performed By: #### T SH, CMP, T7, LIPID ####[facility] [address] [id number]. Kym Burks ALT [Catalytic activity/Vol] 28 U/L Normal 14-59 [facility] Comment on above: Performed By: #### T SH, CMP, T7, LIPID ####[facility] [address] [id number]. Kym Burks Anion gap [Moles/Vol] 10.6 mmol/L Normal [facility] Comment on above: Performed By: #### T SH, CMP, T7, LIPID ####[facility] [address] [address]Dr. Kym Burks AST [Catalytic activity/Vol] 21 U/L Normal 15-37 [facility] Comment on above: Performed By: #### T SH, CMP, T7, LIPID ####[facility] [address] [address]Dr. Kym Burks Bilirubin [Mass/Vol] 1.3 mg/dL Critically high 0.2-1.0 [facility] Comment on above: Performed By: #### T SH, CMP, T7, LIPID ####[facility] [address] [address]Dr. Kym Burks Calcium [Mass/Vol] 10.0 mg/dL Normal 8.5-10.1 [facility] Comment on above: Performed By: #### T SH, CMP, T7, LIPID ####[facility] [address] [address]Dr. Kym Burks Chloride [Moles/Vol] 104 mmol/L Normal 98-107 [facility] Comment on above: Performed By: #### T SH, CMP, T7, LIPID ####[facility] [address] [address]Dr. Kym Burks CO2 [Moles/Vol] 28.8 mmol/L Normal 21.0-32.0 [facility] Comment on above: Performed By: #### T SH, CMP, T7, LIPID ####[facility] [address] [address]Dr. Kym Burks Creatinine [Mass/Vol] 0.74 mg/dL Normal 0.55-1.02 [facility] Comment on above: Performed By: #### T SH, CMP, T7, LIPID ####[facility] [address] [address]Dr. Kym Burks EGFR-AF PAKISTANI >60 Normal >=60 [facility] Comment on above: Performed By: #### T SH, CMP, T7, LIPID ####[facility] [address] [address]Dr. Kym Burks EGFR-NON AF PAKISTANI >60 Normal >=60 [facility] Comment on above: Performed By: #### T SH, CMP, T7, LIPID ####[facility] [address] [address]Dr. Kym Burks Globulin (S) [Mass/Vol] 3.1 g/dL Normal [facility] Comment on above: Performed By: #### T SH, CMP, T7, LIPID ####[facility] [address] [address]Dr. Kym Burks Glucose [Mass/Vol] 143 mg/dL Critically high 74-106 [facility] Comment on above: Performed By: #### T SH, CMP, T7, LIPID ####[facility] [address] [address]Dr. Kym Burks Potassium [Moles/Vol] 4.4 mmol/L Normal 3.5-5.1 [facility] Comment on above: Performed By: #### T SH, CMP, T7, LIPID ####[facility] [address] [address]Dr. Kym Burks Protein [Mass/Vol] 7.0 g/dL Normal 6.4-8.2 [facility] Comment on above: Performed By: #### T SH, CMP, T7, LIPID ####[facility] [address] [address]Dr. Kym Burks Sodium [Moles/Vol] 139 mmol/L Normal 136-145 [facility] Comment on above: Performed By: #### T SH, CMP, T7, LIPID ####[facility] [address] [place], [place] [address]Fk. Kym Burks Urea nitrogen [Mass/Vol] 26.0 mg/dL Critically high 7.0-18.0 [facility] Comment on above: Performed By: #### T SH, CMP, T7, LIPID ####[facility] [address] [place], [place] [address]Kj. Kym Burks Urea nitrogen/Creatinine [Mass ratio] 35.1 mg/mg Normal [facility] Comment on above: Performed By: #### T SH, CMP, T7, LIPID ####[facility] [address] [id number]. Kym Burks TSHon 03-26-2022 TSH 0.288 uIU/mL Critically low 0.358-3.740 [facility] Comment on above: Performed By: #### T SH, CMP, T7, LIPID ####[facility] [address] [id number]. Kym Burks VITAMIN D 25 OHon 03-26-2022 VIT D 25-OH 60.0 ng/mL Normal [facility] Comment on above: Performed By: #### Aamir BOSTON IRON #### [facility] [address] [place] [address] Dr. Kym Burks VIT D RANGES SEE BELOW Normal [facility] Comment on above: Result Comment: <20 ng/mL Vit D deficient 20 - <30 ng/mL Vit D insufficient 30 - 100 ng/mL Vit D sufficient >100 ng/mL Potential Toxicity Performed By: #### Aamir BOSTON IRON #### [facility] [address] [address] [address] Kym Burks XR SHOULDER RT INJon [...] by: KWABENA LEDESMA Date: 2021-09-10 14:56 Normal [facility] MG MAMM SCREEN 3D EMILY CADon 08-22-2021 MG MAMM SCREEN 3D EMILY CAD Patient: LIANA MARIE Exam Date: 08/22/2021 : 1950 Gender:F Ordering : DR JACKY TORRES . Admission #: [id number] Family : Order #: [id number] CLICK HERE TO VIEW EXAM RADIOLOGY REPORT [...] breast cancer at age 51. LOCATION: [facility] BREAST COMPOSITION: Scattered areas fibroglandular density. [...] Samson M.D. on 08/22/2021 at 13:22 Normal [facility] XR SHOULDER RT 2V or [...] GINA CRUZ Date: 2021-08-22 12:24 Normal [facility] Covid-19 PCR ([facility])on 04-30 SARS-CoV-2 (COVID-19) RNA SILVESTRE+probe Ql (Unsp spec) Detected Critically abnormal NOT DETECTED [facility] Comment on above: Result Comment: This test is not yet approved or cleared by the [place] FDA. When there are no FDA-approved or cleared tests available, and other criteria are met, FDA can make tests available under an emergency access mechanism called an Emergency Use Authorization (EUA). The EUA for this test is supported by the Neurosurgical Nurse Practitioner of Health and Human Service's (HHS's) declaration [...] longer be used). Performed By: #### C [facility] #### [facility] [address] [place] [address] Dr. Kym Burks INFLUENZA A AND B AGon 05-16 INFLUANEGH SEE BELOW Normal [facility] Comment on above: Result Comment: Nega tive for Flu A protein angiten. Infection due to Flu A cannot be ruled out. Flu A angiten in the sample may be below the detection limit of the test. Performed By: #### I NFLUAB #### [facility] [address] [place] [address] Dr. Kym Burks [facility] SEE BELOW Normal [facility] Comment on above: Result Comment: Nega tive for Flu B protein antigen. Infection due to Flu B cannot be ruled out. Flu B antigen in the sample may be below the detection limit of the test. Performed By: #### I NFLUAB #### [facility] [address] [place] [address] Dr. Kym Burks INFLUENZA A AG Negative Normal NEGATIVE SEE COMMENT [facility] Comment on above: Performed By: #### I NFLUAB #### [facility] [address] [place] [address] Dr. Kym Burks INFLUENZA B AG Negative Normal NEGATIVE SEE COMMENT [facility] Comment on above: Performed By: #### I NFLUAB #### [facility] [address] [place] [address] Dr. Kym Burks INTERNAL CONTROLS Within Normal Limits Normal Wi thin Normal Limits [facility] Comment on above: Performed By: #### I NFLUAB #### [facility] [address] [place] [address] Dr. Kym Burks Vital Signs Date Time Vital Sign Value Performing Clinician Faci lity 07-14-2024 11: Body height 167.6 cm Preston Pompa DPM Work Phone: [facility] 07-14-2024 11:05040 Body mass index (BMI) [Ratio] 29.86 kg/m2 Preston Pompa DPM Work Phone: [facility] 07-14-2024 11:05040 Body weight 83.92 kg Preston Pompa DPM Work Phone: [facility] 07-14-2024 11:05040 Respiratory rate 16 /min Preston Pompa DPM Work Phone: [facility] 04-28-2024 11:59-0500 Body height 167.6 cm Preston Pompa DPM Work Phone: [facility] 04-28-2024 11:59-0500 Body mass index (BMI) [Ratio] 29.86 kg/m2 Preston Brown DPM Work Phone: [facility] 04-28-2024 11:59-0500 Body weight 83.92 kg Preston Brown DPM Work Phone: [facility] 04-28-2024 11:59-0500 Respiratory rate 18 /min Preston Brown DPM Work Phone: [facility] 01-14-2024 13:30-0500 Body height 167.6 cm Preston Brown DPM Work Phone: [facility] 01-14-2024 13:30-0500 Body mass index (BMI) [Ratio] 29.86 kg/m2 Preston Pompa DPM Work Phone: [facility] 01-14-2024 13:30-0500 Body weight 83.92 kg Preston Brown DPM Work Phone: [facility] 01-14-2024 13:30-0500 Diastolic blood pressure 80 mm[Hg] Preston Brown DPM Work Phone: [facility] 01-14-2024 13:30-0500 Heart rate 82 /min Preston Brown DPM Work Phone: [facility] 01-14-2024 13:30-0500 Systolic blood pressure 125 mm[Hg] Preston Brown DPM Work Phone: [facility] 10-22-2023 12:04-0400 Body height 167.6 cm Preston Brown DPM Work Phone: [facility] 10-22-2023 12:04-0400 Body mass index (BMI) [Ratio] 29.86 kg/m2 Preston Brown DPM Work Phone: [facility] 10-22-2023 12:04-0400 Body weight 83.92 kg Preston Pompa DPM Work Phone: [facility] 10-22-2023 12:04-0400 Diastolic blood pressure 79 mm[Hg] Preston Pompa DPM Work Phone: [facility] 10-22-2023 12:04-0400 Heart rate 77 /min Preston Pompa DPM Work Phone: [facility] 10-22-2023 12:04-0400 Systolic blood pressure 125 mm[Hg] Preston Pompa DPM Work Phone: [facility] 09-25-2023 12:32-0400 Body height 167.6 cm Amy Barger MD Work Phone: [facility] 09-25-2023 12:32-0400 Body mass index (BMI) [Ratio] 32.12 kg/m2 Amy Barger MD Work Phone: [facility] 09-25-2023 12:32-0400 Body weight 90.27 kg Amy Barger MD Work Phone: [facility] 09-25-2023 12:32-0400 Diastolic blood pressure 59 mm[Hg] Amy Barger MD Work Phone: [facility] 09-25-2023 12:32-0400 Heart rate 50 /min Amy Barger MD Work Phone: [facility] 09-25-2023 12:32-0400 SaO2% (BldA) [Mass fraction] 99 % Amy Barger MD Work Phone: [facility] 09-25-2023 12:32-0400 Systolic blood pressure 191 mm[Hg] Amy Barger MD Work Phone: [facility] 08-29-2022 14:02-0400 Diastolic blood pressure 66 mm[Hg] Amy Barger MD Work Phone: [facility] 08-29-2022 14:02-0400 Systolic blood pressure 140 mm[Hg] Amy Barger MD Work Phone: [facility] 08-29-2022 13:55-0400 Body height 167.6 cm Amy Barger MD Work Phone: [facility] 08-29-2022 13:55-0400 Body weight 94.03 kg Amy Barger MD Work Phone: [facility] 08-29-2022 13:55-0400 Heart rate 59 /min Amy Barger MD Work Phone: [facility] 08-29-2022 13:55-0400 SaO2% (BldA) [Mass fraction] 100 % Amy Barger MD Work Phone: [facility] 09-13-2021 14:38-0400 Body height 167.6 cm Amy Barger MD Work Phone: [facility] 09-13-2021 14:38-0400 Body weight 82.1 kg Amy Barger MD Work Phone: [facility] 09-13-2021 14:38-0400 Diastolic blood pressure 55 mm[Hg] Amy Barger MD Work Phone: [facility] 09-13-2021 14:38-0400 Heart rate 54 /min Amy Barger MD Work Phone: [facility] 09-13-2021 14:38-0400 SaO2% (BldA) [Mass fraction] 100 % Amy Barger MD Work Phone: [facility] 09-13-2021 14:38-0400 Systolic blood pressure 138 mm[Hg] Amy Barger MD Work Phone: [facility] Encounters Encounter Date Encounter Type Care Provider Facility Start: 07-14-2024 End: 07-14-2024 Nohemy Pompa DPM Work Phone: [facility] Start: 07-14-2024 End: 07-14-2024 Nohemy Pompa DPM Work Phone: [facility] Start: 07-14-2024 End: 07-14-2024 Office outpatient visit 15 minutes Preston Pompa DPM Work Phone: [facility] Comment on above: Cellulitis of left f oot (Primary Dx); Type 2 diabetes mellitus without complication, unspecified whether terminal makeup operator insulin use; Pain due to onychomycosis of toenails of both feet; Xerosis cutis; Peroneal tendinitis, left; Cat bite of ankle, initial encounter Start: 07-14-2024 End: 07-14-2024 ambulatory PRESTON POMPA Not Available Start: 04-28-2024 End: 04-28-2024 Bamboo flowsheet Preston Pompa DPM Work Phone: [facility] Start: 04-28-2024 End: 04-28-2024 Bamboo flowsheet Preston Pompa DPM Work Phone: [facility] Start: 04-28-2024 End: 04-28-2024 ambulatory PRESTON POMPA Not Available Start: 04-28-2024 End: 04-28-2024 Office outpatient visit 15 minutes Preston Pompa DPM Work Phone: [facility] Comment on above: Peroneal tendinitis, left (Primary Dx); Type 2 diabetes mellitus without complication, unspecified whether terminal makeup operator insulin use ([facility]); Pain due to onychomycosis of toenails of both feet; Xerosis cutis Start: 01-14-2024 End: 01-14-2024 Bamboo flowsheet Preston Pompa DPM Work Phone: [facility] Start: 01-14-2024 End: 01-14-2024 Bamboo flowsheet Preston Pompa DPM Work Phone: [facility] Start: 01-14-2024 End: 01-14-2024 ambulatory PRESTON POMPA Not Available Start: 01-14-2024 End: 01-14-2024 Office outpatient visit 15 minutes Preston Pompa DPM Work Phone: [facility] Comment on above: Xerosis cutis (Prima ry Dx); Peroneal tendinitis, left; Type 2 diabetes mellitus without complication, unspecified whether group home insulin use ([facility]); Pain due to onychomycosis of toenails of both feet Start: 10-22-2023 End: 10-22-2023 Bamboo flowsheet Preston Pompa DPM Work Phone: [facility] Start: 10-22-2023 End: 10-22-2023 Bamboo flowsheet Preston Pompa DPM Work Phone: [facility] Start: 10-22-2023 End: 10-22-2023 Patient encounter procedure Preston Pompa DPM Work Phone: [facility] Comment on above: Peroneal tendinitis, left (Primary Dx); Type 2 diabetes mellitus without complication, unspecified whether group home insulin use ([facility]); Onychomycosis; Toe pain, bilateral Start: 10-22-2023 End: 10-22-2023 ambulatory PRESTON POMPA Not Available Start: 09-25-2023 End: 09-25-2023 Patient encounter procedure Amy Barger MD Work Phone: Cardiology Comment on above: Nonrheumatic aortic valve insufficiency (Primary Dx); Nonrheumatic mitral valve regurgitation; Nonrheumatic tricuspid valve regurgitation; Mixed hyperlipidemia; 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 Start: 09-25-2023 End: 09-25-2023 ambulatory AMY BARGER Facility:[facility] Start: 08-06-2023 End: 08-06-2023 ambulatory PRESTON POMPA Not Available Start: 05-11-2023 Orders Only Amy Barger MD Work Phone: Cardiology Comment on above: Nonrheumatic aortic valve insufficiency (Primary Dx) Start: 08-29-2022 End: 08-29-2022 Patient encounter procedure Amy Barger MD Work Phone: Cardiology Comment on above: Nonrheumatic aortic valve insufficiency (Primary Dx); 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; Mixed hyperlipidemia; Valvular heart disease; 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); Type 2 [...] regurgitation; Mixed hyperlipidemia; 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; Type 2 diabetes mellitus without complication, without long-term current use of insulin (HCC) Start: 09-10-2021 End: 09-10-[address] JACKY TORRES Facility:[facility] Start: 08-22-2021 End: 08-23-[address] JACKY TORRES Facility:[facility] Start: 05-16-2021 End: 05-16-[address] JACKY TORRES Facility: Procedures Date Procedure Procedure Detail Performing Clinician Start: 06-22-2015 Mammography Preston weathers DPM Work Phone: Plan of Treatment Date Care Activity Detail Author Start: 11-24-2024 Urine microalbumin profile DTa P,Tdap,Td Vaccine (2 - Td or Tdap) [facility] Start: 11-03-2024 End: 11-03-2024 Patient encounter procedure 11/03/2024 10:30 AM EDT Office Visit [facility] [address] [phone] Preston Pompa DPM [address] [facility] [address] [place] [address] [facility] Start: 09-24-2024 End: 12-24-2024 CBC panel - Blood by Automated count COMPLETE BLOOD COUNT Lab Routine Nonrheumatic aortic valve insufficiency Expected: 09/24/2024, Expires: 12/24/2024 [facility] Comment on above: Expected: 09/24/2024 , Expires: 12/24/2024 Start: 09-24-2024 End: 12-24-2024 Comprehensive metabolic 2000 panel - Serum or Plasma COMPREHENSIVE METABOLIC PANEL Lab Routine Nonrheumatic aortic valve insufficiency Expected: 09/24/2024, Expires: 12/24/2024 [facility] Work Phone: Comment on above: Expected: 09/24/2024 , Expires: 12/24/2024 Start: 09-24-2024 Hepatitis B surface antibody level LDL Cholesterol [facility] Start: 09-24-2024 End: 12-24-2024 Lipid 1996 panel - Serum or Plasma LIPID PANEL BASIC Lab Routine Nonrheumatic aortic valve insufficiency Expected: 09/24/2024, Expires: 12/24/2024 [facility] Comment on above: Expected: 09/24/2024 , Expires: 12/24/2024 Start: 07-14-2024 End: 07-14-2024 Patient encounter procedure [facility] Comment on above: Type 2 diabetes marietta itus without complication, unspecified whether terminal makeup operator insulin use (Primary Dx); Pain due to onychomycosis of toenails of both feet; Xerosis cutis; Peroneal tendinitis, left Start: 04-14-2024 End: 04-14-2024 Patient encounter procedure 04/14/2024 10:30 AM EST Office Visit [facility] [address] [facility] [address] [place] [phone] Preston Pompa DPM [address] [address] [facility] Start: 01-07-2024 End: 01-07-2024 Patient encounter procedure 01/07/2024 10:40 AM EST Office Visit [facility] [address] [facility] [address] [place] [phone] Preston Pompa, REGINA [address] [address] [facility] Start: 11-01-2023 Influenza vaccination Influenza Vacc ine (#1) [facility] Start: 10-22-2023 End: 10-22-2023 Patient encounter procedure 10/22/2023 11:50 AM EDT Office Visit [facility] [address] [phone] Preston Pompa, MARIZAM [address] [address] Peroneal tendinitis, left (Primary Dx); Type 2 diabetes mellitus without complication, unspecified whether terminal makeup operator insulin use (CMS/HCC); Onychomycosis; Toe pain, bilateral [facility] Comment on above: Peroneal tendinitis, left (Primary Dx); Type 2 diabetes mellitus without complication, unspecified whether terminal makeup operator insulin use (CMS/HCC); Onychomycosis; Toe pain, bilateral Start: 09-08-2023 Screening for malign ant neoplasm of colon [facility] Start: 08-13-2023 End: 10-13-2023 CBC panel - Blood by Automated count CBC Lab Routine Nonrheumatic aortic valve insufficiency Expected: 08/13/2023, Expires: 10/13/2023 [facility] Work Phone: Comment on above: Expected: 08/13/2023 , Expires: 10/13/2023 Start: 08-13-2023 End: 10-13-2023 Comprehensive metabolic 2000 panel - Serum or Plasma COMP METABOLIC PANEL Lab Routine Nonrheumatic aortic valve insufficiency Expected: 08/13/2023, Expires: 10/13/2023 [facility] Work Phone: Comment on above: Expected: 08/13/2023 , Expires: 10/13/2023 Start: 08-13-2023 End: 10-13-2023 Lipid 1996 panel - Serum or Plasma LIPID PANEL BASIC Lab Routine Nonrheumatic aortic valve insufficiency Expected: 08/13/2023, Expires: 10/13/2023 [facility] Work Phone: Comment on above: Expected: 08/13/2023 , Expires: 10/13/2023 Start: 04-14-2023 Covid-19 Vaccine () Covid-19 Vaccine () [facility] Start: 03-02-2023 Advance Directive Discussion Advance Directive Discussion [facility] Start: 03-02-2023 Depression Assessment Depression Ass essment [facility] Start: 10-31-2022 Covid-19 Vaccine () Covid-19 Vaccine () [facility] Start: 10-31-2022 Influenza vaccination C [facility] Start: 09-13-2022 Hepatitis B surface antibody level LDL CHOLESTEROL [facility] Start: 08-29-2022 End: 08-29-2022 Basic metabolic 2000 panel - Serum or Plasma BASIC METABOLIC PNL Lab Routine Nonrheumatic aortic valve insufficiency Expected: 08/29/2022, Expires: 08/29/2022 [facility] Work Phone: Comment on above: Expected: 08/29/2022 , Expires: 08/29/2022 Start: 03-02-2022 ADVANCE DIRECTIVE DISCUSSION ADVANCE DIRECTIVE DISCUSSION [facility] Start: 03-02-2022 DEPRESSION ASSESSMENT DEPRESSION ASS ESSMENT [facility] Start: 10-31-2021 Influenza vaccination INFLUENZA (#1) [facility] Start: 09-13-2021 End: 11-13-2021 CBC panel - Blood by Automated count CBC Lab Routine Nonrheumatic aortic valve insufficiency Expected: 09/13/2021, Expires: 11/13/2021 [facility] Work Phone: Comment on above: Expected: 09/13/2021 , Expires: 11/13/2021 Start: 09-13-2021 End: 11-13-2021 Comprehensive metabolic 2000 panel - Serum or Plasma COMP METABOLIC PANEL Lab Routine Nonrheumatic aortic valve insufficiency Expected: 09/13/2021, Expires: 11/13/2021 [facility] Work Phone: Comment on above: Expected: 09/13/2021 , Expires: 11/13/2021 Start: 09-13-2021 End: 11-13-2021 Lipid 1996 panel - Serum or Plasma LIPID PANEL BASIC Lab Routine Nonrheumatic aortic valve insufficiency Expected: 09/13/2021, Expires: 11/13/2021 [facility] Work Phone: Comment on above: Expected: 09/13/2021 , Expires: 11/13/2021 Start: 08-02-2021 COVID-19 VACCINE (5 - Booster for Pfizer series) COVID-19 VACCINE (5 - Booster for Pfizer series) [facility] Start: 03-02-2021 ADVANCE DIRECTIVE DISCUSSION ADVANCE DIRECTIVE DISCUSSION [facility] Start: 06-30-2016 BONE DENSITY BONE DENSITY [facility] Start: 06-30-2016 Screening for osteoporosis Bone Dens ity Screening [facility] Start: 06-21-2016 Screening for malign ant neoplasm of breast Mammogram [facility] Start: 2011 RSV Vaccine (1 - 1-d ose 60+ series) RSV Vaccine (1 - 1-dose 60+ series) [facility] Start: 06-30-2001 SHINGRIX VACCINE (1 of 2) ACKERMAN GRIX VACCINE (1 of 2) [facility] Start: 06-30-1996 COLOGUARD (FIT-DNA) COLOGUARD (FIT-D NA) [facility] Start: 06-30-1996 Colonoscopy COLONOSCOPY [facility] Start: 06-30-1996 COLORECTAL CANCER SCREENING COLORECTAL CANCER SCREENING [facility] Start: 06-30-[address] COLONOGRAPHY [facility] Start: 06-30-1996 FECAL OCCULT BLOOD FECAL OCCULT BLOO D [facility] Start: 06-30-1996 Screening for malign ant neoplasm of colon [facility] Start: 06-30-1996 SIGMOIDOSCOPY SIGMOIDOSCOPY [facility] Start: 1991 Mammography MAMMOGRAM [facility] Start: 1991 Screening for malign ant neoplasm of breast Mammogram Screening [facility] Start: 06-30-1970 Urine microalbumin profile DTAP,TDAP ,TD (1 - Tdap) [facility] Start: 06-30-1969 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 PCP TEAM 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 NAOMI DISEASE VISIT ANNUAL PCP TEAM CHRONIC DISEASE VISIT [facility] Start: 06-30-1969 Anxiety Screening Anxiety Screening [facility] Start: 06-30-1969 Depression Screening Depression Scre ening [facility] Start: 06-30-1969 HEPATITIS C SCREENING HEPATITIS C SC [facility] Start: 06-30-1969 Hepatitis C screening Hepatitis C Sc [place] Start: 1963 Adult depression scr eening assessment DEPRESSION SCREENING [facility] Start: 06-30-1961 3 comp foot exam completed DIABETIC FOOT EXAM [facility] Start: 06-30-1961 Diabetic foot examination Diabetic F oot Exam [facility] Start: 06-30-1961 Glaucoma screening Dilated Retinal E xam [facility] Start: 06-30-1961 Hepatitis B screening URINE ALBUMIN:CREATININE RATIO [facility] Start: 06-30-1961 Hepatitis C antibody , confirmatory test DILATED RETINAL EXAM [facility] Start: 06-30-1957 PNEUMOCOCCAL: 65+ (1 - PCV) PNEUMOCOCCAL: 65+ (1 - PCV) [facility] Start: 06-30-1956 Hemoglobin A1c measurement HbA1C [facility] Start: 06-30-1956 Hemoglobin A1c/Hemoglobin.total in Blood HBA1C [facility] Start: 1951 Screening for malign ant neoplasm of colon [facility] End: 03-10-2023 ECG COMPLETE ECG COMPLETE ECG Routine Nonrheumatic aortic valve insufficiency 1 Occurrences starting 03/10/2022 until 03/10/2023 [facility] Work Phone: Comment on above: 1 Occurrences starti ng 03/10/2022 until 03/10/2023 End: 05-10-2024 ECG COMPLETE ECG COMPLETE ECG Routine Nonrheumatic aortic valve insufficiency 1 Occurrences starting 05/11/2023 until 05/10/2024 [facility] Work Phone: Comment on above: 1 Occurrences starti ng 05/11/2023 until 05/10/2024 End: 09-24-2024 ECG COMPLETE ECG COMPLETE ECG Routine Nonrheumatic aortic valve insufficiency 1 Occurrences starting 09/25/2023 until 09/24/2024 [facility] Comment on above: 1 Occurrences starti ng 09/25/2023 until 09/24/2024 End: 05-10-2024 Echocardiography [facility] Routine Nonrheumatic aortic valve insufficiency 1 Occurrences starting 05/11/2023 until 05/10/2024 [facility] Work Phone: Comment on above: 1 Occurrences starti ng 05/11/2023 until 05/10/2024 End: 09-24-2024 Echocardiography [facility] Routine Nonrheumatic aortic valve insufficiency 1 Occurrences starting 09/25/2023 until 09/24/2024 [facility] Comment on above: 1 Occurrences starti ng 09/25/2023 until 09/24/2024 [facility] Immunizations Immunization Date Immunization Notes Care Provider Martina vaz 01-05-2022 influenza virus vacc ine, unspecified formulation Amy Barger MD Work Phone: [facility] Payers Date Payer Category Payer Medicare (Managed Care) 1.2. [id number] 2017 Medicare HUMANA MEDICARE HUMANA GOLD PLUS [id number] 2017-Present [id number] [place] [id number] O [id number] 2017 Medicare [id number] 1959 Medicare [id number] 1950 Unknown [id number]. [id number] 1951 Unknown [id number]. 2.593 1951 Unknown [id number] [id number]. 2.593 1951 Unknown [id number] [id number]. 2.593 1951 Unknown [id number] [id number]. 2.593 1951 Unknown [id number] [id number]. 2.593 1951 Unknown [id number] [id number]. 2.593 1951 Unknown [id number] [id number]. 2.1259 1951 Unknown [id number] [id number]. 2.1259 1951 Unknown [id number] [id number]. 2.1259 1951 Unknown [id number] [id number]. 2.1259 1951 Unknown [id number]. 2.1259 Social History Date Type Detail Facility Start: 01-21-2019 End: 02-12-2023 Tobacco smoking status MDIS Never smoked tobacco [facility] Start: 01-21-2019 End: 02-12-2023 Tobacco use and exposure Smokeless tobacco non-user [facility] Start: 09-13-2021 End: 09-25-2023 Alcohol intake Lifetime non-drinker (finding) [facility] Start: 01-21-2019 History SDOH Alcohol Frequency 1 [facility] Start: 1950 Sex Assigned At Not on file [facility] Start: 09-03-2021 End: 09-13-2021 Exposure to SARS-CoV-2 (event) Not sure [facility] Start: 01-21-2019 End: 04-28-2024 History of Social function [facility] Start: 01-21-2019 End: 04-28-2024 Alcohol Use Disorder Identification Test - Consumption [AUDIT-C] [facility] How often to you hav e a drink containing alcohol? Never [facility] Average Number of Drinks Not on file [facility] Start: 01-14-2024 End: 07-14-2024 Alcoholic beverage intake Defer [facility] NEGATED: Highlighted rowStart: [place] History of tobacco use Passive smoker [facility] Medical Equipment Procedure Code Equipment Code Equipment Origin al Text Equipment Identifier Dates ACCU-CHEK BEREKET PLUS TEST STRP test strip [id number] Start: 10-23-2020 Clinical Notes 05-19-2018 to 07-14-2024 Preston Pompa, [facility] - 07/14/2024 11:10 AM EDTPreston Pompa, [facility] - 04/28/2024 11:50 AM ESTNicariana Pompa, [facility] - 01/14/2024 1:20 PM Corine Pompa, [facility] - 10/22/2023 11:50 AM EDT Note Date & Type Note Facility 07-14-2024 History of Present illness Narrative Patient: Liana [...] taking anti-inflammatories and rates pain a 1/10. Patient also presents today for follow-up of dry skin and fissures to feet and has intermittently been using prescribed or recommended [id number]-llcvkpe cream with positive improvement. Patient also has complaints of yesterday being bit by a Cat to left great toe region noticed some redness to the area but denies any drainage denies any nausea vomiting chills Allergies: Allergies Allergen Reactions Lisinopril Cough Tramadol Nausea Only Codeine Rash Sulfa Antibiotics Rash Past Medical History: Past Medical History: Diagnosis Date Allergic rhinitis Aortic regurgitation Bradycardia Depression (CMS/HCC) DJD (degenerative joint disease) DM (diabetes mellitus) (CMS/HCC) GERD (gastroesophageal reflux disease) HLD (hyperlipidemia) (CMS/HCC) Hypothyroidism (CMS/HCC) Osteoarthritis PTSD (post-traumatic stress disorder) ([facility]) Skin cancer Medications: Current Outpatient Medications: glimepiride [...] growth with thin shiny atrophic skin bilaterally. Greatly diminished Dry and scaly skin to bilateral heels Small puncture type lesions to the left great toe with slight erythema surrounding scab like lesions and negative drainage VASC: Positive DP and positive PT pedal pulses NEURO: 5.07 [place] Ehsan monofilament test positive to digits and forefoot bilaterally 125Hz tuning fork positive to 1st MPJ bilaterally ORTHO: Positive pain on palpation to toenails of the left 1,2,3,4,5 toes and right 1,2,3,4,5 toes minimal pain on palpation left peroneal brevis tendon near insertion to the 5th metatarsal base ASSESSMENT 1. Cat bite of ankle, initial encounter 2. Type 2 diabetes mellitus without complication, unspecified whether terminal makeup operator insulin use 3. Pain due to onychomycosis of toenails of both feet 4. Xerosis cutis 5. Peroneal tendinitis, left 6. Cellulitis of left foot PLAN Discussed proper foot care with patient [...] education on condition and treatment of condition. Pt encouraged to continue with hydrating creams to feet with offer for medication and/or prescription refill. Prescription today for prophylactic antibiotics and if condition worsens or noticed any redness or streaking to the area of the great toe to contact Podiatry wants Preston Pompa DPM documented in this encounter [facility] 04-28-2024 History of Present illness Narrative Patient: Liana [...] been taking anti-inflammatories and rates pain a 2/10. Patient also presents today for follow-up of dry skin and fissures to feet and has periodically been using prescribed or recommended [id number] cream with minimal improvement. Allergies: Allergies Allergen Reactions Lisinopril Cough Tramadol Nausea Only Codeine Rash Sulfa Antibiotics Rash Past Medical History: Past Medical History: Diagnosis Date Allergic rhinitis Aortic regurgitation Bradycardia Depression ([facility]) DJD (degenerative joint disease) DM (diabetes mellitus) ([facility]) GERD (gastroesophageal reflux disease) HLD (hyperlipidemia) ([facility]) Hypothyroidism ([facility]) Osteoarthritis PTSD (post-traumatic stress disorder) ([facility]) Skin cancer Medications: Current Outpatient Medications: glimepiride [...] growth with thin shiny atrophic skin bilaterally. Positive Dry and scaly skin to bilateral heels VASC: Positive DP and positive PT pedal pulses NEURO: 5.07 [place] Ehsan monofilament test positive to digits and forefoot bilaterally 125Hz tuning fork positive to 1st MPJ bilaterally ORTHO: Positive pain on palpation to toenails of the left 1,2,3,4,5 toes and right 1,2,3,4,5 toes minimal pain on palpation left peroneal brevis tendon near insertion to the 5th metatarsal base ASSESSMENT 1. Type 2 diabetes mellitus without complication, unspecified whether terminal makeup operator insulin use ([facility]) 2. Pain due to onychomycosis of toenails of both feet 3. Xerosis cutis 4. Peroneal tendinitis, left PLAN Discussed proper foot care with patient [...] or drainage to feet. Patient to consider [id number] treatments for medication or use of urea cream and prescription today was offered for Lac-Hydrin cream. Preston Pompa DPM documented in this encounter [facility] 01-14-2024 History of Present illness Narrative Patient: [...] been taking anti-inflammatories and rates pain a 03/11. Pt also presents today with secondary complaints of dry scaly skin to feet. Pt states that they have not been using OTC creams and lotions with minimal relief. Allergies: Allergies Allergen Reactions Lisinopril Cough Tramadol Nausea Only Codeine Rash Sulfa Antibiotics Rash Past Medical History: Past Medical History: Diagnosis Date Allergic rhinitis Aortic regurgitation Bradycardia Depression ([facility]) DJD (degenerative joint disease) DM (diabetes mellitus) ([facility]) GERD (gastroesophageal reflux disease) HLD (hyperlipidemia) ([facility]) Hypothyroidism ([facility]) Osteoarthritis PTSD (post-traumatic stress disorder) ([facility]) Skin cancer Medications: Current Outpatient Medications: glimepiride [...] and positive PT pedal pulses NEURO: 5.07 [place] Ehsan monofilament test positive to digits and forefoot bilaterally 125Hz tuning fork positive to 1st MPJ bilaterally ORTHO: Positive pain on palpation to nails 1 through 10 Minimal pain on palpation left peroneal brevis tendon near insertion to the 5th metatarsal base ASSESSMENT 1. Peroneal tendinitis, left 2. Type 2 diabetes mellitus without complication, unspecified whether terminal makeup operator insulin use ([facility]) 3. Pain due to onychomycosis of toenails [...] or drainage to feet. Patient to consider [id number] treatments for medication or use of urea cream and prescription today was offered for Lac-Hydrin cream. Patient has urea cream and advised her to continue with daily as she has only been using once per week Preston Pompa DPM documented in this encounter [facility] 10-22-2023 History of Present illness Narrative Patient: [...] been taking anti-inflammatories and rates pain a 05/09. Allergies: Allergies Allergen Reactions Lisinopril Cough Tramadol Nausea Only Codeine Rash Sulfa Antibiotics Rash Past Medical History: Past Medical History: Diagnosis Date Allergic rhinitis Aortic regurgitation Bradycardia Depression ([facility]) DJD (degenerative joint disease) DM (diabetes mellitus) ([facility]) GERD (gastroesophageal reflux disease) HLD (hyperlipidemia) ([facility]) Hypothyroidism ([facility]) Osteoarthritis PTSD (post-traumatic stress disorder) ([facility]) Skin cancer Medications: Current Outpatient Medications: glimepiride [...] and positive PT pedal pulses NEURO: 5.07 [place] Ehsan monofilament test positive to digits and forefoot bilaterally 125Hz tuning fork positive to 1st MPJ bilaterally ORTHO: Positive pain on palpation to nails 1 through 10 Minimal pain on palpation left peroneal brevis tendon near insertion to the 5th metatarsal base ASSESSMENT 1. Peroneal tendinitis, left 2. Type 2 diabetes mellitus without complication, unspecified whether group home insulin use ([facility] [facility]) 3. Onychomycosis 4. Toe pain, bilateral PLAN [...] Preston Pompa DPM documented in this encounter [facility] 09-25-2023 Instructions Amy Barger MD - 09/25/2023 [...] on the day documented in this encounter [facility] 09-25-2023 History of Present illness Narrative Images from the original note were not included. [facility] Department of Cardiovascular Medicine SECTION OF CARDIOVASCULAR IMAGING OUTPATIENT VISIT DATE 09/25/2023 OUTPATIENT VISIT TYPE ESTABLISHED PRIMARY CARE PHYSICIAN: Jacky Torres [address] [place] [address] REFERRING PHYSICIAN: Amy Barger [address] [facility] [id number] CHIEF COMPLAINT: Follow up visit. HISTORY OF [...] Age of Onset Heart Attack Mother fatal NC at age 70 Diabetes Mother Diabetes Father Heart Father bypass at age 60s Heart Attack Father NC at age 60s other (Other) Father MVA at age 72 Cancer Sister at age 42 other (Other) Brother infant Cancer Sister breast cancer at age 50 No Known Problems Brother Heart Attack Brother fatal NC at age 64 other (ulcers) Brother bleeding [...] * Final * * * IMPRESSION: Ms. Marie is a 73 year old [...] ICD10: E78.2 5. 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 CONTACT INFORMATION: Amy Barger MD documented in this encounter [facility] 09-25-2023 Note HNO ID: [id number] Author: AMY BARGER MD Service: ? Author Type: Physician Type: Progress Notes Filed: 09/26/2023 17:05 Note Text: [facility] Department of Cardiovascular Medicine SECTION OF CARDIOVASCULAR IMAGING OUTPATIENT VISIT DATE 09/25/2023 OUTPATIENT VISIT TYPE ESTABLISHED PRIMARY CARE PHYSICIAN: Jacky Torres [address] [place] [address] REFERRING PHYSICIAN: Amy Barger [address] [facility] [address] CHIEF COMPLAINT: Follow up visit. HISTORY OF [...] Age of Onset Heart Attack Mother fatal NC at age 70 Diabetes Mother Diabetes Father Heart Father bypass at age 60s Heart Attack Father NC at age 60s other (Other) Father MVA at age 72 Cancer Sister at age 42 other (Other) Brother Cancer Sister breast cancer at age 50 No Known Problems Brother Heart Attack Brother fatal NC at age 64 other (ulcers) Brother bleeding [...] function is normal. (more content not included)... [facility] 08-29-2022 Instructions Amy Barger MD - 08/29/2022 2:29 PM EDT Recommend stopping pioglitazone. documented in this encounter [facility] 08-29-2022 History of Present illness Narrative Images from the original note were not included. [facility] Department of Cardiovascular Medicine SECTION [...] Age of Onset Heart Attack Mother fatal NC at age 70 Diabetes Mother Diabetes Father Heart Father bypass at age 60s Heart Attack Father NC at age 60s other (Other) Father MVA at age 72 Cancer Sister at age 42 other (Other) Brother infant Cancer Sister breast cancer at age 50 No Known Problems Brother Heart Attack Brother fatal NC at age 64 other (ulcers) Brother bleeding [...] coordinated. CARDIOVASCULAR MEDICINE TESTIN. Echocardiogram: 08/24/2020 2. awake overnight monitor: 02/01/2019 to 02/14/[address] coronary angiogram: 11/21/2020 4. Cath angiogram: 01/05/2021 5. Echocardiogram: 09/13/2021 6. Outside echocardiogram: 09/15/2018 7. Outside echocardiogram: 04/29/2004 7. Outside myocardial perfusion study: 09/15/2018 I have personally reviewed the echocardiograms, conveyor monitor, coronary CTA and outside cardiac investigations. [...] Amy Barger MD documented in this encounter [facility] 09-13-2021 History of Present illness Narrative Images from the original note were not included. [facility] Department of Cardiovascular Medicine SECTION [...] Age of Onset Heart Attack Mother fatal NC at age 70 Diabetes Mother Diabetes Father Heart Father bypass at age 60s Heart Attack Father NC at age 60s other (Other) Father MVA at age 72 Cancer Sister at age 42 other (Other) Brother Cancer Sister breast cancer at age 50 No Known Problems Brother Heart Attack Brother fatal NC at age 64 other (ulcers) Brother bleeding [...] coordinated. CARDIOVASCULAR MEDICINE TESTIN. Echocardiogram: 08/24/2020 2. awake overnight monitor: 02/01/2019 to 02/14/[address] coronary angiogram: 11/21/2020 4. Cath angiogram: 01/05/2021 5. Echocardiogram: 09/13/2021 6. Outside echocardiogram: 09/15/2018 7. Outside echocardiogram: 04/29/2004 7. Outside myocardial perfusion study: 09/15/2018 I have personally reviewed the echocardiograms, conveyor monitor, coronary CTA and outside cardiac investigations. [...] has recovered from it. Echocardiography at the [facility] reveals stable mild aortic regurgitation, and normal [...] Amy Barger MD documented in this encounter [facility] 05-19-2018 History of Past i llness Narrative Problem Noted Date Resolved Date Pure hypercholesterolemia, unspecified 9 08/24/2020 documented as of this encounter (statuses as of 09/14/2021) [facility] History of Past illness Narrative* Problem Noted Date Resolved Date Pure hypercholesterolemia, unspecified 9 08/24/2020 documented as of this encounter (statuses as of 03/11/2022) [facility] History of Past illness Narrative* Problem Noted Date Resolved Date Pure hypercholesterolemia, unspecified 9 08/24/2020 documented as of this encounter (statuses as of 08/30/2022) [facility] History of Past illness Narrative* Problem Noted Date Diagnosed Date Resolved Date Pure hypercholesterolemia, unspecified 05/19/2018 08/24/2020 documented as of this encounter (statuses as of 05/11/2023) [facility] Nonrheumatic aortic valve insufficiency- Primary Aortic valve disorders Nonrheumatic mitral valve regurgitation Nonrheumatic tricuspid valve regurgitation Tricuspid valve disorders, specified as nonrheumatic Mixed hyperlipidemia 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 Type 2 diabetes mellitus without complication, without long-term current use of insulin (HCC) [facility] Diagnosis Nonrheumatic aortic valve insufficiency- Primary Aortic valve disorders [facility] Diagnosis Nonrheumatic aortic valve insufficiency- Primary Aortic valve disorders 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 Mixed hyperlipidemia Valvular heart disease Endocarditis, valve unspecified, 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) Type 2 diabetes mellitus without complication, without long-term current use of insulin (HCC) [facility] [place] [facility] Diagnosis Nonrheumatic aortic valve insufficiency- Primary Aortic valve disorders [facility] Diagnosis Nonrheumatic aortic valve insufficiency- Primary Aortic valve disorders Nonrheumatic mitral valve regurgitation Nonrheumatic tricuspid valve regurgitation Tricuspid valve disorders, specified as nonrheumatic Mixed hyperlipidemia 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 [facility] Diagnosis Xerosis cutis- Primary Other specified disease of sebaceous glands Peroneal tendinitis, left Type 2 diabetes mellitus without complication, unspecified whether terminal makeup operator insulin use (CMS/HCC) Pain due to onychomycosis of toenails of both feet documented in this encounter [facility]* Diagnosis Peroneal tendinitis, left- Primary Type 2 diabetes mellitus without complication, unspecified whether group home insulin use (CMS/HCC) Onychomycosis Dermatophytosis of nail Toe pain, bilateral documented in this encounter [facility]* Diagnosis Peroneal tendinitis, left- Primary Type 2 diabetes mellitus without complication, unspecified whether group home insulin use (CMS/HCC) Pain due to onychomycosis of toenails of both feet Xerosis cutis Other specified disease of sebaceous glands documented in this encounter [facility]* Diagnosis Cellulitis of left foot- Primary Type 2 diabetes mellitus without complication, unspecified whether terminal makeup operator insulin use Pain due to onychomycosis of toenails of both feet Xerosis cutis Other specified disease of sebaceous glands Peroneal tendinitis, left Cat bite of ankle, initial encounter documented in this encounter [facility] for referral (narrative)* Outpatient Procedure (Routine) - Authorized Specialty Diagnoses / Procedures Referred By Eduardaac t Referred To Contact [facility] Diagnoses Nonrheumatic aortic valve insufficiency Procedures ECG COMPLETE ECG ROUTINE ECG W/LEAST 12 LDS W/I&R Amy Barger MD [address] [place] [address] [address] Referral ID Status Reason Start Date Expiration Date Visits Requested Visits Authorized [id number] Authorized Auto-Generat ed Referral 03/10/2022 03/10/2023 1 1 [facility] for referral (narrative)* Outpatient Procedure (Routine) - Authorized Specialty Diagnoses / Procedures Referred By Sudha guerin Referred To Contact [facility] Diagnoses Nonrheumatic aortic valve insufficiency Procedures ECG COMPLETE ECG ROUTINE ECG W/LEAST 12 LDS W/I&R Amy Barger MD [address] [place] [address] [address] Referral ID Status Reason Start Date Expiration Date Visits Requested Visits Authorized [id number] Authorized Auto-Generat ed Referral 05/11/2023 05/10/2024 1 1 * Outpatient Procedure (Routine) - Pending Review Specialty Diagnoses / Procedures Referred By Contac t Referred To Contact [facility] Diagnoses Nonrheumatic aortic valve insufficiency Procedures ECHO ECHO TTHRC R-T 2D W/WOM-MODE COMPL SPEC&COLR D Amy Barger MD [address] [place] [address] [facility] [address] [address] Referral ID Status Reason Start Date Expiration Date Visits Requested Visits Authorized [id number] Pending Review Auto-Generat ed Referral 05/11/2023 05/10/2024 1 1 [facility] for referral (narrative)* Outpatient Procedure (Routine) - New Request Specialty Diagnoses / Procedures Referred By Contac t Referred To Contact [facility] Diagnoses Nonrheumatic aortic valve insufficiency Procedures ECHO ECHO TTHRC R-T 2D W/WOM-MODE COMPL [place] [address] [place] [address] [address] Referral ID Status Reason Start Date Expiration Date Visits Requested Visits Authorized [id number] New Request Auto-Generat ed Referral 09/25/2023 09/24/2024 1 1 * Outpatient Procedure (Routine) - New Request Specialty Diagnoses / Procedures Referred By Contac t Referred To Contact [facility] Diagnoses Nonrheumatic aortic valve insufficiency Procedures ECG COMPLETE ECG ROUTINE ECG W/LEAST 12 LDS W/I&R Amy Barger MD [address] [place] [address] [address] Referral ID Status Reason Start Date Expiration Date Visits Requested Visits Authorized [id number] New Request Auto-Generat ed Referral 09/25/2023 09/24/2024 1 1 * Transition of Care (Routine) - Ref Not Required Specialty Diagnoses / Procedures Referred By Sudha guerin Referred To Contact [facility] Procedures CARDIOVASCULAR MEDICINE OP FO[place] [address] [place] [id number] [place] [address] Referral ID Status Reason Start Date Expiration Date Visits Requested Visits Authorized [id number] Ref Not Required PCP Requested Referral 06/26/2024 09/24/2024 1 1 [facility] Advance Directives No Advanced Directives Records FoundDocuments on File Type Date Recorded 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 Advance Directive(s) 12/14/2020 3:08 PM [...] or prosecute any alcohol or drug abuse patient.[facility] the event this information is protected by the Federal Confidentiality of Alcohol and Drug Abuse Patient Records regulations: The Federal rules restrict any use of the information to criminally investigate or prosecute any alcohol or drug abuse patient.[facility] the event this information is protected by the Federal Confidentiality of Alcohol and Drug Abuse Patient Records regulations: The Federal rules restrict any use of the information to criminally investigate or prosecute any alcohol or drug abuse patient.[facility] the event this information is protected by the Federal Confidentiality of Alcohol and Drug Abuse Patient Records regulations: The Federal rules restrict any use of the information to criminally investigate or prosecute any alcohol or drug abuse patient.[facility] the event this information is protected by the Federal Confidentiality of Alcohol and Drug Abuse Patient Records regulations: The Federal rules restrict any use of the information to criminally investigate or prosecute any alcohol or drug abuse patient.[facility] Reason for Visit (unrecogniz ed section and content) Reason Comments Follow Up Reason Comments Coronary Artery Disease Valvular Heart Disease Reason Comments DM Foot Care Dm Nails Reason Comments DM Foot Care Dm nail care Care Teams (unrecognized sec tion and content) Liability Claims Adjuster Relationship Specialty Start Date End Date Jacky Torres MD [address] [place] [address] PCP - General Family Practice 01/21/19 Amy Barger MD [address] [place] [address] Primary Staff Physician Cardiology 08/24/20 Liability Claims Adjuster Relationship Specialty Start Date End Date Jacky Torres MD [address] [place] [address] PCP - General Family Medicine 01/21/19 Amy Barger MD [address] [place] [address] Primary Staff Physician Cardiology 08/24/20 Liability Claims Adjuster Relationship Specialty Start Date End Date Jacky Torres MD PCP - General Family Medicine 01/21/19 Amy Barger MD [address] [place] [address] Primary Staff Physician Cardiology 08/24/20 Liability Claims Adjuster Relationship Specialty Start Date End Date Jacky Torres MD PCP - General Family Medicine 01/21/19 Amy Barger MD [address] [place] [address] Primary Staff Physician Cardiology 08/24/20 Liability Claims Adjuster Relationship Specialty Start Date End Date Jacky Torres MD PCP - General Family Medicine 01/21/19 Amy Barger MD [address] [place] [address] Primary Staff Physician Cardiology 08/24/20 Liability Claims Adjuster Relationship Specialty Start Date End Date Jacky Torres MD [address] [place] [address] PCP - General Family Medicine 02/12/23 Liability Claims Adjuster Relationship Specialty Start Date End Date Jacky Torres MD [address] [place] [address] PCP - General Family Medicine 02/12/23 Liability Claims Adjuster Relationship Specialty Start Date End Date Jacky Torres MD [address] [facility] [place] [address] PCP - General Family Medicine 02/12/23 Liability Claims Adjuster Relationship Specialty Start Date End Date Jacky Torres MD [address] [facility] [place] [address] PCP - General [facility] 02/12/23 Liability Claims Adjuster Relationship Specialty Start Date End Date Jacky Torres MD [address] [facility] [place] [address] PCP - General Family [facility] 02/12/23 INFORMATION SOURCE (unrecogn ized section and content) DATE CREATED AUTHOR 04/03/2022 [facility] DATE CREATED AUTHOR AUTHOR'S ORGANIZ ATION 10/17/2023 [facility] DATE CREATED AUTHOR AUTHOR'S ORGANIZ ATION 07/15/2024 [facility] EPIC FOR RECORDS PERTAINING TO PATIENTS WHO ARE [...] BE BASED ON THE PRIMARY CLINICAL RECORDS. [facility]. provides no warranty or guarantee of the accuracy or completeness of information in this document.
[2024-08-29 11:32] LABS: Basophils Percent Auto 0.8 % (0.2-2.0); Eosinophils Absolute Auto 0.1 10^3/uL (0.0-0.7); Hemoglobin 12.4 g/dL (12.0-16.0); Immature Granulocytes Abs Auto 0.01 10^3/uL (0.00-0.03); Immature Granulocytes Pct Auto 0.3 % (0.0-0.5); Lymphocytes Absolute Auto 1.3 10^3/uL (1.2-3.8); Lymphocytes Percent Auto 33.8 % (20.5-60.0); Mean Corpuscular HGB Conc 31.8 g/dL (29.9-35.2); Mean Corpuscular Hemoglobin 29.2 pg (26.7-34.0); Mean Platelet Volume 10.1 fL (9.5-13.5); Monocytes Absolute Auto 0.3 10^3/uL (0.3-0.8); Monocytes Percent Auto 8.6 % (1.7-12.0); Neutrophils Absolute Auto 2.1 10^3/uL (1.4-6.5); Neutrophils Percent Auto 53.5 % (43.0-75.0); Platelet Count 211 10^3/uL (150-450); Red Blood Count 4.24 10^6/uL (4.20-5.40); Red Cell Distribution Width 14.1 % (11.0-15.0)
[2024-08-29 11:42] LABS: Estimated Average Glucose 146 mg/dL; Glycohemoglobin A1C 6.7 % (4.5-6.2)
[2024-08-29 12:13] LABS: Alanine Aminotransferase 21 U/L (14-59); Albumin Globulin Ratio 1.1; Albumin Level 3.6 g/dL (3.4-5.0); Alkaline Phosphatase 89 U/L (46-116); Anion Gap 12.3; Aspartate Amino Transferase 15 U/L (15-37); BUN Creatinine Ratio 21.8; Bilirubin Total 1.5 mg/dL (0.2-1.0); Calcium 10.1 mg/dL (8.5-10.1); Carbon Dioxide 27.9 mmol/L (21.0-32.0); Chloride 106 mmol/L (98-107); Chol HDL Ratio 2.6; Cholesterol 116 mg/dL (<=200); Estimated GFR (African America >60 (>=60 mL/min/1.73m^2); Estimated GFR (Non-African Ame >60 (>=60 mL/min/1.73m^2); Free T3 2.71 pg/mL (2.18-3.98); Globulin 3.3 g/dL; Glucose 129 mg/dL (74-106); HDL Cholesterol 45 mg/dL (40-60); Potassium 4.2 mmol/L (3.5-5.1); Sodium 142 mmol/L (136-145); Thyroid Stimulating Hormone 0.343 uIU/mL (0.358-3.740); Total Protein 6.9 g/dL (6.4-8.2); Triglycerides 135 mg/dL (<=150)
[2024-08-29 13:32] LABS: Bilirubin Urine NEGATIVE (NEGATIVE); Blood Urine TRACE-I (NEGATIVE); Clarity Urine CLEAR (CLEAR); Color Urine YELLOW (YELLOW); Glucose Urine UA NEGATIVE (NEGATIVE); Ketones Urine NEGATIVE (NEGATIVE); Leukocyte Esterase Urine SMALL (NEGATIVE); Nitrite Urine NEGATIVE (NEGATIVE); Protein Urine 30 mg/dL (NEG/TRACE); Specific Gravity Urine 1.025 (1.005-1.025); Urobilinogen Urine 0.2 EU/dL (0.2-1.0)
[2024-08-29 14:07] LABS: Bacteria Urine SMALL #/HPF (NONE SEEN); Crystals Seen? None Seen #/HPF (None Seen); Mucus Urine SMALL (NONE SEEN); Squamous Epithelial Cell Urine FEW #/LPF (NONE/RARE)
[2024-08-29 14:08] LABS: Cast Seen? SEEN #/LPF (NONE SEEN); Hyaline Casts Urine RARE
== END 2024-08-29 10:01 | disposition home or self-care (01) ==
LOC: MAMMO 10:12
PROVIDERS: PCP Family Medicine; Visit Provider Family Medicine
DX: Z12.31 Encounter for screening mammogram for malignant neoplasm of breast (principal); E78.5 Hyperlipidemia, unspecified; E03.9 Hypothyroidism, unspecified; I25.10 Atherosclerotic heart disease of native coronary artery without angina pectoris; E11.65 Type 2 diabetes mellitus with hyperglycemia; D64.9 Anemia, unspecified; E55.9 Vitamin D deficiency, unspecified; I10 Essential (primary) hypertension; R53.83 Other fatigue; N39.41 Urge incontinence; Z80.3 Family history of malignant neoplasm of breast
CPT/HCPCS: 36415; 77063; 77067; 80053; 80061; 81001; 82306; 83036; 83540; 84436; 84443; 84481; 85025; 87086

== ENCOUNTER 2024-09-16 07:53 | Emergency (ER) | payer MEDICARE, SELFPAY ==
[2024-09-16 08:01] VITALS: BP 175/57; PULSE 58; TEMP 36.5; O2SAT 98; BMI 33.4
--- OUTSIDE RECORDS SUMMARY | 2024-09-16 08:02 | XMS_ITS | CCD ---
Author Organization [facility] CliniSytn Care Team Providers Care Cloth Bale Header Name Role Phone Jacky Torres MD Primary Care Provider [phone] Darrel RAUSCH, Amy Unavailable LESVIA, DR RICO Admitting Unavailable HOY, DR RICO Attending Unavailable HOY, DR RICO Primary Care Unavailable HOY, DR RICO Primary Care Unavailable HOY, DR RCIO Admitting Unavailable HOY, DR RICO Attending Unavailable HOY, DR RICO Admitting Unavailable HOY, DR RICO Attending Unavailable HOY, DR RICO Consulting Unavailable HOY, DR RICO Primary Care Unavailable BEESON, DR KWABENA Rutledge Consulting Unavailable HOY, DR [...] DR RICO Primary Care Unavailable HOY, DR IRCO Consulting Unavailable HOY, DR RICO Admitting Unavailable HOY, DR RICO Attending Unavailable Jacky Torres MD Primary Care Provider Darrel RAUSCH, Amy Unavailable Darrel RAUSCH, Amy Unavailable Jacky Torres MD Primary Care Provider Jacky Torres MD Primary Care Provider Jacky Torres MD Primary Care Provider PRESTON POMPA Attending Unavailable PRESTON POMPA Attending Unavailable PRESTON POMPA Attending Unavailable PRESTON POMPA Attending Unavailable PRESTON POMPA Attending Unavailable Jacky Torres MD Primary Care Provider [phone] Jacky Torres MD Attending Provider Jacky Torres Attending Unavailable Hoy, Jacky M Primary Care Unavailable Hoy, Jacky M Admitting Unavailable BARGER, AMY Attending Unavailable HOY, JACKY M Primary Care Unavailable SELF Referring Unavailable BARGER, AMY Referring Unavailable HOY, JACKY M Primary Care Unavailable HOY, JACKY M Primary Care Unavailable BARGER, AMY Referring Unavailable HOY, JACKY M Primary Care Unavailable BARGER, AMY Attending Unavailable BARGER, AMY Referring Unavailable HOY, JACKY M Primary Care Unavailable BARGER, AMY Referring Unavailable HOY, JACKY M Primary Care Unavailable BARGER, AMY Referring Unavailable HOY, JACKY M Primary Care Unavailable BARGER, AMY Referring Unavailable HOY, JACKY M Primary Care Unavailable Allergies Allergy Classification Reported Allergen(s) Allergy Type Date of Onset Reaction(s) Facility (19 sources) Codeine; Translations: [CODEINE] Drug Allergy 9 Other: See Comments, Rash [facility] (19 sources) Sulfonamides (Antibiotic); Translations: [SULFA (SULFONAMIDE ANTIBIOTICS)] Drug Allergy 8 Shortness of Breath, [facility] (19 sources) traMADol; Translations: [TRAMADOL] Drug Allergy 1 GI Upset, Nausea Only [facility] (8 sources) Tuberculin Ppd Geneva Test; Translations: [Tuberculin PPD Geneva Test] Drug Allergy 2 [facility] (1 source) Codeine Drug Allergy [facility] (1 source) Glutathione Drug Allergy [facility] (1 source) traMADol Drug Allergy [facility] (13 sources) Lisinopril; Translations: [LISINOPRIL] Allergy to substance 3 Cough [facility] (1 source) Lisinopril Drug Allergy 3 [facility] Medications Current Medications Medication Drug Class(es) Dates Sig (Normalized) Sig (Original) amoxicillin 875 mg / clavulanate 125 mg oral tablet (2 sources) Penicillin-class Antibacterial Start: 07-14-2024 End: 07-24-2024 take 1 tablet by mouth in the morning amoxicillin-clavu lanate (Augmentin) 875-125 MG tablet Indications: Cat bite of ankle, initial encounter Take 1 tablet (875 mg) by mouth in the morning and 1 tablet (875 mg) before bedtime. Do all this for 10 days. 20 tablet 07/14/2024 07/24/2024 Active aspirin 81 mg delayed release oral tablet (6 sources) Platelet Aggregation Inhibitor, Nonsteroidal Anti-inflammatory Drug take 1 tablet by mouth every twenty-four hours aspirin, enteric coated (ASPIRIN, ENTERIC COATED) 81 mg EC tablet Take 81 mg by mouth q 24 HR. Active Comment on above: Take 81 mg by mouth q 24 HR. ezetimibe 10 mg oral tablet (1 source) Dietary Cholesterol Absorption Inhibitor Start: 09-09-2024 End: 12-08-2024 take 1 tablet by mouth once daily ezetimibe (ZETIA) 10 mg tablet Take 1 tablet by mouth once daily. 90 tablet 3 09/09/2024 12/08/2024 Active glimepiride 4 mg oral tablet (18 sources) Sulfonylurea take 1 tablet by mouth once daily glimepiride (AMARYL) 4 mg tablet Take 4 mg by mouth once daily. Active take 1 tablet by mouth twice alma ly glimepiride (AMARYL) 4 mg tablet Take 4 mg by mouth twice daily. 0 Active Comment on above: Take 4 mg by mouth t wice daily. Take 4 mg by mouth o nce daily. levothyroxine sodium 0.1 mg oral tablet (18 sources) l-Thyroxine take 1 tablet by mouth every twenty-four hours levothyroxine (SYNTHROID) 100 mcg tablet Take 100 mcg by mouth q 24 HR. Active levothyroxine (S ynthroid, Levoxyl) 100 MCG tablet 1 (one) time each day at the same time Active Comment on above: Take 100 mcg by mout h q 24 HR. metFORMIN hydrochloride 1000 mg oral tablet (18 sources) Biguanide take 1 tablet by mouth twice daily metFORMIN (GLUCOPHAGE) 1,000 mg tablet Take 1,000 mg by mouth twice daily. Active metFORMIN (Gluco phage) 1000 MG tablet every 12 (twelve) hours Active Comment on above: Take 1,000 mg by josue th twice daily. mirtazapine 30 mg oral tablet (2 sources) Start: 07-15-2023 take 1 tablet by mouth once daily at bedtime mirtazapine (REMERON) 30 mg tablet Take 30 mg by mouth daily at bedtime. 07/15/2023 Active perflutren lipid microspheres 1.3 mL in NaCl (PF) 0.9% 10 mL injection (DEFINITY) (3 sources) Start: 01-04-2021 End: 04-05-2022 perflutren lipid microspheres 1.3 mL in NaCl (PF) 0.9% 10 mL injection (DEFINITY) Start: 11-21-2020 End: 02-20-2022 perflutren lipid microsphere s 1.3 mL in NaCl (PF) 0.9% 10 mL injection (DEFINITY) pioglitazone 30 mg oral tablet (17 sources) Peroxisome Proliferator Receptor alpha Agonist, Peroxisome Proliferator Receptor gamma Agonist, Thiazolidinedione Start: 06-13-2024 take 1 tablet by mouth once daily pioglitazone (ACTOS) 30 mg tablet Take 30 mg by mouth once daily. 06/13/2024 Active Start: 06-28-2022 End: 09-08-2024 pioglitazone (ACTOS) 15 mg t ablet twice daily. 06/28/2022 09/08/2024 Discontinued (Dosage adjustment) Comment on above: twice daily. rosuvastatin calcium 40 mg oral tablet (18 sources) HMG-CoA Reductase Inhibitor Start: 9 take 1 tablet by mouth once daily rosuvastatin (CRESTOR) 40 mg tablet Take 40 mg by mouth once daily. 12/07/2018 Active Comment on above: Take 40 mg by mouth once daily. sertraline 25 mg oral tablet (18 sources) Serotonin Reuptake Inhibitor Start: 9 take 1 tablet by mouth once daily sertraline (ZOLOFT) 25 mg tablet Take 25 mg by mouth once daily. 12/07/2018 Active Comment on above: Take 25 mg by mouth once daily. 125 ml sodium chloride 9 mg/ml prefilled syringe (3 sources) Start: 1 End: 3 sodium chloride 0.9 % (flush) 10 mL (BD POSIFLUSH) Completed/Discontinued Medications Medication Drug Class(es) Dates Sig (Normalized) Sig (Original) acetaminophen 325 mg / HYDROcodone bitartrate 5 mg oral tablet (2 sources) Opioid Agonist Start: 08-13-2023 End: 09-08-2024 take 1 tablet by mouth every six hours as needed for pain HYDROcodone-acetam inophen (NORCO) 5-325 mg per tablet take 1 tablet by mouth every 6 hours as needed for pain for 3 days 08/13/2023 09/08/2024 Discontinued (Course of therapy completed) diclofenac sodium 75 mg delayed release oral tablet (3 sources) Nonsteroidal Anti-inflammatory Drug End: 09-25-2023 take 1 tablet by mouth once daily diclofenac, EC, (VOLTAREN) 75 mg EC tablet Take 75 mg by mouth once daily. 0 09/25/2023 Discontinued Comment on above: Take 75 mg by mouth once daily. empagliflozin 10 mg oral tablet (14 sources) Sodium-Glucose Cotransporter 2 Inhibitor Start: 11-17-2022 End: 09-08-2024 JARDIANCE 10 mg tablet 11/17/2022 09/08/2024 Discontinued (Discontinued by Patient) Start: 11-17-2022 Jardiance 10 M G 11/17/2022 Active ergocalciferol 1.25 mg oral capsule (1 source) [...] End: 08-29-2022 losartan (COZAAR) 25 mg tablet methocarbamol 750 mg oral tablet (2 sources) Muscle Relaxant Start: 08-13-2023 End: 09-08-2024 take 1 tablet by mouth every eight hours as needed methocarbamol (ROBAXIN) 750 mg tablet Take 750 mg by mouth three times a day as needed. 08/13/2023 09/08/2024 Discontinued (Discontinued by Patient) tiZANidine 4 mg oral tablet (4 sources) Central alpha-2 Adrenergic Agonist End: 09-08-2024 tiZANidine (ZANAFLEX) 4 mg tablet Take 4 mg by mouth as needed. 09/08/2024 Discontinued (Discontinued by Patient) Comment on above: Take 4 mg by mouth a s needed. Problems Active Problems Problem Classification Problem Date Documented Da te Episodic/Chronic Coronary atherosclerosis and other heart disease (12 sources) Coronary atherosclerosis; Translations: [Atherosclerotic heart disease of [place] coronary artery without angina pectoris] Onset: 01-05-2021 [...] Onset: 03-28-2022 Episodic Disorders of lipid metabolism (14 sources) Mixed hyperlipidemia; Translations: [Mixed hyperlipidemia] Onset: [...] osteoarthritis, right shoulder] Onset: 09-10-2021 Chronic Other aftercare (2 sources) Patient encounter status; Translations: [Other fdc (current) drug therapy] Onset: 09-08-2024 09-08-2024 Episodic Other aftercare (1 source) Other fdc (current) drug therapy; Translations: [Encounter for medication review] Onset: 09-08-2024 Episodic Other connective tissue disease (8 sources) Peroneal tendinitis of left lower limb; Translations: [Peroneal tendinitis, left leg] 01-14-2024 Episodic Other nutritional; endocrine; and metabolic disorders (6 sources) Obese class I; Translations: [Obesity, unspecified] [...] caused by tuberculosis or sexually transmitted disease) (7 sources) Heart valve disorder; Translations: [Endocarditis, valve [...] BRONCHITIS UNSPECIFIED] Onset: 05-16-2021 Episodic Cardiac dysrhythmias (6 sources) Palpitations; Translations: [Palpitations] Onset: 01-21-2019 01-21-2019 Episodic Nonspecific chest pain (6 sources) Chest pain; Translations: [Other chest pain] [...] Reference Range Facility CBC panel Auto (Bld)on 09-08 Erythrocyte distribution width (RBC) [Ratio] 14.1 % Normal 11.5-15.0 [facility] Comment on above: Order Comment: Speci nahum Type: BLOOD SPECIMEN Ordering Facility: [facility] Address: [address] [place] [address] Performed By: #### 5 8410-2 #### [facility] CLIA [id number] [address] [place] [address] [place] Hematocrit (Bld) [Volume fraction] 38.5 % Normal 36.0-46.0 [facility] Comment on above: Order Comment: Shreyasi nahum Type: BLOOD SPECIMEN Ordering Facility: [facility] Address: [address] [place] [address] Performed By: #### 5 8410-2 #### [facility] CLIA [id number] [address] [place] [address] [place] Hemoglobin (Bld) [Mass/Vol] 12.1 g/dL Normal 11.5-15.5 [facility] Comment on above: Order Comment: Speci nahum Type: BLOOD SPECIMEN Ordering Facility: [facility] Address: [address] [place] [address] Performed By: #### 5 8410-2 #### [facility] CLIA [id number] [address] [place] [address] [place] MCH (RBC) [Entitic mass] 28.9 pg Normal 26.0-34.0 [facility] Comment on above: Order Comment: Speci men Type: BLOOD SPECIMEN Ordering Facility: [facility] Address: [address] [place] [address] Performed By: #### 5 8410-2 #### [facility] CLIA [id number] [address] [place] [address] [place] MCHC (RBC) [Mass/Vol] 31.4 g/dL Normal 30.5-36.0 [facility] Comment on above: Order Comment: Speci men Type: BLOOD SPECIMEN Ordering Facility: [facility] Address: [address] [place] [address] Performed By: #### 5 8410-2 #### [facility] CLIA [id number] [address] [place] [address] [place] MCV (RBC) [Entitic vol] 91.9 fL Normal 80.0-100.0 [facility] Comment on above: Order Comment: Speci men Type: BLOOD SPECIMEN Ordering Facility: [facility] Address: [address] [place] [address] Performed By: #### 5 8410-2 #### [facility] CLIA [id number] [address] [place] [address] [place] Nucleated RBC (Bld) [#/Vol] 10*3/uL Normal <0.01 [facility] Comment on above: Order Comment: Speci men Type: BLOOD SPECIMEN Ordering Facility: [facility] Address: [address] [place] [address] Performed By: #### 5 8410-2 #### [facility] CLIA [id number] [address] [place] [address] [place] Platelet mean volume (Bld) [Entitic vol] 10.0 fL Normal 9.0-12.7 [facility] Comment on above: Order Comment: Speci men Type: BLOOD SPECIMEN Ordering Facility: [facility] Address: [address] [place] [address] Performed By: #### 5 8410-2 #### [facility] CLIA [id number] [address] [place] [address] [place] Platelets (Bld) [#/Vol] 199 10*3/uL Normal 150-400 [facility] Comment on above: Order Comment: Speci men Type: BLOOD SPECIMEN Ordering Facility: [facility] Address: [address] [place] [address] Performed By: #### 5 8410-2 #### [facility] CLIA [id number] [address] [place] [address] [place] RBC (Bld) [#/Vol] 4.19 10*6/uL Normal 3.90-5.20 [facility] Comment on above: Order Comment: Speci men Type: BLOOD SPECIMEN Ordering Facility: [facility] Address: [address] [place] [address] Performed By: #### 5 8410-2 #### [facility] CLIA [id number] [address] [place] [address] [place] WBC (Bld) [#/Vol] 4.35 10*3/uL Normal 3.70-11.00 [facility] Comment on above: Order Comment: Speci men Type: BLOOD SPECIMEN Ordering Facility: [facility] Address: [address] [place] [address] Performed By: #### 5 8410-2 #### [facility] CLIA [id number] [address] [place] [address] [place] CNOVon 09-08-2024 CNOV Office Visit (HALIEIMN ) LIANA MARIE ([id number]) 1950 F Date Time Provider Department 09/08/24 1:00 PM AMY BARGER During your visit today, we recorded the following information about you: Pulse Respiration Blood pressure Weight 58/minute 12/minute 126/58 93.9 kg Height 1.676 m Amy Barger MD 09/09/2024 8:32 AM Signed [facility] Department of Cardiovascular Medicine SECTION OF CARDIOVASCULAR IMAGING OUTPATIENT VISIT DATE 09/08/2024 OUTPATIENT VISIT TYPE ESTABLISHED PRIMARY CARE PHYSICIAN: Jacky Torres [address] [place] [address] REFERRING PHYSICIAN: Amy Barger [address] [facility] [address] CHIEF COMPLAINT: Follow up HISTORY OF PRESENT ILLNESS: Ms. Marie is a 74 year old female who presents today for follow-up visit. Since last review, she has not had any hospital visits. She experiences occasional palpitations, occurring approximately once a month during physical activity. She denies any significant dyspnea. She discontinued Jardiance due to urinary incontinence, which led to bedwetting. She is currently taking Actos 30 mg once daily at night and metformin twice daily. She denies any side effects from metformin. 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 She receives assistance from a nurse aide three times a week. PAST CARDIAC HISTORY: CAD: mild proximal LAD [...] Smokeless tobacco: Never Vaping Use Vaping status: Never Used Substance Use Topics Alcohol use: Never Drug use: Never FAMILY HISTORY Problem Relation Age of Onset Heart Attack Mother fatal [place] at age 70 Diabetes Mother Diabetes Father Heart Father bypass at age 60s Heart Attack Father [place] at age 60s other (Other) Father MVA at age 72 Cancer Sister at age 42 other (Other) Brother infant Cancer Sister breast cancer at age 50 No Known Problems Brother Heart Attack Brother fatal [place] at age 64 other (ulcers) Brother bleeding ulcers other (hepatitis) Brother at age 50 other (liver) Brother Heart Paternal cousin heart failure unsure? ALLERGIES: ALLERGIES Allergen Reactions Sulfa (Sulfonamide * Shortness of Breath Tuberculin Ppd Geneva* Rash Codeine Other: See Comments Chest pain Lisinopril Cough Ultram [Tramadol] GI Upset MEDICATIONS: pioglitazone (ACTOS) 30 mg tablet Take 30 mg by mouth once daily. mirtazapine (REMERON) 30 mg tablet Take 30 mg by mouth daily at bedtime. ACCU-CHEK BEREKET PLUS TEST STRP test strip [...] Take 1,000 mg by mouth twice daily. No data to display PHYSICAL EXAMINATION: BP 126/58 Pulse (!) 58 Resp 12 Ht 167.6 cm (5' 6 ) Wt 93.9 kg (207 lb) SpO2 98% BMI 33.41 kg/m? General: Well appearing, in no acute distress. Skin: No clubbing, no cyanosis. Eyes: Extra ocular movements intact Oropharynx: Teeth in good repair. Neck: No jugular venous distention, no carotid bruits, carotids have a normal upstroke. Lungs: Clear to auscultation bilaterally. Heart: Regular rhythm, PMI not displaced, S1, S2 normal, no murmur. Abdomen: Soft, nontender, bowel sounds normal, no palpable organomegaly, no bruits. Extremities: No peripheral edema. Neuro: Oriented to person, place and time, alert, cooperative, gait coordinated. CARDIOVASCULAR MEDICINE TESTING: Electrocardiogram: 09/08/2024 Laboratory Testing: Recent Labs 09/08/24 1130 WBC 4.35 HB 12.1 HCT 38.5 PLT 199 Recent Labs 09/08/24 1130 WBC 4.35 HB 12.1 HCT 38.5 PLT 199 Recent Labs 09/08/24 1130 NA 140 K 4.2 CHLOR 106 CO2 23 BUN 21 CREAT 0.98* GLUC 115* ALKPHOS 81 TBILI 1.6* ALT 14 AST 18 ANION 11 Cholesterol, Total 114 09/08/2024 Cholesterol, Total 147 09/25/2023 (more content not included)... Normal [facility] Comprehensive metabolic 2000 panelon 09-08-2024 Albumin [Mass/Vol] 4.4 g/dL Normal 3.9-4.9 [facility] Comment on above: Order Comment: Speci men Type: BLOOD SPECIMEN Ordering Facility: [facility] Address: [address] [place] [address] Performed By: #### 2 4323-8, 40414-7 #### [facility] CLIA [id number] [address] [place] [address] [place] ALP [Catalytic activity/Vol] 81 U/L Normal 34-123 [facility] Comment on above: Order Comment: Speci men Type: BLOOD SPECIMEN Ordering Facility: [facility] Address: [address] [place] [address] Performed By: #### 2 4323-8, 57124-0 #### [facility] CLIA [id number] [address] [place] [address] [place] ALT [Catalytic activity/Vol] 14 U/L Normal 7-38 [facility] Comment on above: Order Comment: Speci men Type: BLOOD SPECIMEN Ordering Facility: [facility] Address: [address] [place] [address] Performed By: #### 2 4323-8, 82522-9 #### [facility] CLIA [id number] [address] [place] [address] [place] Anion gap [Moles/Vol] 11 mmol/L Normal 8-15 [facility] Comment on above: Order Comment: Speci men Type: BLOOD SPECIMEN Ordering Facility: [facility] Address: [address] [place] [address] Performed By: #### 2 4323-8, 45496-1 #### [facility] CLIA [id number] [address] [place] [address] [place] AST [Catalytic activity/Vol] 18 U/L Normal 13-35 [facility] Comment on above: Order Comment: Speci men Type: BLOOD SPECIMEN Ordering Facility: [facility] Address: [address] [place] [address] Performed By: #### 2 4323-8, 34204-0 #### [facility] CLIA [id number] [address] [place] [address] [place] Bilirubin [Mass/Vol] 1.6 mg/dL High 0.2-1.3 [facility] Comment on above: Order Comment: Speci men Type: BLOOD SPECIMEN Ordering Facility: [facility] Address: [address] [place] [address] Performed By: #### 2 4323-8, 16987-1 #### [facility] CLIA [id number] [address] [place] [address] [place] Calcium [Mass/Vol] 10.4 mg/dL High 8.5-10.2 [facility] Comment on above: Order Comment: Speci men Type: BLOOD SPECIMEN Ordering Facility: [facility] Address: [address] [place] [address] Performed By: #### 2 4323-8, 54225-8 #### [facility] CLIA [id number] [address] [place] [address] [place] Chloride [Moles/Vol] 106 mmol/L Normal 98-107 [facility] Comment on above: Order Comment: Speci men Type: BLOOD SPECIMEN Ordering Facility: [facility] Address: [address] [place] [address] Performed By: #### 2 4323-8, 39966-9 #### [facility] CLIA [id number] [address] [place] [address] [place] CO2 [Moles/Vol] 23 mmol/L Normal 22-30 [facility] Comment on above: Order Comment: Speci men Type: BLOOD SPECIMEN Ordering Facility: [facility] Address: [address] [place] [address] Performed By: #### 2 4323-8, 43684-0 #### [facility] IA [id number] [address] [place] [address] [place] Creatinine [Mass/Vol] 0.98 mg/dL High 0.58-0.96 [facility] Comment on above: Order Comment: Colten sidhu Type: BLOOD SPECIMEN Ordering Facility: [facility] Address: [address] [place] [address] Performed By: #### 2 4323-8, 75328-6 #### [facility] IA [id number] [address] [place] [address] [place] Creatinine and Glomerular filtration rate.predicted panel (S/P/Bld) 61 mL/min/1.73m??? Normal >=60 [facility] Comment on above: Order Comment: Colten sidhu Type: BLOOD SPECIMEN Ordering Facility: [facility] Address: [address] [place] [address] Result Comment: Maria R mated Glomerular Filtration [...] actual GFR. Performed By: #### 2 4323-8, 19385-3 #### [facility] CLIA [id number] [address] [place] [address] [place] Glucose [Mass/Vol] 115 mg/dL High 74-99 [facility] Comment on above: Order Comment: Colten sidhu Type: BLOOD SPECIMEN Ordering Facility: [facility] Address: [address] [place] [address] Result Comment: The [place] Diabetes Association (ADA) provides guidance for cutoff [...] Standards of Medical Care in Diabetes 2016, [place] [employer] Association. Diabetes Care. 2016.39(Suppl 1). Performed By: #### 2 4323-8, 22559-8 #### [facility] CLIA [id number] [address] [place] [address] [place] Potassium [Moles/Vol] 4.2 mmol/L Normal 3.7-5.1 [facility] Comment on above: Order Comment: Shreyasi men Type: BLOOD SPECIMEN Ordering Facility: [facility] Address: [address] [place] [address] Performed By: #### 2 4323-8, #### [facility] CLIA [id number] [address] [place] [address] [place] Protein [Mass/Vol] 6.8 g/dL Normal 6.3-8.0 [facility] Comment on above: Order Comment: Colten sidhu Type: BLOOD SPECIMEN Ordering Facility: [facility] Address: [address] [place], [place] [address] Performed By: #### 2 4323-8, #### [facility] CLIA [id number] [address] [place], [place] [id number] [place] Sodium [Moles/Vol] 140 mmol/L Normal 136-144 [facility] Comment on above: Order Comment: Shreyasi men Type: BLOOD SPECIMEN Ordering Facility: [facility] Address: [address] [place] [id number] Performed By: #### 2 4323-8, 35004-8 #### [facility] CLIA [id number] [address] [place] [address] [place] Urea nitrogen [Mass/Vol] 21 mg/dL Normal 7-21 [facility] Comment on above: Order Comment: Speci men Type: BLOOD SPECIMEN Ordering Facility: [facility] Address: [address] [place] [address] Performed By: #### 2 4323-8, 43761-0 #### [facility] CLIA [id number] [address] [place] [address] [place] ECHOon 09-08-2024 Echocardiography Echocardiography Report: Transthoracic Echo [facility] A17 Date of service: 09/08/2024 10:22:54 AM [employer] Ordering physician: AMY BARGER Exam indication: Routine surveillance of mild valvular regurgitation (>3yrs) Technologist: Ghislaine Rincon Interpreting physician: Quiana Trujillo MD PATIENT: Name: LIANA MARIE : 1950 Age: 74 years Gender: F History of coronary artery disease, dyslipidemia and diabetes mellitus. Primary rhythm: sinus. Height: 167.60 cm BSA: 2.05 m Weight: 90.27 kg BMI: 32.1 kg/m Heart rate 50 bpm Blood pressure 191/51 mmHg Color Doppler was utilized to interrogate the cardiac valves assessed and spectral Doppler was utilized to determine the flow velocities and pressure gradients reported in this exam. MEASUREMENTS: Value Indexed Normal Max aortic dimension 3.6 cm Ao < 3.8 Left atrial volume 65 ml (Bradley's) 32 ml/m Angelo <= 34 LV ID (diastole) 4.6 cm (2D) 2.25 cm/m LV ID (systole) 3.2 cm (2D) 1.57 cm/m IVS, leaflet tips 1.2 cm (2D) Posterior wall thickness 1.1 cm (2D) Left ventricular mass 193 g (2D) 94 g/m LV stroke volume 59 ml (2D biplane) LV cardiac output 3.1 l/min (2D biplane) LV end diastolic volume 98 ml (2D biplane) 48.9 ml/m 29<=EDVi<62 LV end systolic volume 37 ml (2D biplane) 18.7 ml/m Ejection Fraction 62 % (2D biplane) EF > 54 FINDINGS: LEFT VENTRICLE The left ventricle is normal in size. Left ventricular systolic function is normal. Indeterminate left ventricular diastolic function. Mitral annular lateral E/e': 10.6. Mitral annular septal E/e': 14.1. Wall Motion: All scored segments are normal. RIGHT VENTRICLE The right ventricle is normal in size. Right ventricular systolic function is normal. RV systolic tissue Doppler velocity is 14.4 cm/s. Tricuspid annular displacement is 2.2 cm. Estimated right ventricular systolic pressure is 35 mmHg consistent with normal pulmonary artery pressures. Estimated right atrial pressure is 3 mmHg based on IVC assessment. LEFT ATRIUM The left atrial cavity is normal in size. Pulmonary Veins: The pulmonary venous pattern showed normal systolic flow. RIGHT ATRIUM The right atrial cavity is normal in size. Inferior Vena Cava: The inferior vena cava appears normal measuring 1.8 cm. The vessel decreases greater than 50 percent with inspiration. MITRAL VALVE There is trace (trace - 1+) mitral valve regurgitation. There is mild thickening. The pressure half time is 72 msec. The peak mitral E/A ratio is 0.82. The average mitral E/e' ratio is 12.4. The mitral flow deceleration time is 248 msec. TRICUSPID VALVE There is trace tricuspid valve regurgitation. There is no thickening. The hepatic venous pattern showed normal systolic flow. AORTIC VALVE There is mild (1+ - 2+) aortic valve regurgitation. Tricuspid aortic valve. There is mild thickening. The peak gradient is 8 mmHg (peak velocity = 139.0 cm/s). PULMONIC VALVE There is trace pulmonic valve regurgitation. There is no thickening. AORTA The visualized aorta is normal in size. Measurements - Aortic valve annulus 2.2 cm. Sinus: 3.6 cm. Sinotubular junction 2.3 cm. Mid ascending aorta 3.4 cm. INTERATRIAL SEPTUM There is no evidence of intracardiac shunting as detected by Doppler. INTERVENTRICULAR SEPTUM There is no flow through the interventricular septum as detected by Doppler. PERICARDIUM There is no pericardial effusion. CONCLUSIONS: - Exam indication: Routine surveillance of mild valvular regurgitation (>3yrs) - The left ventricle is normal in size. Left ventricular systolic function is normal. EF = 62 5% (2D biplane) Indeterminate left ventricular diastolic function. - The right ventricle is normal in size. Right ventricular systolic function is normal. - There is mild (1-2+) aortic valve regurgitation. - Estimated right ventricular systolic pressure is 35 mmHg consistent with normal pulmonary artery pressures. Estimated right atrial pressure is 3 mmHg based on IVC assessment. - Exam was compared with the prior CC echocardiographic exam performed on 09/25/2023. Comparabe findings. * * * Final * * * [facility] Image : [id number] amicsSISUID Normal [facility] Lipid 1996 panelon Cholesterol [Mass/Vol] 114 mg/dL Normal <200 [facility] Comment on above: Order Comment: Colten sidhu Type: BLOOD SPECIMEN Ordering Facility: [facility] Address: [address] [place] [address] Result Comment: <200 mg/dL, Desirable 200-239 mg/dL, Borderline high >239 mg/dL, High Performed By: #### 2 4323-8, 78780-3 #### [facility] CLIA [id number] [address] [place] [address] [place] Cholesterol in HDL [Mass/Vol] 34 mg/dL Low >39 [facility] Comment on above: Order Comment: Colten sidhu Type: BLOOD SPECIMEN Ordering Facility: [facility] Address: [address] [place] [address] Result Comment: 40-5 9 mg/dL, Acceptable >59 mg/dL, High: Negative risk factor for coronary heart disease <40 mg/dL, Low: Positive risk factor for coronary heart disease Performed By: #### 2 4323-8, 36103-9 #### [facility] CLIA [id number] [address] [place] [address] [place] Cholesterol in LDL [Mass/Vol] 58 mg/dL Normal <100 [facility] Comment on above: Order Comment: Colten sidhu Type: BLOOD SPECIMEN Ordering Facility: [facility] Address: [address] [place] [address] Result Comment: <100 mg/dL, Optimal 100-129 mg/dL, Near optimal/above optimal 130-159 mg/dL, Borderline high 160-189 mg/dL, High >189 mg/dL, Very high Secondary prevention optimal LDL Cholesterol levels are recommended to be <70 mg/dL LDL cholesterol is calculated using the Taylor-NIH equation. Performed By: #### 2 4323-8, 83782-4 #### [facility] CLIA [id number] [address] [place] [address] [place] Cholesterol in LDL/Cholesterol in HDL [Mass ratio] 1.71 {ratio} Normal <2.54 [facility] Comment on above: Order Comment: Colten sidhu Type: BLOOD SPECIMEN Ordering Facility: [facility] Address: [address] [place] [address] Result Comment: Refe rence: 1. National Cholesterol Education Program ATP III Guideline At-A-Glance Quick Desk Reference: National Heart, Lung, and Blood [place]. National Institutes of Health. 2001: NIH Publication No. 01-3305. 2. An International Atherosclerosis Society position paper: global recommendations for the management of dyslipidemia: executive summary, Atherosclerosis. 2014: 232(2):410-413. Performed By: #### 2 4323-8, 37597-1 #### [facility] CLIA [id number] [address] [place] [address] [place] Cholesterol in VLDL [Mass/Vol] 17 mg/dL Normal <30 [facility] Comment on above: Order Comment: Colten sidhu Type: BLOOD SPECIMEN Ordering Facility: [facility] Address: [address] [place] [address] Performed By: #### 2 4323-8, 06044-1 #### [facility] CLIA [id number] [address] [place] [address] [place] Cholesterol non HDL [Mass/Vol] 80 mg/dL Normal <130 [facility] Comment on above: Order Comment: Colten sidhu Type: BLOOD SPECIMEN Ordering Facility: [facility] Address: [address], [place] [address] Result Comment: <130 mg/dL, Optimal 130-159 mg/dL, Near optimal/above optimal 160-189 mg/dL, Borderline high 190-219 mg/dL, High >219 mg/dL, Very high Secondary prevention optimal non HDL Cholesterol levels are recommended to be <100 mg/dL Performed By: #### 2 4323-8, 33288-4 #### [facility] CLIA [id number] [address] [place] [address] [place] Cholesterol.total/Ch olesterol in HDL [Mass ratio] 3.35 {ratio} Normal <5.10 [facility] Comment on above: Order Comment: Speci men Type: BLOOD SPECIMEN Ordering Facility: [facility] Address: [address] [place] [address] Performed By: #### 2 4323-8, 51018-9 #### [facility] CLIA [id number] [address] [place] [address] [place] FASTING TIME 17 hrs Normal [facility] Comment on above: Order Comment: Speci men Type: BLOOD SPECIMEN Ordering Facility: [facility] Address: [address] [place] [address] Performed By: #### 2 4323-8, #### [facility] CLIA [id number] [address] [place], [place] [address] [place] Triglyceride [Mass/Vol] 118 mg/dL Normal <150 [facility] Comment on above: Order Comment: Speci men Type: BLOOD SPECIMEN Ordering Facility: [facility] Address: [address] [place], [place] [address] Result Comment: <150 mg/dL, Normal 150-199 mg/dL, Borderline high 200-499 mg/dL, High >499 mg/dL, Very high Performed By: #### 2 4323-8, 49216-2 #### [facility] CLIA [id number] [address] [place], [place] [address] [place] CNCOon 09-07-2024 CNCO Letter Text Normal [facility] Urine Cultureon 08-29-2024 Bacteria identified Cx Nom (U) <9,000 colonies/ml mixed bacterial skin contaminants 2 Days PERFORMED BY: [facility] [address] [facility] [place] [address] PATHOLOGIST [employer] MANAGER CASEY SUERO M.D. Normal [facility] Comment on above: Performed By: #### C UU #### [facility] [address] CBC panel Auto (Bld)on 09-24 Erythrocyte distribution width (RBC) [Ratio] 14.6 % Normal 11.5-15.0 [facility] Comment on above: Order Comment: Speci men Type: BLOOD SPECIMEN Ordering Facility: [facility] Address: [address] [place] [address] Performed By: #### 5 8410-2 #### [facility] CLIA [id number] [address] [place] [address] [place] Hematocrit (Bld) [Volume fraction] 41.5 % Normal 36.0-46.0 [facility] Comment on above: Order Comment: Speci men Type: BLOOD SPECIMEN Ordering Facility: [facility] Address: [address] [place] [address] Performed By: #### 5 8410-2 #### [facility] CLIA [id number] [address] [place] [address] [place] Hemoglobin (Bld) [Mass/Vol] 13.0 g/dL Normal 11.5-15.5 [facility] Comment on above: Order Comment: Speci men Type: BLOOD SPECIMEN Ordering Facility: [facility] Address: [address] [place] [address] Performed By: #### 5 8410-2 #### [facility] CLIA [id number] [address] [place] [address] [place] MCH (RBC) [Entitic mass] 29.1 pg Normal 26.0-34.0 [facility] Comment on above: Order Comment: Speci men Type: BLOOD SPECIMEN Ordering Facility: [facility] Address: [address] [place] [address] Performed By: #### 5 8410-2 #### [facility] CLIA [id number] [address] [place] [address] [place] MCHC (RBC) [Mass/Vol] 31.3 g/dL Normal 30.5-36.0 [facility] Comment on above: Order Comment: Speci men Type: BLOOD SPECIMEN Ordering Facility: [facility] Address: [address] [place] [address] Performed By: #### 5 8410-2 #### [facility] CLIA [id number] [address] [place] [address] [place] MCV (RBC) [Entitic vol] 92.8 fL Normal 80.0-100.0 [facility] Comment on above: Order Comment: Speci men Type: BLOOD SPECIMEN Ordering Facility: [facility] Address: [address] [place] [address] Performed By: #### 5 8410-2 #### [facility] CLIA [id number] [address] [place] [address] [place] Nucleated RBC (Bld) [#/Vol] 10*3/uL Normal <0.01 [facility] Comment on above: Order Comment: Speci men Type: BLOOD SPECIMEN Ordering Facility: [facility] Address: [address] [place] [address] Performed By: #### 5 8410-2 #### [facility] CLIA [id number] [address] [place] [address] [place] Platelet mean volume (Bld) [Entitic vol] 10.5 fL Normal 9.0-12.7 [facility] Comment on above: Order Comment: Speci men Type: BLOOD SPECIMEN Ordering Facility: [facility] Address: [address] [place] [address] Performed By: #### 5 8410-2 #### [facility] CLIA [id number] [address] [place] [address] [place] Platelets (Bld) [#/Vol] 173 10*3/uL Normal 150-400 [facility] Comment on above: Order Comment: Speci men Type: BLOOD SPECIMEN Ordering Facility: [facility] Address: [address] [place] [address] Performed By: #### 5 8410-2 #### [facility] CLIA [id number] [address] [place] [address] [place] RBC (Bld) [#/Vol] 4.47 10*6/uL Normal 3.90-5.20 [facility] Comment on above: Order Comment: Speci men Type: BLOOD SPECIMEN Ordering Facility: [facility] Address: [address] [place] [address] Performed By: #### 5 8410-2 #### [facility] CLIA [id number] [address] [place] [address] [place] WBC (Bld) [#/Vol] 3.22 10*3/uL Low 3.70-11.00 [facility] Comment on above: Order Comment: Speci men Type: BLOOD SPECIMEN Ordering Facility: [facility] Address: [address] [place] [address] Performed By: #### 5 8410-2 #### [facility] CLIA [id number] [address] [place] [address] [place] CNOVon 09-25-2023 CNOV Office Visit (HAZEL ) LIANA MARIE ([id number]) 1950 F Date Time Provider Department 09/25/23 12:00 PM AMY BARGER During your visit today, we recorded the following information about you: Pulse Blood pressure Weight Height 50/minute 191/59 90.3 kg 1.676 m Amy Barger MD 09/26/2023 5:05 PM Signed [facility] Department of Cardiovascular Medicine SECTION OF CARDIOVASCULAR IMAGING OUTPATIENT VISIT DATE 09/25/2023 OUTPATIENT VISIT TYPE ESTABLISHED PRIMARY CARE PHYSICIAN: Jacky Torres [address] [place] [address] REFERRING PHYSICIAN: Amy Barger [address] [facility] [address] CHIEF COMPLAINT: Follow up visit. HISTORY OF [...] Age of Onset Heart Attack Mother fatal [place] at age 70 Diabetes Mother Diabetes Father Heart Father bypass at age 60s Heart Attack Father [place] at age 60s other (Other) Father MVA at age 72 Cancer Sister at age 42 other (Other) Brother infant Cancer Sister breast cancer at age 50 No Known Problems Brother Heart Attack Brother fatal [place] at age 64 other (ulcers) Brother bleeding [...] 78 09/24 (more content not included)... Normal [facility] Comprehensive metabolic 2000 panelon 09-25-2023 Albumin [Mass/Vol] 4.0 g/dL Normal 3.9-4.9 [facility] Comment on above: Order Comment: Speci men Type: BLOOD SPECIMEN Ordering Facility: [facility] Address: [address] [place] [address] Performed By: #### 2 4323-8, 80301-2 #### [facility] CLIA [id number] [address] [place] [address] [place] ALP [Catalytic activity/Vol] 88 U/L Normal 34-123 [facility] Comment on above: Order Comment: Speci men Type: BLOOD SPECIMEN Ordering Facility: [facility] Address: [address] [place] [address] Performed By: #### 2 4323-8, 27306-1 #### [facility] CLIA [id number] [address] [place] [address] [place] ALT [Catalytic activity/Vol] 18 U/L Normal 7-38 [facility] Comment on above: Order Comment: Speci men Type: BLOOD SPECIMEN Ordering Facility: [facility] Address: [address] [place] [address] Performed By: #### 2 4323-8, 78935-6 #### [facility] CLIA [id number] [address] [place] [address] [place] Anion gap [Moles/Vol] 10 mmol/L Normal 8-15 [facility] Comment on above: Order Comment: Speci men Type: BLOOD SPECIMEN Ordering Facility: [facility] Address: [address] [place] [address] Performed By: #### 2 4323-8, 64229-1 #### [facility] CLIA [id number] [address] [place] [address] [place] AST [Catalytic activity/Vol] 29 U/L Normal 13-35 [facility] Comment on above: Order Comment: Speci men Type: BLOOD SPECIMEN Ordering Facility: [facility] Address: [address] [place] [address] Performed By: #### 2 4323-8, 04426-2 #### [facility] CLIA [id number] [address] [place] [address] [place] Bilirubin [Mass/Vol] 1.1 mg/dL Normal 0.2-1.3 [facility] Comment on above: Order Comment: Speci men Type: BLOOD SPECIMEN Ordering Facility: [facility] Address: [address] [place] [address] Performed By: #### 2 4323-8, 08646-5 #### [facility] CLIA [id number] [address] [place] [address] [place] Calcium [Mass/Vol] 10.3 mg/dL High 8.5-10.2 [facility] Comment on above: Order Comment: Speci men Type: BLOOD SPECIMEN Ordering Facility: [facility] Address: [address] [place] [address] Performed By: #### 2 4323-8, 29512-8 #### [facility] CLIA [id number] [address] [place] [address] [place] Chloride [Moles/Vol] 105 mmol/L Normal 98-107 [facility] Comment on above: Order Comment: Speci men Type: BLOOD SPECIMEN Ordering Facility: [facility] Address: [address] [place] [address] Performed By: #### 2 4323-8, 74793-4 #### [facility] CLIA [id number] [address] [place] [address] [place] CO2 [Moles/Vol] 23 mmol/L Normal 22-30 [facility] Comment on above: Order Comment: Speci men Type: BLOOD SPECIMEN Ordering Facility: [facility] Address: [address] [place] [address] Performed By: #### 2 4323-8, #### [facility] CLIA [id number] [address] [place] [address] [place] Creatinine [Mass/Vol] 0.81 mg/dL Normal 0.58-0.96 [facility] Comment on above: Order Comment: Speci men Type: BLOOD SPECIMEN Ordering Facility: [facility] Address: [address] [place] [address] Performed By: #### 2 4323-8, #### [facility] CLIA [id number] [address] [place] [address] [place] Creatinine and Glomerular filtration rate.predicted panel (S/P/Bld) 77 mL/min/1.73m??? Normal >=60 [facility] Comment on above: Order Comment: Speci men Type: BLOOD SPECIMEN Ordering Facility: [facility] Address: [address] [place] [address] Result Comment: Maria R mated Glomerular Filtration [...] actual GFR. Performed By: #### 2 4323-8, 73966-0 #### [facility] CLIA [id number] [address] [place] [address] [place] Glucose [Mass/Vol] 113 mg/dL High 74-99 [facility] Comment on above: Order Comment: Colten sidhu Type: BLOOD SPECIMEN Ordering Facility: [facility] Address: [address] [place] [address] Result Comment: The [place] Diabetes Association (ADA) provides guidance for cutoff [...] Standards of Medical Care in Diabetes 2016, Finnish Diabetes Association. Diabetes Care. 2016.39(Suppl 1). Performed By: #### 2 4323-8, 48726-7 #### [facility] CLIA [id number] [address] [place] [address] [place] Potassium [Moles/Vol] 4.3 mmol/L Normal 3.7-5.1 [facility] Comment on above: Order Comment: Colten sidhu Type: BLOOD SPECIMEN Ordering Facility: [facility] Address: [address] [place] [address] Performed By: #### 2 4323-8, 93076-2 #### [facility] CLIA [id number] [address] [place] [address] [place] Protein [Mass/Vol] 7.0 g/dL Normal 6.3-8.0 [facility] Comment on above: Order Comment: Colten sidhu Type: BLOOD SPECIMEN Ordering Facility: [facility] Address: [address] [place] [address] Performed By: #### 2 4323-8, 26600-7 #### [facility] CLIA [id number] [address] [place] [address] [place] Sodium [Moles/Vol] 138 mmol/L Normal 136-144 [facility] Comment on above: Order Comment: Speci men Type: BLOOD SPECIMEN Ordering Facility: [facility] Address: [address] [place] [address] Performed By: #### 2 4323-8, 48692-9 #### [facility] CLIA [id number] [address] [place] [address] [place] Urea nitrogen [Mass/Vol] 22 mg/dL High 7-21 [facility] Comment on above: Order Comment: Speci men Type: BLOOD SPECIMEN Ordering Facility: [facility] Address: [address] [place] [address] Performed By: #### 2 4323-8, 96349-0 #### [facility] CLIA [id number] [address] [place] [address] [place] ECG COMPLETEon 09-25-2023 ECG COMPLETE Ventricular Rate : 5 8 BPM Atrial Rate : 58 BPM P-R Interval : 174 ms QRS Duration : 76 ms Q-T Interval : 458 ms QTC Calculation(Bazett) : 449 ms Calculated P [place] : 57 degrees Calculated R [place] : 49 degrees Calculated T [place] : 36 degrees SINUS BRADYCARDIA WITH MARKED SINUS ARRHYTHMIA OTHERWISE NORMAL ECG Confirmed by ALIYAH RAIN MD ([id number]) on 10/15/2023 5:53:31 PM NAME : LIANA MARIE PID : [id number] : 1950 Gender : Female Race : ORD : [id number] Procedure Date : Sep 25 2023 11:00:10 Edit Date : Oct 15 2023 17:53:36 Diagnosis: SINUS BRADYCARDIA WITH MARKED SINUS ARRHYTHMIA OTHERWISE NORMAL ECG Confirmed by ALIYAH RAIN MD ([id number]) on 10/15/2023 5:53:31 PM Test Reason : Location : 314 : [facility] J1-4 Overread By : ALIYAH RAIN MD Edited By : ALIYAH RAIN MD Referred By : AMY BARGER Acquired by : SHERI WYATT [facility] ECHOon 09-25-2023 Echocardiography Echocardiography Report: Transthoracic Echo [facility] J1-5 Date of service: 09/25/2023 11:32:12 AM [employer] Ordering physician: AMY BARGER Indication: Routine surveillance [...] * * * Final * * * [facility] : [id number] micsSISUID Normal [facility] Lipid 1996 panelon 4 Cholesterol [Mass/Vol] 147 mg/dL Normal <200 [facility] Comment on above: Order Comment: Speci men Type: BLOOD SPECIMEN Ordering Facility: [facility] Address: [address] [place] [address] Result Comment: <200 mg/dL, Desirable 200-239 mg/dL, Borderline high >239 mg/dL, High Performed By: #### 2 4323-8, 90274-9 #### [facility] CLIA [id number] [address] [place], [place] [address] Cholesterol in HDL [Mass/Vol] 42 mg/dL Normal >39 [facility] Comment on above: Order Comment: Colten sidhu Type: BLOOD SPECIMEN Ordering Facility: [facility] Address: [address] [place] [address] Result Comment: 40-5 9 mg/dL, Acceptable >59 mg/dL, High: Negative risk factor for coronary heart disease <40 mg/dL, Low: Positive risk factor for coronary heart disease Performed By: #### 2 4323-8, 57445-5 #### [facility] CLIA [id number] [address] [place] [address] Cholesterol in LDL [Mass/Vol] 77 mg/dL Normal <100 [facility] Comment on above: Order Comment: Colten sidhu Type: BLOOD SPECIMEN Ordering Facility: [facility] Address: [address] [place] [address] Result Comment: <100 mg/dL, Optimal 100-129 mg/dL, Near optimal/above optimal 130-159 mg/dL, Borderline high 160-189 mg/dL, High >189 mg/dL, Very high Secondary prevention optimal LDL Cholesterol levels are recommended to be < 70 mg/dL Performed By: #### 2 4323-8, 77048-9 #### [facility] CLIA [id number] [address] [place] [address] Cholesterol in LDL/Cholesterol in HDL [Mass ratio] 1.83 {ratio} Normal <2.54 [facility] Comment on above: Order Comment: Shreyasdavid sidhu Type: BLOOD SPECIMEN Ordering Facility: [facility] Address: [address] [place] [address] Result Comment: Refe rence: 1. National Cholesterol Education Program ATP III Guideline At-A-Glance Quick Desk Reference: National Heart, Lung, and Blood [place]. National Institutes of Health. 2001: NIH Publication No. 01-3305. 2. An International Atherosclerosis Society position paper: global recommendations for the management of dyslipidemia: executive summary, Atherosclerosis. 2014: 232(2):410-413. Performed By: #### 2 4323-8, 73239-5 #### [facility] CLIA [id number] [address] [id number] [place] Cholesterol in VLDL [Mass/Vol] 28 mg/dL Normal <30 [facility] Comment on above: Order Comment: Speci men Type: BLOOD SPECIMEN Ordering Facility: [facility] Address: [address] [place] [address] Performed By: #### 2 4323-8, 66365-4 #### [facility] CLIA [id number] [address] [place] [address] [place] Cholesterol non HDL [Mass/Vol] 105 mg/dL Normal <130 [facility] Comment on above: Order Comment: Speci men Type: BLOOD SPECIMEN Ordering Facility: [facility] Address: [address] [place] [address] Result Comment: <130 mg/dL, Optimal 130-159 mg/dL, Near optimal/above optimal 160-189 mg/dL, Borderline high 190-219 mg/dL, High >219 mg/dL, Very high Secondary prevention optimal non HDL Cholesterol levels are recommended to be <100 mg/dL Performed By: #### 2 4323-8, 25178-0 #### [facility] CLIA [id number] [address] [place] [address] [place] Cholesterol.total/Ch olesterol in HDL [Mass ratio] 3.50 {ratio} Normal <5.10 [facility] Comment on above: Order Comment: Speci men Type: BLOOD SPECIMEN Ordering Facility: [facility] Address: [address] [place] [address] Performed By: #### 2 4323-8, 37275-6 #### [facility] CLIA [id number] [address] [place] [address] [place] FASTING TIME 12 hrs Normal [facility] Comment on above: Order Comment: Speci men Type: BLOOD SPECIMEN Ordering Facility: [facility] Address: [address] [place] [address] Performed By: #### 2 4323-8, 64297-2 #### [facility] CLIA [id number] [address] [place] [address] [place] Triglyceride [Mass/Vol] 141 mg/dL Normal <150 [facility] Comment on above: Order Comment: Speci men Type: BLOOD SPECIMEN Ordering Facility: [facility] Address: [address] [place] [address] Result Comment: <150 mg/dL, Normal 150-199 mg/dL, Borderline high 200-499 mg/dL, High >499 mg/dL, Very high Performed By: #### 2 4323-8, 16502-6 #### [facility] CLIA [id number] [address] [place] [address] [place] OCC BLD IMMUNO SCREENon 03-03 OCCULT BLOOD Negative Normal NEGATIVE [facility] Comment on above: Performed By: #### O BSCRN #### [facility] [address] [place] [address] Dr. Kym Burks CBC AUTO DIFFon 03-26-2022 BASO # 0.0 103/ul Normal 0.0-0.1 [facility] Comment on above: Performed By: #### C BC #### [facility] [address] [place] [address] Dr. Kym Burks Basophils/100 WBC (Bld) 0.7 % Normal 0.2-2.0 [facility] Comment on above: Performed By: #### C BC #### [facility] [address] [place] [address] Dr. Kym Burks EO # 0.1 103/ul Normal 0.0-0.7 [facility] Comment on above: Performed By: #### C BC #### [facility] [address] [place] [address] Dr. Kym Burks Eosinophils/100 WBC (Bld) 1.7 % Normal 0.9-7.0 [facility] Comment on above: Performed By: #### C BC #### [facility] [address] [place] [address] Dr. Kym Burks Erythrocyte distribution width (RBC) [Ratio] 13.2 % Normal 11.0-15.0 [facility] Comment on above: Performed By: #### C BC #### [facility] [address] [place] [address] Dr. Kym Burks Hematocrit (Bld) [Volume fraction] 41.6 % Normal 36.0-48.0 [facility] Comment on above: Performed By: #### C BC #### [facility] [address] [place] [address] Dr. Kym Burks Hemoglobin (Bld) [Mass/Vol] 12.7 g/dL Normal 12.0-16.0 [facility] Comment on above: Performed By: #### C BC #### [facility] [address] [place] [address] Dr. Kym Burks IG # 0.00 10e3/ul Normal 0.00-0.03 [facility] Comment on above: Performed By: #### C BC #### [facility] [address] [place] [address] Dr. Kym Burks IG % 0.0 % Normal 0.0-0.5 [facility] Comment on above: Performed By: #### C BC #### [facility] [address] [place] [address] Dr. Kym Burks LYMPH # 1.4 103/ul Normal 1.2-3.8 [facility] Comment on above: Performed By: #### C BC #### [facility] [address] [place] [address] Dr. Kym Burks Lymphocytes/100 WBC (Bld) 33.3 % Normal 20.5-60.0 [facility] Comment on above: Performed By: #### C BC #### [facility] [address] [place] [address] Dr. Kym Burks MANUAL DIFF REQ NO Normal [facility] Comment on above: Performed By: #### C BC #### [facility] [address] [place] [address] Dr. Kym Burks MCH (RBC) [Entitic mass] 28.8 pg Normal 26.7-34.0 [facility] Comment on above: Performed By: #### C BC #### [facility] [address] [place] [address] Dr. Kym Burks MCHC (RBC) [Mass/Vol] 30.5 g/dL Normal 29.9-35.2 [facility] Comment on above: Performed By: #### C BC #### [facility] [address] [place] [address] Dr. Kym Burks MCV (RBC) [Entitic vol] 94.3 fL Normal 81.0-99.0 [facility] Comment on above: Performed By: #### C BC #### [facility] [address] [place] [address] Dr. Kym Burks MONO # 0.3 103/ul Normal 0.3-0.8 [facility] Comment on above: Performed By: #### C BC #### [facility] [address] [place] [address] Dr. Kym Bukrs Monocytes/100 WBC (Bld) 6.7 % Normal 1.7-12.0 [facility] Comment on above: Performed By: #### C BC #### [facility] [address] [place] [address] Dr. Kym Burks NEUT # 2.4 103/ul Normal 1.4-6.5 [facility] Comment on above: Performed By: #### C BC #### [facility] [address] [place] [address] Dr. Kym Burks Neutrophils/100 WBC (Bld) 57.6 % Normal 43.0-75.0 [facility] Comment on above: Performed By: #### C BC #### [facility] [address] [place] [address] Dr. Kym Burks Platelet mean volume (Bld) [Entitic vol] 9.9 fL Normal 9.5-13.5 [facility] Comment on above: Performed By: #### C BC #### [facility] [address] [place] [address] Dr. Kym Burks PLT 221 103/ul Normal 150-450 [facility] Comment on above: Performed By: #### C BC #### [facility] [address] [address] [address] Kym Burks RBC 4.41 106/ul Normal 4.20-5.40 [facility] Comment on above: Performed By: #### C BC #### [facility] [address] [address] [address] Kym Burks WBC 4.2 103/ul Normal 4.0-11.0 [facility] Comment on above: Performed By: #### C BC #### [facility] [address] [address] [address] Kym Burks FREE THYROXINE INDEX T7on FTI 3.78 Normal 1.30-4.50 [facility] Comment on above: Performed By: #### T SH, CMP, T7, LIPID ####[facility] [address] [address]Dr. Kym Burks T3U 36.0 % Normal 30.0-39.0 [facility] Comment on above: Performed By: #### T SH, CMP, T7, LIPID ####[facility] [address] [id number]. Kym Burks T4 [Mass/Vol] 10.50 ug/dL Normal 4.80-13.90 [facility] Comment on above: Performed By: #### T SH, CMP, T7, LIPID ####[facility] [address] [id number]. Kym Burks GLYCOHEMOGLOBIN A1Con 2022 ADA RECOMMENDATION SEE BELOW Normal [facility] Comment on above: Result Comment: ADA RECOMMENDED LIMIT 4.0 - 6.0 ADA THERAPEUTIC TARGET < 7.0 ACTION SUGGESTED > 7.0 Performed By: #### A 1C #### [facility] [address] [address] [address] Kym Burks Glucose [Mass/Vol] 148 mg/dL Normal [facility] Comment on above: Performed By: #### A 1C #### [facility] [address] [place], [place] [address] Dr. Kym Burks HbA1c (Bld) [Mass fraction] 6.8 % Critically high 4.5-6.2 [facility] Comment on above: Performed By: #### A 1C #### [facility] [address] [place], [place] [address] Dr. Kym Burks IRONon 03-26-2022 Iron [Mass/Vol] 72.0 ug/dL Normal 50.0-170.0 [facility] Comment on above: Performed By: #### V ITAD, IRON #### [facility] [address] [address] [address] Kym Burks LIPID PROFILEon 03-26-2022 CHOL-HDL RATIO NORM SEE BELOW Normal [facility] Comment on above: Result Comment: 3.3 - 4.4 LOW RISK 4.4 - 7.1 AVERAGE RISK 7.1 - 11.0 MODERATE RISK >11.0 HIGH RISK Performed By: #### T SH, CMP, T7, LIPID ####[facility] [address] [place], [place] [address]Ak. Kym Burks Cholesterol [Mass/Vol] 126 mg/dL Normal <=200 [facility] Comment on above: Performed By: #### T SH, CMP, T7, LIPID ####[facility] [address] [place], [place] [address]Mv. Kym Burks Cholesterol in HDL [Mass/Vol] 47 mg/dL Normal 40-60 [facility] Comment on above: Performed By: #### T SH, CMP, T7, LIPID ####[facility] [address] [place], [place] [address]Fv. Kym Burks Cholesterol in LDL [Mass/Vol] 56.8 mg/dL Normal [facility] Comment on above: Performed By: #### T SH, CMP, T7, LIPID ####[facility] [address] [place], [place] [address]Zr. Kym Burks Cholesterol.total/Ch olesterol in HDL [Mass ratio] 2.7 {ratio} Normal [facility] Comment on above: Performed By: #### T SH, CMP, T7, LIPID ####[facility] [address] [id number]. Kym Burks HDL NORMAL > or = 60 mg/dl - LO W CARDIOVASCULAR RISK <40 mg/dl - HIGH CARDIOVASCULAR RISK Normal [facility] Comment on above: Performed By: #### T SH, CMP, T7, LIPID ####[facility] [address] [id number]. Kym Burks LDL CALC NORMAL SEE BELOW Normal [facility] Comment on above: Result Comment: <100 mg/dl OPTIMAL 100 - 129 mg/dl NEAR OR ABOVE OPTIMAL 130 - 159 mg/dl BORDERLINE HIGH 160 - 189 mg/dl HIGH >190 mg/dl VERY HIGH Performed By: #### T SH, CMP, T7, LIPID ####[facility] [address] [id number]. Kym Burks Triglyceride [Mass/Vol] 111 mg/dL Normal <=150 [facility] Comment on above: Performed By: #### T SH, CMP, T7, LIPID ####[facility] [address] [address]Dr. Kym Burks VLDL CALC 22.2 mg/dL Normal [facility] Comment on above: Performed By: #### T SH, CMP, T7, LIPID ####[facility] [address] [address]Dr. Kym Burks PROF 14(COMP METB)on 023 Albumin [Mass/Vol] 3.9 g/dL Normal 3.4-5.0 [facility] Comment on above: Performed By: #### T SH, CMP, T7, LIPID ####[facility] [address] [id number]. Kym Burks Albumin/Globulin [Mass ratio] 1.3 {ratio} Normal [facility] Comment on above: Performed By: #### T SH, CMP, T7, LIPID ####[facility] [address] [id number]. Kym Burks ALP [Catalytic activity/Vol] 80 U/L Normal 46-116 [facility] Comment on above: Performed By: #### T SH, CMP, T7, LIPID ####[facility] [address] [address]Dr. Kym Burks ALT [Catalytic activity/Vol] 28 U/L Normal 14-59 [facility] Comment on above: Performed By: #### T SH, CMP, T7, LIPID ####[facility] [address] [address]Dr. Kym Burks Anion gap [Moles/Vol] 10.6 mmol/L Normal [facility] Comment on above: Performed By: #### T SH, CMP, T7, LIPID ####[facility] [address] [address]Dr. Kym Burks AST [Catalytic activity/Vol] 21 U/L Normal 15-37 [facility] Comment on above: Performed By: #### T SH, CMP, T7, LIPID ####[facility] [address] [place], [place] [address]Dr. Kym Burks Bilirubin [Mass/Vol] 1.3 mg/dL Critically high 0.2-1.0 [facility] Comment on above: Performed By: #### T SH, CMP, T7, LIPID ####[facility] [address] [place], [place] [address]Dr. Kym Burks Calcium [Mass/Vol] 10.0 mg/dL Normal 8.5-10.1 [facility] Comment on above: Performed By: #### T SH, CMP, T7, LIPID ####[facility] [address] [address]Dr. Kym Burks Chloride [Moles/Vol] 104 mmol/L Normal 98-107 [facility] Comment on above: Performed By: #### T SH, CMP, T7, LIPID ####[facility] [address] [address]Dr. Kym Burks CO2 [Moles/Vol] 28.8 mmol/L Normal 21.0-32.0 [facility] Comment on above: Performed By: #### T SH, CMP, T7, LIPID ####[facility] [address] [id number]. Kym Burks Creatinine [Mass/Vol] 0.74 mg/dL Normal 0.55-1.02 [facility] Comment on above: Performed By: #### T SH, CMP, T7, LIPID ####[facility] [address] [id number]. Kym Burks EGFR-AF PANAMANIAN >60 Normal >=60 [facility] Comment on above: Performed By: #### T SH, CMP, T7, LIPID ####[facility] [address] [id number]. Kym Burks EGFR-NON AF PANAMANIAN >60 Normal >=60 [facility] Comment on above: Performed By: #### T SH, CMP, T7, LIPID ####[facility] [address] [address]Dr. Kym Burks Globulin (S) [Mass/Vol] 3.1 g/dL Normal [facility] Comment on above: Performed By: #### T SH, CMP, T7, LIPID ####[facility] [address] [address]Dr. Kym Burks Glucose [Mass/Vol] 143 mg/dL Critically high 74-106 [facility] Comment on above: Performed By: #### T SH, CMP, T7, LIPID ####[facility] [address] [address]Dr. Kym Burks Potassium [Moles/Vol] 4.4 mmol/L Normal 3.5-5.1 [facility] Comment on above: Performed By: #### T SH, CMP, T7, LIPID ####[facility] [address] [address]Dr. Kym Burks Protein [Mass/Vol] 7.0 g/dL Normal 6.4-8.2 [facility] Comment on above: Performed By: #### T SH, CMP, T7, LIPID ####[facility] [address] [address]Dr. Kym Burks Sodium [Moles/Vol] 139 mmol/L Normal 136-145 [facility] Comment on above: Performed By: #### T SH, CMP, T7, LIPID ####[facility] [address] [place] [id number]. Kym Burks Urea nitrogen [Mass/Vol] 26.0 mg/dL Critically high 7.0-18.0 [facility] Comment on above: Performed By: #### T SH, CMP, T7, LIPID ####[facility] [address] [id number]. Kym Burks Urea nitrogen/Creatinine [Mass ratio] 35.1 mg/mg Normal [facility] Comment on above: Performed By: #### T SH, CMP, T7, LIPID ####[facility] [address] [place] [id number]. Kym Burks TSHon 03-26-2022 TSH 0.288 uIU/mL Critically low 0.358-3.740 [facility] Comment on above: Performed By: #### T SH, CMP, T7, LIPID ####[facility] [address] [address]Dr. Kym Burks VITAMIN D 25 OHon 03-26-2022 VIT D 25-OH 60.0 ng/mL Normal [facility] Comment on above: Performed By: #### V LUDY, IRON #### [facility] [address] [address] [address] Kym Burks VIT D RANGES SEE BELOW Normal [facility] Comment on above: Result Comment: <20 ng/mL Vit D deficient 20 - <30 ng/mL Vit D insufficient 30 - 100 ng/mL Vit D sufficient >100 ng/mL Potential Toxicity Performed By: #### V LUDY, IRON #### [facility] [address] [address] [address] Kym Burks XR SHOULDER RT INJon [...] by: KWABENA LEDESMA Date: 2021-09-10 14:56 Normal [facility] MG MAMM SCREEN 3D EMILY CADon 08-22-2021 MG MAMM SCREEN 3D EMILY CAD Patient: LIANA MARIE Exam Date: 08/22/2021 : 1950 Gender:F Ordering : DR JACKY TORRES . Admission #: [id number] Family : Order #: [id number] CLICK HERE TO VIEW EXAM RADIOLOGY REPORT [...] breast cancer at age 51. LOCATION: [facility] BREAST COMPOSITION: Scattered areas fibroglandular density. FINDINGS: [...] M.D. on 08/22/2021 at 13:22 Normal [facility] XR SHOULDER RT 2V or >on XR [...] GINA CRUZ Date: 2021-08-22 12:24 Normal [facility] Covid-19 PCR (CVDTB)on 04-30 SARS-CoV-2 (COVID-19) RNA SILVESTRE+probe Ql (Unsp spec) Detected Critically abnormal NOT DETECTED [facility] Comment on above: Result Comment: This test is not yet approved or cleared by the [place] FDA. When there are no FDA-approved or cleared tests available, and other criteria are met, FDA can make tests available under an emergency access mechanism called an Emergency Use Authorization (EUA). The EUA for this test is supported by the [place] of Health and Human Service's (HHS's) declaration [...] longer be used). Performed By: #### [facility] #### [facility] [address] [place] [address] Dr. Kym Burks INFLUENZA A AND B AGon 05-16 INFLUANE SEE BELOW Normal [facility] Comment on above: Result Comment: Nega tive for Flu A protein angiten. Infection due to Flu A cannot be ruled out. Flu A angiten in the sample may be below the detection limit of the test. Performed By: #### I NFLUAB #### [facility] [address] [place] [address] Dr. Kym Bur[facility] SEE BELOW Normal [facility] Comment on above: Result Comment: Nega tive for Flu B protein antigen. Infection due to Flu B cannot be ruled out. Flu B antigen in the sample may be below the detection limit of the test. Performed By: #### I NFLUAB #### [facility] [address] [place] [address] Dr. Kym Burks INFLUENZA A AG Negative Normal NEGATIVE SEE COMMENT [facility] Comment on above: Performed By: #### I NFLUAB #### [facility] [address] [place] [address] Dr. Kym Burks INFLUENZA B AG Negative Normal NEGATIVE SEE COMMENT [facility] Comment on above: Performed By: #### I NFLUAB #### [facility] [address] [place] [address] Dr. Kym Burks INTERNAL CONTROLS Within Normal Limits Normal Wi thin Normal Limits [facility] Comment on above: Performed By: #### I NFLUAB #### [facility] [address] [place] [address] Dr. Kym Burks Vital Signs Date Time Vital Sign Value Performing Clinician Faci lity 09-08-2024 13:12040 Body height 167.6 cm Amy Barger MD Work Phone: [facility] 09-08-2024 13:12-040 Body mass index (BMI) [Ratio] 33.41 kg/m2 Amy Barger MD Work Phone: [facility] 09-08-2024 13:12-040 Body weight 93.89 kg Amy Barger MD Work Phone: [facility] 09-08-2024 13:12-040 Diastolic blood pressure 58 mm[Hg] Amy Barger MD Work Phone: [facility] 09-08-2024 13:12-0400 Heart rate 58 /min Amy Barger MD Work Phone: [facility] 09-08-2024 13:12-0400 Respiratory rate 12 /min Amy Barger MD Work Phone: [facility] 09-08-2024 13:12-0400 SaO2% (BldA) [Mass fraction] 98 % Amy Barger MD Work Phone: [facility] 09-08-2024 13:12-0400 Systolic blood pressure 126 mm[Hg] Amy Barger MD Work Phone: [facility] 07-14-2024 11:05-0400 Body height 167.6 cm Preston Brown DPM Work Phone: [facility] 07-14-2024 11:05-0400 Body mass index (BMI) [Ratio] 29.86 kg/m2 Preston Brown DPM Work Phone: [facility] 07-14-2024 11:05-0400 Body weight 83.92 kg Preston Brown DPM Work Phone: [facility] 07-14-2024 11:05-0400 Respiratory rate 16 /min Preston Brown DPM Work Phone: [facility] 04-28-2024 11:59-0500 Body height 167.6 cm Preston Brown DPM Work Phone: [facility] 04-28-2024 11:59-0500 Body mass index (BMI) [Ratio] 29.86 kg/m2 Preston Brown DPM Work Phone: [facility] 04-28-2024 11:59-0500 Body weight 83.92 kg Preston Brown DPM Work Phone: [facility] 04-28-2024 11:59-0500 Respiratory rate 18 /min Preston Brown DPM Work Phone: [facility] 01-14-2024 13:30-0500 Body height 167.6 cm Preston Pompa DPM Work Phone: [facility] 01-14-2024 13:30-0500 Body mass index (BMI) [Ratio] 29.86 kg/m2 Preston Pompa DPM Work Phone: [facility] 01-14-2024 13:30-0500 Body weight 83.92 kg Preston Pompa DPM Work Phone: [facility] 01-14-2024 13:30-0500 Diastolic blood pressure 80 mm[Hg] Preston Pompa DPM Work Phone: [facility] 01-14-2024 13:30-0500 Heart rate 82 /min Preston Pompa DPM Work Phone: [facility] 01-14-2024 13:30-0500 Systolic blood pressure 125 mm[Hg] Preston Pompa DPM Work Phone: [facility] 10-22-2023 12:04-0400 Body height 167.6 cm Preston Pompa DPM Work Phone: [facility] 10-22-2023 12:04-0400 Body mass index (BMI) [Ratio] 29.86 kg/m2 Preston Pompa DPM Work Phone: [facility] 10-22-2023 12:04-0400 Body weight 83.92 kg Preston Pompa DPM Work Phone: [facility] 10-22-2023 12:04-0400 Diastolic blood pressure 79 mm[Hg] Preston Pompa DPM Work Phone: [facility] 10-22-2023 12:04-0400 Heart rate 77 /min Preston Brown DPM Work Phone: [facility] 10-22-2023 12:04-0400 Systolic blood pressure 125 mm[Hg] Preston Brown DPM Work Phone: [facility] 09-25-2023 12:32-0400 Body height 167.6 cm Amy Barger MD Work Phone: [facility] 09-25-2023 12:32-0400 Body mass index (BMI) [Ratio] 32.12 kg/m2 Amy Barger MD Work Phone: [facility] 09-25-2023 12:32-0400 Body weight 90.27 kg Amy Barger MD Work Phone: [facility] 09-25-2023 12:32-0400 Diastolic blood pressure 59 mm[Hg] Amy Barger MD Work Phone: [facility] 09-25-2023 12:32-0400 Heart rate 50 /min Amy Barger MD Work Phone: [facility] 09-25-2023 12:32-0400 SaO2% (BldA) [Mass fraction] 99 % Amy Barger MD Work Phone: [facility] 09-25-2023 12:32-0400 Systolic blood pressure 191 mm[Hg] Amy Barger MD Work Phone: [facility] 08-29-2022 14:02-0400 Diastolic blood pressure 66 mm[Hg] Amy Barger MD Work Phone: [facility] 08-29-2022 14:02-0400 Systolic blood pressure 140 mm[Hg] Amy Barger MD Work Phone: [facility] 08-29-2022 13:55-0400 Body height 167.6 cm Amy Barger MD Work Phone: [facility] 08-29-2022 13:55-0400 Body weight 94.03 kg Amy Barger MD Work Phone: [facility] 08-29-2022 13:55-0400 Heart rate 59 /min Amy Barger MD Work Phone: [facility] 08-29-2022 13:55-0400 SaO2% (BldA) [Mass fraction] 100 % Amy Barger MD Work Phone: [facility] 09-13-2021 14:38-0400 Body height 167.6 cm Amy Barger MD Work Phone: [facility] 09-13-2021 14:38-0400 Body weight 82.1 kg Amy Barger MD Work Phone: [facility] 09-13-2021 14:38-0400 Diastolic blood pressure 55 mm[Hg] Amy Barger MD Work Phone: [facility] 09-13-2021 14:38-0400 Heart rate 54 /min Amy Barger MD Work Phone: [facility] 09-13-2021 14:38-0400 SaO2% (BldA) [Mass fraction] 100 % Amy Barger MD Work Phone: [facility] 09-13-2021 14:38-0400 Systolic blood pressure 138 mm[Hg] Amy Barger MD Work Phone: [facility] Encounters Encounter Date Encounter Type Care Provider Facility Start: 09-08-2024 End: 09-08-2024 Patient encounter procedure Amy Barger MD Work Phone: Cardiology Comment on above: Nonrheumatic aortic valve insufficiency (Primary Dx); Nonrheumatic mitral valve regurgitation; Nonrheumatic tricuspid valve regurgitation; Mixed hyperlipidemia; 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 coronary artery of [place] heart without angina pectoris; Encounter for medication review; Type 2 diabetes mellitus without complication, without long-term current use of insulin (HCC) Start: 09-08-2024 End: 09-08-2024 ambulatory AMY BARGER [facility] [facility] Start: 09-08-2024 End: 09-08-2024 ambulatory AMY BARGER Facility:[facility] Start: 09-08-2024 End: 09-08-2024 ambulatory AMY BARGER Facility:[facility] Start: 08-29-2024 End: 08-29-2024 ambulatory Jacky Torres MD Work Phone: [facility] Work Phone: Start: 08-29-2024 End: 08-29-2024 Departed Referred Jacky Mosquera MD -LAB [facility] Start: 07-14-2024 End: 07-14-2024 Bamboo flowsheet Preston Pompa DPM Work Phone: [facility] Start: 07-14-2024 End: 07-14-2024 Bamboo flowsheet Preston Pompa DPM Work Phone: [facility] Start: 07-14-2024 End: 07-14-2024 Office outpatient visit 15 minutes Preston Pompa DPM Work Phone: [facility] Comment on above: Cellulitis of left f oot (Primary Dx); Type 2 diabetes mellitus without complication, unspecified whether director long term care insulin use; Pain due to onychomycosis of toenails of both feet; Xerosis cutis; Peroneal tendinitis, left; Cat bite of ankle, initial encounter Start: 07-14-2024 End: 07-14-2024 ambulatory PRESTON POMPA Not Available Start: 04-28-2024 End: 04-28-2024 Bamboo flowsheet Preston Pompa DPM Work Phone: [facility] Start: 04-28-2024 End: 04-28-2024 Bamboo flowsheet Preston Pompa DPM Work Phone: [facility] Start: 04-28-2024 End: 04-28-2024 ambulatory PRESTON POMPA Not Available Start: 04-28-2024 End: 04-28-2024 Office outpatient visit 15 minutes Preston Pompa DPM Work Phone: [facility] Comment on above: Peroneal tendinitis, left (Primary Dx); Type 2 diabetes mellitus without complication, unspecified whether fdc insulin use ([facility]); Pain due to onychomycosis of toenails of both feet; Xerosis cutis Start: 01-14-2024 End: 01-14-2024 Bamboo flowsheet Preston Pompa DPM Work Phone: [facility] Start: 01-14-2024 End: 01-14-2024 Bamboo flowsheet Preston Pompa DPM Work Phone: [facility] Start: 01-14-2024 End: 01-14-2024 ambulatory PRESTON POMPA Not Available Start: 01-14-2024 End: 01-14-2024 Office outpatient visit 15 minutes Preston Pompa DPM Work Phone: [facility] Comment on above: Xerosis cutis (Prima ry Dx); Peroneal tendinitis, left; Type 2 diabetes mellitus without complication, unspecified whether fdc insulin use (CMS/HCC); Pain due to onychomycosis of toenails of both feet Start: 10-22-2023 End: 10-22-2023 Bamboo flowsheet Preston Pompa DPM Work Phone: [facility] Start: 10-22-2023 End: 10-22-2023 Bamboo flowsheet Preston Pompa DPM Work Phone: [facility] Start: 10-22-2023 End: 10-22-2023 Patient encounter procedure Preston Pompa DPM Work Phone: [facility] Comment on above: Peroneal tendinitis, left (Primary Dx); Type 2 diabetes mellitus without complication, unspecified whether director long term care insulin use ([facility]); Onychomycosis; Toe pain, bilateral Start: 10-22-2023 End: 10-22-2023 ambulatory PRESTON POMPA Not Available Start: 09-25-2023 End: 09-25-2023 Patient encounter procedure Amy Barger MD Work Phone: Cardiology Comment on above: Nonrheumatic aortic valve insufficiency (Primary Dx); Nonrheumatic mitral valve regurgitation; Nonrheumatic tricuspid valve regurgitation; Mixed hyperlipidemia; 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 coronary artery of paiute-shoshone heart without angina pectoris Start: 09-25-2023 End: 09-25-2023 ambulatory AMY BARGER Facility:[facility] Start: 08-06-2023 End: 08-06-2023 ambulatory PRESTON POMPA Not Available Start: 05-11-2023 Orders Only Amy Barger MD Work Phone: Cardiology Comment on above: Nonrheumatic aortic valve insufficiency (Primary Dx) Start: 08-29-2022 End: 08-29-2022 Patient encounter procedure Amy Barger MD Work Phone: Cardiology Comment on above: Nonrheumatic aortic valve insufficiency (Primary Dx); 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 coronary artery of pai[place]shoshone heart without angina pectoris; Mixed hyperlipidemia; Valvular heart disease; 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 coronary artery of paiute-shoshone heart with angina pectoris (HCC); Type 2 [...] regurgitation; Mixed hyperlipidemia; 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 coronary artery of paiute-shoshone heart without angina pectoris; Type 2 diabetes mellitus without complication, without long-term current use of insulin (HCC) Start: 09-10-2021 End: 09-10-[address] JACKY TORRES Facility:[facility] Start: 08-22-2021 End: 08-23-[address] JACKY TORRES Facility:[facility] Start: 05-16-2021 End: 05-16-[address] JACKY TORRES Facility:[facility] Procedures Date Procedure Procedure Detail Performing Clinician Start: 06-22-2015 Ana weathers DPM Work Phone: Plan of Treatment Date Care Activity Detail Author Start: 09-08-2025 End: 12-08-2025 CBC panel - Blood by Automated count COMPLETE BLOOD COUNT Lab Routine Nonrheumatic aortic valve insufficiency Expected: 09/08/2025, Expires: 12/08/2025 [facility] Comment on above: Expected: 09/08/2025 , Expires: 12/08/2025 Start: 09-08-2025 End: 12-08-2025 Comprehensive metabolic 2000 panel - Serum or Plasma COMPREHENSIVE METABOLIC PANEL Lab Routine Nonrheumatic aortic valve insufficiency Expected: 09/08/2025, Expires: 12/08/2025 [facility] Work Phone: Comment on above: Expected: 09/08/2025 , Expires: 12/08/2025 Start: 09-08-2025 Hepatitis B surface antibody level LDL Cholesterol [facility] Start: 09-08-2025 End: 12-08-2025 Lipid 1996 panel - Serum or Plasma LIPID PANEL, FASTING Lab Routine Nonrheumatic aortic valve insufficiency Expected: 09/08/2025, Expires: 12/08/2025 [facility] Comment on above: Expected: 09/08/2025 , Expires: 12/08/2025 Start: 11-24-2024 Urine microalbumin profile DTa P,Tdap,Td Vaccine (2 - Td or Tdap) [facility] Start: 11-03-2024 End: 11-03-2024 Patient encounter procedure 11/03/2024 10:30 AM EDT Office Visit [facility] [address] [place] [phone] Preston Pompa, REGINA [address] [facility] [address] [place] [address] [facility] Start: 10-31-2024 Influenza vaccination Influenza Vacc ine (#1) [facility] Start: 09-24-2024 End: 12-24-2024 CBC panel - Blood by Automated count COMPLETE BLOOD COUNT Lab Routine Nonrheumatic aortic valve insufficiency Expected: 09/24/2024, Expires: 12/24/2024 [facility] Comment on above: Expected: 09/24/2024 , Expires: 12/24/2024 Start: 09-24-2024 End: 12-24-2024 Comprehensive metabolic 2000 panel - Serum or Plasma COMPREHENSIVE METABOLIC PANEL Lab Routine Nonrheumatic aortic valve insufficiency Expected: 09/24/2024, Expires: 12/24/2024 [facility] Work Phone: Comment on above: Expected: 09/24/2024 , Expires: 12/24/2024 Start: 09-24-2024 Hepatitis B surface antibody level LDL Cholesterol [facility] Start: 09-24-2024 End: 12-24-2024 Lipid 1996 panel - Serum or Plasma LIPID PANEL BASIC Lab Routine Nonrheumatic aortic valve insufficiency Expected: 09/24/2024, Expires: 12/24/2024 [facility] Comment on above: Expected: 09/24/2024 , Expires: 12/24/2024 Start: 08-30-2024 Bacteria identified in Urine by Culture Urine Culture [facility] Start: 08-30-2024 Urine culture [facility] Start: 07-14-2024 End: 07-14-2024 Patient encounter procedure [facility] Comment on above: Type 2 diabetes marietta itus without complication, unspecified whether director long term care insulin use (Primary Dx); Pain due to onychomycosis of toenails of both feet; Xerosis cutis; Peroneal tendinitis, left Start: 05-25-2024 Covid-19 Vaccine () Covid-19 Vaccine () [facility] Start: 04-14-2024 End: 04-14-2024 Patient encounter procedure 04/14/2024 10:30 AM EST Office Visit [facility] [address] [facility] [address] [place] [phone] Preston Pompa DPM [address] [facility] [address] [place] [address] [facility] Start: 03-02-2024 Advance Directive Discussion Advance Directive Discussion [facility] Start: 03-02-2024 Medicare Advantage A nnual Wellness Visit Medicare Advantage Annual Wellness Visit [facility] Start: 01-07-2024 End: 01-07-2024 Patient encounter procedure 01/07/2024 10:40 AM EST Office Visit [facility] [address] [phone] Preston Pompa, MARIZAM [address] [address] [facility] Start: 11-01-2023 Influenza vaccination Influenza Vacc ine (#1) [facility] Start: 10-22-2023 End: 10-22-2023 Patient encounter procedure 10/22/2023 11:50 AM EDT Office Visit [facility] [address] [phone] Preston Pompa, REGINA [address] [id number] Peroneal tendinitis, left (Primary Dx); Type 2 diabetes mellitus without complication, unspecified whether fdc insulin use (CMS/HCC); Onychomycosis; Toe pain, bilateral [facility] Comment on above: Peroneal tendinitis, left (Primary Dx); Type 2 diabetes mellitus without complication, unspecified whether fdc insulin use (CMS/HCC); Onychomycosis; Toe pain, bilateral Start: 09-08-2023 Screening for malign ant neoplasm of colon [facility] Start: 08-13-2023 End: 10-13-2023 CBC panel - Blood by Automated count CBC Lab Routine Nonrheumatic aortic valve insufficiency Expected: 08/13/2023, Expires: 10/13/2023 [facility] Work Phone: Comment on above: Expected: 08/13/2023 , Expires: 10/13/2023 Start: 08-13-2023 End: 10-13-2023 Comprehensive metabolic 2000 panel - Serum or Plasma COMP METABOLIC PANEL Lab Routine Nonrheumatic aortic valve insufficiency Expected: 08/13/2023, Expires: 10/13/2023 [facility] Work Phone: Comment on above: Expected: 08/13/2023 , Expires: 10/13/2023 Start: 08-13-2023 End: 10-13-2023 Lipid 1996 panel - Serum or Plasma LIPID PANEL BASIC Lab Routine Nonrheumatic aortic valve insufficiency Expected: 08/13/2023, Expires: 10/13/2023 [facility] Work Phone: Comment on above: Expected: 08/13/2023 , Expires: 10/13/2023 Start: 04-14-2023 Covid-19 Vaccine () Covid-19 Vaccine () [facility] Start: 03-02-2023 Advance Directive Discussion Advance Directive Discussion [facility] Start: 03-02-2023 Depression Assessment Depression Ass essment [facility] Start: 10-31-2022 Covid-19 Vaccine () Covid-19 Vaccine () [facility] Start: 10-31-2022 [facility] Start: 09-13-2022 Hepatitis B surface antibody level LDL CHOLESTEROL [facility] Start: 08-29-2022 End: 08-29-2022 Basic metabolic 2000 panel - Serum or Plasma BASIC METABOLIC PNL Lab Routine Nonrheumatic aortic valve insufficiency Expected: 08/29/2022, Expires: 08/29/2022 [facility] Work Phone: Comment on above: Expected: 08/29/2022 , Expires: 08/29/2022 Start: 03-02-2022 ADVANCE DIRECTIVE DISCUSSION ADVANCE DIRECTIVE DISCUSSION [facility] Start: 03-02-2022 DEPRESSION ASSESSMENT DEPRESSION ASS ESSMENT [facility] Start: 10-31-2021 Influenza vaccination INFLUENZA (#1) [facility] Start: 09-13-2021 End: 11-13-2021 CBC panel - Blood by Automated count CBC Lab Routine Nonrheumatic aortic valve insufficiency Expected: 09/13/2021, Expires: 11/13/2021 [facility] Work Phone: Comment on above: Expected: 09/13/2021 , Expires: 11/13/2021 Start: 09-13-2021 End: 11-13-2021 Comprehensive metabolic 2000 panel - Serum or Plasma COMP METABOLIC PANEL Lab Routine Nonrheumatic aortic valve insufficiency Expected: 09/13/2021, Expires: 11/13/2021 [facility] Work Phone: Comment on above: Expected: 09/13/2021 , Expires: 11/13/2021 Start: 09-13-2021 End: 11-13-2021 Lipid 1996 panel - Serum or Plasma LIPID PANEL BASIC Lab Routine Nonrheumatic aortic valve insufficiency Expected: 09/13/2021, Expires: 11/13/2021 [facility] Work Phone: Comment on above: Expected: 09/13/2021 , Expires: 11/13/2021 Start: 08-02-2021 COVID-19 VACCINE (5 - Booster for Pfizer series) COVID-19 VACCINE (5 - Booster for Pfizer series) [facility] Start: 03-02-2021 ADVANCE DIRECTIVE DISCUSSION ADVANCE DIRECTIVE DISCUSSION [facility] Start: 06-30-2016 BONE DENSITY BONE DENSITY [facility] Start: 06-30-2016 Screening for osteoporosis Bone Dens ity Screening [facility] Start: 06-21-2016 Screening for malign ant neoplasm of breast Mammogram [facility] Start: 2011 RSV Vaccine (1 - 1-d ose 60+ series) RSV Vaccine (1 - 1-dose 60+ series) [facility] Start: 06-30-2001 SHINGRIX VACCINE (1 of 2) ACKERMAN GRIX VACCINE (1 of 2) [facility] Start: 06-30-1996 COLOGUARD (FIT-DNA) COLOGUARD (FIT-D NA) [facility] Start: 06-30-1996 Colonoscopy COLONOSCOPY [facility] Start: 06-30-1996 COLORECTAL CANCER SCREENING COLORECTAL CANCER SCREENING [facility] Start: 06-30-[address] COLONOGRAPHY [facility] Start: 06-30-1996 FECAL OCCULT BLOOD FECAL OCCULT BLOO D [facility] Start: 06-30-1996 Screening for malign ant neoplasm of colon [facility] Start: 06-30-[address] 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 NAOMI DISEASE VISIT ANNUAL PCP TEAM CHRONIC DISEASE VISIT [facility] Start: 06-30-1969 Anxiety Screening Anxiety Screening [facility] Start: 06-30-1969 Depression Screening Depression Scre ening [facility] Start: 06-30-1969 HEPATITIS C SCREENING HEPATITIS C SC [facility] Start: 06-30-1969 Hepatitis C screening Hepatitis C Sc [facility] Start: 1963 Adult depression scr eening assessment DEPRESSION SCREENING [facility] Start: 06-30-1961 3 comp foot exam completed DIABETIC FOOT EXAM [facility] Start: 06-30-1961 Diabetic foot examination Diabetic F oot Exam [facility] Start: 06-30-1961 Glaucoma screening Dilated Retinal E xam [facility] Start: 06-30-1961 Hepatitis B screening URINE ALBUMIN:CREATININE RATIO [facility] Start: 06-30-1961 Hepatitis C antibody , confirmatory test DILATED RETINAL EXAM [facility] Start: 06-30-1957 PNEUMOCOCCAL: 65+ (1 - PCV) PNEUMOCOCCAL: 65+ (1 - PCV) [facility] Start: 06-30-1956 Hemoglobin A1c measurement HbA1C [facility] Start: 06-30-1956 Hemoglobin A1c/Hemoglobin.total in Blood HBA1C [facility] Start: 1951 Screening for malign ant neoplasm of colon [facility] End: 03-10-2023 ECG COMPLETE ECG COMPLETE ECG Routine Nonrheumatic aortic valve insufficiency 1 Occurrences starting 03/10/2022 until 03/10/2023 [facility] Work Phone: Comment on above: 1 Occurrences starti ng 03/10/2022 until 03/10/2023 End: 05-10-2024 ECG COMPLETE ECG COMPLETE ECG Routine Nonrheumatic aortic valve insufficiency 1 Occurrences starting 05/11/2023 until 05/10/2024 [facility] Work Phone: Comment on above: 1 Occurrences starti ng 05/11/2023 until 05/10/2024 End: 09-24-2024 ECG COMPLETE ECG COMPLETE ECG Routine Nonrheumatic aortic valve insufficiency 1 Occurrences starting 09/25/2023 until 09/24/2024 [facility] Comment on above: 1 Occurrences starti ng 09/25/2023 until 09/24/2024 End: 09-08-2025 ECG COMPLETE ECG COMPLETE ECG Routine Nonrheumatic aortic valve insufficiency 1 Occurrences starting 09/08/2024 until 09/08/2025 [facility] Comment on above: 1 Occurrences starti ng 09/08/2024 until 09/08/2025 End: 05-10-2024 Echocardiography ECHO Cardiology Routine Nonrheumatic aortic valve insufficiency 1 Occurrences starting 05/11/2023 until 05/10/2024 [facility] Work Phone: Comment on above: 1 Occurrences starti ng 05/11/2023 until 05/10/2024 End: 09-24-2024 Echocardiography ECHO Cardiology Routine Nonrheumatic aortic valve insufficiency 1 Occurrences starting 09/25/2023 until 09/24/2024 [facility] Comment on above: 1 Occurrences starti ng 09/25/2023 until 09/24/2024 End: 09-08-2025 Echocardiography ECHO Cardiology Routine Nonrheumatic aortic valve insufficiency 1 Occurrences starting 09/08/2024 until 09/08/2025 [facility] Comment on above: 1 Occurrences starti ng 09/08/2024 until 09/08/2025 [place] [facility] Immunizations Immunization Date Immunization Notes Care Provider [facility] 11-26-2023 influenza virus vacc ine, unspecified formulation Amy Barger MD Work Phone: [facility] 01-05-2022 influenza virus vacc ine, unspecified formulation Amy Barger MD Work Phone: [facility] Payers Date Payer Category Payer Self-pay 2022 Medicare (Managed Care) [id number]. [id number] 2017 Medicare HUMANA MEDICARE HUMANA GOLD PLUS [id number] 2017-Present [id number] [place] [id number] O [id number] 2017 Medicare [id number] 1959 Medicare [id number] 1950 Unknown [id number]. [id number] 1950 Unknown [id number]. 2.593 1950 Unknown [id number] [id number]. 2.593 1950 Unknown [id number] [id number]. 2.593 1951 Unknown [id number] [id number]. 2.593 1951 Unknown [id number] [id number]. 2.593 1951 Unknown [id number] [id number]. 2.593 1951 Unknown [id number] [id number]. 2.1259 1951 Unknown [id number] [id number]. 2.1259 1951 Unknown [id number] [id number]. 2.1259 1951 Unknown [id number] [id number]. 2.1259 1950 Unknown [id number]. 2.1259 Social History Date Type Detail Facility Start: 01-21-2019 End: 08-29-2022 Tobacco smoking status NHIS Never smoked tobacco [facility] Start: 01-21-2019 End: 08-29-2022 Tobacco use and exposure Smokeless tobacco non-user [facility] Start: 09-13-2021 End: 09-08-2024 Alcohol intake Lifetime non-drinker (finding) [facility] Start: 01-21-2019 History SDOH Alcohol Frequency 1 [facility] Start: 1950 Sex Assigned At Not on file [facility] Start: 09-03-2021 End: 09-13-2021 Exposure to SARS-CoV-2 (event) Not sure [facility] Start: 01-21-2019 End: 08-29-2022 History of Social function [facility] Start: 01-21-2019 End: 08-29-2022 Alcohol Use Disorder Identification Test - Consumption [AUDIT-C] [facility] How often to you hav e a drink containing alcohol? Never [facility] Average Number of Drinks Not on file [facility] Start: 01-14-2024 End: 07-14-2024 Alcoholic beverage intake Defer [facility] Tobacco smoking stat [facility] Unknown if ever smoked [facility] Work Phone: Sex Female (finding) [facility] Start: 1950 Sex Assigned At Female F [facility] NEGATED: Highlighted rowStart: NINF History of tobacco use Passive smoker [facility] Medical Equipment Procedure Code Equipment Code Equipment Origin al Text Equipment Identifier Dates [id number] Start: 10-23-2020 Functional Status Date Assessment Result Facility 01-04-2021 Are you deaf, or do you have serious difficulty hearing No 01/04/2021 2:32 PM Oralia Radford RN No [facility] 01-04-2021 Are you blind, or do you have serious difficulty seeing, even when wearing glasses No 01/04/2021 2:32 PM Oralia Radford RN No [facility] 01-04-2021 Do you have serious difficulty walking or climbing stairs No 01/04/2021 2:32 PM Oralia Radford, MARGIE [facility] 01-04-2021 Do you have difficul ty dressing or bathing No 01/04/2021 2:32 PM Oralia Radford, MARGIE [facility] 01-04-2021 Because of a physica l, mental, or emotional condition, do you have difficulty doing errands alone such as visiting a physician's office or shopping No 01/04/2021 2:32 PM EDT Oralia Pompa RN No [facility] Mental Status Date Assessment Result Facility 01-04-2021 Because of a physica l, mental, or emotional condition, do you have serious difficulty concentrating, remembering, or making decisions No 01/04/2021 2:32 PM EDT Oralia Pompa RN No [facility] Clinical Notes 05-19-2018 to 09-08-2024 Patient InstructionsAmy Barger MD - 09/08/2024 1:00 PM EDTPreston Pompa DPM - 07/14/2024 11:10 AM EDTNicariana Pompa DPM - 04/28/2024 11:50 AM ESTNicariana Pompa DPM - 01/14/2024 1:20 PM EST Note Date & Type Note Facility 09-08-2024 Instructions Amy Barger MD - 09/08/2024 1:43 PM EDT Recommend stopping Actos (Pioglitazone), as this may be associated with increased risk of heart failure. Continue current medical regimen. Follow up one year with fasting lab work, ECG and echo. documented in this encounter [facility] 09-08-2024 History of Present illness Narrative Images from the original note were not included. [facility] Department of Cardiovascular Medicine SECTION OF CARDIOVASCULAR IMAGING OUTPATIENT VISIT DATE 09/08/2024 OUTPATIENT VISIT TYPE ESTABLISHED PRIMARY CARE PHYSICIAN: Jacky Torres [address] [place] [address] REFERRING PHYSICIAN: Amy Barger [address] [facility] [address] CHIEF COMPLAINT: Follow up HISTORY OF PRESENT ILLNESS: Ms. Marie is a 74 year old female who presents today for follow-up visit. Since last review, she has not had any hospital visits. She experiences occasional palpitations, occurring approximately once a month during physical activity. She denies any significant dyspnea. She discontinued Jardiance due to urinary incontinence, which led to bedwetting. She is currently taking Actos 30 mg once daily at night and metformin twice daily. She denies any side effects from metformin. 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 She receives assistance from a nurse aide three times a week. PAST CARDIAC HISTORY: CAD: mild proximal LAD [...] Smokeless tobacco: Never Vaping Use Vaping status: Never Used Substance Use Topics Alcohol use: Never Drug use: Never FAMILY HISTORY Problem Relation Age of Onset Heart Attack Mother fatal [place] at age 70 Diabetes Mother Diabetes Father Heart Father bypass at age 60s Heart Attack Father [place] at age 60s other (Other) Father MVA at age 72 Cancer Sister at age 42 other (Other) Brother Cancer Sister breast cancer at age 50 No Known Problems Brother Heart Attack Brother fatal [place] at age 64 other (ulcers) Brother bleeding ulcers other (hepatitis) Brother at age 50 other (liver) Brother Heart Paternal cousin heart failure unsure? ALLERGIES: ALLERGIES Allergen Reactions Sulfa (Sulfonamide * Shortness of Breath Tuberculin Ppd [place]* Rash Codeine Other: See Comments Chest pain Lisinopril Cough Ultram [Tramadol] GI Upset MEDICATIONS: pioglitazone (ACTOS) 30 mg tablet Take 30 mg by mouth once daily. mirtazapine (REMERON) 30 mg tablet Take 30 mg by mouth daily at bedtime. ACCU-CHEK BEREKET PLUS TEST STRP test strip [...] Take 1,000 mg by mouth twice daily. No data to display PHYSICAL EXAMINATION: BP 126/58 Pulse (!) 58 Resp 12 Ht 167.6 cm (5' 6 ) Wt 93.9 kg (207 lb) SpO2 98% BMI 33.41 kg/m General: Well appearing, in no acute distress. Skin: No clubbing, no cyanosis. Eyes: Extra ocular movements intact Oropharynx: Teeth in good repair. Neck: No jugular venous distention, no carotid bruits, carotids have a normal upstroke. Lungs: Clear to auscultation bilaterally. Heart: Regular rhythm, PMI not displaced, S1, S2 normal, no murmur. Abdomen: Soft, nontender, bowel sounds normal, no palpable organomegaly, no bruits. Extremities: No peripheral edema. Neuro: Oriented to person, place and time, alert, cooperative, gait coordinated. CARDIOVASCULAR MEDICINE TESTING: Electrocardiogram: 09/08/2024 Laboratory Testing: Recent Labs 09/08/24 1130 WBC 4.35 HB 12.1 HCT 38.5 PLT 199 Recent Labs 09/08/24 1130 WBC 4.35 HB 12.1 HCT 38.5 PLT 199 Recent Labs 09/08/24 1130 NA 140 K 4.2 CHLOR 106 CO2 23 BUN 21 CREAT 0.98* GLUC 115* ALKPHOS 81 TBILI 1.6* ALT 14 AST 18 ANION 11 Cholesterol, Total 114 09/08/2024 Cholesterol, Total 147 09/25/2023 HDL Cholesterol 34 09/08/2024 HDL Cholesterol 42 09/25/2023 LDL Cholesterol, Calculated 58 09/08/2024 LDL Cholesterol, Calculated 77 09/25/2023 Triglyceride 118 09/08/2024 Triglyceride 141 09/25/2023 Glucose, Point of Care 174 01/04/2021 Echocardiogram:09/08/2024 - The left ventricle is normal in size. Left ventricular systolic function is normal. EF = 62 5% (2D biplane) Indeterminate left ventricular diastolic function. - The right ventricle is normal in size. Right ventricular systolic function is normal. - There is mild (1-2+) aortic valve regurgitation. - Estimated right ventricular systolic pressure is 35 mmHg consistent with normal pulmonary artery pressures. Estimated right atrial pressure is 3 mmHg based on IVC assessment. - Exam was compared with the prior CC echocardiographic exam performed on 09/25/2023. Comparabe findings. I have personally reviewed the Electrocardiogram, Laboratory [...] * * * Final * * * Last EKG Result Conclusion ECG COMPLETE Collected: 09/08/2024 12:43 PM (Preliminary result) Impression: SINUS BRADYCARDIA WITH SINUS ARRHYTHMIA OTHERWISE NORMAL ECG IMPRESSION: Ms. Marie is a 74 year old female who presents for follow-up. There is stable mild to moderate aortic valve regurgitation on updated echocardiography. 1. Nonrheumatic aortic valve insufficiency (I35.1) Nonrheumatic mitral valve regurgitation (I34.0) Nonrheumatic tricuspid valve regurgitation (I36.1) Echocardiogram shows mild to moderate aortic valve insufficiency, mild mitral valve regurgitation, and mild tricuspid valve regurgitation. No significant progression compared to previous studies. Patient experiences occasional palpitations and has a history of pitting edema after prolonged sitting. - Continue regular monitoring of valve function. - Advised patient to avoid prolonged periods of immobility to prevent edema. - Educated patient on signs of worsening valve disease, including shortness of breath, increased palpitations, and fluid retention. 2. Mixed hyperlipidemia (E78.2) Fasting LDL is 58 mg/dL Goal LDL is 55 mg/dL or lower 3. 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 coronary artery of pai[place]shoshone heart without angina pectoris (I25.10) Clinically stable. No current angina pectoris. Recent EKG shows regular heart rhythm with a heart rate of 57 bpm, no major concerning changes. Continue current management and monitoring. 4. Encounter for medication review (Z79.899) Type 2 diabetes mellitus without complication, without long-term current use of insulin (HCC) (E11.9) Patient discontinued Jardiance due to urinary incontinence. Currently taking Actos 30 mg once daily and Metformin twice daily. Actos poses potential risks for heart failure. - Advised patient to discuss alternative diabetes management options with her primary care physician during the upcoming September appointment. PLAN AND RECOMMENDATIONS: Recommend stopping Actos (Pioglitazone), as this may be associated with increased risk of heart failure. Add in ezetimibe 10 mg per day to achieve fasting LDL goal. Continue other current medical regimen. Recommend fasting LDL 55 mg/dL or lower. Follow up one year with fasting lab work, ECG and echo. Recording using [employer] software for draft documentation of the visit was discussed with the patient/authorized commercial sales representative; all questions welcomed and answered. Patient/authorized commercial sales representative agreed to proceed CONTACT INFORMATION: Amy Barger MD documented in this encounter [facility] 09-08-2024 Note HNO ID: [id number] Author: AMY BARGER MD Service: ? Author Type: Physician Type: Progress Notes Filed: 09/09/2024 08:32 Note Text: [facility] Department of Cardiovascular Medicine SECTION OF CARDIOVASCULAR IMAGING OUTPATIENT VISIT DATE 09/08/2024 OUTPATIENT VISIT TYPE ESTABLISHED PRIMARY CARE PHYSICIAN: Jacky Torres [address] [place] [address] REFERRING PHYSICIAN: Amy Barger [address] [facility] [id number] CHIEF COMPLAINT: Follow up HISTORY OF PRESENT ILLNESS: Ms. Marie is a 74 year old female who presents today for follow-up visit. Since last review, she has not had any hospital visits. She experiences occasional palpitations, occurring approximately once a month during physical activity. She denies any significant dyspnea. She discontinued Jardiance due to urinary incontinence, which led to bedwetting. She is currently taking Actos 30 mg once daily at night and metformin twice daily. She denies any side effects from metformin. 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 She receives assistance from a nurse aide three times a week. PAST CARDIAC HISTORY: CAD: mild proximal LAD [...] Smokeless tobacco: Never Vaping Use Vaping status: Never Used Substance Use Topics Alcohol use: Never Drug use: Never FAMILY HISTORY Problem Relation Age of Onset Heart Attack Mother fatal [place] at age 70 Diabetes Mother Diabetes Father Heart Father bypass at age 60s Heart Attack Father [place] at age 60s other (Other) Father MVA at age 72 Cancer Sister at age 42 other (Other) Brother Cancer Sister breast cancer at age 50 No Known Problems Brother Heart Attack Brother fatal [place] at age 64 other (ulcers) Brother bleeding ulcers other (hepatitis) Brother at age 50 other (liver) Brother Heart Paternal cousin heart failure unsure? ALLERGIES: ALLERGIES Allergen Reactions Sulfa (Sulfonamide * Shortness of Breath Tuberculin Ppd [place]* Rash Codeine Other: See Comments Chest pain Lisinopril Cough Ultram [Tramadol] GI Upset MEDICATIONS: pioglitazone (ACTOS) 30 mg tablet Take 30 mg by mouth once daily. mirtazapine (REMERON) 30 mg tablet Take 30 mg by mouth daily at bedtime. ACCU-CHEK BEREKET PLUS TEST STRP test strip [...] Take 1,000 mg by mouth twice daily. No data to display PHYSICAL EXAMINATION: BP 126/58 Pulse (!) 58 Resp 12 Ht 167.6 cm (5' 6 ) Wt 93.9 kg (207 lb) SpO2 98% BMI 33.41 kg/m? General: Well appearing, in no acute distress. Skin: No clubbing, no cyanosis. Eyes: Extra ocular movements intact Oropharynx: Teeth in good repair. Neck: No jugular venous distention, no carotid bruits, carotids have a normal upstroke. Lungs: Clear to auscultation bilaterally. Heart: Regular rhythm, PMI not displaced, S1, S2 normal, no murmur. Abdomen: Soft, nontender, bowel sounds normal, no palpable organomegaly, no bruits. Extremities: No peripheral edema. Neuro: Oriented to person, place and time, alert, cooperative, gait coordinated. CARDIOVASCULAR MEDICINE TESTING: Electrocardiogram: 09/08/2024 Laboratory Testing: Recent Labs 09/08/24 1130 WBC 4.35 HB 12.1 HCT 38.5 PLT 199 Recent Labs 09/08/24 1130 WBC 4.35 HB 12.1 HCT 38.5 PLT 199 Recent Labs 09/08/24 1130 NA 140 K 4.2 CHLOR 106 CO2 23 BUN 21 CREAT 0.98* GLUC 115* ALKPHOS 81 TBILI 1.6* ALT 14 AST 18 ANION 11 Cholesterol, Total 114 09/08/2024 Cholesterol, Total 147 09/25/2023 HDL Cholesterol 34 09/08/2024 HDL Cholesterol 42 09/25/2023 LDL Cholesterol, Calculated 58 09/08/2024 LDL Cholesterol, Calculated 77 09/25/2023 Triglyceride 118 09/08/2024 Triglyceride 141 09/25/2023 Glucose, Point of Care 174 01/04/2021 Echocardiogram:09/08/2024 - (more content not included)... [facility] 07-14-2024 History of Present illness Narrative Patient: [...] has intermittently been using prescribed or recommended [id number]-[id number] cream with positive improvement. Patient also has complaints of yesterday being bit by a Cat to left great toe region noticed some redness to the area but denies any drainage denies any nausea vomiting chills Allergies: Allergies Allergen Reactions Lisinopril Cough Tramadol Nausea Only Codeine Rash Sulfa Antibiotics Rash Past Medical History: Past Medical History: Diagnosis Date Allergic rhinitis Aortic regurgitation Bradycardia Depression ([facility]) DJD (degenerative joint disease) DM (diabetes mellitus) ([facility]) GERD (gastroesophageal reflux disease) HLD (hyperlipidemia) ([facility]) Hypothyroidism ([facility]) Osteoarthritis PTSD (post-traumatic stress disorder) ([facility]) Skin cancer Medications: Current Outpatient [...] and positive PT pedal pulses NEURO: 5.07 [place] Ehsan monofilament test positive to digits and [...] 2 diabetes mellitus without complication, unspecified whether fdc insulin use 3. Pain due to onychomycosis [...] Preston Pompa DPM documented in this encounter [facility] 04-28-2024 History of Present illness Narrative Patient: [...] has periodically been using prescribed or recommended oetx-vkf-kvnnics cream with minimal improvement. Allergies: Allergies Allergen Reactions Lisinopril Cough Tramadol Nausea Only Codeine Rash Sulfa Antibiotics Rash Past Medical History: Past Medical History: Diagnosis Date Allergic rhinitis Aortic regurgitation Bradycardia Depression ([facility]) DJD (degenerative joint disease) DM (diabetes mellitus) ([facility]) GERD (gastroesophageal reflux disease) HLD (hyperlipidemia) ([facility]) Hypothyroidism ([facility]) Osteoarthritis PTSD (post-traumatic stress disorder) ([facility]) Skin cancer Medications: Current Outpatient [...] and positive PT pedal pulses NEURO: 5.07 [place] Ehsan monofilament test positive to digits and forefoot bilaterally 125Hz tuning fork positive to 1st MPJ bilaterally ORTHO: Positive pain on palpation to toenails of the left 1,2,3,4,5 toes and right 1,2,3,4,5 toes minimal pain on palpation left peroneal brevis tendon near insertion to the 5th metatarsal base ASSESSMENT 1. Type 2 diabetes mellitus without complication, unspecified whether director long term care insulin use ([facility]) 2. Pain due to onychomycosis of toenails [...] or drainage to feet. Patient to consider hlxm-itc-iqtgpkf treatments for medication or use of urea cream and prescription today was offered for Lac-Hydrin cream. Preston Pompa DPM documented in this encounter [facility] 01-14-2024 History of Present illness Narrative Patient: [...] been taking anti-inflammatories and rates pain a /. Pt also presents today with secondary complaints of dry scaly skin to feet. Pt states that they have not been using OTC creams and lotions with minimal relief. Allergies: Allergies Allergen Reactions Lisinopril Cough Tramadol Nausea Only Codeine Rash Sulfa Antibiotics Rash Past Medical History: Past Medical History: Diagnosis Date Allergic rhinitis Aortic regurgitation Bradycardia Depression ([facility]) DJD (degenerative joint disease) DM (diabetes mellitus) ([facility]) GERD (gastroesophageal reflux disease) HLD (hyperlipidemia) ([facility]) Hypothyroidism ([facility]) Osteoarthritis PTSD (post-traumatic stress disorder) ([facility]) Skin cancer Medications: Current Outpatient [...] and positive PT pedal pulses NEURO: 5.07 [place] Ehsan monofilament test positive to digits and forefoot bilaterally 125Hz tuning fork positive to 1st MPJ bilaterally ORTHO: Positive pain on palpation to nails 1 through 10 Minimal pain on palpation left peroneal brevis tendon near insertion to the 5th metatarsal base ASSESSMENT 1. Peroneal tendinitis, left 2. Type 2 diabetes mellitus without complication, unspecified whether director long term care insulin use ([facility]) 3. Pain due to onychomycosis [...] or drainage to feet. Patient to consider zhwk-jxv-wjdsrif treatments for medication or use of urea cream and prescription today was offered for Lac-Hydrin cream. Patient has urea cream and advised her to continue with daily as she has only been using once per week Preston Pompa DPM documented in this encounter [facility] 10-22-2023 History of Present illness Narrative Patient: [...] been taking anti-inflammatories and rates pain a /. Allergies: Allergies Allergen Reactions Lisinopril Cough Tramadol Nausea Only Codeine Rash Sulfa Antibiotics Rash Past Medical History: Past Medical History: Diagnosis Date Allergic rhinitis Aortic regurgitation Bradycardia Depression ([facility]) DJD (degenerative joint disease) DM (diabetes mellitus) ([facility]) GERD (gastroesophageal reflux disease) HLD (hyperlipidemia) ([facility]) Hypothyroidism ([facility]) Osteoarthritis PTSD (post-traumatic stress disorder) ([facility]) Skin cancer Medications: Current Outpatient [...] and positive PT pedal pulses NEURO: 5.07 [place] Ehsan monofilament test positive to digits and forefoot bilaterally 125Hz tuning fork positive to 1st MPJ bilaterally ORTHO: Positive pain on palpation to nails 1 through 10 Minimal pain on palpation left peroneal brevis tendon near insertion to the 5th metatarsal base ASSESSMENT 1. Peroneal tendinitis, left 2. Type 2 diabetes mellitus without complication, unspecified whether fdc insulin use ([facility]) 3. Onychomycosis 4. Toe pain, [...] Preston Pompa DPM documented in this encounter [facility] 09-25-2023 Instructions Amy Barger MD - 09/25/2023 [...] on the day documented in this encounter [facility] 09-25-2023 History of Present illness Narrative Images from the original note were not included. [facility] Department of Cardiovascular Medicine SECTION OF CARDIOVASCULAR IMAGING OUTPATIENT VISIT DATE 09/25/2023 OUTPATIENT VISIT TYPE ESTABLISHED PRIMARY CARE PHYSICIAN: Jacky Torres [address] [place] [address] REFERRING PHYSICIAN: [address] [facility] [id number] CHIEF COMPLAINT: Follow up visit. HISTORY OF [...] Age of Onset Heart Attack Mother fatal [place] at age 70 Diabetes Mother Diabetes Father Heart Father bypass at age 60s Heart Attack Father [place] at age 60s other (Other) Father MVA at age 72 Cancer Sister at age 42 other (Other) Brother infant Cancer Sister breast cancer at age 50 No Known Problems Brother Heart Attack Brother fatal [place] at age 64 other (ulcers) Brother bleeding [...] ICD10: E78.2 5. 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 coronary artery of pa[place]shoshone heart without angina pectoris - ICD9: 414.01, [...] Amy Barger MD documented in this encounter [facility] 09-25-2023 Note HNO ID: [id number] Author: AMY BARGER MD Service: ? Author Type: Physician Type: Progress Notes Filed: 09/26/2023 17:05 Note Text: [facility] Department of Cardiovascular Medicine SECTION OF CARDIOVASCULAR IMAGING OUTPATIENT VISIT DATE 09/25/2023 OUTPATIENT VISIT TYPE ESTABLISHED PRIMARY CARE PHYSICIAN: Jacky Torres [address] [place] [address] REFERRING PHYSICIAN: Amy Barger [address] [facility] [id number] CHIEF COMPLAINT: Follow up visit. HISTORY OF [...] Age of Onset Heart Attack Mother fatal [place] at age 70 Diabetes Mother Diabetes Father Heart Father bypass at age 60s Heart Attack Father [place] at age 60s other (Other) Father MVA at age 72 Cancer Sister at age 42 other (Other) Brother Cancer Sister breast cancer at age 50 No Known Problems Brother Heart Attack Brother fatal [place] at age 64 other (ulcers) Brother bleeding [...] function is normal. (more content not included)... [facility] 08-29-2022 Instructions Amy Barger MD - 08/29/2022 2:29 PM EDT Recommend stopping pioglitazone. documented in this encounter [facility] 08-29-2022 History of Present illness Narrative Images from the original note were not included. [facility] Department of Cardiovascular Medicine SECTION [...] Age of Onset Heart Attack Mother fatal [place] at age 70 Diabetes Mother Diabetes Father Heart Father bypass at age 60s Heart Attack Father [place] at age 60s other (Other) Father MVA at age 72 Cancer Sister at age 42 other (Other) Brother infant Cancer Sister breast cancer at age 50 No Known Problems Brother Heart Attack Brother fatal [place] at age 64 other (ulcers) Brother bleeding [...] coordinated. CARDIOVASCULAR MEDICINE TESTIN. Echocardiogram: 08/24/2020 2. athletic monitor: 02/01/2019 to 02/14/[address] coronary angiogram: 11/21/2020 4. Cath angiogram: 01/05/2021 5. Echocardiogram: 09/13/2021 6. Outside echocardiogram: 09/15/2018 7. Outside echocardiogram: 04/29/2004 7. Outside myocardial perfusion study: 09/15/2018 I have personally reviewed the echocardiograms, environmental monitoring specialist, coronary CTA and outside cardiac investigations. Outside [...] Amy Barger MD documented in this encounter [facility] 09-13-2021 History of Present illness Narrative Images from the original note were not included. [facility] Department of Cardiovascular Medicine SECTION [...] Age of Onset Heart Attack Mother fatal [place] at age 70 Diabetes Mother Diabetes Father Heart Father bypass at age 60s Heart Attack Father [place] at age 60s other (Other) Father MVA at age 72 Cancer Sister at age 42 other (Other) Brother Cancer Sister breast cancer at age 50 No Known Problems Brother Heart Attack Brother fatal [place] at age 64 other (ulcers) Brother bleeding [...] coordinated. CARDIOVASCULAR MEDICINE TESTIN. Echocardiogram: 08/24/2020 2. athletic monitor: 02/01/2019 to 02/14/[address] coronary angiogram: 11/21/2020 4. Cath angiogram: 01/05/2021 5. Echocardiogram: 09/13/2021 6. Outside echocardiogram: 09/15/2018 7. Outside echocardiogram: 04/29/2004 7. Outside myocardial perfusion study: 09/15/2018 I have personally reviewed the echocardiograms, environmental monitoring specialist, coronary CTA and outside cardiac investigations. Outside [...] has recovered from it. Echocardiography at the [facility] reveals stable mild aortic regurgitation, and [...] Amy Barger MD documented in this encounter [facility] 05-19-2018 History of Past i llness Narrative Problem Noted Date Resolved Date Pure hypercholesterolemia, unspecified 9 08/24/2020 documented as of this encounter (statuses as of 09/14/2021) [facility] History of Past illness Narrative* Problem Noted Date Resolved Date Pure hypercholesterolemia, unspecified 9 08/24/2020 documented as of this encounter (statuses as of 03/11/2022) [facility] History of Past illness Narrative* Problem Noted Date Resolved Date Pure hypercholesterolemia, unspecified 9 08/24/2020 documented as of this encounter (statuses as of 08/30/2022) [facility] History of Past illness Narrative* Problem Noted Date Diagnosed Date Resolved Date Pure hypercholesterolemia, unspecified 05/19/2018 08/24/2020 documented as of this encounter (statuses as of 05/11/2023) [facility] Diagnosis Nonrheumatic aortic valve insufficiency- Primary Aortic valve disorders Nonrheumatic mitral valve regurgitation Nonrheumatic tricuspid valve regurgitation Tricuspid valve disorders, specified as nonrheumatic Mixed hyperlipidemia 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 coronary artery of pai[place]-shoshone heart without angina pectoris Type 2 diabetes mellitus without complication, without long-term current use of insulin ([facility]) [facility] Diagnosis Nonrheumatic aortic valve insufficiency- Primary Aortic valve disorders [facility] Diagnosis Nonrheumatic aortic valve insufficiency- Primary Aortic valve disorders 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 coronary artery of pa[place]shoshone heart without angina pectoris Mixed hyperlipidemia Valvular heart disease Endocarditis, valve unspecified, unspecified cause 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 coronary artery of pa[place]-shoshone heart with angina pectoris ([facility]) Type 2 diabetes mellitus without complication, without long-term current use of insulin ([facility]) [facility] Diagnosis Nonrheumatic aortic valve insufficiency- Primary Aortic valve disorders [facility] Diagnosis Nonrheumatic aortic valve insufficiency- Primary Aortic valve disorders Nonrheumatic mitral valve regurgitation Nonrheumatic tricuspid valve regurgitation Tricuspid valve disorders, specified as nonrheumatic Mixed hyperlipidemia 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 coronary artery of pa[place]shosh[place] heart without angina pectoris [facility] Diagnosis Xerosis cutis- Primary Other specified disease of sebaceous glands Peroneal tendinitis, left Type 2 diabetes mellitus without complication, unspecified whether fdc insulin use ([facility]) Pain due to onychomycosis of toenails of both feet documented in this encounter [facility]* Diagnosis Peroneal tendinitis, left- Primary Type 2 diabetes mellitus without complication, unspecified whether fdc insulin use (CMS/HCC) Onychomycosis Dermatophytosis of nail Toe pain, bilateral documented in this encounter [facility] note* Diagnosis Peroneal tendinitis, left- Primary Type 2 diabetes mellitus without complication, unspecified whether fdc insulin use (CMS/HCC) Pain due to onychomycosis of toenails of both feet Xerosis cutis Other specified disease of sebaceous glands documented in this encounter [facility] note* Diagnosis Cellulitis of left foot- Primary Type 2 diabetes mellitus without complication, unspecified whether director long term care insulin use Pain due to onychomycosis of toenails of both feet Xerosis cutis Other specified disease of sebaceous glands Peroneal tendinitis, left Cat bite of ankle, initial encounter documented in this encounter [facility] HealthcareEvaluation noteNo assessment information availableHenry [facility] Work Phone: Evaluation note* Diagnosis Nonrheumatic aortic valve insufficiency- Primary Aortic valve disorders Nonrheumatic mitral valve regurgitation Nonrheumatic tricuspid valve regurgitation Tricuspid valve disorders, specified as nonrheumatic Mixed hyperlipidemia 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 coronary artery of [place] heart without angina pectoris Encounter for medication review Encounter for long-term (current) use of other medications Type 2 diabetes mellitus without complication, without long-term current use of insulin (HCC) documented in this encounter [facility] for referral (narrative)* Outpatient Procedure (Routine) - Authorized Specialty Diagnoses / Procedures Referred By Contac t Ref[facility] Diagnoses Nonrheumatic aortic valve insufficiency Procedures ECG COMPLETE ECG ROUTINE ECG W/LEAST 12 LDS W/I&R Amy Barger MD [address] [place] [address] [facility] [place] [address] Referral ID Status Reason Start Date Expiration Date Visits Requested Visits Authorized [id number] Authorized Auto-Generat ed Referral 03/10/2022 03/10/2023 1 1 [facility] for referral (narrative)* Outpatient Procedure (Routine) - Authorized Specialty Diagnoses / Procedures Referred By Contac t Referred To Contact [facility] Diagnoses Nonrheumatic aortic valve insufficiency Procedures ECG COMPLETE ECG ROUTINE ECG W/LEAST 12 LDS W/I&R Amy Barger MD [address] [place] [address] [address] Referral ID Status Reason Start Date Expiration Date Visits Requested Visits Authorized [id number] Authorized Auto-Generat ed Referral 05/11/2023 05/10/2024 1 1 * Outpatient Procedure (Routine) - Pending Review Specialty Diagnoses / Procedures Referred By Eduardaac t Referred To Contact [facility] Diagnoses Nonrheumatic aortic valve insufficiency Procedures ECHO ECHO TTHRC R-T 2D W/WOM-MODE COMPL SPEC&COLR D Amy Barger MD [address] [place] [address] [address] Referral ID Status Reason Start Date Expiration Date Visits Requested Visits Authorized [id number] Pending Review Auto-Generat ed Referral 05/11/2023 05/10/2024 1 1 [facility] for referral (narrative)* Outpatient Procedure (Routine) - New Request Specialty Diagnoses / Procedures Referred By Contac t Referred To Contact [facility] Diagnoses Nonrheumatic aortic valve insufficiency Procedures ECHO ECHO TTHRC R-T 2D W/WOM-MODE COMPL SPEC&COLR D Amy Barger MD [address] [place] [address] [address] Referral ID Status Reason Start Date Expiration Date Visits Requested Visits Authorized [id number] New Request Auto-Generat ed Referral 09/25/2023 09/24/2024 1 1 * Outpatient Procedure (Routine) - New Request Specialty Diagnoses / Procedures Referred By Contac t Referred To Contact [facility] Diagnoses Nonrheumatic aortic valve insufficiency Procedures ECG COMPLETE ECG ROUTINE ECG W/LEAST 12 LDS W/I&R Amy Barger MD [address] [place] [address] [place] [address] Referral ID Status Reason Start Date Expiration Date Visits Requested Visits Authorized [id number] New Request Auto-Generat ed Referral 09/25/2023 09/24/2024 1 1 * Transition of Care (Routine) - Ref Not Required Specialty Diagnoses / Procedures Referred By Contwinston t Referred To Contact [facility] Procedures CARDIOVASCULAR MEDICINE OP FOLLOW UP APPT ORDER Amy Barger MD [address] [place] [address] [address] Referral ID Status Reason Start Date Expiration Date Visits Requested Visits Authorized [id number] Ref Not Required PCP Requested Referral 06/26/2024 09/24/2024 1 1 [facility] for referral information [facility]Good [facility] Work Phone: Advance Directives No Advanced Directives Records FoundDocuments on File Type Date Recorded 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 Advance Directive(s) 12/14/2020 3:08 PM [...] or prosecute any alcohol or drug abuse patient.[facility] the event this information is protected by the Federal Confidentiality of Alcohol and Drug Abuse Patient Records regulations: The Federal rules restrict any use of the information to criminally investigate or prosecute any alcohol or drug abuse patient.[facility] the event this information is protected by the Federal Confidentiality of Alcohol and Drug Abuse Patient Records regulations: The Federal rules restrict any use of the information to criminally investigate or prosecute any alcohol or drug abuse patient.[facility] the event this information is protected by the Federal Confidentiality of Alcohol and Drug Abuse Patient Records regulations: The Federal rules restrict any use of the information to criminally investigate or prosecute any alcohol or drug abuse patient.[facility] the event this information is protected by the Federal Confidentiality of Alcohol and Drug Abuse Patient Records regulations: The Federal rules restrict any use of the information to criminally investigate or prosecute any alcohol or drug abuse patient.[facility] the event this information is protected by the Federal Confidentiality of Alcohol and Drug Abuse Patient Records regulations: The Federal rules restrict any use of the information to criminally investigate or prosecute any alcohol or drug abuse patient.[facility] Reason for Visit (unrecogniz ed section and content) Reason Comments Follow Up Reason Comments Coronary Artery Disease Valvular Heart Disease Reason Comments DM Foot Care Dm Nails Reason Comments DM Foot Care Dm nail care Reason Comments CARD Follow Up Annual Occasional chest p ain . Specialty Diagnoses / Procedures Referred By Sudha t Referred To Contact [facility] Procedures CARDIOVASCULAR MEDICINE OP FOLLOW UP APPT ORDER Amy Barger MD [address] [place] [address] Phone: tel: fax: [facility] [place] [address] [place] [id number] Referral ID Status Reason Start Date Expiration Date V isits Requested Visits Authorized [id number] Closed PCP Requested Referral 06/26/2024 09/24/2024 1 1 Care Teams (unrecognized sec tion and content) [employer] Header Relationship Specialty Start Date End Date Jacky Torres MD [address] [place] [address] PCP - General Family Practice 01/21/19 Amy Barger MD [address] [place] [address] Primary Staff Physician Cardiology 08/24/20 [employer] Header Relationship Specialty Start Date End Date Jacky Torres MD [address] [place] [address] PCP - General Family Medicine 01/21/19 Amy Barger MD [address] [place] [address] Primary Staff Physician Cardiology 08/24/20 [employer] Header Relationship Specialty Start Date End Date Jacky Torres MD PCP - General Family Medicine 01/21/19 Amy Barger MD [address] [place] [address] Primary Staff Physician Cardiology 08/24/20 [employer] Header Relationship Specialty Start Date End Date Jacky Torres MD PCP - General Family Medicine 01/21/19 Amy Barger MD [address] [place] [address] Primary Staff Physician Cardiology 08/24/20 [employer] Header Relationship Specialty Start Date End Date Jacky Torres MD PCP - General Family Medicine 01/21/19 Amy Barger MD [address] [place] [address] Primary Staff Physician Cardiology 08/24/20 [employer] Header Relationship Specialty Start Date End Date Jacky Torres MD [address] [place] [address] PCP - General Family Medicine 02/12/23 [employer] Header Relationship Specialty Start Date End Date Jacky Torres MD [address] [place] [address] PCP - General Family Medicine 02/12/23 [employer] Header Relationship Specialty Start Date End Date Jacky Torres MD [address] [place] [address] PCP - General Family Medicine 02/12/23 [employer] Header Relationship Specialty Start Date End Date Jacky Torres MD [address] [place] [address] PCP - General Family Medicine 02/12/23 [employer] Header Relationship Specialty Start Date End Date Jacky Torres MD [address] [place] [address] PCP - General Family Medicine 02/12/23 Team Status: Active Member Role Status Dates Jacky Torres MD Primary Care Provider Active Team Status: Inactive Member Role Status Dates Jacky Torres MD Primary Care Provider Active Start: August 29, 2024 End: August 29, 2024 Jacky Torres MD Attending Provider Active Sta rt: August 29, 2024 End: August 29, 2024 [employer] Header Relationship Specialty Start Date End Date Jacky Torres MD PCP - General Family Medicine 01/21/19 Amy Barger MD [address] [place] [address] Primary Staff Physician Cardiology 08/24/20 INFORMATION SOURCE (unrecogn ized section and content) DATE CREATED AUTHOR 04/03/2022 [facility] DATE CREATED AUTHOR AUTHOR'S ORGANIZ ATION 07/15/2024 [facility] DATE CREATED AUTHOR AUTHOR'S ORGANALBERT ATION 09/01/2024 [facility] DATE CREATED AUTHOR AUTHOR'S ORGANALBERT ATION 09/15/2024 [facility] Goals (unrecognized section and content) Goals may be documented in a n alternate section FOR RECORDS PERTAINING TO PATIENTS WHO ARE [...] BE BASED ON THE PRIMARY CLINICAL RECORDS. [employer] provides no warranty or guarantee of the accuracy or completeness of information in this document.
[2024-09-16 08:08] VITALS: PULSE 68
--- NOTE | 2024-09-16 08:08 | XR_ITS ---
The [place] [address] Patient Name: LEIA FLEMING MRN: [id number] date: 1950 Sex: F Assigned Patient Location: ED.MAIN Current Patient Location: ED.MAIN Accession/Order Number: [id number] Exam Date: 09/16/2024 08:31 Report Date: 09/16/2024 08:33 At the request of: YESIKA EATON MD Procedure: XR wrist LT min 3V 3 views left wrist CLINICAL HISTORY: Pain, ulnar side, after lifting someone COMPARISON: 10/01/2017 FINDINGS: Remote healed distal radial fracture with slight angulation noted. Myye-tr-zpqpcuux degenerative changes radiocarpal joint. No fracture or dislocation identified. Zblz-hy-qbjbpsxz carpal degenerative changes. Moderate degenerative changes involving the first carpometacarpal joint. Soft tissues unremarkable. XR/XR wrist LT min 3V IMPRESSION: Posttraumatic changes and degenerative changes without evidence acute osseous abnormality. Impression dictated by: Brent Lockett M.D. 09/16/2024 8:33 AM Dictation Location: [place] [address] Electronically authenticated by: [id number] Y Date: 09/16/2024 08:33
--- NOTE | 2024-09-16 08:12 | ED.GENADUL1 ---
HPI HPI - General Adult General Chief complaint: Extremity Injury, Upper Stated complaint: L WRIST PAIN AFTER LIFTING SOUSE EARLIER TODAY Time Seen by Provider: 09/16/24 08:00 Source: patient Mode of arrival: walk-in Limitations: no limitations History of Present Illness HPI narrative: 74-year-old female presents for left wrist pain. She points to the ulnar side to indicate the area of pain. She states it happened about midnight when she was attempting to lift up her for whom she cares. She did not fall. No pain in the elbow or fingers or hands. Related Data Home Medications ?Medication ?Instructions ?Recorded ?Confirmed aspirin 81 mg capsule 81 mg PO DAILY 03/24/23 03/24/23 diclofenac sodium 75 mg 75 mg PO Q12H PRN pain 03/24/23 03/24/23 tablet,delayed release empagliflozin 10 mg tablet 10 mg PO DAILY 03/24/23 03/24/23 (Jardiance) glimepiride 4 mg tablet 4 mg PO DAILY 03/24/23 03/24/23 levothyroxine 100 mcg tablet 100 mcg PO DAILY 03/24/23 03/24/23 (Levo-T) metformin 1,000 mg tablet 1,000 mg PO BID 03/24/23 03/24/23 pioglitazone 30 mg tablet 30 mg PO QDAY 03/24/23 03/24/23 rosuvastatin 40 mg tablet (Crestor) 40 mg PO DAILY 03/24/23 03/24/23 sertraline 25 mg tablet (Zoloft) 25 mg PO DAILY 03/24/23 03/24/23 Previous Rx's ?Medication ?Instructions ?Recorded hydrocodone 5 mg-acetaminophen 325 1 tab PO Q6H PRN pain 3 days #12 08/12/23 mg tablet tabs methocarbamol 750 mg tablet 750 mg PO TID PRN pain #20 tabs 08/12/23 Allergies Allergy/AdvReac Type Severity Reaction Status Date / Time codeine Allergy Unknown Verified 03/24/23 11:13 Sulfa (Sulfonamide Allergy Unknown Verified 03/24/23 11:13 Antibiotics) tramadol (From Ultram) Allergy Unknown Verified 03/24/23 11:13 Opioid HPI Opioid Management Most Recent Opioid Data: Last Pain Scale 5 Today, 08:01 Review of Systems ROS Narrative A ten point review of systems is negative except as noted above. PFSH PFSH Social History Little interest or pleasure in doing things: not at all Feeling down, depressed, or hopeless: not at all Exam Narrative Exam Narrative: Nurses note and vital signs reviewed and patient is not hypoxic. General: The patient appears well and in no apparent distress. Patient is resting comfortably on cart. Skin: Warm, dry, no pallor noted. There is no rash noted. Head: Normocephalic, atraumatic Eye: Normal conjunctiva, no drainage Ears, Nose, Mouth, and Throat: oral mucosa is moist. Nares patent. Cardiovascular: Regular Rate and Rhythm Respiratory: Patient is in no distress, no accessory muscle use Back: non-tender GI: Normal bowel sounds, no tenderness to palpation, no masses appreciated. No rebound, guarding, or rigidity noted. Musculoskeletal: There is no deformity in the left wrist. Fingers and wrist have full range of motion. She has some tenderness on the ulnar aspect. Fingers and elbow have full range of motion. Neurological: A&O, normal speech Psychiatric: Cooperative Constitutional Vital Signs, click to edit/add: Last Vital Signs Temp 97.7 F 09/16/24 08:01 Pulse 68 09/16/24 08:08 Resp 18 09/16/24 08:01 BP 175/57 H 09/16/24 08:01 Pulse Ox 98 09/16/24 08:01 O2 Del Method Room Air 09/16/24 08:01 Course Vital Signs Vital signs: Vital Signs Temperature 97.7 F 09/16/24 08:01 Pulse Rate 58 L 09/16/24 08:01 Respiratory Rate 18 09/16/24 08:01 Blood Pressure 175/57 H 09/16/24 08:01 Pulse Oximetry 98 09/16/24 08:01 Oxygen Delivery Method Room Air 09/16/24 08:01 Temperature 97.7 F 09/16/24 08:01 Pulse Rate 68 09/16/24 08:08 Respiratory Rate 18 09/16/24 08:01 Blood Pressure 175/57 H 09/16/24 08:01 Pulse Oximetry 98 09/16/24 08:01 Oxygen Delivery Method Room Air 09/16/24 08:01 Medical Decision Making MDM Narrative Medical decision making narrative: X-rays per radiologist showed no acute findings. Velcro wrist splint applied, application checked by me and found to be appropriate, she is neurovascular intact. Treatment diagnosis and follow-up were discussed with the patient. Differential Diagnosis Differential Diagnosis: Sprain, fracture Imaging Data Left wrist x-ray: Radiologist's impression: ITS Impressions Wrist X-Ray 09/16/24 08:08 IMPRESSION: Posttraumatic changes and degenerative changes without evidence acute osseous abnormality. Impression dictated by: Brent Lockett M.D. 09/16/2024 8:33 AM Dictation Location: [employer] Electronically authenticated by: [id number] Y Date: 09/16/2024 08:33 Discharge Plan Discharge Chief Complaint: Extremity Injury, Upper Clinical Impression: Left wrist sprain Patient Disposition: Home, Self-Care Time of Disposition Decision: 09:03 Condition: Good Mode of Transportation: Private Vehicle Prescriptions / Home Meds: No Action hydrocodone-acetaminophen 5-325 mg tablet 1 tab PO Q6H PRN (Reason: pain) 3 Days Qty: 12 0RF Rx Instructions: DX: R10.2 methocarbamol 750 mg tablet 750 mg PO TID PRN (Reason: pain) Qty: 20 0RF sertraline [Zoloft] 25 mg tablet 25 mg PO DAILY aspirin 81 mg capsule 81 mg PO DAILY metformin 1,000 mg tablet 1,000 mg PO BID Jardiance 10 mg tablet 10 mg PO DAILY levothyroxine [Levo-T] 100 mcg tablet 100 mcg PO DAILY rosuvastatin [Crestor] 40 mg tablet 40 mg PO DAILY glimepiride 4 mg tablet 4 mg PO DAILY diclofenac sodium 75 mg tablet,delayed release (DR/EC) 75 mg PO Q12H PRN (Reason: pain) pioglitazone 30 mg tablet 30 mg PO QDAY Print Language: Malay Instructions: Wrist Sprain (ED) Referrals: Franklyn Torres MD [Primary Care Provider, Family Practice] - 1 week
== END 2024-09-16 09:06 | disposition home or self-care (01) ==
PROVIDERS: Emergency Provider Emergency Medicine; PCP Family Medicine
DX: S63.502A Unspecified sprain of left wrist, initial encounter (principal); X50.0XXA Overexertion from strenuous movement or load, initial encounter
CPT/HCPCS: 73110; 99283

== ENCOUNTER 2024-10-25 07:53 | Emergency (ER) | payer MEDICARE, SELFPAY ==
--- OUTSIDE RECORDS SUMMARY | 2024-09-14 05:45 | XMS_ITS ---
Author Organization [facility] in [place] Address [address] [place] [address] Care Team Providers Care Skidder Name Role Phone Pardeep Torres Primary Care Provider Allergies Allergen (clinical drug ingredient) Drug/Non Drug Allergy documented on EMR Reaction Allergy Type Onset Date Status codeine Codeine Unknown Drug Allergy Active Substance with sulfonamide structure and antibacterial mechanism of action (substance) Sulfa Antibiotics Unknown Drug Allergy Active tramadol Tramadol long ago Drug Allergy Active REASON FOR VISIT Wants to Discuss Medications, Cardiology at [facility], Software Publisher wants the Actos to be discontinued Medications Medication SIG (Take, Route, Frequency, Duration) Notes Start Date End Date Status Mirtazapine 30 MG TAKE 1 TABLET AT BED TIME for 90 Active metFORMIN HCl 1000 MG TAKE 1 TABLET TWIC E DAILY for 90 Active True Metrix Blood Glucose Test - as directed In Vitro once a day for 90 days 07/24/2023 Active Rosuvastatin Calcium 40 MG TAKE 1 TABLET EVERY DAY for 90 Active Raspberry Ketones 100 MG as directed Orally Active Glimepiride 4 MG 1 tablet with meal O rally twice daily for 90 days 04/12/2024 Active Docusate Sodium 100 MG 1 capsule as need ed Orally Once a day PRN Active Ketoconazole 2 % 1 application Sales Project Manager ally Once a day - till gone for a week PRN 10/09/2023 Active Levothyroxine Sodium 100 MCG TAKE 1 TABLET EVERY DAY for 90 Active Diabetic Shoe - - Daily Acti ve Alcohol Prep Swabs A ctive Accu-Chek Karyn Plus - as directed In Vitro Active Co Q 10 10 MG as directed Orally Active Calcium 600 MG 1 tablet with meals Orally Twice a day Active Aspirin 81 MG 1 tablet Orally Once a day Active Zetia 10 MG 1 tablet Orally Once a day Active Social History Tobacco Use: Social History Observation Description Date Details (start date - stop date) Never Smoker NA - NA Tobacco Use/Smoking Question Answer Notes Patient is a nonsmoker AUDIT-C (Standard) Question Answer Notes Did you have a drink containing alcohol in the p ast year? No Points 0 Interpretation Negative Vital Signs Weight 207 lbs 09/14/2024 Height 66 in 09/14/2024 Blood pressure systolic 140 mm Hg 09/15/19 25 Blood pressure diastolic 82 mm Hg 025 BMI 33.41 kg/m2 09/14/2024 Encounters Encounter Location Date Provider Diagnosis [address] [id number] 09/14/2024 Pardeep Torres Hyperlipidemia E78.5 ; Hypothyroidism E03.9 ; Diabetes mellitus E11.9 and Gastro-esophageal reflux disease K21.9 Assessments Encounter Date Diagnosis (ICD Code) Assessment Notes Treatment Notes Treatment Clinical Notes Section Notes 09/14/2024 Hyperlipidemia (ICD-10 - E78.5) 09/14/2024 Hypothyroidism (ICD-10 - E03.9) 09/14/2024 Diabetes mellitus (ICD-10 - E11.9) 09/14/2024 Gastro-esophageal reflux disease (ICD-10 - K21.9) Plan Of Treatment Medication Medication Name Sig Start Date Stop Date Notes Pioglitazone HCl 30 MG TAKE 1 TABLET EVERY DAY Sertraline HCl 50 MG 1 tablet Orally Once a day Next Appt Details Provider Name:Pardeep Torres, 10:00:00 AM, [address] [place] [address], [id number], Progress Notes * Liana MARIE EDOB:1950 ( 74 yo F)Acc No.[id number]:09/14/2024 Progress Note Patient: Liana TENA Provider: Derian Torres ([facility])MD :1950 A ge:74 Y S ex:Female Date:09/14/2024 Address:[address] [place], [place] [id number] Check In:09:42 AM ESTCheck O ut:10:56 AM EST Subjective: * Chief Complaints: * W ants to [facility]ations[facility] wants the Actos to be discontinued * HPI: G eneral: CAD - seeign [facility] - told no meats - DM - sugars good - fof actos GERD - stable on meds HTN - stabel with meds. * ROS: E ENT: hearing changes d enies. v isual changes d enies.?non-healing mouth sores d enies. s wollen glands or neck lumps d enies. h oarseness d enies. s ore throat d enies. d ifficulty swallowing d enies. n ose bleeds d enies. n munira congestion d enies. e ar ache d enies. e ar discharge?denies. r inging in ears d enies. l ight sensitivity d enies. e ye pain d enies. b lurring d enies. e ye irritation d enies. d ouble vision d enies.?vision loss d enies. G eneral/Constitutional: Sweats: D enies. F atigue d enies. S leep problems d enies. A norexia d enies. M alaise d enies. W eight loss d enies.?Fatigue or Weakness d enies. F ever or Chills d enies. C ardiovascular: Shortness of Breath w/lying flat d enies. L ightheadedness/dizziness d enies. C hest tightness/ heavy pressure d enies. S welling of legs, ankles, or feet d enies. W aking up with shortness of breath d enies. C hest pain denies. P alpitations d enies. W eight gain d enies. R espiratory: Chronic or frequent cough d enies. C oughing up blood?denies. D ifficulty breathing d enies. P roductive cough d enies. S noring?denies. S hortness of breath that awakens from sleep (PND) d enies. C hest pain d enies. S putum production d enies. W heezing d enies. M usculoskeletal: Joint pain d enies. J oint Fluid d enies. B ack pain d enies. K nee pain d enies. N brian pain d enies. J oint Stiffness d enies. M uscle cramps d enies. W eakness of muscles d enies. A rthritis d enies. M uscle aches d enies. P ain in shoulder(s) d enies. S wollen joints d enies. * Active Problem List M25.522 Pain in left elbow Modified On:06/23/2022 Status:confirmed M65.331 Trigger finger, righ t middle finger Modified On:06/23/2022 Status:confirmed M67.814 Other specified diso rders of tendon, left shoulder Modified On:06/23/2022 Status:confirmed R00.2 Palpitations Modified On:06/23/2022 Status:confirmed R17 Unspecified jaundice Modified On:06/23/2022 Status:confirmed S52.532A Colles' fracture of left radius, initial encounter for closed fracture Modified On:06/23/2022 Status:confirmed S80.01XA Contusion of right k nee, initial encounter Modified On:06/23/2022 Status:confirmed E78.5 Hyperlipidemia Modified On:12/11/2022 Status:confirmed M19.90 Osteoarthritis Modified On:06/23/2022 Status:confirmed E03.9 Hypothyroidism Modified On:04/15/2023 Status:confirmed I25.10 CAD (coronary artery disease) Modified On:04/15/2023 Status:confirmed R00.1 Bradycardia Modified On:06/23/2022 Status:confirmed I35.1 Moderate aortic regu rgitation Modified On:06/23/2022 Status:confirmed F32.9 Depression Modified On:06/23/2022 Status:confirmed G43.909 Migraine Modified On:06/23/2022 Status:confirmed J30.9 Allergic rhinitis Modified On:06/23/2022 Status:confirmed J20.9 Acute bronchitis Modified On:06/23/2022 Status:confirmed R55 Near syncope Modified On:06/23/2022 Status:confirmed E66.3 Over weight Modified On:06/23/2022 Status:confirmed M19.90 Degenerative joint d isease Modified On:06/23/2022 Status:confirmed H91.93 Bilateral hearing lo ss Modified On:06/23/2022 Status:confirmed E11.65 Diabetes mellitus wi th hyperglycemia Modified On:04/15/2023U Status:confirmed K21.9 Gastro-esophageal re flux disease Modified On:06/25/2022 Status:confirmed M75.40 Shoulder impingement syndrome Modified On:06/23/2022 Status:confirmed G56.03 Carpal tunnel syndro me, bilateral upper limbs Modified On:06/23/2022 Status:confirmed E11.9 Diabetes mellitus Modified On:06/23/2022 Status:confirmed U07.1 COVID-19 virus infec tion Modified On:06/23/2022 Status:confirmed M54.50 Low back pain, unspe cified Modified On:06/23/2022 Status:confirmed R05.8 Dry cough Modified On:06/23/2022 Status:confirmed K52.89 Stercoral colitis Modified On:06/23/2022 Status:confirmed Z00.00 Encounter for genera l adult medical examination without abnormal findings Modified On:06/25/2022 Status:confirmed R41.3 Memory loss Modified On:01/15/2023U Status:confirmed L85.3 Xerosis cutis Modified On:02/13/2023 Status:confirmed B35.1 Tinea unguium Modified On:02/13/2023 Status:confirmed N32.89 Bladder spasm Modified On:10/09/2023 Status:confirmed B35.4 Tinea corporis Modified On:10/09/2023U Status:confirmed N39.41 Urgency incontinence Modified On:10/09/2023 Status:confirmed M54.50 Low back pain at mul tiple sites Modified On:04/28/2024W/U Status:confirmed * Medical History: * Surgical History: T ubal Ligation Gallbladder Removal * Hospitalization/Major Diagno stic Procedure: s ee above * Family History: F ather: , Heart Disease, diagnosed with Unspecified heart disease. M other: , type II diabetes. B rother(s): , LIVER DISEASE, diagnosed with Other malignant neoplasm of unspecified site. S ister(s): , cervical cancer, breast cancer, diagnosed with Other malignant neoplasm of unspecified site. S on(s): alive, type II diabetes, Heart Disease, diagnosed with Unspecified heart disease. D shaneer(s): alive. 6 brother(s) , 3 sister(s) . 2 son(s) . . Daughters: 1 Adopted. * Social History: T obacco Use: T obacco Use/Smoking P atient is a n onsmoker D rug/Alcohol: A GÉNESIS-C (Standard) D id you have a drink containing alcohol in the past year? N o P oints 0 I nterpretation N egative * Medications: T akingAccu-Chek Karyn Plus(Glucose Blood) - Strip as directed In Vitro Alcohol Prep Swabs Aspirin 81 MG Tablet Chewable 1 tablet Orally Once a day Calcium 600 MG Tablet 1 tablet with meals Orally Twice a day Co Q 10 10 MG Capsule as directed Orally Diabetic Shoe - As Ordered - Daily Docusate Sodium 100 MG Capsule 1 capsule as needed Orally Once a day , Notes to Pharmacist: PRNGlimepiride 4 MG Tablet 1 tablet with meal Orally twice daily Ketoconazole 2 % Cream 1 application Externally Once a day - till gone for a week , Notes to Pharmacist: PRNLevothyroxine Sodium 100 MCG Tablet TAKE 1 TABLET EVERY DAY metFORMIN HCl 1000 MG Tablet TAKE 1 TABLET TWICE DAILY Mirtazapine 30 MG Tablet TAKE 1 TABLET AT BEDTIME Pioglitazone HCl 30 MG Tablet TAKE 1 TABLET EVERY DAY Raspberry Ketones 100 MG Capsule as directed Orally Rosuvastatin Calcium 40 MG Tablet TAKE 1 TABLET EVERY DAY Sertraline HCl 50 MG Tablet 1 tablet Orally Once a day True Metrix Blood Glucose Test(Glucose Blood) - Strip as directed In Vitro once a day Zetia(Ezetimibe) 10 MG Tablet 1 tablet Orally Once a day Taking Accu-Chek Karyn Plus(Glucose Blood) - Strip as directed In Vitro Taking Alcohol Prep Swabs Taking Aspirin 81 MG Tablet Chewable 1 tablet Orally Once a day Taking Calcium 600 MG Tablet 1 tablet with meals Orally Twice a day Taking Co Q 10 10 MG Capsule as directed Orally Taking Diabetic Shoe - As Ordered - Daily Taking Docusate Sodium 100 MG Capsule 1 capsule as needed Orally Once a day , Notes to Pharmacist: PRNTaking Glimepiride 4 MG Tablet 1 tablet with meal Orally twice daily Taking Ketoconazole 2 % Cream 1 application Externally Once a day - till gone for a week , Notes to Pharmacist: PRNTaking Levothyroxine Sodium 100 MCG Tablet TAKE 1 TABLET EVERY DAY Taking metFORMIN HCl 1000 MG Tablet TAKE 1 TABLET TWICE DAILY Taking Mirtazapine 30 MG Tablet TAKE 1 TABLET AT BEDTIME Taking Pioglitazone HCl 30 MG Tablet TAKE 1 TABLET EVERY DAY Taking Raspberry Ketones 100 MG Capsule as directed Orally Taking Rosuvastatin Calcium 40 MG Tablet TAKE 1 TABLET EVERY DAY Taking Sertraline HCl 50 MG Tablet 1 tablet Orally Once a day Taking True Metrix Blood Glucose Test(Glucose Blood) - Strip as directed In Vitro once a day Taking Zetia(Ezetimibe) 10 MG Tablet 1 tablet Orally Once a day DiscontinuedGarlic 200 MG Tablet as directed Orally Meloxicam 15 MG Tablet 1 tablet Orally Once a day Myrbetriq(Mirabegron ER) 25 MG Tablet Extended Release 24 Hour 1 tablet Orally Once a day tiZANidine HCl 4 MG Tablet 1 tablet at bedtime as needed Orally Once a day Medication List reviewed and reconciled with the patientDiscontinued Garlic 200 MG Tablet as directed Orally Discontinued Meloxicam 15 MG Tablet 1 tablet Orally Once a day Discontinued Myrbetriq(Mirabegron ER) 25 MG Tablet Extended Release 24 Hour 1 tablet Orally Once a day Discontinued tiZANidine HCl 4 MG Tablet 1 tablet at bedtime as needed Orally Once a day Medication List reviewed and reconciled with the patient * Allergies: C odeine - Criticality HighSulfa Antibiotics - Criticality HighTramadol: long ago - Allergyno[Allergies Verified] Objective: * Vitals: W t:207lbs, Ht: 66 in, BP:140/82mm Hg, BMI:33.41Index, Ht-cm: 167.64 cm, Wt-k.89 kg. * Examination: P hysical Exam: GENERAL: w ell developed, well nourished, in no acute distress. HEAD: n ormocephalic/atraumatic. EYES: p upils equal, round and reactive to light, conjunctivae and sclerae normal. EARS: n o deformity or lesion of external ear, canals and TM appear normal bilaterally, TM's intact, not inflamed with normal light reflex, hearing grossly normal to conversational speech. NOSE: n o deformity, discharge, inflammation, or lesions.? MOUTH: m ucous membranes moist, normal oropharynx and posterior pharynx without lesions or exudates, tongue normal, dentition normal. NECK: n brian supple, no masses or palpable cervical nodes, trachea midline, thyroid without nodules, masses, tenderness, or enlargement. CHEST: n o chest wall deformity, no chest wall tenderness.? LUNGS: n ormal respiratory effort and clear to auscultation, no wheezes, rales, or rhonchi, good air exchange. CARDIO: r egular rate and rhythm, normal S1 and S2, nor murmur, rub, or gallop. PULSES: n ormal capillary refill. ABDOMEN: s oft, non-distended, non-tender, no masses. MUSCULOSKELETAL: n o deformity or scoliosis noted, normal range of motion, joints normal, no erythema, edema, effusion, or ecchymosis. EXTREMITY: n o clubbing, cyanosis, edema, or deformity with normal ROM in both upper and lower bilateral extremities. NEUROLOGIC: g rossly normal. SKIN: n o rashes, ulcerations, or suspicious lesions. LYMPH NODES: n o cervical adenopathy, nodes normal. MENTAL STATUS: a lert and oriented x3, normal mood and affect. Assessment: * Assessment: 1. H yperlipidemia - E78.5 (Primary) 2 . H ypothyroidism - E03.9 3 . D iabetes mellitus - E11.9 4 . G ira-esophageal reflux disease - K21.9 Plan: * Treatment: 2. O thers Stop Pioglitazone HCl Tablet, 30 MG, TAKE 1 TABLET EVERY DAY. * Procedure Codes: * Preventive Medicine: Screenings/Counseling: B VT ACTION PLAN Above Normal BMI Follow-up D ietary management education, guidance, and counseling * * Sign off status: Completed Visit Status: C HK (Check Out) true * Provider: Derian SMITH)MD Date: 0 09/14/2024 Generated for Milani ng/Famehrdadg/eTransmitting on: 0 10/25/2024 08:01 AM EDT History and Physical Notes * HPI (History of Present Illness) Category Sub-Category Detail Notes Category Not es General CAD - seeign [facility] - told no meats - DM - sugars good - fof actos GERD - stable on meds HTN - stabel with meds Examination Category Sub-Category Detail Notes Category Not es Physical Exam GENERAL: well developed, well nourished, in no acute distress HEAD: normocephalic/atraum atic EYES: pupils equal, round and reactive to light, conjunctivae and sclerae normal EARS: no deformity or lesi on of external ear, canals and TM appear normal bilaterally, TM's intact, not inflamed with normal light reflex, hearing grossly normal to conversational speech NOSE: no deformity, discha rge, inflammation, or lesions MOUTH: mucous membranes renee st, normal oropharynx and posterior pharynx without lesions or exudates, tongue normal, dentition normal NECK: neck supple, no mass es or palpable cervical nodes, trachea midline, thyroid without nodules, masses, tenderness, or enlargement CHEST: no chest wall deform ity, no chest wall tenderness LUNGS: normal respiratory e ffort and clear to auscultation, no wheezes, rales, or rhonchi, good air exchange CARDIO: regular rate and rhy thm, normal S1 and S2, nor murmur, rub, or gallop PULSES: normal capillary ref ill ABDOMEN: soft, non-distended, non-tender, no masses RECTAL: MUSCULOSKELETAL: no deformity or scol iosis noted, normal range of motion, joints normal, no erythema, edema, effusion, or ecchymosis EXTREMITY: no clubbing, cyanosi s, edema, or deformity with normal ROM in both upper and lower bilateral extremities NEUROLOGIC: grossly normal SKIN: no rashes, ulceratio ns, or suspicious lesions LYMPH NODES: no cervical adenopat hy, nodes normal MENTAL STATUS: alert and oriented x 3, normal mood and affect
--- OUTSIDE RECORDS SUMMARY | 2024-09-17 11:42 | XMS_ITS ---
Author Organization [facility] in [place] Address [address] [place] [address] Care Team Providers Care Store Grocery Merchandiser Name Role Phone Pardeep Torres Primary Care Provider REASON FOR VISIT ER Update- [id number] Encounters Encounter Location Date Provider Diagnosis [facility] [address] [place] [address] 09/17/2024 Pardeep Torres Plan Of Treatment Next Appt Details Provider Name:Pardeep Torres, 10:00:00 AM, [address] [place], [address], Progress Notes * Liana MARIE EDOB:1950 ( 74 yo F)Acc No.[id number]:09/17/2024 Patient: Sy Liana CLEMENT :1950 A ge:74 Y S ex:Female Address:[address] [place] [id number] * true * Date: Generated for Milani darrell/Famehrdadg/eTransmitting on: 0 10/25/2024 08:01 AM EDT
--- OUTSIDE RECORDS SUMMARY | 2024-10-05 06:15 | XMS_ITS ---
Author Organization [facility] in [place] Address [address] [place] [address] Care Team Providers Care Hvac Engineer Name Role Phone Pardeep Torres Primary Care Provider [phone] Allergies Allergen (clinical drug ingredient) Drug/Non Drug Allergy documented on EMR Reaction Allergy Type Onset Date Status codeine Codeine Unknown Drug Allergy Active Substance with sulfonamide structure and antibacterial mechanism of action (substance) Sulfa Antibiotics Unknown Drug Allergy Active tramadol Tramadol long ago Drug Allergy Active REASON FOR VISIT 3 month f/u, Stiff neck, ongoing for about a week- no known injury Medications Medication SIG (Take, Route, Frequency, Duration) Notes Start Date End Date Status Accu-Chek Karyn Plus - as directed In Vitro Active Zetia 10 MG 1 tablet Orally Once a day Active Meloxicam 15 MG 1 tablet Orally Once a day for 30 days 10/05/2024 Active True Metrix Blood Glucose Test - as directed In Vitro once a day for 90 days 07/24/2023 Active Rosuvastatin Calcium 40 MG TAKE 1 TABLET EVERY DAY for 90 Active Levothyroxine Sodium 100 MCG TAKE 1 TABLET EVERY DAY for 90 Active Ketoconazole 2 % 1 application Power Superintendent ally Once a day - till gone for a week PRN 10/09/2023 Active metFORMIN HCl 1000 MG TAKE 1 TABLET TWIC E DAILY for 90 Active Glimepiride 4 MG TAKE 1 TABLET TWICE DAILY WITH MEALS for 90 Active Raspberry Ketones 100 MG as directed Orally Active Mirtazapine 45 MG TAKE 1 TABLET AT BED TIME Orally qhs for 90 days Active Diabetic Shoe - - Daily Acti ve Co Q 10 10 MG as directed Orally Active Calcium 600 MG 1 tablet with meals Orally Twice a day Active Docusate Sodium 100 MG 1 capsule as need ed Orally Once a day PRN Active Aspirin 81 MG 1 tablet Orally Once a day Active Alcohol Prep Swabs A ctive Social History Tobacco Use: Social History Observation Description Date Details (start date - stop date) Never Smoker NA - NA Tobacco Use/Smoking Question Answer Notes Patient is a nonsmoker Problems Problem Type SNOMED Code ICD Code Onset Dates Problem Status W/U Status Risk Notes Problem Major depressive disorder, recurrent, moderate (F33.1) Active confirmed Problem Diabetic cataract associated with type II diabetes mellitus (967576905) 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) Active confirmed Problem Neck pain (19257750) Neck pain (M54.2) Active confirmed Vital Signs Weight 203.6 lbs 10/05/2024 Height 66 in 10/05/2024 Blood pressure systolic 140 mm Hg 10/06/19 25 Blood pressure diastolic 68 mm Hg 025 BMI 32.86 kg/m2 10/05/2024 Encounters Encounter Location Date Provider Diagnosis [facility] [address] [place] [address] 10/05/2024 Pardeep Torres Major depressive disorder, recurrent, moderate F33.1 ; 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.36 ; Neck pain M54.2 ; Hyperlipidemia E78.5 and Hypothyroidism E03.9 Assessments Encounter Date Diagnosis (ICD Code) Assessment Notes Treatment Notes Treatment Clinical Notes Section Notes 10/05/2024 Major depressive disorder, recurrent, moderate (ICD-10 - F33.1) disucsse meds 10/05/2024 Type 2 diabetes mellitus with diabetic cataract (ICD-10 - E11.36) cont same meds 10/05/2024 Neck pain (ICD-10 - M54.2) med and pt if not better 10/05/2024 Hyperlipidemia (ICD-10 - E78.5) on meds 10/05/2024 Hypothyroidism (ICD-10 - E03.9) on meds - checked oj labs Plan Of Treatment Medication Medication Name Sig Start Date Stop Date Notes Meloxicam 15 MG 1 tablet Orally Once a day for 30 days 07/2024 Mirtazapine 45 MG TAKE 1 TABLET AT BED TIME Orally qhs for 90 days Treatment Notes Assessment Notes Major depressive disorder, recurrent, mo derate disucsse meds Type 2 diabetes mellitus with diabetic c ataract cont same meds Neck pain med and pt if not be tter Hyperlipidemia on meds Hypothyroidism on meds - checked oj labs Next Appt Details Provider Name:Pardeep Mosquera Brian, 10:00:00 AM, [address] [place], [address], Progress Notes * Liana MARIE EDOB:1950 ( 74 yo F)Acc No.[id number]:10/05/2024 Progress Note Patient: Liana TENA Provider: Derian Torres ([facility]), :1950 A ge:74 Y S ex:Female Date:10/05/2024 Address:[address] [place], [place] [id number] Check In:10:05 AM ESTCheck O ut:10:44 AM EST Subjective: * Chief Complaints: * 3 month f/uStiff neck, ongoing for about a week- no known injury * HPI: G eneral: pain in left post neck - DM -overall goo d -ba when cheats on thyroid nmeds - discusse dtaing on chol meds - taking. 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 Modified On:02/13/2023 Status:confirmed B35.1 Tinea unguium Modified On:02/13/2023 Status:confirmed N32.89 Bladder spasm Modified On:10/09/2023 Status:confirmed B35.4 Tinea corporis Modified On:10/09/2023 Status:confirmed N39.41 Urgency incontinence Modified On:10/09/2023 Status:confirmed M54.50 Low back pain at mul tiple sites Modified On:04/28/2024 Status:confirmed F33.1 Major depressive dis order, recurrent, moderate Modified On:10/05/2024 Status:confirmed E11.36 Type 2 diabetes marietta itus with diabetic cataract Modified On:10/05/2024 Status:confirmed M54.2 Neck pain Modified On:10/05/2024 Status:confirmed * Medical History: * Surgical History: [...] Disease, diagnosed with Unspecified heart disease. D aughter(s): alive. 6 brother(s) , 3 sister(s) . 2 son(s) . . Daughters: 1 Adopted. * Social History: T obacco Use: T obacco Use/Smoking P atient is a n onsmoker * Medications: T akingAccu-Chek Karyn Plus(Glucose Blood) [...] Notes to Pharmacist: PRNGlimepiride 4 MG Tablet TAKE 1 TABLET TWICE DAILY WITH MEALS Ketoconazole 2 % Cream 1 application Externally Once a day - till gone for a week , Notes to Pharmacist: PRNLevothyroxine Sodium 100 MCG Tablet TAKE 1 TABLET EVERY DAY metFORMIN HCl 1000 MG Tablet TAKE 1 TABLET TWICE DAILY Mirtazapine 30 MG Tablet TAKE 1 TABLET AT BEDTIME Raspberry Ketones 100 MG Capsule as directed Orally Rosuvastatin Calcium 40 MG Tablet TAKE 1 TABLET EVERY DAY True Metrix Blood Glucose Test(Glucose Blood) - Strip as directed In Vitro once a day Zetia(Ezetimibe) 10 MG Tablet 1 tablet Orally Once a day Medication List reviewed and reconciled with the patientTaking Accu-Chek Karyn Plus(Glucose Blood) - Strip as [...] to Pharmacist: PRNTaking Glimepiride 4 MG Tablet TAKE 1 TABLET TWICE DAILY WITH MEALS Taking Ketoconazole 2 % Cream 1 application Externally Once a day - till gone for a week , Notes to Pharmacist: PRNTaking Levothyroxine Sodium 100 MCG Tablet TAKE 1 TABLET EVERY DAY Taking metFORMIN HCl 1000 MG Tablet TAKE 1 TABLET TWICE DAILY Taking Mirtazapine 30 MG Tablet TAKE 1 TABLET AT BEDTIME Taking Raspberry Ketones 100 MG Capsule as directed Orally Taking Rosuvastatin Calcium 40 MG Tablet TAKE 1 TABLET EVERY DAY Taking True Metrix Blood Glucose Test(Glucose Blood) - Strip as directed In Vitro once a day Taking Zetia(Ezetimibe) 10 MG Tablet 1 tablet Orally Once a day Medication List reviewed and reconciled with the patient * Allergies: C odeine - Criticality HighSulfa Antibiotics - Criticality HighTramadol: long ago - Allergyno[Allergies Verified] Objective: * Vitals: W t:203.6lbs, Ht: 66 in, BP:140/68mm Hg, BMI:32.86Index, Ht-cm: 167.64 cm, Wt-k.35 kg. * Examination: P hysical Exam: GENERAL: [...] mood and affect. Assessment: * Assessment: 1. M ajor depressive disorder, recurrent, moderate - F33.1 (Primary) 2 . T ype 2 diabetes mellitus with diabetic cataract - E11.36 3 . N brian pain - M54.2? 4. H yperlipidemia - E78.5 5 . H ypothyroidism - E03.9 ? Plan: * Treatment: 2. T ype 2 diabetes mellitus with diabetic cataract Notes: cont same meds 3. N brian pain Notes: med and pt if not better 4. H yperlipidemia Notes: on meds 5. H ypothyroidism Notes: on meds - checked oj labs * Procedure Codes: * Preventive Medicine: Screenings/Counseling: B WI ACTION PLAN Above Normal BMI Follow-up D ietary management education, guidance, and counseling * * Sign off status: Completed Visit Status: C HK (Check Out) true * Provider: Derian Torres ([facility])MD Date: 10/05/2024 Generated for Printi ng/Faxing/eTransmitting on: 10/25/2024 08:01 AM EDT History and Physical Notes * HPI (History of Present Illness) Category Sub-Category Detail Notes Category Not es General pain in left post neck - DM -overall goo d -ba when cheats on thyroid nmeds - discusse dtaing on chol meds - taking Examination Category Sub-Category Detail Notes Category Not [...]
[2024-10-25 07:57] VITALS: BP 140/70; PULSE 58; TEMP 36.8; O2SAT 96; BMI 32.3
--- OUTSIDE RECORDS SUMMARY | 2024-10-25 08:01 | XMS_ITS | Patient Health Record ---
Author Organization The [facility] in [place] Address [address] [place] [address] Care Team Providers Care Pattern Marker Name Role Phone Pardeep Lakhani Primary Care Provider [phone] Allergies Allergen (clinical drug ingredient) Drug/Non Drug Allergy documented on EMR Reaction Allergy Type Onset Date Status codeine Codeine Unknown Drug Allergy Active Substance with sulfonamide structure and antibacterial mechanism of action (substance) Sulfa Antibiotics Unknown Drug Allergy Active tramadol Tramadol long ago Drug Allergy Active Results Component Value Reference Range Notes UA DIP NONAUTO WO MICRO (810 02) - IN OFFICE Reviewed date:04/28/2024 08:01:46 PM Interpretation: Performing Lab: Notes/Report: COLOR yellow CLARITY clear GLUCOSE 100 BILIRUBIN neg KETONE neg SPECIFIC GRAVITY 1.015 BLOOD neg PH 6 PROTEIN trace UROBILINOGEN neg NITRITE neg LEUKOCYTE ESTERASE trace XR lumbar spine min 4V Reviewed date:04/28/2024 08:01:46 PM Interpretation: Performing Lab: Notes/Report: Source Facility: [place] [address] XRay Report Signed Patient: LIANA MARIE MR#: [id number] : 1950 Acct:[id number] Age/Sex: 73 / F ADM Date: 04/28/24 Loc: RAD Attending Dr: Jacky Lakhani M.D. Ordering Physician: Jacky Lakhani M.D. Date of Service: 04/28/24 Procedure(s): XR lumbar spine min 4V Accession Number(s): [id number] cc: Jacky Lakhani M.D. [address] [address] Patient Name: LIANA MARIE MRN: [id number] date: 1950 Sex: F Assigned Patient Location: [facility] Current Patient Location: [facility] Accession/Order Number: [id number] Exam Date: 04/28/2024 15:55 Report Date: 04/28/2024 15:56 At the request of: JACKY LAKHANI MD Procedure: XR lumbar spine min 4V XR lumbar spine min 4V 04/28/2024 3:24 PM SIGNS AND SYMPTOMS: Low Back Pain PROTOCOLS: Frontal, lateral, and oblique radiographs of the lumbar spine COMPARISON: None FINDINGS: The alignment, development and bony structures are normal. There is no fracture or destructive lesion. Mild vertebral disc height loss is noted at L4-5 and L5-S1. This is also present at L2-L3 and to lesser extent L1-L2. Facet degenerative changes are present throughout the lower lumbar spine. Mild degenerative changes are noted in the sacroiliac joints. There is evidence of prior cholecystectomy in the right upper quadrant. Atherosclerotic changes are noted in the abdominal. XR/XR lumbar spine min 4V IMPRESSION: No fracture or subluxation. Mild multilevel degenerative changes noted, greatest at L4-5 and L5-S1 as above. Impression dictated by: Luis A Whitley M.D.04/28/2024 3:56 PM Dictation Location: [place] [address] Electronically authenticated by: [id number] Y Date: 04/28/2024 15:56 Dictated By: Luis A Whitley M.D. Signed By: 04/28/24 1558 DD/ 1556 TD/TT: Television Schedule Coordinator: The [place] [id number] XRay Report Signed Patient: LIANA MARIE MR#: [id number] : 1950 Acct:[id number] Age/Sex: 73 / F ADM Date: 04/28/24 Loc: [facility] Attending Dr: Cinthya Lakhani M.D. Ordering Physician: Jakcy Lakhani M.D. Date of Service: 04/28/24 Procedure(s): XR lum bar spine min 4V Accession Number(s): [id number] cc: Jacky Lakhani M.D. The [place] [address] Patient Name: LIANA MARIE MRN: [id number] date: 1950 Sex: F Assigned Patient Location: [facility] Current Patient Location: RAD Accession/Order Numb er: [id number] Exam Date: 04/28/2024 15:55 Report Date: 04/28/2024 15:56 At the request of: JACKY LAKHANI MD Procedure: XR lumbar spine min 4V XR lumbar spine min 4V 04/28/2024 3:24 PM SIGNS AND SYMPTOMS: Low Back Pain PROTOCOLS: Frontal, lateral, and oblique radiographs of the lumbar spine COMPARISON: None FINDINGS: The alignment, development and bony structures are normal. There is no fracture or destruct duane lesion. Mild vertebral disc height loss is noted at L4-5 and L5-S1. This is also present at L2-L3 and to lesser extent L1-L2. Facet degenerative changes are present throughout t he lower lumbar spine. Mild degenerative changes are noted in the sacroiliac joints. There is evidence of prior cholecystectomy in the right upper quadrant. Atherosclerotic michel ges are noted in the abdominal. XR/XR lumbar spine min 4V IMPRESSION: No fracture or subluxation. Mild multilevel degenerative changes noted, greatest at L4-5 and L5-S1 as above. Impression dictated by: Luis A Whitley M.D.04/28/2024 3:56 PM Dictation Location: [place] [address] Electronically authenticated by: [id number] Y Date: 04/28/2024 15:56 Dictated By: Luis A Whitley M.D. Signed By: 04/28/24 1558 DD/ 1556 TD/TT: Television Schedule Coordinator: ERIC Rosenbaum or MICROSCOPIC Reviewed date:08/29/2024 09:23:40 PM Interpretation: Performing Lab: Notes/Report: [facility] , Color Urine YELLOW YELLOW Clarity Urine CLEAR CLEAR Specific [place] Urine 1.025 1.005-1.025 pH Urine 6.0 5.0-9.0 Protein Urine 30 NEG/TRACE mg/dL Glucose Urine UA NEGATIVE NEGATIVE mg/dL Bilirubin Urine NEGATIVE NEGATIVE Ketones Urine NEGATIVE NEGATIVE mg/dL Blood Urine TRACE-I NEGATIVE Nitrite Urine NEGATIVE NEGATIVE Urobilinogen Urine 0.2 0.2-1.0 EU/dL Leukocyte Esterase Urine SMALL NEGATIVE WBC Urine 10-20 NONE SEEN #/HPF RBC Urine 2-5 0-2 #/HPF Bacteria Urine SMALL NONE SEEN #/HPF Mucus Urine SMALL NONE SEEN Squamous Epithelial Cell Urine FEW NONE/RARE #/LPF Crystals Seen? None Seen None Seen #/HPF Cast Seen? SEEN NONE SEEN #/LPF Hyaline Casts Urine RARE Performing Lab: see note [facility] VITAMIN D 25 [place] Reviewed date:08/29/2024 09:23:40 PM Interpretation: Performing Lab: Notes/Report: [facility] , Vitamin D 58.8 >100 ng/mL Potential Toxicity <20 ng/mL Vit D deficient 20-<30 ng/mL Vit D insufficient 30-100 ng/mL Vit D sufficient Performing Lab: see note - [facility] MM tomosynthesis screening B I Reviewed date:08/29/2024 09:23:40 PM Interpretation: Performing Lab: Notes/Report: Source Facility: [place] [address] Mammography Report Signed Patient: LIANA MARIE MR#: [id number] : 1950 Acct:[id number] Age/Sex: 74 / F ADM Date: 08/29/24 Loc: MAMMO Attending Dr: Jacky Lakhani M.D. Ordering Physician: Jacky Lakhani M.D. Results: Date of Service: 08/29/24 Follow Up: Procedure(s): MM tomosynthesis screening BI Accession Number(s): [id number] cc: Jacky Lakhani M.D. Patient Name: LIANA MARIE MR#: [id number] : 1950 Exam Date: 08/29/2024 Ordering Doctor: DR JACKY LAKHANI . RADIOLOGY REPORT PROCEDURE: MM TOMOSYNTHESIS SCREENING BI COMPARISON: MM TOMOSYNTHESIS SCREENING BI, 08/28/2023. MM TOMOSYNTHESIS SCREENING BI, 08/26/2022. MG MAMM SCREEN 3D EMILY CAD, 08/22/2021. MG MAMM SCREEN EMILY W CAD, 05/31/2013. INDICATIONS: Screening Calculator Name NCI Breast Cancer Risk Assessment Tool 5 Year Breast Cancer Risk 8.40% Lifetime Breast Cancer Risk 19.30% Personal Breast Cancer No Personal Ovarian Cancer No Treatments excision Family Cancers Sister with breast cancer at age 40; Sister with breast cancer at age 50. LOCATION: [facility] BREAST COMPOSITION: There are scattered areas of fibroglandular density. FINDINGS: DIAGNOSTIC CATEGORY 1--NEGATIVE. RIGHT BREAST: No significant suspicious finding. LEFT BREAST: No significant suspicious finding. RECOMMENDATIONS: ROUTINE MAMMOGRAM AND CLINICAL EVALUATION IN 12 MONTHS. PLEASE NOTE: A NORMAL MAMMOGRAM DOES NOT EXCLUDE THE POSSIBILITY OF BREAST CANCER. A CLINICALLY SUSPICIOUS PALPABLE LUMP SHOULD BE BIOPSIED. Dictated by: Tre Perkins DO on 08/29/2024 at 16:15 Approved by: Tre Perkins DO on 08/29/2024 at 16:16 Dictated By: Tre Perkins M.D. Signed By: 08/29/24 1617 DD/ 15 TD/TT: Television Schedule Coordinator: [place] [address] Mammography Report Signed Patient: LIANA MARIE MR#: [id number] : 1950 Acct:[id number] Age/Sex: 74 / F ADM Date: 08/29/24 Loc: MAMMO Attending Dr: Cinthya Lakhani M.D. Ordering Physician: Jacky Lakhani M.D. Results: Date of Service: 08/29/24 Follow Up: Procedure(s): MM tomosynthesis screening BI Accession Number(s): [id number] cc: Jacky Lakhani M.D. Patient Name: LIANA MARIE MR#: [id number] : 1950 Exam Date: 08/29/2024 Ordering Doctor: DR JACKY LAKHANI . RADIOLOGY REPORT PROCEDURE: MM TOMOSYNTHESIS SCREENING BI COMPARISON: MM TOMOSYNTHESIS SCREENING BI, 08/28/2023. MM TOMOSYNTHESIS SCREENING BI, 08/26/2022. MG MAMM SCREEN 3D EMILY CAD, 08/22/2021. MG MAMM SCREEN EMILY W CAD, 05/31/2013. INDICATIONS: Screening Calculator Name NCI Breast Cancer Risk Assessment Tool 5 Year Breast Cancer Risk 8.40% Lifetime Breast Canc er Risk 19.30% Personal Breast Canc er No Personal Ovarian Can cer No Treatments excision Family Cancers Siste r with breast cancer at age 40; Sister with breast cancer at age 50. LOCATION: [facility] BREAST COMPOSITION: There are scattered areas of fibroglandular density. FINDINGS: DIAGNOSTIC CATEGORY 1--NEGATIVE. RIGHT BREAST: No significant suspicious finding. LEFT BREAST: No significant suspicious finding. RECOMMENDATIONS: ROUTINE MAMMOGRAM AN D CLINICAL EVALUATION IN 12 MONTHS. PLEASE NOTE: A ANDRES L MAMMOGRAM DOES NOT EXCLUDE THE POSSIBILITY OF BREAST CANCER. A CLINICALLY SUSPICIOUS PALPABLE LUMP SHOULD BE BIOPSIED. Dictated by: Tre Perkins DO on 08/29/2024 at 16:15 Approved by: Tre Perkins DO on 08/29/2024 at 16:16 Dictated By: Tre Perkins M.D. Signed By: 08/29/241616 DD/ 15 TD/TT: Television Schedule Coordinator: T[facility] Reviewed date:08/29/2024 09:23:40 PM Interpretation: Performing Lab: Notes/Report: [facility] , Thyroid Stimulating Hormone 0.343 0.358-3.740 uIU/mL Performing Lab: see note - [facility] LB T4 Reviewed date:08/29/2024 09:23:40 PM Interpretation: Performing Lab: Notes/Report: [facility] , T4 Thyroxine 12.20 4.80-13.90 ug/dL Performing Lab: see note ML - [facility] LB PROF 14(COMP METB) Reviewed date:08/29/2024 09:23:40 PM Interpretation: Performing Lab: Notes/Report: [facility] , Sodium 142 136-145 mmol/L Potassium 4.2 3.5-5.1 mmol/L Chloride 106 98-107 mmol/L Carbon Dioxide 27.9 21.0-32.0 mmol/L Anion Gap 12.3 Glucose 129 74-106 mg/dL Blood Urea Nitrogen 19.0 7.0-18.0 mg/dL Creatinine 0.87 0.55-1.02 mg/dL Estimated GFR ( Sallie >60 >=60 mL/min/1.73m 2 Estimated GFR (Non- Sarah >60 >=60 mL/min/1.73m 2 BUN Creatinine Ratio 21.8 Calcium 10.1 8.5-10.1 mg/dL Bilirubin Total 1.5 0.2-1.0 mg/dL Aspartate Amino Transferase 15 15-37 U/L Alanine Aminotransferase 21 14-59 U/L Alkaline Phosphatase 89 46-116 U/L Total Protein 6.9 6.4-8.2 g/dL Albumin Level 3.6 3.4-5.0 g/dL Globulin 3.3 Albumin Globulin Ratio 1.1 Performing Lab: see note ML - [facility] LIPID PROFILE Reviewed date:08/29/2024 09:23:40 PM Interpretation: Performing Lab: Notes/Report: [facility] , Triglycerides 135 <=150 mg/dL Cholesterol 116 <=200 mg/dL HDL Cholesterol 45 40-60 mg/dL > or =60 mg/dl - LOW CARDIOVASCULAR RISK <40 mg/dl - HIGH CARDIOVASCULAR RISK LDL Cholesterol Calculated 44.0 160-189 mg/dl HIGH <100 mg/dl OPTIMAL 130-159 mg/dl BORDERLINE HIGH >190 mg/dl VERY HIGH 100-129 mg/dl NEAR OR ABOVE OPTIMAL VLDL CHOLESTEROL 27.0 Chol HDL Ratio 2.6 4.4 - 7.1 AVERAGE RISK >11.0 HIGH RISK 3.3 - 4.4 LOW RISK 7.1 - 11.0 MODERATE RISK Performing Lab: see note ML - [facility] IRON Reviewed date:08/29/2024 09:23:40 PM Interpretation: Performing Lab: Notes/Report: [facility] , Iron 65.0 50.0-170.0 ug/dL Performing Lab: see note ML - [facility] LB GLYCOHEMOGLOBIN A1C Reviewed date:08/29/2024 09:23:40 PM Interpretation: Performing Lab: Notes/Report: [facility] , Glycohemoglobin A1C 6.7 4.5-6.2 % ACTION SUGGESTED > 7.0 ADA RECOMMENDED LIMIT 4.0 - 6.0 ADA THERAPEUTIC TARGET < 7.0 Estimated Average Glucose 146 Performing Lab: see note ML - [facility] FREE T3 Reviewed date:08/29/2024 09:23:40 PM Interpretation: Performing Lab: Notes/Report: [facility] , Free T3 2.71 2.18-3.98 pg/mL Performing Lab: see note ML - [facility] LB CBC AUTO DIFF Reviewed date:08/29/2024 09:23:40 PM Interpretation: Performing Lab: Notes/Report: [facility] , White Blood Count 4.0 4.0-11.0 10 3/uL Red Blood Count 4.24 4.20-5.40 10 6/uL Hemoglobin 12.4 12.0-16.0 g/dL Hematocrit 39.0 36.0-48.0 % Mean Corpuscular Volume 92.0 81.0-99.0 fL Mean Corpuscular Hemoglobin 29.2 26.7-34.0 pg Mean Corpuscular HGB Conc 31.8 29.9-35.2 g/dL Red Cell Distribution Width 14.1 11.0-15.0 % Platelet Count 211 150-450 10 3/uL Mean Platelet Volume 10.1 9.5-13.5 fL Neutrophils Percent Auto 53.5 43.0-75.0 % Lymphocytes Percent Auto 33.8 20.5-60.0 % Monocytes Percent Auto 8.6 1.7-12.0 % Eosinophils Percent Auto 3.0 0.9-7.0 % Basophils Percent Auto 0.8 0.2-2.0 % Immature Granulocytes Pct Auto 0.3 0.0-0.5 % Neutrophils Absolute Auto 2.1 1.4-6.5 10 3/uL Lymphocytes Absolute Auto 1.3 1.2-3.8 10 3/uL Monocytes Absolute Auto 0.3 0.3-0.8 10 3/uL Eosinophils Absolute Auto 0.1 0.0-0.7 10 3/uL Basophils Absolute Auto 0.0 0.0-0.1 10 3/uL Immature Granulocytes Abs Auto 0.01 0.00-0.03 10 3/uL Performing Lab: see note ML - [facility] LB XR thoracic spine 3V Reviewed date:04/28/2024 08:01:46 PM Interpretation: Performing Lab: Notes/Report: Source Facility: [facility]-[address] [place] [address] [address] XRay Report Signed Patient: LIANA MARIE MR#: [id number] : 1950 Acct:[id number] Age/Sex: 73 / F ADM Date: 04/28/24 Loc: [facility] Attending Dr: Jacky Lakhani M.D. Ordering Physician: Jacky Lakhani M.D. Date of Service: 04/28/24 Procedure(s): XR thoracic spine 3V Accession Number(s): [id number] cc: Jacky Lakhani M.D. [address] [address] Patient Name: LIANA MARIE MRN: [id number] date: 1950 Sex: F Assigned Patient Location: [facility] Current Patient Location: [facility] Accession/Order Number: [id number] Exam Date: 04/28/2024 15:54 Report Date: 04/28/2024 15:55 At the request of: JACKY LAKHANI MD Procedure: XR thoracic spine 3V XR thoracic spine 3V 04/28/2024 3:24 PM SIGNS AND SYMPTOMS: Low Back Pain PROTOCOLS: Frontal and lateral radiographs of the thoracic spine COMPARISON: None FINDINGS: The bones are in anatomic alignment with preservation of vertebral body heights and intervertebral disc spaces. No evidence of fracture or bony destructive lesion. There is a 6 mm radiodense structure in the right paraspinous soft tissues near the right renal shadow possibly representing a renal stone. XR/XR thoracic spine 3V IMPRESSION: No fracture, subluxation, or significant degenerative change of the thoracic spine. There is a 6 mm radiodense structure in the right paraspinous soft tissues near the right renal shadow possibly representing a renal stone. Impression dictated by: Luis A Whitley M.D.04/28/2024 3:55 PM Dictation Location: [place] [address] Electronically authenticated by: [id number] Y Date: 04/28/2024 15:55 Dictated By: Luis A Whitley M.D. Signed By: 04/28/24 1557 DD/ 155 TD/TT: Television Schedule Coordinator: The [address] [address] XRay Report Signed Patient: LIANA MARIE MR#: [id number] : 1950 Acct:[id number] Age/Sex: 73 / F ADM Date: 04/28/24 Loc: RAD Attending Dr: Cinthya Lakhani M.D. Ordering Physician: Jacky Lakhani M.D. Date of Service: 04/28/24 Procedure(s): XR thoracic spine 3V Accession Number(s): [id number] cc: Jacky Lakhani M.D. [place] [address] Patient Name: LIANA MARIE MRN: [id number] date: 1950 Sex: F Assigned Patient Location: [facility] Current Patient Location: [facility] Accession/Order Numb er: [id number] Exam Date: 04/28/2024 15:54 Report Date: 04/28/2024 15:55 At the request of: JACKY LAKHANI MD Procedure: XR thorac ic spine 3V XR thoracic spine 3V 04/28/2024 3:24 PM SIGNS AND SYMPTOMS: Low Back Pain PROTOCOLS: Frontal a nd lateral radiographs of the thoracic spine COMPARISON: None FINDINGS: The bones are in anatomic alignment with preservation of vertebral body heights and intervertebral disc spaces. No evidence of fracture or bony destructive lesion. There is a 6 mm radiodense structure in the right paraspinous soft tissues near the right renal shadow possibly representing a renal stone. XR/XR thoracic spine 3V IMPRESSION: No fracture, subluxation, or significant degenerative change of the thoracic spine. There is a 6 mm radiodense structure in the right paraspinous soft tissues near the right renal shadow possibly representing a renal stone. Impression dictated by: Lius A Whitley M.D.04/28/2024 3:55 PM Dictation Location: [place] [address] Electronically authenticated by: [id number] Y Date: 04/28/2024 15:55 Dictated By: Luis A Whitley M.D. Signed By: 04/28/24 1557 DD/ 155 TD/TT: Television Schedule Coordinator: FORREST wrist LT min 3V Reviewed date:09/17/2024 03:42:36 PM Interpretation: Performing Lab: Notes/Report: Source Facility: [place] [address] [address] XRay Report Signed Patient: LIANA MARIE MR#: [id number] : 1950 Acct:[id number] Age/Sex: 74 / F ADM Date: 09/16/24 Loc: ER Attending Dr: Ordering Physician: Yesika Eaton M.D. Date of Service: 09/16/24 Procedure(s): XR wrist LT min 3V Accession Number(s): [id number] cc: Jacky Lakhani M.D.; Yesika Eaton M.D. [place] [address] Patient Name: LIANA MARIE MRN: [id number] date: 1950 Sex: F Assigned Patient Location: ED.MAIN Current Patient Location: ED.MAIN Accession/Order Number: [id number] Exam Date: 09/16/2024 08:31 Report Date: 09/16/2024 08:33 At the request of: YESIKA EATON MD Procedure: XR wrist LT min 3V 3 views left wrist CLINICAL HISTORY: Pain, ulnar side, after lifting someone COMPARISON: 10/01/2017 FINDINGS: Remote healed distal radial fracture with slight angulation noted. Pfdg-af-gwwltgen degenerative changes radiocarpal joint. No fracture or dislocation identified. Kfzq-jp-mwtinyya carpal degenerative changes. Moderate degenerative changes involving the first carpometacarpal joint. Soft tissues unremarkable. XR/XR wrist LT min 3V IMPRESSION: Posttraumatic changes and degenerative changes without evidence acute osseous abnormality. Impression dictated by: Brent Lockett M.D. 09/16/2024 8:33 AM Dictation Location: [place] [address] Electronically authenticated by: [id number] Y Date: 09/16/2024 08:33 Dictated By: Brent Lockett M.D. Signed By: 09/16/2436 DD/ 2 TD/TT: Television Schedule Coordinator: The [address] [address] XRay Report Signed Patient: LIANA MARIE MR#: [id number] : 1950 Acct:[id number] Age/Sex: 74 / F ADM Date: 09/16/24 Loc: ER Attending Dr: Ordering Physician: Yesika Eaton M.D. Date of Service: 09/16/24 Procedure(s): XR wri st LT min 3V Accession Number(s): [id number] cc: Jacky Lakhani M.D. ; Yesika Eaton M.D. The [address] [address] Patient Name: LIANA MARIE MRN: [id number] date: 1950 Sex: F Assigned Patient Location: ED.MAIN Current Patient Location: ED.MAIN Accession/Order Numb er: [id number] Exam Date: 09/16/2024 08:31 Report Date: 09/16/2024 08:33 At the request of: YESIKA EATON MD Procedure: XR wrist LT min 3V 3 views left wrist CLINICAL HISTORY: Pa in, ulnar side, after lifting someone COMPARISON: 10/01/2017 FINDINGS: Remote healed distal radial fracture with slight angulation noted. Uypd-cx-vznfbkje degenerative changes radiocarpal joint. No fracture or dislocation identifi ed. Iono-hs-btjbyjoz carpal degenerative changes. Moderate degenerativ e changes involving the first carpometacarpal joint. Soft tissues unremarkable. XR/XR wrist LT min 3V IMPRESSION: Posttraumatic change s and degenerative changes without evidence acute osseous abnormality. Impression dictated by: Brent Lockett M.D. 09/16/2024 8:33 AM Dictation Location: [place] [address] Electronically authenticated by: [id number] Y Date: 09/16/2024 08:33 Dictated By: Nika Lockett M.D. Signed By: 09/16/2436 DD/ 2 TD/TT: Television Schedule Coordinator: Urine Culture - [facility] Reviewed date:09/01/2024 09:18:49 PM Interpretation: Performing Lab: Notes/Report: [facility] , Urine Culture - [facility] See Below For Report <9,000 colonies/ml mixed Urine Culture - [facility] Urine Culture - [facility] bacterial skin contaminants <9,000 colonies/ml mixed Urine Culture - [facility] Urine Culture - [facility] 2 Days <9,000 colonies/ml mixed Urine Culture - [facility] Urine Culture - [facility] <9,000 colonies/ml mixed Urine Culture - [facility] Urine Culture - [facility] Testing performed a [facility] <9,000 colonies/ml mixed Urine Culture - [facility] Urine Culture - [facility] [address] [place] [address] <9,000 colonies/ml mixed Urine Culture - [facility] Performing Lab: see note ML - [facility] LB Reason For Referral No Information Medications Medication SIG (Take, Route, Frequency, Duration) Notes Start Date End Date Status Aspirin 81 MG 1 tablet Orally Once a day Active Alcohol Prep Swabs A ctive Levothyroxine Sodium 100 MCG TAKE 1 TABLET EVERY DAY for 90 Active Accu-Chek Karyn Plus - as directed In Vitro Active Zetia 10 MG 1 tablet Orally Once a day Active Ketoconazole 2 % 1 application Group Leader ally Once a day - till gone for a week PRN 10/09/2023 Active Meloxicam 15 MG 1 tablet Orally Once a day for 30 days 10/05/2024 Active Mirtazapine 45 MG TAKE 1 TABLET AT BED TIME Orally qhs for 90 days Active True Metrix Blood Glucose Test - as directed In Vitro once a day for 90 days Active Diabetic Shoe - - Daily Acti ve Co Q 10 10 MG as directed Orally Active Calcium 600 MG 1 tablet with meals Orally Twice a day Active metFORMIN HCl 1000 MG TAKE 1 TABLET TWIC E DAILY for 90 Active Glimepiride 4 MG TAKE 1 TABLET TWICE DAILY WITH MEALS for 90 Active Rosuvastatin Calcium 40 MG TAKE 1 TABLET EVERY DAY for 90 Active Docusate Sodium 100 MG 1 capsule as need ed Orally Once a day PRN Active Raspberry Ketones 100 MG as directed Orally Active Immunizations Vaccine Route Administration Date Status Comme nts Flu, Fluad (96384) 65 yrs and older, single-dose syringe (5125-4877) Unknown 11/26/2023 Administered Flu, Fluad (90643) 65 yrs+, single-dose syringe (5376-8163) IM Intramuscular 12/11/2022 Administered SARS-COV-2 (COVID 19 Pfizer 30mcg/0.3mL) Unknown 05/07/2020 Administered SARS-COV-2 (COVID 19 Pfizer 30mcg/0.3mL) Unknown 05/29/2020 Administered SARS-COV-2 (COVID 19 Pfizer 30mcg/0.3mL) Unknown 12/04/2020 Administered Social History Tobacco Use: Social History Observation Description Date Details (start date - stop date) Never Smoker NA - NA Tobacco Use/Smoking Question Answer Notes Patient is a nonsmoker Alcohol Screen (Audit-C) Question Answer Notes Did you have a drink containing alcohol in the p ast year? No Points 0 Interpretation Negative AUDIT-C (Standard) Question Answer Notes Did you have a drink containing alcohol in the p ast year? 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) Active confirmed Problem Moderate recurrent major depression (28262745) Major depressive disorder, recurrent, moderate (F33.1) Active confirmed Problem 04491873 Xerosis cutis (L85.3) Active confirmed Problem Arthralgia of the upper arm (249800058) Pain in left elbow (M25.522) Active confirmed Problem Acquired trigger finger (8668833) Trigger finger, right middle finger (M65.331) Active confirmed Problem Disorder of tendon of left shoulder region (disorder) (2293674018070605 8) Other specified disorders of tendon, left shoulder (M67.814) Active confirmed Problem Palpitations (84250004) Palpitations (R00.2) Active confirmed Problem Jaundice (74310231) Unspecified jaundice (R17) Active confirmed Problem Closed Colles' fracture (910877351) Colles' fracture of left radius, initial encounter for closed fracture (S52.532A) Active confirmed Problem Contusion of right knee (5954547223003277 4) Contusion of right knee, initial encounter (S80.01XA) Active confirmed Problem 958261337 Encounter for general adult medical examination without abnormal findings (Z00.00) Active confirmed Problem Hyperlipidemia (69171378) Hyperlipidemia (E78.5) Active confirmed Problem Osteoarthritis (680304242) Osteoarthritis (M19.90) Active confirmed Problem Hypothyroidism (62751710) Hypothyroidism (E03.9) Active confirmed Problem Coronary artery disease (14330725) CAD (coronary artery disease) (I25.10) Active confirmed Problem Neck pain (50106711) Neck pain (M54.2) Active confirmed Problem Bradycardia (52001019) Bradycardia (R00.1) Active confirmed Problem Aortic valve disorder (6156814) Moderate aortic regurgitation (I35.1) Active confirmed Problem Depression (995495947) Depression (F32.9) Active confirmed Problem Migraine (77235859) Migraine (G43.909) Active confirmed Problem Allergic rhinitis (01786244) Allergic rhinitis (J30.9) Active confirmed Problem Acute bronchitis (77688943) Acute bronchitis (J20.9) Active confirmed Problem Urge incontinence of urine (39762613) Urgency incontinence (N39.41) Active confirmed Problem Memory loss (91043948) Memory loss (R41.3) Active confirmed Problem Near syncope (879660173) Near syncope (R55) Active confirmed Problem Overweight (363794610) Over weight (E66.3) Active confirmed Problem Bladder spasm (090272045) Bladder spasm (N32.89) Active confirmed Problem Degenerative joint disease (288431624) Degenerative joint disease (M19.90) Active confirmed Problem Bilateral hearing loss (45559795) Bilateral hearing loss (H91.93) Active confirmed Problem Hyperglycemia due to type 2 diabetes mellitus (021899862195056) Diabetes mellitus with hyperglycemia (E11.65) Active confirmed Problem Gastro-esophageal reflux disease (766207056) Gastro-esophageal reflux disease (K21.9) Active confirmed Problem Shoulder impingement syndrome (850467391) Shoulder impingement syndrome (M75.40) Active confirmed Problem Carpal tunnel syndrome (83055060) Carpal tunnel syndrome, bilateral upper limbs (G56.03) Active confirmed Problem Diabetes mellitus (01026704) Diabetes mellitus (E11.9) Active confirmed Problem Disease caused by Severe acute respiratory syndrome coronavirus 2 (disorder) (576138919) COVID-19 virus infection (U07.1) Active confirmed Problem Low back pain (942102663) Low back pain, unspecified (M54.50) Active confirmed Problem Low back pain (finding) (116911494) Low back pain at multiple sites (M54.50) Active confirmed Problem Dry cough (79635133) Dry cough (R05.8) Active confirmed Problem Stercoral colitis (795926181) Stercoral colitis (K52.89) Active confirmed Vital Signs Blood pressure diastolic 68 mm Hg 10/05/2024 Height 66 in 10/05/2024 Blood pressure systolic 140 mm Hg 10/05/2024 Weight 203.6 lbs 10/05/2024 BMI 32.86 kg/m2 10/05/2024 Procedures Procedure Date Ordered Date Performed Result Body Sit e Dressing Change- performed 03/09/2024 N/A Encounters Encounter Location Date Provider Diagnosis [address] [address] 01/07/2024 Pardeep Hoy Hyperlipidemia E78.5 ; Hypothyroidism E03.9 ; CAD (coronary artery disease) I25.10 and Diabetes mellitus with hyperglycemia E11.[address] [address] 04/05/2024 Pardeep Hoy Hypothyroidism E03.9 ; CAD (coronary artery disease) I25.10 ; Diabetes mellitus with hyperglycemia E11.65 and Bladder spasm N32.[address] [address] 03/09/2024 Pardeep Hoy Diabetes mellitus wi th hyperglycemia E11.65 ; Hyperlipidemia E78.5 ; Hypothyroidism E03.9 ; Bladder spasm N32.89 and Skin tear of forearm without complication S51.819A [address] [address] 07/06/2024 Pardeep Hoy Hyperlipidemia E78.5 ; Hypothyroidism E03.9 ; CAD (coronary artery disease) I25.10 and Diabetes mellitus with hyperglycemia E11.[address] [address] 04/28/2024 Pardeep Hoy Low back pain at mul tiple sites M54.[address] [place] [address] 10/05/2024 Pardeep Lakhani Major depressive disorder, recurrent, moderate F33.1 ; 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.36 ; Neck pain M54.2 ; Hyperlipidemia E78.5 and Hypothyroidism E03.9 [facility] [address] [place] [address] 09/14/2024 Pardeep Brian Hyperlipidemia E78.5 ; Hypothyroidism E03.9 ; Diabetes mellitus E11.9 and Gastro-esophageal reflux disease K21.9 [facility] [address] [place] [facility] [address] 03/03/2024 Pardeep Lakhani [facility] [address] [place] [address] 03/04/2024 Pardeep Lakhani [facility] [address] [place] [address] 04/12/2024 Pardeep [facility] [address] [place] [address] 04/28/2024 Pardeep Lakhani [facility] [address] [place] [address] 08/07/2024 Pardeep Lakhani [facility] [address] [place] [address] 08/29/2024 Pardeep Lakhani [facility] [address] [place] [address] 09/17/2024 Pardeep Lakhani Assessments Encounter Date Diagnosis (ICD Code) Assessment Notes Treatment Notes Treatment Clinical Notes Section Notes 01/07/2024 Hyperlipidemia (ICD-10 - E78.5) 01/07/2024 Hypothyroidism (ICD-10 - E03.9) 04/05/2024 Hypothyroidism (ICD-10 - E03.9) 04/05/2024 CAD (coronary artery disease) (ICD-10 - I25.10) 03/09/2024 Hyperlipidemia (ICD-10 - E78.5) 07/06/2024 Hyperlipidemia (ICD-10 - E78.5) 07/06/2024 Hypothyroidism (ICD-10 - E03.9) 04/28/2024 Low back pain at multiple sites (ICD-10 - M54.50) 10/05/2024 Type 2 diabetes mellitus with diabetic cataract (ICD-10 - E11.36) cont same meds 10/05/2024 Major depressive disorder, recurrent, moderate (ICD-10 - F33.1) disucsse meds 03/09/2024 Diabetes mellitus with hyperglycemia (ICD-10 - E11.65) 09/14/2024 Hyperlipidemia (ICD-10 - E78.5) 09/14/2024 Hypothyroidism (ICD-10 - E03.9) 07/06/2024 CAD (coronary artery disease) (ICD-10 - I25.10) 03/09/2024 Hypothyroidism (ICD-10 - E03.9) 04/05/2024 Diabetes mellitus with hyperglycemia (ICD-10 - E11.65) suagdg 120;s 10/05/2024 Neck pain (ICD-10 - M54.2) med and pt if not better 09/14/2024 Diabetes mellitus (ICD-10 - E11.9) 01/07/2024 CAD (coronary artery disease) (ICD-10 - I25.10) 01/07/2024 Diabetes mellitus with hyperglycemia (ICD-10 - E11.65) 04/05/2024 Bladder spasm (ICD-10 - N32.89) 03/09/2024 Bladder spasm (ICD-10 - N32.89) 07/06/2024 Diabetes mellitus with hyperglycemia (ICD-10 - E11.65) 09/14/2024 Gastro-esophageal reflux disease (ICD-10 - K21.9) 10/05/2024 Hyperlipidemia (ICD-10 - E78.5) on meds 10/05/2024 Hypothyroidism (ICD-10 - E03.9) on meds - checked oj labs 03/09/2024 Skin tear of forearm without complication (ICD-10 - S51.819A) Plan Of Treatment Pending Test Test Name Order Date CMP (COMPLETE METABOLIC PANEL) 3 CMP (COMPLETE METABOLIC PANEL) 3 CMP (COMPLETE METABOLIC PANEL) 4 HEMOGLOBIN A1C (GLYCO) 07/06/2024 HEMOGLOBIN A1C (GLYCO) 01/15/2023 HEMOGLOBIN A1C (GLYCO) 07/14/2023 HEMOGLOBIN A1C (GLYCO) 08/01/2022 IRON, TOTAL 01/15/2023 IRON, TOTAL 07/06/2024 IRON, TOTAL 07/14/2023 LIPID PANEL (CHOL/TRIG/HDL/LDL) 07/07/19 25 LIPID PANEL (CHOL/TRIG/HDL/LDL) 07/14/19 24 LIPID PANEL (CHOL/TRIG/HDL/LDL) 01/16/20 23 CBC WITH DIFF 01/15/2023 CBC WITH DIFF 08/01/2022 CBC WITH DIFF 07/14/2023 VITAMIN D, 25 LEVEL (TOTAL) 01/15/2023 VITAMIN D, 25 LEVEL (TOTAL) 07/06/2024 VITAMIN D, 25 LEVEL (TOTAL) 07/14/2023 MAMM Mammograms CAD 07/14/2023 MAMM Mammograms CAD 06/25/2022 MRI Brain w/o contrast 01/15/2023 Urinalysis Microscopic 07/06/2024 Dressing Change- performed 03/09/2024 STOOL OCCULT BLOOD 07/14/2023 STOOL OCCULT BLOOD 08/01/2022 BNP 08/01/2022 CULTURE URINE 07/06/2024 XR LSPINE MIN 4 VIEWS 04/28/2024 THYROID PANEL (T4/TSH/FREE T3) 4 THYROID PANEL (T4/TSH/FREE T3) 5 THYROID PANEL (T4/TSH/FREE T3) 3 THYROID PANEL (T4/TSH/FREE T3) 3 MM screening mammo BI 07/06/2024 CMP (COMP MET DOE) w/eGFR CKD-EPI 2024 CBC WITH DIFF 07/06/2024 Next Appt Details Provider Name:Pardeep Lakhani, 10:00:00 AM, [address] [place], [address], Insurance Providers Payer Name Payer Address Payer Phone Subscriber Number Group Number Insured Name Patient Relationship to Insured Coverage Start Date Coverage End Date [facility] MEDICARE ADV PLAN [address] [address] [place] [address] [id number] Liana Marie Self - patient is the insured 3 Medical (General) History Medical History History ICD Code Over weight E66.3 Shoulder impingement syndrome M75.40 COVID-19 virus infection U07.1 Acute bronchitis J20.9 CAD (coronary artery disease) I25.10 Contusion of right knee, initial encount er S80.01XA Unspecified jaundice R17 Pain in left elbow M25.522 Near syncope R55 Stercoral colitis K52.89 Dry cough R05.8 Diabetes mellitus with hyperglycemia E11 .65 Moderate aortic regurgitation I35.1 Bradycardia R00.1 Colles' fracture of left radius, initial encounter for closed fracture S52.532A Other specified disorders of tendon, lef t shoulder M67.814 Bilateral hearing loss H91.93 Carpal tunnel syndrome, bilateral upper limbs G56.03 Trigger finger, right middle finger M65. 331 Osteoarthritis M19.90 Palpitations R00.2 Low back pain, unspecified M54.50 Hypothyroidism E03.9 Diabetes mellitus E11.9 Depression F32.9 Gastro-esophageal reflux disease K21.9 Allergic rhinitis J30.9 Hyperlipidemia E78.5 Degenerative joint disease M19.90 Migraine G43.909 Surgical History Surgery Date(Month/Year) Tubal Ligation Gallbladder Removal Hospitalization History Reason Date(Month/Year) see above
--- OUTSIDE RECORDS SUMMARY | 2024-10-25 08:01 | XMS_ITS | Clinical Summary ---
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 Name Role Phone Franklyn Torres MD Primary Care Provider [phone] Allergies Active Allergy Reactions Criticality Noted Date [...] Active Active Problems No known active problems Family History Medical History Relation Name Comments [...] EDT Office Visit [facility] [address] [facility] [address] [place] [address] Preston Pompa, DPM [address] [facility] [address] [place] [address] Health Maintenance Due Date Last Done Comments CT Colonography 1951 Colonoscopy 1950 FIT 1950 FOBT 1950 Sigmoidoscopy 1950 Mammogram 06/21/2016 06/22/2015, 06/05/2014 Colorectal Cancer Screening 09/08/2023 FIT-DNA 09/08/2023 09/07/2020, 07/10/2017 Influenza Vaccine (#1) 2024 4, 01/05/2022, 10/25/2020, Additional history exists Pneumococcal Vaccine: 65+ Years Completed 8, 03/11/2017 Insurance [employer] Care Teams Photocopying Equipment Mechanic Relationship Specialty Start Date End Date Franklyn Torres MD [address] [place] [address] PCP - General Family Medicine 02/12/23
--- OUTSIDE RECORDS SUMMARY | 2024-10-25 08:04 | XMS_ITS | CCD ---
Author Organization [facility] CliniSyor Care Team Providers Care 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 Name Role Phone Jacky Torres MD Primary [...] Unavailable HOY, DR RICO Primary Care Unavailable [place], DR KWABENA [employer] Unavailable HOY, DR [...] Unavailable Jacky Torres MD Primary Care Provider [phone] Jacky Torres MD Attending Provider [phone] Jacky Torres Attending Unavailable Hoy, Jacky M [...] Drug Allergy 9 Other: See Comments, Rash [facility] (19 sources) Sulfonamides (Antibiotic); Translations: [SULFA (SULFONAMIDE ANTIBIOTICS)] Drug Allergy 8 Shortness of Breath, [facility] (19 sources) traMADol; Translations: [TRAMADOL] Drug Allergy 1 GI Upset, Nausea Only [facility] (8 sources) Tuberculin Ppd Geneva Test; Translations: [Tuberculin PPD [place] Test] Drug Allergy 2 [facility] (1 source) Codeine Drug Allergy [facility] (1 source) Glutathione Drug Allergy [facility] (1 source) traMADol Drug Allergy [facility] (13 sources) Lisinopril; Translations: [LISINOPRIL] Allergy to substance 3 [facility] (1 source) Lisinopril Drug Allergy 3 [facility] Medications Current Medications Medication Drug Class(es) [...] Coronary atherosclerosis; Translations: [Atherosclerotic heart disease of [place] coronary artery without angina pectoris] Onset: 01-05-2021 [...] (2 sources) Patient encounter status; Translations: [Other snf (current) drug therapy] Onset: 09-08-2024 09-08-2024 Episodic Other aftercare (1 source) Other snf (current) drug therapy; Translations: [Encounter for medication [...] width (RBC) [Ratio] 14.1 % Normal 11.5-15.0 [facility] Comment on above: Order Comment: Speci nahum Type: BLOOD SPECIMEN Ordering Facility: [facility] Address: [address] [place] [address] Performed By: #### 5 8410-2 #### [facility] CLIA [id number] [address] [place] [address] [place] Hematocrit (Bld) [Volume fraction] 38.5 % Normal 36.0-46.0 [facility] Comment on above: Order Comment: Shreyasi nahum Type: BLOOD SPECIMEN Ordering Facility: [facility] Address: [address] [place] [address] Performed By: #### 5 8410-2 #### [facility] CLIA [id number] [address] [place] [address] [place] Hemoglobin (Bld) [Mass/Vol] 12.1 g/dL Normal 11.5-15.5 [facility] Comment on above: Order Comment: Speci nahum Type: BLOOD SPECIMEN Ordering Facility: [facility] Address: [address] [place] [address] Performed By: #### 5 8410-2 #### [facility] CLIA [id number] [address] [place] [address] [place] MCH (RBC) [Entitic mass] 28.9 pg Normal 26.0-34.0 [facility] Comment on above: Order Comment: Speci men Type: BLOOD SPECIMEN Ordering Facility: [facility] Address: [address] [place] [address] Performed By: #### 5 8410-2 #### [facility] CLIA [id number] [address] [place] [address] [place] MCHC (RBC) [Mass/Vol] 31.4 g/dL Normal 30.5-36.0 [facility] Comment on above: Order Comment: Speci men Type: BLOOD SPECIMEN Ordering Facility: [facility] Address: [address] [place] [address] Performed By: #### 5 8410-2 #### [facility] CLIA [id number] [address] [place] [address] [place] MCV (RBC) [Entitic vol] 91.9 fL Normal 80.0-100.0 [facility] Comment on above: Order Comment: Speci men Type: BLOOD SPECIMEN Ordering Facility: [facility] Address: [address] [place] [address] Performed By: #### 5 8410-2 #### [facility] CLIA [id number] [address] [place] [address] [place] Nucleated RBC (Bld) [#/Vol] 10*3/uL Normal <0.01 [facility] Comment on above: Order Comment: Speci men Type: BLOOD SPECIMEN Ordering Facility: [facility] Address: [address] [place] [address] Performed By: #### 5 8410-2 #### [facility] CLIA [id number] [address] [place] [address] [place] Platelet mean volume (Bld) [Entitic vol] 10.0 fL Normal 9.0-12.7 [facility] Comment on above: Order Comment: Speci men Type: BLOOD SPECIMEN Ordering Facility: [facility] Address: [address] [place] [address] Performed By: #### 5 8410-2 #### [facility] CLIA [id number] [address] [place] [address] [place] Platelets (Bld) [#/Vol] 199 10*3/uL Normal 150-400 [facility] Comment on above: Order Comment: Speci men Type: BLOOD SPECIMEN Ordering Facility: [facility] Address: [address] [place] [address] Performed By: #### 5 8410-2 #### [facility] CLIA [id number] [address] [place] [address] [place] RBC (Bld) [#/Vol] 4.19 10*6/uL Normal 3.90-5.20 [facility] Comment on above: Order Comment: Speci men Type: BLOOD SPECIMEN Ordering Facility: [facility] Address: [address] [place] [address] Performed By: #### 5 8410-2 #### [facility] CLIA [id number] [address] [place] [address] [place] WBC (Bld) [#/Vol] 4.35 10*3/uL Normal 3.70-11.00 [facility] Comment on above: Order Comment: Speci men Type: BLOOD SPECIMEN Ordering Facility: [facility] Address: [address] [place] [address] Performed By: #### 5 8410-2 #### [facility] CLIA [id number] [address] [place] [address] [place] CNOVon 09-08-2024 CNOV Office Visit (HALIEIMN ) LIANA MARIE ([id number]) 1950 F Date Time Provider Department 09/08/24 1:00 PM AMY BARGER During your visit today, we recorded the following information about you: Pulse Respiration Blood pressure Weight 58/minute 12/minute 126/58 93.9 kg Height 1.676 m Amy Barger MD 09/09/2024 8:32 AM Signed [facility] Department of Cardiovascular Medicine SECTION OF CARDIOVASCULAR IMAGING OUTPATIENT VISIT DATE 09/08/2024 OUTPATIENT VISIT TYPE ESTABLISHED PRIMARY CARE PHYSICIAN: Jacky Torres [address] [place] [address] REFERRING PHYSICIAN: Amy Barger [address] [facility] [address] CHIEF COMPLAINT: Follow up HISTORY OF PRESENT [...] who is bedridden following a stroke and GA. She receives assistance from a nurse aide [...] Age of Onset Heart Attack Mother fatal GA at age 70 Diabetes Mother Diabetes Father Heart Father bypass at age 60s Heart Attack Father GA at age 60s other (Other) Father MVA at age 72 Cancer Sister at age 42 other (Other) Brother Cancer Sister breast cancer at age 50 No Known Problems Brother Heart Attack Brother fatal GA at age 64 other (ulcers) Brother bleeding [...] 147 09/25/2023 (more content not included)... Normal [facility] Comprehensive metabolic 2000 panelon 09-08-2024 Albumin [Mass/Vol] 4.4 g/dL Normal 3.9-4.9 [facility] Comment on above: Order Comment: Speci men Type: BLOOD SPECIMEN Ordering Facility: [facility] Address: [address] [place] [address] Performed By: #### 2 4323-8, 55888-3 #### [facility] CLIA [id number] [address] [place] [address] [place] ALP [Catalytic activity/Vol] 81 U/L Normal 34-123 [facility] Comment on above: Order Comment: Speci men Type: BLOOD SPECIMEN Ordering Facility: [facility] Address: [address] [place] [address] Performed By: #### 2 4323-8, 12453-7 #### [facility] CLIA [id number] [address] [place] [address] [place] ALT [Catalytic activity/Vol] 14 U/L Normal 7-38 [facility] Comment on above: Order Comment: Speci men Type: BLOOD SPECIMEN Ordering Facility: [facility] Address: [address] [place] [address] Performed By: #### 2 4323-8, 82090-9 #### [facility] CLIA [id number] [address] [place] [address] [place] Anion gap [Moles/Vol] 11 mmol/L Normal 8-15 [facility] Comment on above: Order Comment: Speci men Type: BLOOD SPECIMEN Ordering Facility: [facility] Address: [address] [place] [address] Performed By: #### 2 4323-8, 22624-8 #### [facility] CLIA [id number] [address] [place] [address] [place] AST [Catalytic activity/Vol] 18 U/L Normal 13-35 [facility] Comment on above: Order Comment: Speci men Type: BLOOD SPECIMEN Ordering Facility: [facility] Address: [address] [place] [address] Performed By: #### 2 4323-8, 18520-2 #### [facility] CLIA [id number] [address] [place] [address] [place] Bilirubin [Mass/Vol] 1.6 mg/dL High 0.2-1.3 [facility] Comment on above: Order Comment: Speci men Type: BLOOD SPECIMEN Ordering Facility: [facility] Address: [address] [place] [address] Performed By: #### 2 4323-8, 20108-0 #### [facility] CLIA [id number] [address] [place] [address] [place] Calcium [Mass/Vol] 10.4 mg/dL High 8.5-10.2 [facility] Comment on above: Order Comment: Speci men Type: BLOOD SPECIMEN Ordering Facility: [facility] Address: [address] [place] [address] Performed By: #### 2 4323-8, 16030-7 #### [facility] CLIA [id number] [address] [place] [address] [place] Chloride [Moles/Vol] 106 mmol/L Normal 98-107 [facility] Comment on above: Order Comment: Speci men Type: BLOOD SPECIMEN Ordering Facility: [facility] Address: [address] [place] [address] Performed By: #### 2 4323-8, 96655-3 #### [facility] CLIA [id number] [address] [place] [address] [place] CO2 [Moles/Vol] 23 mmol/L Normal 22-30 [facility] Comment on above: Order Comment: Speci men Type: BLOOD SPECIMEN Ordering Facility: [facility] Address: [address] [place] [address] Performed By: #### 2 4323-8, 10197-3 #### [facility] IA [id number] [address] [place] [address] [place] Creatinine [Mass/Vol] 0.98 mg/dL High 0.58-0.96 [facility] Comment on above: Order Comment: Colten sidhu Type: BLOOD SPECIMEN Ordering Facility: [facility] Address: [address] [place] [address] Performed By: #### 2 4323-8, 28675-1 #### [facility] IA [id number] [address] [place] [address] [place] Creatinine and Glomerular filtration rate.predicted panel (S/P/Bld) 61 mL/min/1.73m??? Normal >=60 [facility] Comment on above: Order Comment: Colten sidhu Type: BLOOD SPECIMEN Ordering Facility: [facility] Address: [address] [place] [address] Result Comment: Maria R mated Glomerular Filtration [...] actual GFR. Performed By: #### 2 4323-8, 18567-9 #### [facility] CLIA [id number] [address] [place] [address] [place] Glucose [Mass/Vol] 115 mg/dL High 74-99 [facility] Comment on above: Order Comment: Colten sidhu Type: BLOOD SPECIMEN Ordering Facility: [facility] Address: [address] [place] [address] Result Comment: The [place] Diabetes Association (ADA) provides guidance for cutoff [...] Standards of Medical Care in Diabetes 2016, [place] [employer] Association. Diabetes Care. 2016.39(Suppl 1). Performed By: #### 2 4323-8, 25048-7 #### [facility] CLIA [id number] [address] [place] [address] [place] Potassium [Moles/Vol] 4.2 mmol/L Normal 3.7-5.1 [facility] Comment on above: Order Comment: Shreyasi men Type: BLOOD SPECIMEN Ordering Facility: [facility] Address: [address] [place] [address] Performed By: #### 2 4323-8, #### [facility] CLIA [id number] [address] [place] [address] [place] Protein [Mass/Vol] 6.8 g/dL Normal 6.3-8.0 [facility] Comment on above: Order Comment: Colten sidhu Type: BLOOD SPECIMEN Ordering Facility: [facility] Address: [address] [place], [place] [address] Performed By: #### 2 4323-8, #### [facility] CLIA [id number] [address] [place], [place] [address] [place] Sodium [Moles/Vol] 140 mmol/L Normal 136-144 [facility] Comment on above: Order Comment: Shreyasi men Type: BLOOD SPECIMEN Ordering Facility: [facility] Address: [address] [place] [id number] Performed By: #### 2 4323-8, 38733-6 #### [facility] CLIA [id number] [address] STATES OF [facility] Urea nitrogen [Mass/Vol] 21 mg/dL Normal 7-21 [facility] Comment on above: Order Comment: Speci men Type: BLOOD SPECIMEN Ordering Facility: [facility] Address: [address] [place] [address] Performed By: #### 2 4323-8, 82942-9 #### [facility] CLIA [id number] [address] [place] [address] [facility] ECG COMPLETEon 09-08-2024 ECG COMPLETE Ventricular Rate : 5 7 BPM Atrial Rate : 57 BPM P-R Interval : 154 ms QRS Duration : 80 ms Q-T Interval : 430 ms QTC Calculation(Bazett) : 418 ms Calculated P [place] : 40 degrees Calculated R [place] : 3 degrees Calculated T [place] : 55 degrees SINUS BRADYCARDIA WITH SINUS ARRHYTHMIA OTHERWISE NORMAL ECG Confirmed by YOSHI PENNINGTON MD ([id number]) on 09/19/2024 4:33:02 PM NAME : LIANA MARIE PID : [id number] : 1950 Gender : Female Race : ORD : [id number] Procedure Date : Sep 08 2024 12:43:00 Edit Date : Sep 19 2024 16:33:06 Diagnosis: SINUS BRADYCARDIA WITH SINUS ARRHYTHMIA OTHERWISE NORMAL ECG Confirmed by YOSHI PENNINGTON MD ([id number]) on 09/19/2024 4:33:02 PM Test Reason : Location : [facility] : J14 Overread By : YOSHI PENNINGTON MD Edited By : YOSHI PENNINGTON MD Referred By : AMY BARGER Acquired by : RENA SMITH [facility] ECHOon 09-08-2024 Echocardiography Echocardiography Report: Transthoracic Echo [facility] A17 Date of service: 09/08/2024 10:22:54 AM TREATMENT OFFSIDER Ordering physician: AMY BARGER Exam indication: Routine [...] with the prior echocardiographic exam performed on 09/25/2023. Comparabe findings. * * * Final * * * [employer] [facility] : [id number] amicsSISUID Normal [facility] Lipid 1996 panelon 5 Cholesterol [Mass/Vol] 114 mg/dL Normal <200 [facility] Comment on above: Order Comment: Speci men Type: BLOOD SPECIMEN Ordering Facility: [facility] Address: [address] [place] [address] Result Comment: <200 mg/dL, Desirable 200-239 mg/dL, Borderline high >239 mg/dL, High Performed By: #### 2 4323-8, 54761-0 #### [facility] CLIA [id number] [facility] [address] OF [facility] Cholesterol in HDL [Mass/Vol] 34 mg/dL Low >39 [facility] Comment on above: Order Comment: Shreyasdavid sidhu Type: BLOOD SPECIMEN Ordering Facility: [facility] Address: [address] [place] [address] Result Comment: 40-5 9 mg/dL, Acceptable >59 mg/dL, High: Negative risk factor for coronary heart disease <40 mg/dL, Low: Positive risk factor for coronary heart disease Performed By: #### 2 4323-8, 01889-2 #### [facility] CLIA [id number] [address] [place] [address] Cholesterol in LDL [Mass/Vol] 58 mg/dL Normal <100 [facility] Comment on above: Order Comment: Colten nahum Type: BLOOD SPECIMEN Ordering Facility: [facility] Address: [address] [place] [address] Result Comment: <100 mg/dL, Optimal 100-129 mg/dL, Near optimal/above optimal 130-159 mg/dL, Borderline high 160-189 mg/dL, High >189 mg/dL, Very high Secondary prevention optimal LDL Cholesterol levels are recommended to be <70 mg/dL LDL cholesterol is calculated using the Taylor-NIH equation. Performed By: #### 2 4323-8, 09477-3 #### [facility] CLIA [id number] [address] [place] [address] [facility] Cholesterol in LDL/Cholesterol in HDL [Mass ratio] 1.71 {ratio} Normal <2.54 [facility] Comment on above: Order Comment: Colten sidhu Type: BLOOD SPECIMEN Ordering Facility: [facility] Address: [address] [place] [address] Result Comment: Refleisa jacomece: 1. National Cholesterol Education Program ATP III Guideline At-A-Glance Quick Desk Reference: National Heart, Lung, and Blood [place]. National Institutes of Health. 2001: NIH Publication No. 01-3305. 2. An International Atherosclerosis Society position paper: global recommendations for the management of dyslipidemia: executive summary, Atherosclerosis. 2014: 232(2):410-413. Performed By: #### 2 4323-8, 70813-9 #### [facility] CLIA [id number] [address] [place], [place] [address] [place] Cholesterol in VLDL [Mass/Vol] 17 mg/dL Normal <30 [facility] Comment on above: Order Comment: Colten sidhu Type: BLOOD SPECIMEN Ordering Facility: [facility] Address: [address] [place] [address] Performed By: #### 2 4323-8, 14643-1 #### [facility] CLIA [id number] [address] [place] [address] [place] Cholesterol non HDL [Mass/Vol] 80 mg/dL Normal <130 [facility] Comment on above: Order Comment: Colten sidhu Type: BLOOD SPECIMEN Ordering Facility: [facility] Address: [address] [place] [address] Result Comment: <130 mg/dL, Optimal 130-159 mg/dL, Near optimal/above optimal 160-189 mg/dL, Borderline high 190-219 mg/dL, High >219 mg/dL, Very high Secondary prevention optimal non HDL Cholesterol levels are recommended to be <100 mg/dL Performed By: #### 2 4323-8, 91955-3 #### [facility] CLIA [id number] [address] [place] [address] [place] Cholesterol.total/Ch olesterol in HDL [Mass ratio] 3.35 {ratio} Normal <5.10 [facility] Comment on above: Order Comment: Colten sidhu Type: BLOOD SPECIMEN Ordering Facility: [facility] Address: [address] [place] [address] Performed By: #### 2 4323-8, 02409-5 #### [facility] CLIA [id number] [address] [place], [place] [address] [place] FASTING TIME 17 hrs Normal [facility] Comment on above: Order Comment: Speci men Type: BLOOD SPECIMEN Ordering Facility: [facility] Address: [address] [place] [address] Performed By: #### 2 4323-8, 94747-4 #### [facility] CLIA [id number] [address] [place] [address] [place] Triglyceride [Mass/Vol] 118 mg/dL Normal <150 [facility] Comment on above: Order Comment: Speci men Type: BLOOD SPECIMEN Ordering Facility: [facility] Address: [address] [place] [address] Result Comment: <150 mg/dL, Normal 150-199 mg/dL, Borderline high 200-499 mg/dL, High >499 mg/dL, Very high Performed By: #### 2 4323-8, 45048-7 #### [facility] CLIA [id number] [address] [place] [address] [place] CNCOon 09-07-2024 CNCO Letter Text Normal [facility] Urine Cultureon 08-29-2024 Bacteria identified Cx Nom (U) <9,000 colonies/ml mixed bacterial skin contaminants 2 Days PERFORMED BY: [place] [address] PATHOLOGIST [employer] CLEANING SUPERVISOR CASEY SUERO M.D. Normal [facility] Comment on above: Performed By: #### C UU #### [address] CBC panel Auto (Bld)on 09-24 Erythrocyte distribution width (RBC) [Ratio] 14.6 % Normal 11.5-15.0 [facility] Comment on above: Order Comment: Speci men Type: BLOOD SPECIMEN Ordering Facility: [facility] Address: [address] [place] [address] Performed By: #### 5 8410-2 #### [facility] CLIA [id number] [address] [place] [address] [place] Hematocrit (Bld) [Volume fraction] 41.5 % Normal 36.0-46.0 [facility] Comment on above: Order Comment: Speci men Type: BLOOD SPECIMEN Ordering Facility: [facility] Address: [address] [place] [address] Performed By: #### 5 8410-2 #### [facility] CLIA [id number] [address] [place] [address] [place] Hemoglobin (Bld) [Mass/Vol] 13.0 g/dL Normal 11.5-15.5 [facility] Comment on above: Order Comment: Speci men Type: BLOOD SPECIMEN Ordering Facility: [facility] Address: [address] [place] [address] Performed By: #### 5 8410-2 #### [facility] CLIA [id number] [address] [place] [address] [place] MCH (RBC) [Entitic mass] 29.1 pg Normal 26.0-34.0 [facility] Comment on above: Order Comment: Speci men Type: BLOOD SPECIMEN Ordering Facility: [facility] Address: [address] [place] [address] Performed By: #### 5 8410-2 #### [facility] CLIA [id number] [address] [place] [address] [place] MCHC (RBC) [Mass/Vol] 31.3 g/dL Normal 30.5-36.0 [facility] Comment on above: Order Comment: Speci men Type: BLOOD SPECIMEN Ordering Facility: [facility] Address: [address] [place] [address] Performed By: #### 5 8410-2 #### [facility] CLIA [id number] [address] [place] [address] [place] MCV (RBC) [Entitic vol] 92.8 fL Normal 80.0-100.0 [facility] Comment on above: Order Comment: Speci men Type: BLOOD SPECIMEN Ordering Facility: [facility] Address: [address] [place] [address] Performed By: #### 5 8410-2 #### [facility] CLIA [id number] [address] [place] [address] [place] Nucleated RBC (Bld) [#/Vol] 10*3/uL Normal <0.01 [facility] Comment on above: Order Comment: Speci men Type: BLOOD SPECIMEN Ordering Facility: [facility] Address: [address] [place] [address] Performed By: #### 5 8410-2 #### [facility] CLIA [id number] [address] [place] [address] [place] Platelet mean volume (Bld) [Entitic vol] 10.5 fL Normal 9.0-12.7 [facility] Comment on above: Order Comment: Speci men Type: BLOOD SPECIMEN Ordering Facility: [facility] Address: [address] [place] [address] Performed By: #### 5 8410-2 #### [facility] CLIA [id number] [address] [place] [address] [place] Platelets (Bld) [#/Vol] 173 10*3/uL Normal 150-400 [facility] Comment on above: Order Comment: Speci men Type: BLOOD SPECIMEN [facility] [facility] Address: [address] [place] [address] Performed By: #### 5 8410-2 #### [facility] CLIA [id number] [address] [place] [address] [place] RBC (Bld) [#/Vol] 4.47 10*6/uL Normal 3.90-5.20 [facility] Comment on above: Order Comment: Speci men Type: BLOOD SPECIMEN Ordering Facility: [facility] Address: [address] [place] [address] Performed By: #### 5 8410-2 #### [facility] CLIA [id number] [address] [place] [address] [place] WBC (Bld) [#/Vol] 3.22 10*3/uL Low 3.70-11.00 [facility] Comment on above: Order Comment: Speci men Type: BLOOD SPECIMEN Ordering Facility: [facility] Address: [address] [place] [address] Performed By: #### 5 8410-2 #### [facility] IA [id number] [address] [place] [address] [place] CNOVon 09-25-2023 CNOV Office Visit (CARIMN ) LIANA MARIE ([id number]) 1950 F Date Time Provider Department 09/25/23 12:00 PM AMY BARGER During your visit today, we recorded the following information about you: Pulse Blood pressure Weight Height 50/minute 191/59 90.3 kg 1.676 m Amy Barger MD 09/26/2023 5:05 PM Counts Include 234 Beds At [facility] [place] [facility] Department of Cardiovascular Medicine SECTION OF CARDIOVASCULAR IMAGING OUTPATIENT VISIT DATE 09/25/2023 OUTPATIENT VISIT TYPE ESTABLISHED PRIMARY CARE PHYSICIAN: Jacky Torres [address] [place] [address] REFERRING PHYSICIAN: Amy Barger [address] [place] [address] CHIEF COMPLAINT: Follow up visit. HISTORY OF [...] Age of Onset Heart Attack Mother fatal GA at age 70 Diabetes Mother Diabetes Father Heart Father bypass at age 60s Heart Attack Father GA at age 60s other (Other) Father MVA at age 72 Cancer Sister at age 42 other (Other) Brother Cancer Sister breast cancer at age 50 No Known Problems Brother Heart Attack Brother fatal [place] at age 64 other (ulcers) Brother bleeding [...] 78 09/24 (more content not included)... Normal [facility] Comprehensive metabolic 2000 panelon 09-25-2023 Albumin [Mass/Vol] 4.0 g/dL Normal 3.9-4.9 [facility] Comment on above: Order Comment: Speci men Type: BLOOD SPECIMEN Ordering Facility: [facility] Address: [address] [place] [address] Performed By: #### 2 4323-8, 06716-1 #### [facility] CLIA [id number] [address] [place] [address] [place] [address] [place] ALP [Catalytic activity/Vol] 88 U/L Normal 34-123 [facility] Comment on above: Order Comment: Speci men Type: BLOOD SPECIMEN Ordering Facility: [facility] Address: [address] [place] [address] Performed By: #### 2 4323-8, 70437-3 #### [facility] CLIA [id number] [address] [place] [address] [place] ALT [Catalytic activity/Vol] 18 U/L Normal 7-38 [facility] Comment on above: Order Comment: Speci men Type: BLOOD SPECIMEN Ordering Facility: [facility] Address: [address] [place] [address] Performed By: #### 2 4323-8, 98449-5 #### [facility] CLIA [id number] [address] [place] [address] [place] Anion gap [Moles/Vol] 10 mmol/L Normal 8-15 [facility] Comment on above: Order Comment: Speci men Type: BLOOD SPECIMEN Ordering Facility: [facility] Address: [address] [place] [address] Performed By: #### 2 4323-8, 24681-5 #### [facility] CLIA [id number] [address] [place] [address] [place] AST [Catalytic activity/Vol] 29 U/L Normal 13-35 [facility] Comment on above: Order Comment: Speci men Type: BLOOD SPECIMEN Ordering Facility: [facility] Address: [address] [place] [address] Performed By: #### 2 4323-8, 02903-4 #### [facility] CLIA [id number] [address] [place] [address] [place] Bilirubin [Mass/Vol] 1.1 mg/dL Normal 0.2-1.3 [facility] Comment on above: Order Comment: Speci men Type: BLOOD SPECIMEN Ordering Facility: [facility] Address: [address] [place] [address] Performed By: #### 2 4323-8, 66820-9 #### [facility] CLIA [id number] [address] [place] [address] [place] Calcium [Mass/Vol] 10.3 mg/dL High 8.5-10.2 [facility] Comment on above: Order Comment: Speci men Type: BLOOD SPECIMEN Ordering Facility: [facility] Address: [address] [place] [address] Performed By: #### 2 4323-8, 13602-4 #### [facility] CLIA [id number] [address] [place] [address] [place] Chloride [Moles/Vol] 105 mmol/L Normal 98-107 [facility] Comment on above: Order Comment: Speci men Type: BLOOD SPECIMEN Ordering Facility: [facility] Address: [address] [place] [address] Performed By: #### 2 4323-8, 73995-3 #### [facility] CLIA [id number] [address] [place] [address] [place] CO2 [Moles/Vol] 23 mmol/L Normal 22-30 [facility] Comment on above: Order Comment: Speci men Type: BLOOD SPECIMEN Ordering Facility: [facility] Address: [address] [place] [address] Performed By: #### 2 4323-8, 30193-2 #### [facility] CLIA [id number] [address] [place] [address] [place] Creatinine [Mass/Vol] 0.81 mg/dL Normal 0.58-0.96 [facility] Comment on above: Order Comment: Speci men Type: BLOOD SPECIMEN Ordering Facility: [facility] Address: [address] [place] [address] Performed By: #### 2 4323-8, 25597-9 #### [facility] CLIA [id number] [address] [place] [address] [place] Creatinine and Glomerular filtration rate.predicted panel (S/P/Bld) 77 mL/min/1.73m??? Normal >=60 [facility] Comment on above: Order Comment: Colten sidhu Type: BLOOD SPECIMEN Ordering Facility: [facility] Address: [address] [place] [address] Result Comment: Maria R mated Glomerular Filtration [...] actual GFR. Performed By: #### 2 4323-8, 64512-5 #### [facility] CLIA [id number] [address] [place] [address] [place] Glucose [Mass/Vol] 113 mg/dL High 74-99 [facility] Comment on above: Order Comment: Colten sidhu Type: BLOOD SPECIMEN Ordering Facility: [facility] Address: [address] [place] [address] Result Comment: The [place] Diabetes Association (ADA) provides guidance for cutoff [...] Standards of Medical Care in Diabetes 2016, [place] [employer] Association. Diabetes Care. 2016.39(Suppl 1). Performed By: #### 2 4323-8, 96596-6 #### [facility] CLIA [id number] [address] [place] [address] [place] Potassium [Moles/Vol] 4.3 mmol/L Normal 3.7-5.1 [facility] Comment on above: Order Comment: Speci men Type: BLOOD SPECIMEN Ordering Facility: [facility] Address: [address] [place] [address] Performed By: #### 2 4323-8, 86596-0 #### [facility] CLIA [id number] [address] [place] [address] [place] Protein [Mass/Vol] 7.0 g/dL Normal 6.3-8.0 [facility] Comment on above: Order Comment: Speci men Type: BLOOD SPECIMEN Ordering Facility: [facility] Address: [address] [place] [address] Performed By: #### 2 4323-8, 71485-3 #### [facility] CLIA [id number] [address] [place] [address] [place] Sodium [Moles/Vol] 138 mmol/L Normal 136-144 [facility] Comment on above: Order Comment: Speci men Type: BLOOD SPECIMEN Ordering Facility: [facility] Address: [address] [place] [address] Performed By: #### 2 4323-8, 44530-5 #### [facility] CLIA [id number] [address] [place] [address] [place] Urea nitrogen [Mass/Vol] 22 mg/dL High 7-21 [facility] Comment on above: Order Comment: Speci men Type: BLOOD SPECIMEN Ordering Facility: [facility] Address: [address] [place] [address] Performed By: #### 2 4323-8, 94095-4 #### [facility] CLIA [id number] [address] [place] [address] [place] ECG COMPLETEon 09-25-2023 ECG COMPLETE Ventricular Rate : 5 8 BPM Atrial Rate : 58 BPM P-R Interval : 174 ms QRS Duration : 76 ms Q-T Interval : 458 ms QTC Calculation(Bazett) : 449 ms Calculated P [place] : 57 degrees Calculated R [place] : 49 degrees Calculated T [place] : 36 degrees SINUS BRADYCARDIA WITH MARKED SINUS ARRHYTHMIA OTHERWISE NORMAL ECG Confirmed by ALIYAH RAIN MD ([id number]) on 10/15/2023 5:53:31 PM NAME : LIANA MARIE PID : [id number] : 1950 Gender : Female Race : ORD : [id number] Procedure Date : Sep 25 2023 11:00:10 Edit Date : Oct 15 2023 17:53:36 Diagnosis: SINUS BRADYCARDIA WITH MARKED SINUS ARRHYTHMIA OTHERWISE NORMAL ECG Confirmed by ALIYAH RAIN MD ([id number]) on 10/15/2023 5:53:31 PM Test Reason : Location : [facility] : [facility]1-4 Overread By : ALIYAH RAIN MD Edited By : ALIYAH RAIN MD Referred By : AMY BARGER Acquired by : SHERI WYATT [facility] ECHO 09-25-2023 Echocardiography Echocardiography Report: Transthoracic Echo [facility] J1-5 Date of service: 09/25/2023 11:32:12 AM TREATMENT OFFSIDER Ordering physician: AMY BARGER Indication: Routine surveillance [...] * * Final * * * [facility] [employer] [facility] : [id number] micsSISUID Normal [facility] Lipid 1996 panelon 4 Cholesterol [Mass/Vol] 147 mg/dL Normal <200 [facility] Comment on above: Order Comment: Colten sidhu Type: BLOOD SPECIMEN Ordering Facility: [facility] Address: [address] [place] [address] Result Comment: <200 mg/dL, Desirable 200-239 mg/dL, Borderline high >239 mg/dL, High Performed By: #### 2 4323-8, 40911-2 #### [facility] CLIA [id number] [address] [place] [address] [place] Cholesterol in HDL [Mass/Vol] 42 mg/dL Normal >39 [facility] Comment on above: Order Comment: Colten sidhu Type: BLOOD SPECIMEN Ordering Facility: [facility] Address: [address] [place] [address] Result Comment: 40-5 9 mg/dL, Acceptable >59 mg/dL, High: Negative risk factor for coronary heart disease <40 mg/dL, Low: Positive risk factor for coronary heart disease Performed By: #### 2 4323-8, 91385-6 #### [facility] CLIA [id number] [address] [place] [address] [place] Cholesterol in LDL [Mass/Vol] 77 mg/dL Normal <100 [facility] Comment on above: Order Comment: Colten sidhu Type: BLOOD SPECIMEN Ordering Facility: [facility] Address: [address] [place] [address] Result Comment: <100 mg/dL, Optimal 100-129 mg/dL, Near optimal/above optimal 130-159 mg/dL, Borderline high 160-189 mg/dL, High >189 mg/dL, Very high Secondary prevention optimal LDL Cholesterol levels are recommended to be < 70 mg/dL Performed By: #### 2 4323-8, 74466-8 #### [facility] CLIA [id number] [address] [place] [address] [place] Cholesterol in LDL/Cholesterol in HDL [Mass ratio] 1.83 {ratio} Normal <2.54 [facility] Comment on above: Order Comment: Specdavid men Type: BLOOD SPECIMEN Ordering Facility: [facility] Address: [address] [place] [address] Result Comment: Xavier capps: 1. National Cholesterol Education Program ATP III Guideline At-A-Glance Quick Desk Reference: National Heart, Lung, and Blood [place]. National Institutes of Health. 2001: NIH Publication No. 01-3305. 2. An International Atherosclerosis Society position paper: global recommendations for the management of dyslipidemia: executive summary, Atherosclerosis. 2014: 232(2):410-413. Performed By: #### 2 4323-8, 76276-5 #### [facility] CLIA [id number] [address] [place] [address] [place] Cholesterol in VLDL [Mass/Vol] 28 mg/dL Normal <30 [facility] Comment on above: Order Comment: Colten sidhu Type: BLOOD SPECIMEN Ordering Facility: [facility] Address: [address] [place] [address] Performed By: #### 2 4323-8, 12048-9 #### [facility] CLIA [id number] [address] [place] [address] [place] Cholesterol non HDL [Mass/Vol] 105 mg/dL Normal <130 [facility] Comment on above: Order Comment: Colten sidhu Type: BLOOD SPECIMEN Ordering Facility: [facility] Address: [address] [place] [address] Result Comment: <130 mg/dL, Optimal 130-159 mg/dL, Near optimal/above optimal 160-189 mg/dL, Borderline high 190-219 mg/dL, High >219 mg/dL, Very high Secondary prevention optimal non HDL Cholesterol levels are recommended to be <100 mg/dL Performed By: #### 2 4323-8, 66284-1 #### [facility] CLIA [id number] [address] [place] [address] [place] Cholesterol.total/Ch olesterol in HDL [Mass ratio] 3.50 {ratio} Normal <5.10 [facility] Comment on above: Order Comment: Speci men Type: BLOOD SPECIMEN Ordering Facility: [facility] Address: [address] [place] [address] Performed By: #### 2 4323-8, 48841-0 #### [facility] CLIA [id number] [address] [place] [address] [place] FASTING TIME 12 hrs Normal [facility] Comment on above: Order Comment: Speci men Type: BLOOD SPECIMEN Ordering Facility: [facility] Address: [address] [place] [address] Performed By: #### 2 4323-8, 29143-0 #### [facility] CLIA [id number] [address] [place] [address] [place] Triglyceride [Mass/Vol] 141 mg/dL Normal <150 [facility] Comment on above: Order Comment: Speci men Type: BLOOD SPECIMEN Ordering Facility: [facility] Address: [address] [place] [address] Result Comment: <150 mg/dL, Normal 150-199 mg/dL, Borderline high 200-499 mg/dL, High >499 mg/dL, Very high Performed By: #### 2 4323-8, 70546-1 #### [facility] CLIA [id number] [address] [place] [address] [place] OCC BLD IMMUNO SCREENon 03-03 OCCULT BLOOD Negative Normal NEGATIVE [facility] Comment on above: Performed By: #### O BSCRN #### [facility] [address] [place] [address] Dr. Kym Burks CBC AUTO DIFFon 03-26-2022 BASO # 0.0 103/ul Normal 0.0-0.1 [facility] Comment on above: Performed By: #### C BC #### [facility] [address] [place] [address] Dr. Kym Burks Basophils/100 WBC (Bld) 0.7 % Normal 0.2-2.0 [facility] Comment on above: Performed By: #### C BC #### [facility] [address] [place] [address] Dr. Kym Burks EO # 0.1 103/ul Normal 0.0-0.7 [facility] Comment on above: Performed By: #### C BC #### [facility] [address] [place] [address] Dr. Kym Burks Eosinophils/100 WBC (Bld) 1.7 % Normal 0.9-7.0 [facility] Comment on above: Performed By: #### C BC #### [facility] [address] [place] [address] Dr. Kym Burks Erythrocyte distribution width (RBC) [Ratio] 13.2 % Normal 11.0-15.0 [facility] Comment on above: Performed By: #### C BC #### [facility] [address] [place] [address] Dr. Kym Burks Hematocrit (Bld) [Volume fraction] 41.6 % Normal 36.0-48.0 [facility] Comment on above: Performed By: #### C BC #### [facility] [address] [place] [address] Dr. Kym Burks Hemoglobin (Bld) [Mass/Vol] 12.7 g/dL Normal 12.0-16.0 [facility] Comment on above: Performed By: #### C BC #### [facility] [address] [place] [address] Dr. Kym Burks IG # 0.00 10e3/ul Normal 0.00-0.03 [facility] Comment on above: Performed By: #### C BC #### [facility] [address] [place] [address] Dr. Kym Burks IG % 0.0 % Normal 0.0-0.5 [facility] Comment on above: Performed By: #### C BC #### [facility] [address] [place] [address] Dr. Kym Burks LYMPH # 1.4 103/ul Normal 1.2-3.8 [facility] Comment on above: Performed By: #### C BC #### [facility] [address] [place] [address] Dr. Kym Burks Lymphocytes/100 WBC (Bld) 33.3 % Normal 20.5-60.0 [facility] Comment on above: Performed By: #### C BC #### [facility] [address] [place] [address] Dr. Kym Burks MANUAL DIFF REQ NO Normal [facility] Comment on above: Performed By: #### C BC #### [facility] [address] [place] [address] Dr. Kym Burks MCH (RBC) [Entitic mass] 28.8 pg Normal 26.7-34.0 [facility] Comment on above: Performed By: #### C BC #### [facility] [address] [place] [address] Dr. Kym Burks MCHC (RBC) [Mass/Vol] 30.5 g/dL Normal 29.9-35.2 [facility] Comment on above: Performed By: #### C BC #### [facility] [address] [place] [address] Dr. Kym Burks MCV (RBC) [Entitic vol] 94.3 fL Normal 81.0-99.0 [facility] Comment on above: Performed By: #### C BC #### [facility] [address] [place] [address] Dr. Kym Burks MONO # 0.3 103/ul Normal 0.3-0.8 [facility] Comment on above: Performed By: #### C BC #### [facility] [address] [address] [address] Kym Burks Monocytes/100 WBC (Bld) 6.7 % Normal 1.7-12.0 [facility] Comment on above: Performed By: #### C BC #### [facility] [address] [place] [address] Dr. Kym Burks NEUT # 2.4 103/ul Normal 1.4-6.5 [facility] Comment on above: Performed By: #### C BC #### [facility] [address] [place] [address] Dr. Kym Burks Neutrophils/100 WBC (Bld) 57.6 % Normal 43.0-75.0 [facility] Comment on above: Performed By: #### C BC #### [facility] [address] [place] [address] Dr. Kym Burks Platelet mean volume (Bld) [Entitic vol] 9.9 fL Normal 9.5-13.5 [facility] Comment on above: Performed By: #### C BC #### [facility] [address] [place] [address] Dr. Kym Burks PLT 221 103/ul Normal 150-450 [facility] Comment on above: Performed By: #### C BC #### [facility] [address] [place] [address] Dr. Kym Burks RBC 4.41 106/ul Normal 4.20-5.40 [facility] Comment on above: Performed By: #### C BC #### [facility] [address] [place] [address] Dr. Kym Burks WBC 4.2 103/ul Normal 4.0-11.0 [facility] Comment on above: Performed By: #### C BC #### [facility] [address] [place] [address] Dr. Kym Burks FREE THYROXINE INDEX T7on FTI 3.78 Normal 1.30-4.50 [facility] Comment on above: Performed By: #### T SH, CMP, T7, LIPID ####[facility] [address] [place] [address]DrAlice Burks T3U 36.0 % Normal 30.0-39.0 [facility] Comment on above: Performed By: #### T SH, CMP, T7, LIPID ####[facility] [address] [place], [place] [address]GfAlice Burks T4 [Mass/Vol] 10.50 ug/dL Normal 4.80-13.90 [facility] Comment on above: Performed By: #### T SH, CMP, T7, LIPID ####[facility] [address] [place], [place] [address]XmAlice Burks GLYCOHEMOGLOBIN A1Con 2022 ADA RECOMMENDATION SEE BELOW Normal [facility] Comment on above: Result Comment: ADA RECOMMENDED LIMIT 4.0 - 6.0 ADA THERAPEUTIC TARGET < 7.0 ACTION SUGGESTED > 7.0 Performed By: #### A 1C #### [facility] [address] [place] [address] [address] Kym Burks Glucose [Mass/Vol] 148 mg/dL Normal [facility] Comment on above: Performed By: #### A 1C #### [facility] [address] [place] [address] [address] Kym Burks HbA1c (Bld) [Mass fraction] 6.8 % Critically high 4.5-6.2 [facility] Comment on above: Performed By: #### A 1C #### [facility] [address] [place] [address] [address] Kym Burks IRONon 03-26-2022 Iron [Mass/Vol] 72.0 ug/dL Normal 50.0-170.0 [facility] Comment on above: Performed By: #### V ITAD, IRON #### [facility] [address] [place] [address] [address] Kym Burks LIPID PROFILEon 03-26-2022 CHOL-HDL RATIO NORM SEE BELOW Normal [facility] Comment on above: Result Comment: 3.3 - 4.4 LOW RISK 4.4 - 7.1 AVERAGE RISK 7.1 - 11.0 MODERATE RISK >11.0 HIGH RISK Performed By: #### T SH, CMP, T7, LIPID ####[facility] [address] [place] [id number]. Kym Burks Cholesterol [Mass/Vol] 126 mg/dL Normal <=200 [facility] Comment on above: Performed By: #### T SH, CMP, T7, LIPID ####[facility] [address] [place], [place] [address]Oo. Kym Burks Cholesterol in HDL [Mass/Vol] 47 mg/dL Normal 40-60 [facility] Comment on above: Performed By: #### T SH, CMP, T7, LIPID ####[facility] [address] [place] [id number]. Kym Burks Cholesterol in LDL [Mass/Vol] 56.8 mg/dL Normal [facility] Comment on above: Performed By: #### T SH, CMP, T7, LIPID ####[facility] [address] [place] [id number]. Kym Burks Cholesterol.total/Ch olesterol in HDL [Mass ratio] 2.7 {ratio} Normal [facility] Comment on above: Performed By: #### T SH, CMP, T7, LIPID ####[facility] [address] [place] [id number]. Kym Burks HDL NORMAL > or = 60 mg/dl - LO W CARDIOVASCULAR RISK <40 mg/dl - HIGH CARDIOVASCULAR RISK Normal [facility] Comment on above: Performed By: #### T SH, CMP, T7, LIPID ####[facility] [address] [place] [id number]. Kym Burks LDL CALC NORMAL SEE BELOW Normal [facility] Comment on above: Result Comment: <100 mg/dl OPTIMAL 100 - 129 mg/dl NEAR OR ABOVE OPTIMAL 130 - 159 mg/dl BORDERLINE HIGH 160 - 189 mg/dl HIGH >190 mg/dl VERY HIGH Performed By: #### T SH, CMP, T7, LIPID ####[facility] [address] [place] [id number]. Kym Burks Triglyceride [Mass/Vol] 111 mg/dL Normal <=150 [facility] Comment on above: Performed By: #### T SH, CMP, T7, LIPID ####[facility] [address] [place] [address]Dr. Kym Burks VLDL CALC 22.2 mg/dL Normal [facility] Comment on above: Performed By: #### T SH, CMP, T7, LIPID ####[facility] [address] [place] [address]Dr. Kym Burks PROF 14(COMP METB)on 023 Albumin [Mass/Vol] 3.9 g/dL Normal 3.4-5.0 [facility] Comment on above: Performed By: #### T SH, CMP, T7, LIPID ####[facility] [address] [place] [address]Dr. Kym Burks Albumin/Globulin [Mass ratio] 1.3 {ratio} Normal [facility] Comment on above: Performed By: #### T SH, CMP, T7, LIPID ####[facility] [address] [place] [address]Dr. Kym Burks ALP [Catalytic activity/Vol] 80 U/L Normal 46-116 [facility] Comment on above: Performed By: #### T SH, CMP, T7, LIPID ####[facility] [address] [place] [address]Dr. Kym Burks ALT [Catalytic activity/Vol] 28 U/L Normal 14-59 [facility] Comment on above: Performed By: #### T SH, CMP, T7, LIPID ####[facility] [address] [place] [address]Dr. Kym Burks Anion gap [Moles/Vol] 10.6 mmol/L Normal [facility] Comment on above: Performed By: #### T SH, CMP, T7, LIPID ####[facility] [address] [place] [address]Dr. Kym Burks AST [Catalytic activity/Vol] 21 U/L Normal 15-37 [facility] Comment on above: Performed By: #### T SH, CMP, T7, LIPID ####[facility] [address] [place] [address]Dr. Kym Burks Bilirubin [Mass/Vol] 1.3 mg/dL Critically high 0.2-1.0 [facility] Comment on above: Performed By: #### T SH, CMP, T7, LIPID ####[facility] [address] [place] [address]Dr. Kym Burks Calcium [Mass/Vol] 10.0 mg/dL Normal 8.5-10.1 [facility] Comment on above: Performed By: #### T SH, CMP, T7, LIPID ####[facility] [address] [place] [address]Dr. Kym Burks Chloride [Moles/Vol] 104 mmol/L Normal 98-107 [facility] Comment on above: Performed By: #### T SH, CMP, T7, LIPID ####[facility] [address] [place], [place] [address]Dr. Kym Burks CO2 [Moles/Vol] 28.8 mmol/L Normal 21.0-32.0 [facility] Comment on above: Performed By: #### T SH, CMP, T7, LIPID ####[facility] [address] [place], [place] [address]Dr. Kym Burks Creatinine [Mass/Vol] 0.74 mg/dL Normal 0.55-1.02 [facility] Comment on above: Performed By: #### T SH, CMP, T7, LIPID ####[facility] [address] [place], [place] [address]Dr. Kym Burks EGFR-AF MACANESE >60 Normal >=60 [facility] Comment on above: Performed By: #### T SH, CMP, T7, LIPID ####[facility] [address] [place], [place] [address]Dr. Kym Burks EGFR-NON AF MACANESE >60 Normal >=60 [facility] Comment on above: Performed By: #### T SH, CMP, T7, LIPID ####[facility] [address] [place], [place] [address]Dr. Kym Burks Globulin (S) [Mass/Vol] 3.1 g/dL Normal [facility] Comment on above: Performed By: #### T SH, CMP, T7, LIPID ####[facility] [address] [place] [address]Dr. Kym Burks Glucose [Mass/Vol] 143 mg/dL Critically high 74-106 [facility] Comment on above: Performed By: #### T SH, CMP, T7, LIPID ####[facility] [address] [place] [address]Dr. Kym Burks Potassium [Moles/Vol] 4.4 mmol/L Normal 3.5-5.1 [facility] Comment on above: Performed By: #### T SH, CMP, T7, LIPID ####[facility] [address] [place] [address]Dr. Kym Burks Protein [Mass/Vol] 7.0 g/dL Normal 6.4-8.2 [facility] Comment on above: Performed By: #### T SH, CMP, T7, LIPID ####[facility] [address] [place] [address]Dr. Kym Burks Sodium [Moles/Vol] 139 mmol/L Normal 136-145 [facility] Comment on above: Performed By: #### T SH, CMP, T7, LIPID ####[facility] [address] [place] [address]Dr. Kym Burks Urea nitrogen [Mass/Vol] 26.0 mg/dL Critically high 7.0-18.0 [facility] Comment on above: Performed By: #### T SH, CMP, T7, LIPID ####[facility] [address] [place] [address]Dr. Kym Bruks Urea nitrogen/Creatinine [Mass ratio] 35.1 mg/mg Normal [facility] Comment on above: Performed By: #### T SH, CMP, T7, LIPID ####[facility] [address] [place] [address]Dr. Kym Burks TSHon 03-26-2022 TSH 0.288 uIU/mL Critically low 0.358-3.740 [facility] Comment on above: Performed By: #### T SH, CMP, T7, LIPID ####[facility] [address] [place], [place] [address]Dr. Kym Burks VITAMIN D 25 OHon 03-26-2022 VIT D 25-OH 60.0 ng/mL Normal [facility] Comment on above: Performed By: #### V LUDY, IRON #### [facility] [address] [place], [place] [address] Dr. Kym Burks VIT D RANGES SEE BELOW Normal [facility] Comment on above: Result Comment: <20 ng/mL Vit D deficient 20 - <30 ng/mL Vit D insufficient 30 - 100 ng/mL Vit D sufficient >100 ng/mL Potential Toxicity Performed By: #### V KIRSTINAD, IRON #### [facility] [address] [place], [place] [address] Dr. Kym Burks XR SHOULDER RT INJon [...] by: KWABENA LEDESMA Date: 2021-09-10 14:56 Normal [facility] MG MAMM SCREEN 3D EMILY CADon 08-22-2021 MG MAMM SCREEN 3D EMILY CAD Patient: LIANA MARIE Exam Date: 08/22/2021 : 1950 Gender:F Ordering : DR JACKY TORRES . Admission #: [id number] Family : Order #: [id number] CLICK HERE TO VIEW EXAM RADIOLOGY REPORT [...] breast cancer at age 51. LOCATION: The [facility] BREAST COMPOSITION: Scattered areas fibroglandular density. [...] M.D. on 08/22/2021 at 13:22 Normal [facility] XR SHOULDER RT 2V or >on [...] by: GINA CRUZ Date: 2021-08-22 12:24 Normal [facility]30 SARS-CoV-2 (COVID-19) RNA SILVETSRE+probe Ql (Unsp spec) Detected Critically abnormal NOT DETECTED [facility] Comment on above: Result Comment: This test is not yet approved or cleared by the [place] FDA. When there are no FDA-approved or cleared tests available, and other criteria are met, FDA can make tests available under an emergency access mechanism called an Emergency Use Authorization (EUA). The EUA for this test is supported by the [employer] Supervisor of Health and Human Service's (HHS's) declaration [...] used). Performed By: #### C VDTBH #### [facility] [address] [place] [address] Dr. Kym Burks INFLUENZA A AND B AGon 05-[facility] SEE BELOW Normal [facility] Comment on above: Result Comment: Nega tive for Flu A protein angiten. Infection due to Flu A cannot be ruled out. Flu A angiten in the sample may be below the detection limit of the test. Performed By: #### I NFLUAB #### [facility] [address] [place] [address] Dr. Kym Burks INFLUBNEG SEE BELOW Normal [facility] Comment on above: Result Comment: Nega tive for Flu B protein antigen. Infection due to Flu B cannot be ruled out. Flu B antigen in the sample may be below the detection limit of the test. Performed By: #### I NFLUAB #### [facility] [address] [place] [address] Dr. Kym Burks INFLUENZA A AG Negative Normal NEGATIVE SEE COMMENT [facility] Comment on above: Performed By: #### I NFLUAB #### [facility] [address] [place] [address] Dr. Kym Burks INFLUENZA B AG Negative Normal NEGATIVE SEE COMMENT [facility] Comment on above: Performed By: #### I NFLUAB #### [facility] [address] [place], [place] [address] Dr. Kym Burks INTERNAL CONTROLS Within Normal Limits Normal Wi thin Normal Limits The [facility] Comment on above: Performed By: #### I NFLUAB #### [facility] [address] [place], [place] [address] Dr. Kym Burks Vital Signs Date Time Vital Sign Value Performing Clinician Faci lity 09-08-2024 13:12-0400 Body height 167.6 cm Amy Barger MD Work Phone: [facility] 09-08-2024 13:12-0400 Body mass index (BMI) [Ratio] 33.41 kg/m2 Amy Barger MD Work Phone: [facility] 09-08-2024 13:12-0400 Body weight 93.89 kg Amy Barger MD Work Phone: [facility] 09-08-2024 13:12-0400 Diastolic blood pressure 58 mm[Hg] Amy Barger MD Work Phone: [facility] 09-08-2024 13:12-0400 Heart rate 58 /min Amy Barger MD Work Phone: [facility] 09-08-2024 13:12-0400 Respiratory rate 12 /min Amy Barger MD Work Phone: [facility] 09-08-2024 13:12-0400 SaO2% (BldA) [Mass fraction] 98 % Amy Barger MD Work Phone: [facility] 09-08-2024 13:12-0400 Systolic blood pressure 126 mm[Hg] Amy Barger MD Work Phone: [facility] 07-14-2024 11:05-0400 Body height 167.6 cm Preston Pompa DPM Work Phone: [facility] 07-14-2024 11:05-0400 Body mass index (BMI) [Ratio] 29.86 kg/m2 Preston Brown DPM Work Phone: [facility] 07-14-2024 11:05-0400 Body weight 83.92 kg Preston Pompa DPM Work Phone: [facility] 07-14-2024 11:05-0400 Respiratory rate 16 /min Preston Pompa DPM Work Phone: [facility] 04-28-2024 11:59-0500 Body height 167.6 cm Preston Brown DPM Work Phone: [facility] 04-28-2024 11:59-0500 Body mass index (BMI) [Ratio] 29.86 kg/m2 Preston Brown DPM Work Phone: [facility] 04-28-2024 11:59-0500 Body weight 83.92 kg Preston Brown DPM Work Phone: [facility] 04-28-2024 11:59-0500 Respiratory rate 18 /min Preston Pompa DPM Work Phone: [facility] 01-14-2024 13:30-0500 Body height 167.6 cm Preston Brown DPM Work Phone: [facility] 01-14-2024 13:30-0500 Body mass index (BMI) [Ratio] 29.86 kg/m2 Preston Brown DPM Work Phone: [facility] 01-14-2024 13:30-0500 Body weight 83.92 kg Preston Peña DPM Work Phone: [facility] 01-14-2024 13:30-0500 Diastolic blood pressure 80 mm[Hg] Preston Brown DPM Work Phone: [facility] 01-14-2024 13:30-0500 Heart rate 82 /min Preston Brown DPM Work Phone: [facility] 01-14-2024 13:30-0500 Systolic blood pressure 125 mm[Hg] Preston Brown DPM Work Phone: [facility] 10-22-2023 12:04-0400 Body height 167.6 cm Preston Pompa DPM Work Phone: [facility] 10-22-2023 12:04-0400 Body mass index (BMI) [Ratio] 29.86 kg/m2 Preston Pompa DPM Work Phone: [facility] 10-22-2023 12:04-0400 Body weight 83.92 kg Preston Pompa DPM Work Phone: [facility] 10-22-2023 12:04-0400 Diastolic blood pressure 79 mm[Hg] Preston Pompa DPM Work Phone: [facility] 10-22-2023 12:04-0400 Heart rate 77 /min Preston Peña DPM Work Phone: [facility] 10-22-2023 12:04-0400 Systolic blood pressure 125 mm[Hg] Preston Peña DPM Work Phone: [facility] 09-25-2023 12:32-0400 Body height 167.6 cm Amy Barger MD Work Phone: [facility] 09-25-2023 12:32-0400 Body mass index (BMI) [Ratio] 32.12 kg/m2 Amy Barger MD Work Phone: [facility] 09-25-2023 12:32-0400 Body weight 90.27 kg Amy Barger MD Work Phone: [facility] 09-25-2023 12:32-0400 Diastolic blood pressure 59 mm[Hg] Amy Barger MD Work Phone: [facility] 09-25-2023 12:32-0400 Heart rate 50 /min Amy Barger MD Work Phone: [facility] 09-25-2023 12:32-0400 SaO2% (BldA) [Mass fraction] 99 % Amy Barger MD Work Phone: [facility] 09-25-2023 12:32-0400 Systolic blood pressure 191 mm[Hg] Amy Barger MD Work Phone: [facility] 08-29-2022 14:02-0400 Diastolic blood pressure 66 mm[Hg] Amy Barger MD Work Phone: [facility] 08-29-2022 14:02-0400 Systolic blood pressure 140 mm[Hg] Amy Barger MD Work Phone: [facility] 08-29-2022 13:55-0400 Body height 167.6 cm Amy Barger MD Work Phone: [facility] 08-29-2022 13:55-0400 Body weight 94.03 kg Amy Barger MD Work Phone: [facility] 08-29-2022 13:55-0400 Heart rate 59 /min Amy Barger MD Work Phone: [facility] 08-29-2022 13:55-0400 SaO2% (BldA) [Mass fraction] 100 % Amy Barger MD Work Phone: [facility] 09-13-2021 14:38-0400 Body height 167.6 cm Amy Barger MD Work Phone: [facility] 09-13-2021 14:38-0400 Body weight 82.1 kg Amy Barger MD Work Phone: [facility] 09-13-2021 14:38-0400 Diastolic blood pressure 55 mm[Hg] Amy Barger MD Work Phone: [facility] 09-13-2021 14:38-0400 Heart rate 54 /min Aym Barger MD Work Phone: [facility] 09-13-2021 14:38-0400 SaO2% (BldA) [Mass fraction] 100 % Amy Barger MD Work Phone: [facility] 09-13-2021 14:38-0400 Systolic blood pressure 138 mm[Hg] Amy Barger MD Work Phone: [facility] Encounters Encounter Date Encounter Type Care Provider Facility Start: 09-08-2024 End: 09-08-2024 Patient encounter procedure Amy Barger MD Work Phone: Cardiology Comment on above: Nonrheumatic aortic valve insufficiency (Primary Dx); Nonrheumatic mitral valve regurgitation; Nonrheumatic tricuspid valve regurgitation; Mixed hyperlipidemia; Coronary artery disease involving [place] coronary artery of [place] heart without angina pectoris; Encounter for medication review; Type 2 diabetes mellitus without complication, without long-term current use of insulin ([facility]) Start: 09-08-2024 End: 09-08-2024 ambulatory AMY BARGER Facility:[facility] Start: 09-08-2024 End: 09-08-2024 ambulatory AMY BARGER Facility:[facility] Start: 09-08-2024 End: 09-08-2024 ambulatory AMY BARGER Facility:[facility] Start: 08-29-2024 End: 08-29-2024 ambulatory Jacky Torres MD Work Phone: [facility] Work Phone: Start: 08-29-2024 End: 08-29-2024 Departed Referred Jacky Mosquera MD -[facility] Start: 07-14-2024 End: 07-14-2024 Bamboo flowsheet Preston Pompa DPM Work Phone: [facility] Start: 07-14-2024 End: 07-14-2024 Bamboo flowsheet Preston Pompa DPM Work Phone: [facility] Start: 07-14-2024 End: 07-14-2024 Office outpatient visit 15 minutes Preston Pompa DPM Work Phone: [facility] Comment on above: Cellulitis of left f oot (Primary Dx); Type 2 diabetes mellitus without complication, unspecified whether superintendent container terminal insulin use; Pain due to onychomycosis of toenails of both feet; Xerosis cutis; Peroneal tendinitis, left; Cat bite of ankle, initial encounter Start: 07-14-2024 End: 07-14-2024 ambulatory PRESTON POMPA Not Available Start: 04-28-2024 End: 04-28-2024 Bamboo flowstaylor Pompa DPM Work Phone: [facility] Start: 04-28-2024 End: 04-28-2024 Bamboo flowsheet Preston Pompa DPM Work Phone: [facility] Start: 04-28-2024 End: 04-28-2024 ambulatory PRESTON POMPA Not Available Start: 04-28-2024 End: 04-28-2024 Office outpatient visit 15 minutes Preston Pompa DPM Work Phone: [facility] Comment on above: Peroneal tendinitis, left (Primary Dx); Type 2 diabetes mellitus without complication, unspecified whether superintendent container terminal insulin use (CMS/[facility]); Pain due to onychomycosis of toenails of both feet; Xerosis cutis Start: 01-14-2024 End: 01-14-2024 Bamboo flowsheet Preston Pompa DPM Work Phone: [facility] Start: 01-14-2024 End: 01-14-2024 Bamboo flowsheet Preston Pompa DPM Work Phone: [facility] Start: 01-14-2024 End: 01-14-2024 ambulatory PRESTON POMPA Not Available Start: 01-14-2024 End: 01-14-2024 Office outpatient visit 15 minutes Preston Pompa DPM Work Phone: [facility] Comment on above: Xerosis cutis (Prima ry Dx); Peroneal tendinitis, left; Type 2 diabetes mellitus without complication, unspecified whether snf insulin use (CMS/HCC); Pain due to onychomycosis of toenails of both feet Start: 10-22-2023 End: 10-22-2023 Bamboo flowsheet Preston Pompa DPM Work Phone: [facility] Start: 10-22-2023 End: 10-22-2023 Bamboo flowsheet Preston Pompa DPM Work Phone: [facility] Start: 10-22-2023 End: 10-22-2023 Patient encounter procedure Preston Pompa DPM Work Phone: [facility] Comment on above: Peroneal tendinitis, left (Primary Dx); Type 2 diabetes mellitus without complication, unspecified whether superintendent container terminal insulin use ([facility]); Onychomycosis; Toe pain, bilateral Start: 10-22-2023 End: 10-22-2023 ambulatory PRESTON POMPA Not Available Start: 09-25-2023 End: 09-25-2023 Patient encounter procedure Amy Barger MD Work Phone: Cardiology Comment on above: Nonrheumatic aortic valve insufficiency (Primary Dx); Nonrheumatic mitral valve regurgitation; Nonrheumatic tricuspid valve regurgitation; Mixed hyperlipidemia; Coronary artery disease involving [place] coronary artery of [place] heart without angina pectoris Start: 09-25-2023 End: 09-25-2023 ambulatory AMY BARGER Facility:[facility] Start: 08-06-2023 End: 08-06-2023 ambulatory PRESTON POMPA Not Available Start: 05-11-2023 Orders Only Amy Barger MD Work Phone: Cardiology Comment on above: Nonrheumatic aortic valve insufficiency (Primary Dx) Start: 08-29-2022 End: 08-29-2022 Patient encounter procedure Amy Barger MD Work Phone: Cardiology Comment on above: Nonrheumatic aortic valve insufficiency (Primary Dx); Coronary artery disease involving [place] coronary artery of [place] heart without angina pectoris; Mixed hyperlipidemia; Valvular heart disease; Coronary artery disease involving [place] coronary artery of [place] heart with angina pectoris ([facility]); Type 2 diabetes mellitus without complication, without long-term current use of insulin ([facility]) Start: 03-31-2022 End: 04-01-[address] JACKY [...] regurgitation; Mixed hyperlipidemia; Coronary artery disease involving [place] coronary artery of [place] heart without angina pectoris; Type 2 diabetes [...] valve insufficiency Expected: 09/08/2025, Expires: 12/08/2025 [facility] Comment on above: Expected: 09/08/2025 , Expires: 12/08/2025 Start: 09-08-2025 End: 12-08-2025 Comprehensive metabolic 2000 panel - Serum or Plasma COMPREHENSIVE METABOLIC PANEL Lab Routine Nonrheumatic aortic valve insufficiency Expected: 09/08/2025, Expires: 12/08/2025 [facility] Work Phone: Comment on above: Expected: 09/08/2025 , Expires: 12/08/2025 Start: 09-08-2025 Hepatitis B surface antibody level LDL Cholesterol [facility] Start: 09-08-2025 End: 12-08-2025 Lipid 1996 panel - Serum or Plasma LIPID PANEL, FASTING Lab Routine Nonrheumatic aortic valve insufficiency Expected: 09/08/2025, Expires: 12/08/2025 [facility] Comment on above: Expected: 09/08/2025 , Expires: 12/08/2025 Start: 11-24-2024 Urine microalbumin profile DTa P,Tdap,Td Vaccine (2 - Td or Tdap) [facility] Start: 11-03-2024 End: 11-03-2024 Patient encounter procedure 11/03/2024 10:30 AM EDT Office Visit [facility] [address] [facility] [address] [place] [address] Preston Pompa DPM [address] [facility] [address] [place] [address] [facility] Start: 10-31-2024 Influenza vaccination Influenza Vacc ine (#1) [facility] Start: 09-24-2024 End: 12-24-2024 CBC panel - Blood by Automated count COMPLETE BLOOD COUNT Lab Routine Nonrheumatic aortic valve insufficiency Expected: 09/24/2024, Expires: 12/24/2024 [facility] Comment on above: Expected: 09/24/2024 , Expires: 12/24/2024 Start: 09-24-2024 End: 12-24-2024 Comprehensive metabolic 2000 panel - Serum or Plasma COMPREHENSIVE METABOLIC PANEL Lab Routine Nonrheumatic aortic valve insufficiency Expected: 09/24/2024, Expires: 12/24/2024 [facility] Work Phone: Comment on above: Expected: 09/24/2024 , Expires: 12/24/2024 Start: 09-24-2024 Hepatitis B surface antibody level LDL Cholesterol [facility] Start: 09-24-2024 End: 12-24-2024 Lipid 1996 panel - Serum or Plasma LIPID PANEL BASIC Lab Routine Nonrheumatic aortic valve insufficiency Expected: 09/24/2024, Expires: 12/24/2024 [facility] Comment on above: Expected: 09/24/2024 , Expires: 12/24/2024 Start: 08-30-2024 Bacteria identified in Urine by Culture Urine Culture [facility] Start: 08-30-2024 Urine culture [facility] Start: 07-14-2024 End: 07-14-2024 Patient encounter procedure [facility] Comment on above: Type 2 diabetes [place] itus without complication, unspecified whether superintendent container terminal insulin use (Primary Dx); Pain due to onychomycosis of toenails of both feet; Xerosis cutis; Peroneal tendinitis, left Start: 05-25-2024 Covid-19 Vaccine () Covid-19 Vaccine () [facility] Start: 04-14-2024 End: 04-14-2024 Patient encounter procedure 04/14/2024 10:30 AM EST Office Visit [facility] [address] [facility] [address] [place] [address] Preston Pompa DPM [address] [address] [facility] Start: 03-02-2024 Advance Directive Discussion Advance Directive Discussion [facility] Start: 03-02-2024 Medicare Advantage A nnual Wellness Visit Medicare Advantage Annual Wellness Visit [facility] Start: 01-07-2024 End: 01-07-2024 Patient encounter procedure 01/07/2024 10:40 AM EST Office Visit [facility] [address] [facility] [address] [place] [address] Preston Pompa DPM [address] [address] [facility] Start: 11-01-2023 Influenza vaccination Influenza Vacc ine (#1) [facility] Start: 10-22-2023 End: 10-22-2023 Patient encounter procedure 10/22/2023 11:50 AM EDT Office Visit [facility] [address] [facility] [address] [place] [address] Preston Pompa DPM [address] [address] Peroneal tendinitis, left (Primary Dx); Type 2 diabetes mellitus without complication, unspecified whether superintendent container terminal insulin use (CMS/HCC); Onychomycosis; Toe pain, bilateral [facility] Comment on above: Peroneal tendinitis, left (Primary Dx); Type 2 diabetes mellitus without complication, unspecified whether superintendent container terminal insulin use (CMS/HCC); Onychomycosis; Toe pain, bilateral Start: 09-08-2023 Screening for malign ant neoplasm of colon [facility] Start: 08-13-2023 End: 10-13-2023 CBC panel - Blood by Automated count CBC Lab Routine Nonrheumatic aortic valve insufficiency Expected: 08/13/2023, Expires: 10/13/2023 [facility] Work Phone: Comment on above: Expected: 08/13/2023 , Expires: 10/13/2023 Start: 08-13-2023 End: 10-13-2023 Comprehensive metabolic 2000 panel - Serum or Plasma COMP METABOLIC PANEL Lab Routine Nonrheumatic aortic valve insufficiency Expected: 08/13/2023, Expires: 10/13/2023 [facility] Work Phone: Comment on above: Expected: 08/13/2023 , Expires: 10/13/2023 Start: 08-13-2023 End: 10-13-2023 Lipid 1996 panel - Serum or Plasma LIPID PANEL BASIC Lab Routine Nonrheumatic aortic valve insufficiency Expected: 08/13/2023, Expires: 10/13/2023 [facility] Work Phone: Comment on above: Expected: 08/13/2023 , Expires: 10/13/2023 Start: 04-14-2023 Covid-19 Vaccine () Covid-19 Vaccine () [facility] Start: 03-02-2023 Advance Directive Discussion Advance Directive Discussion [facility] Start: 03-02-2023 Depression Assessment Depression Ass essment [facility] Start: 10-31-2022 Covid-19 Vaccine () Covid-19 Vaccine () [facility] Start: 10-31-2022 Influenza vaccination C [facility] Start: 09-13-2022 Hepatitis B surface antibody level LDL CHOLESTEROL [facility] Start: 08-29-2022 End: 08-29-2022 Basic metabolic 2000 panel - Serum or Plasma BASIC METABOLIC PNL Lab Routine Nonrheumatic aortic valve insufficiency Expected: 08/29/2022, Expires: 08/29/2022 [facility] Work Phone: Comment on above: Expected: 08/29/2022 , Expires: 08/29/2022 Start: 03-02-2022 ADVANCE DIRECTIVE DISCUSSION ADVANCE DIRECTIVE DISCUSSION [facility] Start: 03-02-2022 DEPRESSION ASSESSMENT DEPRESSION ASS ESSMENT [facility] Start: 10-31-2021 Influenza vaccination INFLUENZA (#1) [facility] Start: 09-13-2021 End: 11-13-2021 CBC panel - Blood by Automated count CBC Lab Routine Nonrheumatic aortic valve insufficiency Expected: 09/13/2021, Expires: 11/13/2021 [facility] Work Phone: Comment on above: Expected: 09/13/2021 , Expires: 11/13/2021 Start: 09-13-2021 End: 11-13-2021 Comprehensive metabolic 2000 panel - Serum or Plasma COMP METABOLIC PANEL Lab Routine Nonrheumatic aortic valve insufficiency Expected: 09/13/2021, Expires: 11/13/2021 [facility] Work Phone: Comment on above: Expected: 09/13/2021 , Expires: 11/13/2021 Start: 09-13-2021 End: 11-13-2021 Lipid 1996 panel - Serum or Plasma LIPID PANEL BASIC Lab Routine Nonrheumatic aortic valve insufficiency Expected: 09/13/2021, Expires: 11/13/2021 [facility] Work Phone: Comment on above: Expected: 09/13/2021 , Expires: 11/13/2021 Start: 08-02-2021 COVID-19 VACCINE (5 - Booster for Pfizer series) COVID-19 VACCINE (5 - Booster for Pfizer series) [facility] Start: 03-02-2021 ADVANCE DIRECTIVE DISCUSSION ADVANCE DIRECTIVE DISCUSSION [facility] Start: 06-30-2016 BONE DENSITY BONE DENSITY [facility] Start: 06-30-2016 Screening for osteoporosis Bone Dens ity Screening [facility] Start: 06-21-2016 Screening for malign ant neoplasm of breast Mammogram [facility] Start: 2011 RSV Vaccine (1 - 1-d ose 60+ series) RSV Vaccine (1 - 1-dose 60+ series) [facility] Start: 06-30-2001 SHINGRIX VACCINE (1 of 2) ACKERMAN GRIX VACCINE (1 of 2) [facility] Start: 06-30-1996 COLOGUARD (FIT-DNA) COLOGUARD (FIT-D NA) [facility] Start: 06-30-1996 Colonoscopy COLONOSCOPY [facility] Start: 06-30-1996 COLORECTAL CANCER SCREENING COLORECTAL CANCER SCREENING [facility] Start: 06-30-[address] COLONOGRAPHY [facility] Start: 06-30-1996 FECAL OCCULT BLOOD FECAL OCCULT BLOO D [facility] Start: 06-30-1996 Screening for malign ant neoplasm of colon [facility] Start: 06-30-1996 SIGMOIDOSCOPY SIGMOIDOSCOPY [facility] Start: 1991 Mammography MAMMOGRAM [facility] Start: 1991 Screening for malign ant neoplasm of breast Mammogram Screening [facility] Start: 06-30-1970 Urine microalbumin profile DTAP,TDAP ,TD (1 - Tdap) [facility] Start: 06-30-1969 ANNUAL PCP TEAM PAINTER AIRBRUSH NAOMI DISEASE VISIT ANNUAL PCP TEAM CHRONIC DISEASE VISIT [facility] Start: 06-30-1969 Anxiety Screening Anxiety Screening [facility] Start: 06-30-1969 Depression Screening Depression Scre ening [facility] Start: 06-30-1969 HEPATITIS C SCREENING HEPATITIS C SC [facility] Start: 06-30-1969 Hepatitis C screening Hepatitis C Sc [facility] Start: 1963 Adult depression scr eening assessment DEPRESSION SCREENING [facility] Start: 06-30-1961 3 comp foot exam completed DIABETIC FOOT EXAM [facility] Start: 06-30-1961 Diabetic foot examination Diabetic F oot Exam [facility] Start: 06-30-1961 Glaucoma screening Dilated Retinal E xam [facility] Start: 06-30-1961 Hepatitis B screening URINE ALBUMIN:CREATININE RATIO [facility] Start: 06-30-1961 Hepatitis C antibody , confirmatory test DILATED RETINAL EXAM [facility] Start: 06-30-1957 PNEUMOCOCCAL: 65+ (1 - PCV) PNEUMOCOCCAL: 65+ (1 - PCV) [facility] Start: 06-30-1956 Hemoglobin A1c measurement HbA1C [facility] Start: 06-30-1956 Hemoglobin A1c/Hemoglobin.total in Blood HBA1C [facility] Start: 1951 Screening for malign ant neoplasm of colon [facility] End: 03-10-2023 ECG COMPLETE ECG COMPLETE ECG Routine Nonrheumatic aortic valve insufficiency 1 Occurrences starting 03/10/2022 until 03/10/2023 [facility] Work Phone: Comment on above: 1 Occurrences starti ng 03/10/2022 until 03/10/2023 End: 05-10-2024 ECG COMPLETE ECG COMPLETE ECG Routine Nonrheumatic aortic valve insufficiency 1 Occurrences starting 05/11/2023 until 05/10/2024 [facility] Work Phone: Comment on above: 1 Occurrences starti ng 05/11/2023 until 05/10/2024 End: 09-24-2024 ECG COMPLETE ECG COMPLETE ECG Routine Nonrheumatic aortic valve insufficiency 1 Occurrences starting 09/25/2023 until 09/24/2024 [facility] Comment on above: 1 Occurrences starti ng 09/25/2023 until 09/24/2024 End: 09-08-2025 ECG COMPLETE ECG COMPLETE ECG Routine Nonrheumatic aortic valve insufficiency 1 Occurrences starting 09/08/2024 until 09/08/2025 [facility] Comment on above: 1 Occurrences starti ng 09/08/2024 until 09/08/2025 End: 05-10-2024 Echocardiography ECHO Cardiology Routine Nonrheumatic aortic valve insufficiency 1 Occurrences starting 05/11/2023 until 05/10/2024 [facility] Work Phone: Comment on above: 1 Occurrences starti ng 05/11/2023 until 05/10/2024 End: 09-24-2024 Echocardiography ECHO Cardiology Routine Nonrheumatic aortic valve insufficiency 1 Occurrences starting 09/25/2023 until 09/24/2024 [facility] Comment on above: 1 Occurrences starti ng 09/25/2023 until 09/24/2024 End: 09-08-2025 Echocardiography ECHO Cardiology Routine Nonrheumatic aortic valve insufficiency 1 Occurrences starting 09/08/2024 until 09/08/2025 [facility] Comment on above: 1 Occurrences starti ng 09/08/2024 until 09/08/2025 [facility] Immunizations Immunization Date Immunization Notes Care Provider Martina vaz 11-26-2023 influenza virus vacc ine, unspecified formulation Amy Barger MD Work Phone: [facility] 01-05-2022 influenza virus vacc ine, unspecified formulation Amy Barger MD Work Phone: [facility] Payers Date Payer Category Payer Self-pay 2022 Medicare (Managed Care) [id number]. [id number] 2017 Medicare HUMANA MEDICARE HU[employer]NA GOLD PLUS [id number] 2017-Present [phone] [address] [address] [place] [address] [facility] [id number] 2017 Medicare [id number] 1959 Medicare [id number] 1950 Unknown [id number]. [id number] 1950 Unknown [id number] [id number]. 2.593 1950 Unknown [id number] [id number]. 2.593 1951 Unknown [id number] [id number]. 2.593 1951 Unknown [id number] [id number]. 2.593 1951 Unknown [id number] [id number]. 2.593 1951 Unknown [id number] [id number]. 2.593 1951 Unknown [id number] [id number]. 2.1259 1951 Unknown [id number] [id number]. 2.9 1950 Unknown [id number] [id number]. 2.1259 1950 Unknown [id number] [id number]. 2.9 1950 Unknown [id number]. 2.1259 Social History Date Type Detail Facility Start: 01-21-2019 End: 08-29-2022 Tobacco smoking status NHIS Never smoked tobacco [facility] Start: 01-21-2019 End: 08-29-2022 Tobacco use and exposure Smokeless tobacco non-user [facility] Start: 09-13-2021 End: 09-08-2024 Alcohol intake Lifetime non-drinker (finding) [facility] Start: 01-21-2019 History SDOH Alcohol Frequency 1 [facility] Start: 1950 Sex Assigned At Not on file [facility] Start: 09-03-2021 End: 09-13-2021 Exposure to SARS-CoV-2 (event) Not sure [facility] Start: 01-21-2019 End: 08-29-2022 History of Social function [facility] Start: 01-21-2019 End: 08-29-2022 Alcohol Use Disorder Identification Test - Consumption [AUDIT-C] [facility] How often to you hav e a drink containing alcohol? Never [facility] Average Number of Drinks Not on file [facility] Start: 01-14-2024 End: 07-14-2024 Alcoholic beverage intake Defer [facility] Tobacco smoking stat us NHIS Unknown if ever smoked [facility] Work Phone: Sex Female (finding) [facility] Start: 1950 Sex Assigned At Female F [facility] NEGATED: Highlighted rowStart: NINF History of tobacco use Passive smoker [facility] Medical Equipment Procedure Code Equipment Code Equipment Origin al Text Equipment Identifier Dates [id number] Start: 10-23-2020 Functional Status Date Assessment Result Facility 01-04-2021 Are you deaf, or do you have serious difficulty hearing No 01/04/2021 2:32 PM EDT Oralia Pompa RN [facility] 01-04-2021 Are you blind, or do you have serious difficulty seeing, even when wearing glasses No 01/04/2021 2:32 PM EDT Oralia Pompa RN [facility] 01-04-2021 Do you have serious difficulty walking or climbing stairs No 01/04/2021 2:32 PM EDT Oralia Pompa, MARGIE [facility] 01-04-2021 Do you have difficul ty dressing or bathing No 01/04/2021 2:32 PM EDT Oralia Pompa, MARGIE [facility] 01-04-2021 Because of a physica l, mental, or emotional condition, do you have difficulty doing errands alone such as visiting a physician's office or shopping No 01/04/2021 2:32 PM EDT Oralia Pompa RN [facility] Mental Status Date Assessment Result Facility 01-04-2021 Because of a physica l, mental, or emotional condition, do you have serious difficulty concentrating, remembering, or making decisions No 01/04/2021 2:32 PM EDT Oralia Pompa, MARGIE [facility] Clinical Notes 05-19-2018 to 09-08-2024 Patient InstructionsAmy Barger MD - 09/08/2024 1:00 PM EDKenneth Pompa DPM - 07/14/2024 11:10 AM EDKenneth Pompa DPM - 04/28/2024 11:50 AM ESTPreston Pompa DPM - 01/14/2024 1:20 PM EST Note Date & Type Note Facility 09-08-2024 Instructions Amy Barger MD - 09/08/2024 1:43 PM EDT Recommend stopping Actos (Pioglitazone), as this may be associated with increased risk of heart failure. Continue current medical regimen. Follow up one year with fasting lab work, ECG and echo. documented in this encounter [facility] 09-08-2024 History of Present illness Narrative Images from the original note were not included. [facility] Department of Cardiovascular Medicine SECTION OF CARDIOVASCULAR IMAGING OUTPATIENT VISIT DATE 09/08/2024 OUTPATIENT VISIT TYPE ESTABLISHED PRIMARY CARE PHYSICIAN: Jacky Torres [address] [place] [address] REFERRING PHYSICIAN: Amy Barger [address] [facility] [address] CHIEF COMPLAINT: Follow up HISTORY OF PRESENT [...] who is bedridden following a stroke and GA. She receives assistance from a nurse aide [...] Age of Onset Heart Attack Mother fatal GA at age 70 Diabetes Mother Diabetes Father Heart Father bypass at age 60s Heart Attack Father GA at age 60s other (Other) Father MVA at age 72 Cancer Sister at age 42 other (Other) Brother infant Cancer Sister breast cancer at age 50 No Known Problems Brother Heart Attack Brother fatal GA at age 64 other (ulcers) Brother bleeding [...] or lower 3. Coronary artery disease involving [place] coronary artery of [place] heart without angina pectoris (I25.10) Clinically stable. [...] lab work, ECG and echo. Recording using Travark software for draft documentation of the visit was discussed with the patient/authorized special service representative; all questions welcomed and answered. Patient/authorized special service representative agreed to proceed CONTACT INFORMATION: Amy Barger MD documented in this encounter [facility] 09-08-2024 Note HNO ID: [id number] Author: AMY BARGER MD Service: ? Author Type: Physician Type: Progress Notes Filed: 09/09/2024 08:32 Note Text: [facility] Department of Cardiovascular Medicine SECTION OF CARDIOVASCULAR IMAGING OUTPATIENT VISIT DATE 09/08/2024 OUTPATIENT VISIT TYPE ESTABLISHED PRIMARY CARE PHYSICIAN: Jacky Torres [address] [place] [address] REFERRING PHYSICIAN: Amy Barger [address] [facility] [address] CHIEF COMPLAINT: Follow up HISTORY OF PRESENT [...] who is bedridden following a stroke and GA. She receives assistance from a nurse aide [...] Age of Onset Heart Attack Mother fatal GA at age 70 Diabetes Mother Diabetes Father Heart Father bypass at age 60s Heart Attack Father GA at age 60s other (Other) Father MVA at age 72 Cancer Sister at age 42 other (Other) Brother infant Cancer Sister breast cancer at age 50 No Known Problems Brother Heart Attack Brother fatal GA at age 64 other (ulcers) Brother bleeding [...] 01/04/2021 Echocardiogram:09/08/2024 - (more content not included)... [facility] 07-14-2024 History of Present illness Narrative Patient: [...] taking anti-inflammatories and rates pain a 03/11. Patient also presents today for follow-up of dry skin and fissures to feet and has intermittently been using prescribed or recommended [id number]-[id number] cream with positive improvement. Patient also has complaints of yesterday being bit by a Cat to left great toe region noticed some redness to the area but denies any drainage denies any nausea vomiting chills Allergies: Allergies Allergen Reactions Lisinopril Cough Tramadol Nausea Only Codeine Rash Sulfa Antibiotics Rash Past Medical History: Past Medical History: Diagnosis Date Allergic rhinitis Aortic regurgitation Bradycardia Depression ([facility]) DJD (degenerative joint disease) DM (diabetes mellitus) ([facility]) GERD (gastroesophageal reflux disease) HLD (hyperlipidemia) ([facility]) Hypothyroidism ([facility]) Osteoarthritis PTSD (post-traumatic stress disorder) ([facility]) Skin cancer Medications: [...] and positive PT pedal pulses NEURO: 5.07 [place] Ehsan monofilament test positive to digits and [...] 2 diabetes mellitus without complication, unspecified whether snf insulin use 3. Pain due to onychomycosis [...] Preston Pompa DPM documented in this encounter [facility] 04-28-2024 History of Present illness [...] has periodically been using prescribed or recommended xxgu-qgy-[id number] cream with minimal improvement. Allergies: Allergies Allergen Reactions Lisinopril Cough Tramadol Nausea Only Codeine Rash Sulfa Antibiotics Rash Past Medical History: Past Medical History: Diagnosis Date Allergic rhinitis Aortic regurgitation Bradycardia Depression ([facility]) DJD (degenerative joint disease) DM (diabetes mellitus) ([facility]) GERD (gastroesophageal reflux disease) HLD (hyperlipidemia) ([facility]) Hypothyroidism ([facility]) Osteoarthritis PTSD (post-traumatic stress disorder) ([facility]) Skin cancer Medications: [...] and positive PT pedal pulses NEURO: 5.07 [place] Ehsan monofilament test positive to digits and forefoot bilaterally 125Hz tuning fork positive to 1st MPJ bilaterally ORTHO: Positive pain on palpation to toenails of the left 1,2,3,4,5 toes and right 1,2,3,4,5 toes minimal pain on palpation left peroneal brevis tendon near insertion to the 5th metatarsal base ASSESSMENT 1. Type 2 diabetes mellitus without complication, unspecified whether superintendent container terminal insulin use ([facility]) 2. Pain due to onychomycosis [...] or drainage to feet. Patient to consider horx-lys-smvspot treatments for medication or use of urea cream and prescription today was offered for Lac-Hydrin cream. Preston Pompa DPM documented in this encounter [facility] 01-14-2024 History of Present illness [...] Date Allergic rhinitis Aortic regurgitation Bradycardia Depression ([facility]) DJD (degenerative joint disease) DM (diabetes mellitus) ([facility]) GERD (gastroesophageal reflux disease) HLD (hyperlipidemia) ([facility]) Hypothyroidism ([facility]) Osteoarthritis PTSD (post-traumatic stress disorder) ([facility]) Skin cancer Medications: [...] and positive PT pedal pulses NEURO: 5.07 [place] Ehsan monofilament test positive to digits and forefoot bilaterally 125Hz tuning fork positive to 1st MPJ bilaterally ORTHO: Positive pain on palpation to nails 1 through 10 Minimal pain on palpation left peroneal brevis tendon near insertion to the 5th metatarsal base ASSESSMENT 1. Peroneal tendinitis, left 2. Type 2 diabetes mellitus without complication, unspecified whether snf insulin use ([facility]) 3. Pain due [...] or drainage to feet. Patient to consider sbnu-hzb-wlphkhg treatments for medication or use of urea cream and prescription today was offered for Lac-Hydrin cream. Patient has urea cream and advised her to continue with daily as she has only been using once per week Preston Pompa DPM documented in this encounter [facility] 10-22-2023 History of Present illness [...] DJD (degenerative joint disease) DM (diabetes mellitus) ([facility]) GERD (gastroesophageal reflux disease) HLD (hyperlipidemia) ([facility]) Hypothyroidism ([facility]) Osteoarthritis PTSD (post-traumatic stress disorder) ([facility]) Skin cancer Medications: [...] and positive PT pedal pulses NEURO: 5.07 [place] Ehsan monofilament test positive to digits and forefoot bilaterally 125Hz tuning fork positive to 1st MPJ bilaterally ORTHO: Positive pain on palpation to nails 1 through 10 Minimal pain on palpation left peroneal brevis tendon near insertion to the 5th metatarsal base ASSESSMENT 1. Peroneal tendinitis, left 2. Type 2 diabetes mellitus without complication, unspecified whether superintendent container terminal insulin use ([facility]) 3. Onychomycosis 4. [...] Preston Pompa DPM documented in this encounter [facility] 09-25-2023 Instructions Amy Barger MD [...] on the day documented in this encounter [facility] 09-25-2023 History of Present illness Narrative Images from the original note were not included. [facility] Department of Cardiovascular Medicine SECTION OF CARDIOVASCULAR IMAGING OUTPATIENT VISIT DATE 09/25/2023 OUTPATIENT VISIT TYPE ESTABLISHED PRIMARY CARE PHYSICIAN: Jacky Torres [address] [place] [address] REFERRING PHYSICIAN: Amy Barger [address] [facility] [address] CHIEF COMPLAINT: Follow up visit. HISTORY OF [...] Age of Onset Heart Attack Mother fatal GA at age 70 Diabetes Mother Diabetes Father Heart Father bypass at age 60s Heart Attack Father GA at age 60s other (Other) Father MVA at age 72 Cancer Sister at age 42 other (Other) Brother infant Cancer Sister breast cancer at age 50 No Known Problems Brother Heart Attack Brother fatal GA at age 64 other (ulcers) Brother bleeding [...] ICD10: E78.2 5. Coronary artery disease involving [place] coronary artery of [place] heart without angina pectoris - ICD9: 414.01, [...] Barger MD documented in this encounter [facility] 09-25-2023 Note HNO ID: [id number] Author: AMY BARGER MD Service: ? Author Type: Physician Type: Progress Notes Filed: 09/26/2023 17:05 Note Text: [facility] Department of Cardiovascular Medicine SECTION OF CARDIOVASCULAR IMAGING OUTPATIENT VISIT DATE 09/25/2023 OUTPATIENT VISIT TYPE ESTABLISHED PRIMARY CARE PHYSICIAN: Jacky Torres [facility] [place] [address] REFERRING PHYSICIAN: Amy Barger [address] [facility] [address] CHIEF COMPLAINT: Follow up visit. HISTORY OF [...] Age of Onset Heart Attack Mother fatal GA at age 70 Diabetes Mother Diabetes Father Heart Father bypass at age 60s Heart Attack Father GA at age 60s other (Other) Father MVA at age 72 Cancer Sister at age 42 other (Other) Brother Cancer Sister breast cancer at age 50 No Known Problems Brother Heart Attack Brother fatal GA at age 64 other (ulcers) Brother bleeding [...] function is normal. (more content not included)... [facility] 08-29-2022 Instructions Amy Barger MD - 08/29/2022 2:29 PM EDT Recommend stopping pioglitazone. documented in this encounter [facility] 08-29-2022 History of Present illness Narrative Images from the original note were not included. [facility] Department of Cardiovascular Medicine SECTION [...] Age of Onset Heart Attack Mother fatal GA at age 70 Diabetes Mother Diabetes Father Heart Father bypass at age 60s Heart Attack Father GA at age 60s other (Other) Father MVA at age 72 Cancer Sister at age 42 other (Other) Brother Cancer Sister breast cancer at age 50 No Known Problems Brother Heart Attack Brother fatal GA at age 64 other (ulcers) Brother bleeding [...] coordinated. CARDIOVASCULAR MEDICINE TESTIN. Echocardiogram: 08/24/2020 2. meteorological technician: 02/01/2019 to 02/14/[address] coronary angiogram: 11/21/2020 4. Cath angiogram: 01/05/2021 5. Echocardiogram: 09/13/2021 6. Outside echocardiogram: 09/15/2018 7. Outside echocardiogram: 04/29/2004 7. Outside myocardial perfusion study: 09/15/2018 I have personally reviewed the echocardiograms, receipt and report clerk, coronary CTA and outside cardiac investigations. Outside [...] studies and ECG and Echocardiogram. CONTACT INFORMATION: mAy Barger MD documented in this encounter [facility] 09-13-2021 History of Present illness Narrative Images from the original note were not included. [facility] Cardi[facility] Medicine SECTION [...] Age of Onset Heart Attack Mother fatal [place] at age 70 Diabetes Mother Diabetes Father Heart Father bypass at age 60s Heart Attack Father [place] at age 60s other (Other) Father MVA at age 72 Cancer Sister at age 42 other (Other) Brother infant Cancer Sister breast cancer at age 50 No Known Problems Brother Heart Attack Brother fatal [place] at age 64 other (ulcers) Brother bleeding [...] coordinated. CARDIOVASCULAR MEDICINE TESTIN. Echocardiogram: 08/24/2020 2. meteorological technician: 02/01/2019 to 02/14/[address] coronary angiogram: 11/21/2020 4. Cath angiogram: 01/05/2021 5. Echocardiogram: 09/13/2021 6. Outside echocardiogram: 09/15/2018 7. Outside echocardiogram: 04/29/2004 7. Outside myocardial perfusion study: 09/15/2018 I have personally reviewed the echocardiograms, receipt and report clerk, coronary CTA and outside cardiac investigations. Outside [...] recovered from it. Echocardiography at the [facility] reveals stable mild aortic regurgitation, and [...] Barger MD documented in this encounter [facility] 05-19-2018 History of Past i llness Narrative Problem Noted Date Resolved Date Pure hypercholesterolemia, unspecified 9 08/24/2020 documented as of this encounter (statuses as of 09/14/2021) [facility] History of Past illness Narrative* Problem Noted Date Resolved Date Pure hypercholesterolemia, unspecified 9 08/24/2020 documented as of this encounter (statuses as of 03/11/2022) [facility] History of Past illness Narrative* Problem Noted Date Resolved Date Pure hypercholesterolemia, unspecified 9 08/24/2020 documented as of this encounter (statuses as of 08/30/2022) [facility] History of Past illness Narrative* Problem Noted Date Diagnosed Date Resolved Date Pure hypercholesterolemia, unspecified 05/19/2018 08/24/2020 documented as of this encounter (statuses as of 05/11/2023) [facility] Diagnosis Nonrheumatic aortic valve insufficiency- Primary Aortic valve disorders Nonrheumatic mitral valve regurgitation Nonrheumatic tricuspid valve regurgitation Tricuspid valve disorders, specified as nonrheumatic Mixed hyperlipidemia Coronary artery disease involving [place] coronary artery of [place] heart without angina pectoris Type 2 diabetes mellitus without complication, without long-term current use of insulin (HCC) [facility] Diagnosis Nonrheumatic aortic valve insufficiency- Primary Aortic valve disorders [facility] Diagnosis Nonrheumatic aortic valve insufficiency- Primary Aortic valve disorders Coronary artery disease involving [place] coronary artery of [place] heart without angina pectoris Mixed hyperlipidemia Valvular heart disease Endocarditis, valve unspecified, 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 (HCC) Type 2 diabetes mellitus without complication, without long-term current use of insulin ([facility]) [facility] Diagnosis Nonrheumatic aortic valve insufficiency- Primary Aortic valve disorders [facility] Diagnosis Nonrheumatic aortic valve insufficiency- Primary Aortic valve disorders Nonrheumatic mitral valve regurgitation Nonrheumatic tricuspid valve regurgitation Tricuspid valve disorders, specified as nonrheumatic Mixed hyperlipidemia Coronary artery disease involving [place] coronary artery of [place] heart without angina pectoris [facility]* Diagnosis Xerosis cutis- Primary Other specified disease of sebaceous glands Peroneal tendinitis, left Type 2 diabetes mellitus without complication, unspecified whether superintendent container terminal insulin use ([facility]) Pain due to onychomycosis of toenails of both feet [facility] Peroneal tendinitis, left- Primary Type 2 diabetes mellitus without complication, unspecified whether snf insulin use (CMS/[facility]) Onychomycosis Dermatophytosis of nail Toe pain, bilateral documented in this encounter [facility]* Diagnosis Peroneal tendinitis, left- Primary Type 2 diabetes mellitus without complication, unspecified whether superintendent container terminal insulin use (CMS/HCC) Pain due to onychomycosis of toenails of both feet Xerosis cutis Other specified disease of sebaceous glands documented in this encounter [facility] note* Diagnosis Cellulitis of left foot- Primary Type 2 diabetes mellitus without complication, unspecified whether snf insulin use Pain due to onychomycosis of toenails of both feet Xerosis cutis Other specified disease of sebaceous glands Peroneal tendinitis, left Cat bite of ankle, initial encounter documented in this encounter [facility] HealthcareEvaluation noteNo assessment information availableTrihealth Good Samaritan Hospital Work Phone: Evaluation note* Diagnosis Nonrheumatic aortic valve insufficiency- Primary Aortic valve disorders Nonrheumatic mitral valve regurgitation Nonrheumatic tricuspid valve regurgitation Tricuspid valve disorders, specified as nonrheumatic Mixed hyperlipidemia Coronary artery disease involving [place] coronary artery of [place] heart without angina pectoris Encounter for medication review Encounter for long-term (current) use of other medications Type 2 diabetes mellitus without complication, without long-term current use of insulin (HCC) documented in this encounter [facility] for referral (narrative)* Outpatient Procedure (Routine) - Authorized Specialty Diagnoses / Procedures Referred By Sudha guerin Referred To Contact [facility] Diagnoses Nonrheumatic aortic valve insufficiency Procedures ECG COMPLETE ECG ROUTINE ECG W/LEAST 12 LDS W/I&R Amy Barger MD [address] [place] [address] [address] Referral ID Status Reason Start Date Expiration Date Visits Requested Visits Authorized [id number] Authorized Auto-Generat ed Referral 03/10/2022 03/10/2023 1 1 [facility] for referral (narrative)* Outpatient Procedure (Routine) - Authorized Specialty Diagnoses / Procedures Referred By Sudha guerin Referred To Contact [facility] Diagnoses Nonrheumatic aortic valve insufficiency Procedures ECG COMPLETE ECG ROUTINE ECG W/LEAST 12 LDS W/I&R Amy Barger MD [address] [place] [address] [address] Referral ID Status Reason Start Date Expiration Date Visits Requested Visits Authorized [id number] Authorized Auto-Generat ed Referral 05/11/2023 05/10/2024 1 1 * Outpatient Procedure (Routine) - Pending Review Specialty Diagnoses / Procedures Referred By Sudha guerin Referred To Contact [facility] Diagnoses Nonrheumatic aortic valve insufficiency Procedures ECHO ECHO TTHRC R-T 2D W/WOM-MODE COMPL SPEC&COLR D Amy Barger MD [address] [place] [address] [address] Referral ID Status Reason Start Date Expiration Date Visits Requested Visits Authorized [id number] Pending Review Auto-Generat ed Referral 05/11/2023 05/10/2024 1 1 [facility] for referral (narrative)* Outpatient Procedure (Routine) - New Request Specialty Diagnoses / Procedures Referred By Contac t Referred To Contact [facility] Diagnoses Nonrheumatic aortic valve insufficiency Procedures ECHO ECHO TTHRC R-T 2D W/WOM-MODE COMPL SPEC&COLR D Amy Barger MD [address] [place] [address] [address] Referral ID Status Reason Start Date Expiration Date Visits Requested Visits Authorized [id number] New Request Auto-Generat ed Referral 09/25/2023 09/24/2024 1 1 * Outpatient Procedure (Routine) - New Request Specialty Diagnoses / Procedures Referred By Contac t Referred To Contact [facility] Diagnoses Nonrheumatic aortic valve insufficiency Procedures ECG COMPLETE ECG ROUTINE ECG W/LEAST 12 LDS W/I&R Amy Barger MD [address] [place] [address] [address] Referral ID Status Reason Start Date Expiration Date Visits Requested Visits Authorized [id number] New Request Auto-Generat ed Referral 09/25/2023 09/24/2024 1 1 * Transition of Care (Routine) - Ref Not Required Specialty Diagnoses / Procedures Referred By Contac t Referred To Contact [facility] Procedures CARDIOVASCULAR MEDICINE OP FOLLOW UP APPT ORDER Amy Barger MD [address] [place] [address] [facility] [place] [address] Referral ID Status Reason Start Date Expiration Date Visits Requested Visits Authorized [id number] Ref Not Required PCP Requested Referral 06/26/2024 09/24/2024 1 1 [facility] (narrative)No reason for referral information availableTrihealth Good Samaritan Hospital Work Phone: Advance Directives No Advanced Directives Records FoundDocuments on File Type Date Recorded 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 Expl anation Advance Directive(s) 12/14/2020 3:08 PM [...] prosecute any alcohol or drug abuse patient.[facility] Hospital[facility] the event this information is protected by the Federal Confidentiality of Alcohol and Drug Abuse Patient Records regulations: The Federal rules restrict any use of the information to criminally investigate or prosecute any alcohol or drug abuse patient.[facility] Hospital[facility] the event this information is protected by the Federal Confidentiality of Alcohol and Drug Abuse Patient Records regulations: The Federal rules restrict any use of the information to criminally investigate or prosecute any alcohol or drug abuse patient.[facility] HospitalIn the event this information is protected by the Federal Confidentiality of Alcohol and Drug Abuse Patient Records regulations: The Federal rules restrict any use of the information to criminally investigate or prosecute any alcohol or drug abuse patient.[facility] HospitalIn the event this information is protected by the Federal Confidentiality of Alcohol and Drug Abuse Patient Records regulations: The Federal rules restrict any use of the information to criminally investigate or prosecute any alcohol or drug abuse patient.[facility] HospitalIn the event this information is protected by the Federal Confidentiality of Alcohol and Drug Abuse Patient Records regulations: The Federal rules restrict any use of the information to criminally investigate or prosecute any alcohol or drug abuse patient.[facility] Reason for Visit (unrecogniz ed section and content) Reason Comments Follow Up Reason Comments Coronary Artery Disease Valvular Heart Disease Reason Comments DM Foot Care Dm Nails Reason Comments DM Foot Care Dm nail care Reason Comments CARD Follow Up Annual Occasional chest p ain . 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 Specialty Start Date End Date Jacky Torres MD [address] [place], [place] [id number] PCP - General Family Practice 01/21/19 Amy Barger MD [address] [place] [address] Primary Staff Physician Cardiology 08/24/20 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 Relationship Specialty [place] [address] [place], [place] [id number] PCP - General Family Medicine 01/21/19 Amy Barger MD [address] [place] [address] Primary Staff Physician Cardiology 08/24/20 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 Relationship Specialty Start Date End Date Jacky Torres MD PCP - General Family Medicine 01/21/19 Amy Barger MD [address] [place] [address] Primary Staff Physician Cardiology 08/24/20 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 Relationship Specialty Start Date End Date Jacky Torres MD PCP - General Family Medicine 01/21/19 Amy Barger MD [address] [place], [place] [id number] Primary Staff Physician Cardiology 08/24/20 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 Relationship Specialty Start Date End Date Jacky Torres MD PCP - General Family Medicine 01/21/19 Amy Barger MD [address] [place] [address] Primary Staff Physician Cardiology 08/24/20 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 Relationship Specialty Start Date End Date Jacky Torres MD [address] [place] [address] PCP - General Family Medicine 02/12/23 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 Relationship Specialty Start Date End Date Jacky Torres MD [address] [place] [address] PCP - General Family Medicine 02/12/23 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 Relationship Specialty Start Date End Date Jacky Torres MD [address] [place] [address] PCP - General Family Medicine 02/12/23 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 Relationship Specialty Start Date End Date Jacky Torres MD [address] [place] [address] PCP - General Family Medicine 02/12/23 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 Relationship Specialty Start Date End Date Jacky Torres MD [address] [place] [address] PCP - General Family Medicine 02/12/23 Team Status: Active Member Role Status Dates Jacky Torres MD Primary Care Provider Active Team Status: Inactive Member Role Status Dates Jacky Torres MD Primary Care Provider Active Start: August 29, 2024 End: August 29, 2024 Jacky Torres MD Attending Provider Active Sta rt: August 29, 2024 End: August 29, 2024 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 Relationship Specialty Start Date End Date Jacky Torres MD PCP - General Family Medicine 01/21/19 Amy Barger MD [address] [place] [address] Primary Staff Physician Cardiology 08/24/20 INFORMATION SOURCE (unrecogn ized section and content) DATE CREATED AUTHOR 04/03/2022 [facility] DATE CREATED AUTHOR AUTHOR'S ORGANIZ ATION 07/15/2024 [facility] EPIC DATE CREATED AUTHOR AUTHOR'S ORGANIZ ATION 09/01/2024 [facility] DATE CREATED AUTHOR AUTHOR'S ORGANIZ ATION 09/21/2024 [facility] Goals (unrecognized section and content) Goals may [...] BE BASED ON THE PRIMARY CLINICAL RECORDS. [employer] [facility]. provides no warranty or guarantee of the accuracy or completeness of information in this document.
[2024-10-25] MEDS: HYDROCODONE/ACET 5-325 MG TABLET 1 TAB PO (08:26)
[2024-10-25] MEDS: METHOCARBAMOL 500 MG TABLET PO (08:27)
[2024-10-25] MEDS: LIDOCAINE 5% PATCH 1 PATCH TOPICAL (08:27)
[2024-10-25] MEDS: IBUPROFEN 600 MG TABLET PO (08:27)
--- NOTE | 2024-10-25 08:41 | ED.GENADUL1 ---
HPI HPI - General Adult General Chief complaint: Back Pain/Injury Stated complaint: BACK AND SIDE PAIN Time Seen by Provider: 10/25/24 08:01 Source: patient Mode of arrival: Wheelchair History of Present Illness HPI narrative: Patient is a 74-year-old female presenting to the emergency department for atraumatic right-sided flank pain. Patient states she was sitting in the car on the way home from [place] yesterday when she fell asleep. When she awoke, she started experiencing pain in the right side. She denies any injuries or car accidents. She states that it is painful to the touch and with certain movements. She denies any other associated symptoms such as chest pain, abdominal pain, nausea, vomiting, dysuria, or hematuria. No history of pyelonephritis or kidney stones. She denies shortness of breath, but states the pain takes her breath away . She has not taken any medications for pain. Related Data Home Medications ?Medication ?Instructions ?Recorded ?Confirmed aspirin 81 mg capsule 81 mg PO DAILY 03/24/23 10/25/24 diclofenac sodium 75 mg 75 mg PO Q12H PRN pain 03/24/23 03/24/23 tablet,delayed release glimepiride 4 mg tablet 4 mg PO DAILY 03/24/23 10/25/24 levothyroxine 100 mcg tablet 100 mcg PO DAILY 03/24/23 10/25/24 (Levo-T) metformin 1,000 mg tablet 1,000 mg PO BID 03/24/23 10/25/24 pioglitazone 30 mg tablet 30 mg PO QDAY 03/24/23 10/25/24 rosuvastatin 40 mg tablet (Crestor) 40 mg PO DAILY 03/24/23 10/25/24 sertraline 25 mg tablet (Zoloft) 25 mg PO DAILY 03/24/23 03/24/23 ezetimibe 10 mg tablet 10 mg PO DAILY 10/25/24 10/25/24 meloxicam 15 mg tablet 15 mg PO DAILY 10/25/24 10/25/24 Previous Rx's ?Medication ?Instructions ?Recorded hydrocodone 5 mg-acetaminophen 325 1 tab PO Q6H PRN pain 3 days #12 08/12/23 mg tablet tabs methocarbamol 750 mg tablet 750 mg PO TID PRN pain #20 tabs 08/12/23 Allergies Allergy/AdvReac Type Severity Reaction Status Date / Time codeine Allergy Unknown Verified 03/24/23 11:13 Sulfa (Sulfonamide Allergy Unknown Verified 03/24/23 11:13 Antibiotics) tramadol (From Ultram) Allergy Unknown Verified 03/24/23 11:13 Opioid HPI Opioid Management Most Recent Opioid Data: Last Pain Scale 5 09/16/24, 08:01 Review of Systems ROS Status of ROS 10 or more systems reviewed and unremarkable except as noted in history and below PFSH PFS Social History Little interest or pleasure in doing things: not at all Feeling down, depressed, or hopeless: not at all Exam Narrative Exam Narrative: CONSTITUTIONAL: Well-appearing, answering questions and following commands appropriately SKIN: Was warm and dry, no rashes on the flank. EYES: Sclerae white. EARS, NOSE, THROAT: Moist oral mucosa. RESPIRATORY: Clear to auscultation bilaterally, no wheezes, crackles, or stridor, no use of accessory muscles CARDIOVASCULAR: Normal rate and regular rhythm. There is no S3, S4, murmur, rub. GASTROINTESTINAL: Abdomen soft, nontender, nondistended. No CVA tenderness. MUSCULOSKELETAL: There is reproducible tenderness palpation throughout the right side/flank. She has full range of motion throughout the bilateral upper extremities and torso. There is no overlying ecchymosis or bony tenderness. NEUROLOGIC: Patient is awake and alert. Facies were symmetrical. Constitutional Vital Signs, click to edit/add: Last Vital Signs Temp 98.3 F 10/25/24 07:57 Pulse 58 L 10/25/24 07:57 Resp 20 10/25/24 07:57 BP 140/70 10/25/24 07:57 Pulse Ox 96 10/25/24 07:57 O2 Del Method Room Air 10/25/24 07:57 Course Vital Signs Vital signs: Vital Signs Temperature 98.3 F 10/25/24 07:57 Pulse Rate 58 L 10/25/24 07:57 Respiratory Rate 20 10/25/24 07:57 Blood Pressure 140/70 10/25/24 07:57 Pulse Oximetry 96 10/25/24 07:57 Oxygen Delivery Method Room Air 10/25/24 07:57 Temperature 98.3 F 10/25/24 07:57 Pulse Rate 58 L 10/25/24 07:57 Respiratory Rate 20 10/25/24 07:57 Blood Pressure 140/70 10/25/24 07:57 Pulse Oximetry 96 10/25/24 07:57 Oxygen Delivery Method Room Air 10/25/24 07:57 Medical Decision Making MDM Narrative Medical decision making narrative: Patient is a 74-year-old female presenting to the emergency department atraumatic right flank pain beginning 24 hours ago. Vital signs arrival are within normal limits. She is afebrile and hemodynamically stable. Examination as noted above, however was notable for reproducible tenderness to palpation about the right flank. My clinical impression is that the patient's symptoms are secondary to musculoskeletal pain. Given that the pain is located over the right flank, and she is a diabetic, I did consider pyelonephritis - though this is of lower likelihood. Urinalysis was obtained to further investigate. Other potential etiologies include early presentation for herpes zoster. Given there were no injuries, I do no believe any imaging is indicated at this time. She was treated symptomatically with oral [place], Motrin, Robaxin, lidocaine patch. UA was negative for acute infection or hematuria. I do believe the patient stable for discharge. She states her pain is somewhat improved. Her presentation is most likely consistent musculoskeletal pain. She was instructed to follow-up with her family doctor for further care. Return precautions are given including any new or concerning symptoms. Patient understands and agrees the plan. FINAL IMPRESSION: #Acute musculoskeletal back pain DISPOSITION: Discharged home CONDITION: Good Lab Data Lab results reviewed: Yes I reviewed the patient's lab results Labs: Lab Results 10/25/24 Range/Units 08:27 Urine Color Lt. yellow (YELLOW) Urine Clarity Clear (CLEAR) Urine pH 6.5 (5.0-9.0) Ur Specific [place] 1.020 (1.005-1.025) Urine Protein Trace (NEG/TRACE) mg/dL Urine Glucose (UA) Negative (NEGATIVE) mg/dL Urine Ketones Negative (NEGATIVE) mg/dL Urine Occult Blood Trace-i (NEGATIVE) Urine Nitrite Negative (NEGATIVE) Urine Bilirubin Negative (NEGATIVE) Urine Urobilinogen 0.2 (0.2-1.0) EU/dL Ur Leukocyte Esterase Negative (NEGATIVE) Discharge Plan Discharge Chief Complaint: Back Pain/Injury Clinical Impression: Thoracic back pain Qualifiers: Chronicity: acute Back pain laterality: right Qualified Code(s): M54.6 - Pain in thoracic spine Patient Disposition: Home, Self-Care Time of Disposition Decision: 08:59 Condition: Good Mode of Transportation: Private Vehicle Prescriptions / Home Meds: No Action hydrocodone-acetaminophen 5-325 mg tablet 1 tab PO Q6H PRN (Reason: pain) 3 Days Qty: 12 0RF Rx Instructions: DX: R10.2 methocarbamol 750 mg tablet 750 mg PO TID PRN (Reason: pain) Qty: 20 0RF sertraline [Zoloft] 25 mg tablet 25 mg PO DAILY aspirin 81 mg capsule 81 mg PO DAILY metformin 1,000 mg tablet 1,000 mg PO BID levothyroxine [Levo-T] 100 mcg tablet 100 mcg PO DAILY rosuvastatin [Crestor] 40 mg tablet 40 mg PO DAILY glimepiride 4 mg tablet 4 mg PO DAILY diclofenac sodium 75 mg tablet,delayed release (DR/EC) 75 mg PO Q12H PRN (Reason: pain) pioglitazone 30 mg tablet 30 mg PO QDAY ezetimibe 10 mg tablet 10 mg PO DAILY meloxicam 15 mg tablet 15 mg PO DAILY Print Language: [place] Instructions: Back Pain (ED) Referrals: Franklyn Torres MD [Primary Care Provider, Family Practice] - 1 week
[2024-10-25 08:51] LABS: Glucose Urine UA NEGATIVE (NEGATIVE)
[2024-10-25 09:14] LABS: Cast Seen? NONE SEEN #/LPF (NONE SEEN); Crystals Seen? None Seen #/HPF (None Seen)
== END 2024-10-25 09:15 | disposition home or self-care (01) ==
PROVIDERS: Emergency Provider Student in an Organized Health Care Education/Training Program; PCP Family Medicine
DX: M54.6 Pain in thoracic spine (principal); E11.9 Type 2 diabetes mellitus without complications; Z79.84 Long term (current) use of oral hypoglycemic drugs
CPT/HCPCS: 81001; 99284